=== PATIENT | female | born 1950 | race Caucasian/White ===

== ENCOUNTER 2016-08-18 14:40 | Inpatient (IN) ==
[2016-08-18] MEDS ORDERED: Ipratropium/Albuterol Neb 3 ML IH ONE ×2 (14:58→16:49)
[2016-08-18] MEDS ORDERED: methylPREDNISolone 125 MG/2 ML VIAL IVP ONE (14:59)
--- NOTE | 2016-08-18 15:06 | Emergency Department Note ---
Disposition Clinical Impression: COPD with exacerbation, Bed bug bite, Anemia, Renal insufficiency Disposition: Admitted As Inpatient Condition: Good Referrals: NO,PCP [Primary Care Provider] - Forms: ED Satisfaction Letter SOB HPI - General Chief Complaint: ED Shortness of Breath/Dyspnea Stated Complaint: SOB Time Seen by Provider: 08/18/16 14:46 Source: patient Nursing Notes Reviewed: Yes Vital Signs Reviewed: Yes - History of Present Illness 65-year-old female presents emergency room for shortness of breath for the past few weeks. Patient has an underlying history of COPD. She is a current every day smoker. She does not work home oxygen. She was brought to the ER via ambulance. Patient smokes anywhere from half a pack cigarettes or more a day. She has a long history of smoking. She denies chest pain. She does admit to increasing cough but no significant sputum production. No lower leg pain or swelling. No other complaints at this time. She was found to have bedbugs upon arrival to the ER. She was put through the decontamination shower. Pt Subjective Complaint: shortness of breath Onset (ago): week(s) Context: smoke/fume exposure Severity: mild Consistency/Duration: constant Improves with: oxygen Worsens with: nothing Known history of: COPD Associated symptoms: Reports: cough, wheezing, sputum production. Denies: chest pain Treatment prior to arrival: oxygen Cough present: Yes Cough Description: Productive, Moist Cough Frequency: Intermittent Sputum production: Yes Sputum Amount: Small - Related Data Home Medications Medication Instructions Recorded Confirmed Lisinopril [Zestril] 40 mg PO DAILY 07/15/15 01/02/16 Alprazolam [Xanax 0.5 MG Tablet] 0.5 mg PO DAILY PRN 01/02/16 01/02/16 Amoxicillin [Amoxil] 500 mg PO TID 01/02/16 01/02/16 Carvedilol [Coreg] 25 mg PO BID 01/02/16 01/02/16 Pravastatin Sodium [Pravachol] 20 mg PO DAILY 01/02/16 01/02/16 Previous Rx's Medication Instructions Recorded Albuterol Sulfate [Proair Hfa] 1 puff IH Q4HR PRN #1 inh 07/24/15 Ipratropium/Albuterol Neb [Duoneb] 3 ml IH [id number] #120 inhsol 12/04/15 Nicotine Patch [Nicoderm] 21 mg TD DAILY #30 patch.td24 12/04/15 PredniSONE 40 mg PO DAILY #32 tablet 12/04/15 Albuterol Sulfate [Albuterol 0 puff IH Q4HR #1 hfa.aer.ad 03/08/16 Inhaler] GuaiFENesin/Pseudophedrine 1 each PO BID #10 tab.er.12h 03/08/16 [Mucinex D] Allergies Allergy/AdvReac Type Severity Reaction Status Date / Time No Known Allergies Allergy Verified 12/03/15 16:32 All systems ED: reviewed and negative except as stated. Cardiovascular: Reports: as per HPI Respiratory: Reports: cough, dyspnea, wheezes Gastrointestinal: Reports: as per HPI Musculoskeletal: Reports: as per HPI Integumentary: Reports: as per HPI Neurological: Reports: as per HPI Psychiatric: Reports: as per HPI Endocrine: Reports: as per HPI Hematological/Lymphatic: Reports: as per HPI Allergic/Immunologic: Reports: as per HPI Past Medical History - Past Medical History Medical history: Reports: cancer, COPD Surgical history: Reports: cancer surgery Psychiatric history: Reports: anxiety, depression, schizophrenia - Social History Smoking Status: Current every day smoker Smokeless Tobacco Status: No Alcohol use: Reports: none Drug use: Reports: none Physical Exam - General General appearance: alert, in no apparent distress - Head Head exam: atraumatic, normocephalic - Chest Chest inspection: Present: normal inspection, symmetric chest wall rise. Absent : tenderness, rash - Respiratory Respiratory exam: Present: wheezes (Bilateral wheezes heard throughout) - Cardiovascular Cardiovascular exam: Present: regular rate, normal rhythm - Abdominal Exam Abdominal exam: Present: soft, Non-Tender - Rectal Exam Leadership Program Intern present during exam: Yes (Tech ) Rectal exam: Present: normal inspection, normal rectal tone. Absent: black stool, bloody stool, hemorrhoids, mass, tenderness - Extremities Exam Extremities exam: Present: normal inspection, full ROM. Absent: tenderness, pedal edema, joint swelling - Back Exam Back exam: Present: normal inspection - Neurological Exam Neurological exam: Present: alert, oriented X3 - Psychiatric Psychiatric exam: Present: normal affect, normal mood - Skin Skin exam: Present: warm, dry, intact, rash (Diffuse bedbug bites over her torso excluding the back and also all over her lower extremities) Course Vital Signs Temperature 98.6 F 04/16/17 14:41 Pulse Rate 97 08/18/16 14:41 Respiratory Rate 20 08/18/16 14:41 Blood Pressure 162/95 08/18/16 14:41 O2 Sat by Pulse Oximetry 100 08/18/16 14:41 Temperature 98.6 F 08/18/16 14:41 Pulse Rate 97 08/18/16 14:41 Respiratory Rate 20 08/18/16 14:41 Blood Pressure 162/95 08/18/16 14:41 O2 Sat by Pulse Oximetry 100 08/18/16 16:04 Oxygen Delivery Oxygen Delivery Nasal Cannula Shortness of Breath/Dyspnea - MDM Narrative Medical decision making narrative: Patient doing better after breathing treatments. Chest x-ray is clear. She does have COPD findings. Lab works is otherwise unremarkable. We will admit the patient for observation - Differential Diagnosis Likely: acute exacerbation of chronic obstructive airways disease - Medical Records Medical records reviewed: Yes I reviewed the patient's medical records. - Lab Data Lab results reviewed: Yes I reviewed the patient's lab results. Result diagrams: 08/18/16 15:36 08/18/16 15:36 Lab Results 08/18/16 08/18/16 08/18/16 Range/Units 15:36 15:36 15:36 WBC 6.4 (4.3-11.1) K/mcL RBC 4.08 (3.82-4.97) M/mcL Hgb 6.8 L (11.5-15.4) g/dL Hct 24.6 L (35.3-44.9) % MCV 60.3 L (83.0-100.0) fL MCH 16.7 L (28.0-33.3) pg MCHC 27.6 L (31.6-35.5) g/dL RDW 19.4 H (11.5-14.5) % Plt Count 227 (140-400) K/mcL MPV 8.9 L (9.4-12.4) fL Immature Gran % 0.3 (0-4) % Seg Neutrophils % 70.8 % Lymphocytes % 17.2 % Monocytes % 7.1 % Eosinophils % 4.1 % Basophils % 0.5 % Neutrophils # 4.5 (1.6-8.9) K/mcL Lymphocytes # 1.1 (0.6-4.6) K/mcL Monocytes # 0.5 (0.0-1.3) K/mcL Eosinophils # 0.3 (0.0-0.6) K/mcL Basophils # 0.0 (0.0-0.2) K/mcL Sodium 142 (136-145) mEq/L Potassium 3.7 (3.5-4.5) mEq/L Chloride 106 (98-109) mEq/L Carbon Dioxide 29 (19-29) mEq/L BUN 8 (7-20) mg/dL Creatinine 0.56 L (0.57-1.11) mg/dL Est GFR ( Amer) > 60 (> 60) Est GFR (Non-Af Amer) > 60 (> 60) BUN/Creatinine Ratio 14 (6-26) Glucose 98 (70-99) mg/dL Calculated Osmolality 292 (280-300) Calcium 8.4 L (8.6-10.8) mg/dL Troponin I 0.00 (0-0.03) ng/mL Stool Occult Blood (Negative) 08/18/16 Range/Units 16:10 WBC (4.3-11.1) K/mcL RBC (3.82-4.97) M/mcL Hgb (11.5-15.4) g/dL Hct (35.3-44.9) % MCV (83.0-100.0) fL MCH (28.0-33.3) pg MCHC (31.6-35.5) g/dL RDW (11.5-14.5) % Plt Count (140-400) K/mcL MPV (9.4-12.4) fL Immature Gran % (0-4) % Seg Neutrophils % % Lymphocytes % % Monocytes % % Eosinophils % % Basophils % % Neutrophils # (1.6-8.9) K/mcL Lymphocytes # (0.6-4.6) K/mcL Monocytes # (0.0-1.3) K/mcL Eosinophils # (0.0-0.6) K/mcL Basophils # (0.0-0.2) K/mcL Sodium (136-145) mEq/L Potassium (3.5-4.5) mEq/L Chloride (98-109) mEq/L Carbon Dioxide (19-29) mEq/L BUN (7-20) mg/dL Creatinine (0.57-1.11) mg/dL Est GFR ( Amer) (> 60) Est GFR (Non-Af Amer) (> 60) BUN/Creatinine Ratio (6-26) Glucose (70-99) mg/dL Calculated Osmolality (280-300) Calcium (8.6-10.8) mg/dL Troponin I (0-0.03) ng/mL Stool Occult Blood Negative (Negative) - Radiology Data Radiology results reviewed: Yes I reviewed the patient's radiology results. - EKG Data EKG attestation: Yes I reviewed and interpreted this EKG. EKG results narrative: Rate of 93. Normal sinus rhythm. Normal axis. Intervals are normal. She does have some ST segment depression in the lateral leads. This appears to be more prominent on this EKG as compared to the EKG from February 2016.
[2016-08-18 15:51] LABS: Basophils % 0.5 %; Eosinophils # 0.3 K/mcL (0.0-0.6); Eosinophils % 4.1 %; Hematocrit 24.6 % (35.3-44.9); Hemoglobin 6.8 g/dL (11.5-15.4); Immature Granulocytes % 0.3 % (0-4); Lymphocytes # 1.1 K/mcL (0.6-4.6); Lymphocytes % 17.2 %; Mean Corpuscular HGB Conc 27.6 g/dL (31.6-35.5); Mean Corpuscular Hemoglobin 16.7 pg (28.0-33.3); Mean Corpuscular Volume 60.3 fL (83.0-100.0); Mean Platelet Volume 8.9 fL (9.4-12.4); Monocytes # 0.5 K/mcL (0.0-1.3); Monocytes % 7.1 %; Neutrophils # 4.5 K/mcL (1.6-8.9); Platelet Count 227 K/mcL (140-400); Red Blood Count 4.08 M/mcL (3.82-4.97); Red Cell Distribution Width 19.4 % (11.5-14.5); Segmented Neutrophils % 70.8 %
[2016-08-18 16:09] LABS: BUN/Creatinine Ratio 14 (6-26); Blood Urea Nitrogen 8 mg/dL (7-20); Calcium 8.4 mg/dL (8.6-10.8); Carbon Dioxide 29 mEq/L (19-29); Chloride 106 mEq/L (98-109); Glucose 98 mg/dL (70-99); Osmolality,Calculated 292 (280-300); Potassium 3.7 mEq/L (3.5-4.5); Sodium 142 mEq/L (136-145); eGFR For African Americans > 60 (> 60); eGFR For Non-African Americans > 60 (> 60)
[2016-08-18] MEDS ORDERED: Naloxone 0.4 MG/ML INJ IVP PRN (20:35)
[2016-08-18] MEDS ORDERED: Ondansetron 4 MG/2 ML VIAL IVP PRN (20:35)
[2016-08-18] MEDS ORDERED: *HR* Morphine 2 MG/ML SYRINGE IVP PRN (20:35)
--- NOTE | 2016-08-18 20:45 | Internal Med History&Physical ---
Date of Encounter: 08/18/16 Time of Encounter: 20:43 Assessment and Plan (1) Acute blood loss anemia Current visit: Yes Status: Acute Acute blood loss anemia secondary to GI bleed possibly upper Nothing by mouth after midnight, GI consult needs to be called Order 1 unit of red blood cells, transfuse as needed *Protonix IV Sequential compression devices for DVT prophylaxis the patient will be admitted as inpatient, expected to stay more than 2 midnights. Full code. Time spent his admission 40 minutes. High risk due to GI bleed (2) COPD with exacerbation Current visit: No Status: Acute Acute COPD exacerbation likely secondary to bronchitis bacterial versus viral Continue Solu-Medrol, DuoNeb's and Rocephin Oxygen therapy (3) Bronchitis Current visit: No Status: Acute (4) Tobacco abuse disorder Current visit: No Status: Chronic Smoking cessation counseling given for 5 minutes. Nicotine patch ordered (5) Schizophrenia Current visit: No Status: Chronic Qualifiers: Schizophrenia type: unspecified Qualified Code(s): F20.9 - Schizophrenia, unspecified (6) HTN (hypertension) Current visit: No Status: Chronic Accelerated hypertension Continue lisinopril, consider hydralazine IV if needed Patient was found to have bedbugs and will be in isolation Qualifiers: Hypertension type: essential hypertension Qualified Code(s): I10 - Essential (primary) hypertension Internal Medicine - H&P: HPI Chief complaint: shortness of breath Admitted From: Emergency Dept History of present illness: Ms. Lopez is a 65 year old female with a past medical history of COPD not oxygen dependent, tobacco abuse, anxiety, depression who came to the emergency room complaining of worsening difficulty breathing for the past month, has been having a dry cough that is being getting worse, bringing up some times clear to yellowish phlegm. His hemoglobin was found to be 6.8 and hematocrit 24.6, she says that she has been having dark stools for the past 2 weeks, denies taking any blood thinner. Blood pressure was 162/91, EKG is not in the chart at the moment but according to the ER notes it showed ST depressions in the lateral leads. She was given a dose of Solu-Medrol. Patient feels very weak, denies any sick contacts. Still smoking Past Med Surg Social Fam HX - Past Medical History Medical history: cancer (thoracic benign tumor), COPD (not oxygen dep), hyperlipidemia, hypertension Psychiatric history: anxiety, depression, schizophrenia - Past Surgical History Surgical History: cancer surgery (thoracic benign tumor removed) - Social History Smoking Status: Current every day smoker Packs per day: 1/2 PPD Smokeless Tobacco Status: No Alcohol use: none Drug use: none - Family History Mother Hx Family Cancer: Yes - Additional Family History Additional family history: mother with throat cancer Internal Medicine - H&P: Meds Lisinopril [Zestril] 40 mg PO DAILY 07/15/15 [History] Albuterol Sulfate [Proair Hfa] 1 puff IH Q4HR PRN #1 inh 07/24/15 [Rx] Ipratropium/Albuterol Neb [Duoneb] 3 ml IH [id number] #120 inhsol 12/04/15 [Rx] Nicotine Patch [Nicoderm] 21 mg TD DAILY #30 patch.td24 12/04/15 [Rx] PredniSONE 40 mg PO DAILY #32 tablet 12/04/15 [Rx] Alprazolam [Xanax 0.5 MG Tablet] 0.5 mg PO DAILY PRN 01/02/16 [History] Amoxicillin [Amoxil] 500 mg PO TID 01/02/16 [History] Carvedilol [Coreg] 25 mg PO BID 01/02/16 [History] Pravastatin Sodium [Pravachol] 20 mg PO DAILY 01/02/16 [History] Albuterol Sulfate [Albuterol Inhaler] 0 puff IH Q4HR #1 hfa.aer.ad 03/08/16 [Rx] GuaiFENesin/Pseudophedrine [Mucinex D] 1 each PO BID #10 tab.er.12h 03/08/16 [Rx ] Allergies No Known Allergies Allergy (Verified 12/03/15 16:32) All Systems PM: A 10-system review of systems was performed and is negative for pertinent findings except as documented above in the HPI. Review of systems: Denies chest pain, no abdominal pain, no dysuria. Very weak, other systems out of the 10 reviewed were negative - Constitutional Vitals: Temp Pulse Resp BP Pulse Ox 99.4 F 88 18 150/78 98 08/18/16 20:29 08/18/16 20:29 08/18/16 20:29 08/18/16 20:29 04/16/17 20:29 General appearance: Present: A&O X 3 - Head Head exam: Present: atraumatic, normocephalic - Eye Eye exam: Present: PERRL, conjuntiva pink, sclera anicteric Pupils: Present: PERRL - Neck Neck exam general surgery: Present: supple, trachea midline. Absent: lymphadenopathy - Respiratory Respiratory exam: Present: decreased breath sounds, CTAB, rales (diffuse crackles and wheezing), wheezes. Absent: accessory muscle use, rhonchi - Cardiovascular Cardiovascular exam: Present: RRR, +S1, +S2. Absent: diastolic murmur, gallop, rubs, systolic murmur - GI/Abdominal GI/Abdominal exam: Present: normal bowel sounds, soft, no peritoneal signs. Absent: distended, tenderness - Extremities Exam Extremities exam: Present: warm, radial pulses palpable and symetrical. Absent : calf tenderness, cyanotic, pedal edema - Neurological Exam Neurological exam: Present: CN II-XII intact, oriented X3, no focal deficits. Absent: pronater drift, facial droop, speech deficit - Skin Skin exam: Present: dry, intact Internal Med - H&P Results - Labs CBC & Chem 7: 08/18/16 15:36 08/18/16 15:36
[2016-08-18] MEDS: Ipratropium/Albuterol Neb 3 ML IH SCH (22:08)
[2016-08-18] MEDS: Ringers Solution, Lactated 1,000 ML IVC SCH (22:28)
[2016-08-18] MEDS: Pantoprazole 40 MG VIAL IVP SCH (22:30)
[2016-08-18] MEDS: Nicotine 21 MG PATCH.TD24 TD SCH (22:30)
[2016-08-18] MEDS: methylPREDNISolone 125 MG/2 ML VIAL IVP SCH (22:30)
[2016-08-19] MEDS ORDERED: 0.9 % Sodium Chloride 250 ML ONE (00:24)
[2016-08-19] MEDS: ALPRAZolam 0.5 MG TABLET PO PRN ×2 (02:57→11:25)
[2016-08-19] MEDS: Ipratropium/Albuterol Neb 3 ML IH SCH ×4 (04:37→23:10)
[2016-08-19] MEDS: Acetaminophen 325 MG TABLET PO PRN (05:10)
[2016-08-19 05:20] LABS: Hematocrit 24.9 % (35.3-44.9); Hemoglobin 7.3 g/dL (11.5-15.4); Mean Corpuscular HGB Conc 29.3 g/dL (31.6-35.5); Mean Corpuscular Hemoglobin 18.7 pg (28.0-33.3); Mean Corpuscular Volume 63.7 fL (83.0-100.0); Mean Platelet Volume 9.2 fL (9.4-12.4); Platelet Count 203 K/mcL (140-400); Red Blood Count 3.91 M/mcL (3.82-4.97)
[2016-08-19 05:37] LABS: BUN/Creatinine Ratio 28 (6-26); Blood Urea Nitrogen 17 mg/dL (7-20); Calcium 8.4 mg/dL (8.6-10.8); Carbon Dioxide 24 mEq/L (19-29); Chloride 106 mEq/L (98-109); Glucose 125 mg/dL (70-99); Osmolality,Calculated 289 (280-300); Potassium 4.1 mEq/L (3.5-4.5); Sodium 138 mEq/L (136-145); eGFR For African Americans > 60 (> 60); eGFR For Non-African Americans > 60 (> 60)
[2016-08-19 07:30] LABS: INR 1.2; Prothrombin Time 13.1 Seconds (9.4-12.1)
[2016-08-19] MEDS: Pantoprazole 40 MG VIAL IVP SCH ×2 (08:43→20:06)
[2016-08-19] MEDS: Nicotine 21 MG PATCH.TD24 TD SCH (08:44)
[2016-08-19] MEDS: methylPREDNISolone 125 MG/2 ML VIAL IVP SCH (08:44)
[2016-08-19] MEDS: Lisinopril 20 MG TABLET PO SCH (08:45)
--- NOTE | 2016-08-19 11:40 | Internal Med Progress Note ---
Date of Encounter: 08/19/16 Time of Encounter: 09:00 - Assessment and plan (1) Anemia Current Visit: Yes Status: Acute Assessment and plan: Etiology is undetermined. Review patient's old chart, she has a low hemoglobin in June 2016. MCV at 60s. Stool guaiac test negative in ER. - GI consult to rule out GI blood loss. - Anemia workup. - Had a 1 unit PRBC transfused. H&H improved, follow-up H&H change to rule out active bleeding. Qualifiers: Anemia type: unspecified type Qualified Code(s): D64.9 - Anemia, unspecified (2) COPD with exacerbation Current Visit: No Status: Acute Assessment and plan: Patient has shortness of breath in ER. History of COPD with home oxygen. Consider COPD exacerbation. - Improved after treatment. - Continue antibiotic, steroid, and bronchodilator. - Continue closely monitor patient. (3) Bronchitis Current Visit: No Status: Acute Assessment and plan: Continue symptomatic treatment. (4) Tobacco abuse disorder Current Visit: No Status: Chronic Assessment and plan: On nicotine patch (5) DVT prophylaxis Current Visit: No Status: Acute Assessment and plan: EPCD, no anticoagulation because of low hemoglobin (6) Schizophrenia Current Visit: No Status: Chronic Assessment and plan: Continue home medications Qualifiers: Schizophrenia type: unspecified Qualified Code(s): F20.9 - Schizophrenia, unspecified - Subjective Interval history: Patient is a 65-year-old female admitted for shortness of breath and a low hemoglobin. Her past medical history is significant for COPD, hypertension, hyperlipidemia, and schizophrenia. Patient was seen and examined. She is awake alert oriented 3. In no acute respiratory distress. Vital signs stable. Had a unit of blood transfusion, hemoglobin elevated from 6.8 to 7.3. Guaiac test negative. GI consult called. Will continue antibiotic and steroid and bronchodilator for COPD exacerbation. Anemia workup for anemia. Continue closely monitoring. - Constitutional Vitals: Temp Pulse Resp BP Pulse Ox 97.9 F 79 16 126/73 91 08/19/16 10:36 08/19/16 10:36 08/19/16 10:36 08/19/16 10:36 08/19/16 10:36 General appearance: Present: A&O X 3 - Head Head exam: Present: atraumatic, normocephalic - Eye Eye exam: Present: PERRL, conjuntiva pink, sclera anicteric Pupils: Present: PERRL - Neck Neck exam general surgery: Present: supple, trachea midline. Absent: lymphadenopathy - Respiratory Respiratory exam: Present: CTAB. Absent: accessory muscle use, rales, rhonchi, wheezes - Cardiovascular Cardiovascular exam: Present: RRR, +S1, +S2. Absent: diastolic murmur, gallop, rubs, systolic murmur - GI/Abdominal GI/Abdominal exam: Present: normal bowel sounds, soft, no peritoneal signs. Absent: distended, tenderness - Extremities Exam Extremities exam: Present: warm, radial pulses palpable and symetrical. Absent : calf tenderness, cyanotic, pedal edema - Neurological Exam Neurological exam: Present: CN II-XII intact, oriented X3, no focal deficits. Absent: pronater drift, facial droop, speech deficit - Skin Skin exam: Present: dry, intact Internal Medicine: Result - Labs CBC & Chem 7: 08/19/16 05:06 08/19/16 05:06 Labs: Short CBC 08/19/16 Range/Units 05:06 WBC 7.5 (4.3-11.1) K/mcL Hgb 7.3 L (11.5-15.4) g/dL Hct 24.9 L (35.3-44.9) % Plt Count 203 (140-400) K/mcL [facility] 08/19/16 05:06 Sodium 138 Potassium 4.1 Chloride 106 Carbon Dioxide 24 BUN 17 Creatinine 0.60 Glucose 125 H Calcium 8.4 L - ABG Interpretation ABG results: PT/INR, D-dimer PT 13.1 Seconds (9.4-12.1) H 08/19/16 07:18 - VTE Documentation of Mechanical Device: Intermittent pneumatic compression device Consult Discharge Plan - Plan Referrals: NO,PCP [Primary Care Provider] -
--- NOTE | 2016-08-19 12:32 | Gastroenterology Consult Note ---
<CardenasRaad gan Tito - Last Filed: 08/19/16 12:30> Date of Encounter: 08/19/16 Time of Encounter: 10:40 - Assessment and plan (1) Microcytic anemia Current Visit: Yes Status: Acute Assessment and plan: Hgb 6.8 on admission and Hgb 7.3 with MCV 63.7 today after receiving 1 unit PRBC. Hgb 01/01/2013 was 13.1. Plan for EGD tomorrow. Keep NPO at midnight. Check iron and ferritin from ED sample. (2) Melena Current Visit: Yes Status: Acute Assessment and plan: Pt reported dark tarry stools. Plan for EGD tomorrow. (3) COPD with exacerbation Current Visit: No Status: Acute - Time Spent With Patient Total time spent is greater than 50% in coordination of care (as documented) at patient's floor/unit and/or counseling patient: GI History of Present Illness - Data of Consult Patient: new to practice Consult date: 08/19/16 Requesting Physician: Bao Cook MD - Consult Narrative Reason for consult: GI Bleed History of present illness: Ms. Lopez is a 65 year old female vwith PMHx of COPD, HLD, HTN who presented to the ED with difficulty breathing for the past month. On admission, Hgb 6.8 and this AM Hgb 7.3. She has received 1 unit PRBC and was started on IV Protonix. She admits She denies chest pain, abdominal pain, nausea, vomiting, or hematochezia. She does admit to dark, tarry stools recently. Procedures: None NSAIDs: None Anticoagulation: None Past Med Surg Social Fam HX - Past Medical History Medical history: cancer, COPD, hyperlipidemia, hypertension Psychiatric history: anxiety, depression, schizophrenia - Past Surgical History Surgical History: cancer surgery - Social History Smoking Status: Current every day smoker Packs per day: 1/2 PPD Smokeless Tobacco Status: No Alcohol use: none Drug use: none - Family History Mother Adopted: [place]: [place] Family Member Ethnicity: Non- Living Status: Age at : 70 Cause of : THROAT CANCER Hx Family Cardiac Disorders: No Hx Family Respiratory Disorders: No Hx Family Cancer: Yes Hx Family GI Disorders: No Hx Family Genitourinary Disorders: No Hx Family Endocrine Disorder: Yes (KIDNEY DIS) Hx Family Musculoskeletal Disorders: No Hx Family Neuromuscular Disorders: No Hx Family Neurologic Disorders: No Hx Family HEENT Disorders: No Hx Family Autoimmune Disorders: No Hx Family Reproductive Disorders: No Hx Family Psychosocial Disorders: No Hx Family Medical Disorders: No - Gastrointestinal Gastrointestinal: Present: as per HPI - EENT Eyes: as per HPI Ears: Present: as per HPI Nose, mouth and throat: Present: as per HPI - Cardiovascular Cardiovascular ROS: Present: as per HPI - Respiratory Respiratory IM: Present: as per HPI - Genitourinary Genitourinary: Absent: change in color, Urinary frequency - Neurological ROS Neurological GI: Present: as per HPI - Hematologic/Lymphatic Hematologic/Lymphatic pediatric: Present: as per HPI - Musculoskeletal Musculoskeletal ROS GI: Present: as per HPI - Integumentary Integumentary GI: Present: as per HPI - Psychiatric ROS Psychiatric GI: Present: as per HPI - Endocrine Endocrine IM: Present: as per HPI - Constitutional Vitals: Temp Pulse Resp BP Pulse Ox 97.9 F 79 16 126/73 91 08/19/16 10:36 08/19/16 10:36 08/19/16 10:36 08/19/16 10:36 08/19/16 10:36 General appearance: Present: cooperative, A&O X 3, no acute distress, answers questions appropriately - Head Head exam: Present: atraumatic, normocephalic - Eye Eye exam: Present: normal appearance, sclera anicteric - ENT ENT exam: Present: mucous membranes dry - Neck Neck exam general surgery: Present: normal inspection, trachea midline - Respiratory Respiratory exam: Present: decreased breath sounds, CTAB. Absent: rales, rhonchi - Cardiovascular Cardiovascular exam: Present: RRR, +S1, +S2 - GI/Abdominal GI/Abdominal exam: Present: soft, no peritoneal signs. Absent: distended, firm , guarding, tenderness - Rectal Rectal exam: Present: deferred - Extremities Exam Extremities exam: Present: warm - Neurological Exam Neurological exam: Present: no focal deficits - Psychiatric Psychiatric exam: Present: normal affect, normal mood - Skin Skin exam: Present: dry, intact, normal color, warm Results - Labs CBC & Chem 7: 08/19/16 05:06 08/19/16 05:06 Labs: Last Result Calcium 8.4 mg/dL (8.6-10.8) L 08/19/16 05:06 Troponin I 0.00 ng/mL (0-0.03) 08/18/16 15:36 Stool Occult Blood Negative (Negative) 08/18/16 16:10 Entire Visit Hgb 7.3 g/dL (11.5-15.4) L 08/19/16 05:06 Hct 24.9 % (35.3-44.9) L 08/19/16 05:06 PT 13.1 Seconds (9.4-12.1) H 08/19/16 07:18 - ABG ABG results: PT/INR, D-dimer PT 13.1 Seconds (9.4-12.1) H 08/19/16 07:18 Consult Discharge Plan - Plan Referrals: NO,PCP [Primary Care Provider] - <Karon Soto - Last Filed: 08/19/16 14:03> Date of Encounter: 08/19/16 Time of Encounter: 14:00 - Time Spent With Patient Total time spent is greater than 50% in coordination of care (as documented) at patient's floor/unit and/or counseling patient: GI History of Present Illness - Data of Consult Requesting Physician: Bao Cook MD - Consult Narrative History of present illness: Ms. Lopez is a 65 year old female - Constitutional Vitals: Temp Pulse Resp BP Pulse Ox 97.9 F 79 16 126/73 91 08/19/16 10:36 08/19/16 10:36 08/19/16 10:36 08/19/16 10:36 08/19/16 10:36 Results - Labs CBC & Chem 7: 08/19/16 05:06 08/19/16 05:06 Labs: Last Result Calcium 8.4 mg/dL (8.6-10.8) L 08/19/16 05:06 Troponin I 0.00 ng/mL (0-0.03) 08/18/16 15:36 Stool Occult Blood Negative (Negative) 08/18/16 16:10 Entire Visit Hgb 7.3 g/dL (11.5-15.4) L 08/19/16 05:06 Hct 24.9 % (35.3-44.9) L 08/19/16 05:06 PT 13.1 Seconds (9.4-12.1) H 08/19/16 07:18 - ABG ABG results: PT/INR, D-dimer PT 13.1 Seconds (9.4-12.1) H 08/19/16 07:18 - Attending Attestation I examined this patient and my medical decision-making was reviewed with the FLOOD CONTROL ENGINEER/PA/Advanced Practice Nurse/Resident Physician. I agree with the documented findings, disposition and treatment plan as described except to the extent set forth below. Patient with microcytic anemia. We will do both an EGD and colonoscopy
[2016-08-19] MEDS: OLANZapine 10 MG TAB.RAPDIS PO SCH (12:58)
[2016-08-19] MEDS ORDERED: Polyethylene Glycol 3350 255 GM POWDER PO ONE (14:03)
[2016-08-19] MEDS: MethylPREDNISolone 40 MG/ML VIAL IVP SCH (20:06)
[2016-08-19] MEDS: Ringers Solution, Lactated 1,000 ML IVC SCH (21:00)
[2016-08-20] MEDS: Ipratropium/Albuterol Neb 3 ML IH SCH (05:07)
[2016-08-20 05:24] LABS: Basophils % 0.1 %; Hemoglobin 7.5 g/dL (11.5-15.4)
[2016-08-20 05:26] LABS: Hematocrit 25.5 % (35.3-44.9); Immature Granulocytes % 0.6 % (0-4); Lymphocytes # 1.1 K/mcL (0.6-4.6); Lymphocytes % 9.1 %; Mean Corpuscular HGB Conc 29.4 g/dL (31.6-35.5); Mean Corpuscular Hemoglobin 18.8 pg (28.0-33.3); Mean Corpuscular Volume 63.9 fL (83.0-100.0); Mean Platelet Volume 10.4 fL (9.4-12.4); Monocytes # 0.2 K/mcL (0.0-1.3); Monocytes % 1.6 %; Platelet Count 231 K/mcL (140-400); Red Blood Count 3.99 M/mcL (3.82-4.97); Red Cell Distribution Width 23.9 % (11.5-14.5); Segmented Neutrophils % 88.6 %
[2016-08-20 05:34] LABS: BUN/Creatinine Ratio 19 (6-26); Blood Urea Nitrogen 12 mg/dL (7-20); Calcium 8.5 mg/dL (8.6-10.8); Carbon Dioxide 27 mEq/L (19-29); Chloride 107 mEq/L (98-109); Glucose 143 mg/dL (70-99); Osmolality,Calculated 292 (280-300); Potassium 4.2 mEq/L (3.5-4.5); Sodium 140 mEq/L (136-145); eGFR For African Americans > 60 (> 60); eGFR For Non-African Americans > 60 (> 60)
[2016-08-20 05:52] LABS: Anisocytosis 1+ (Not Present); Hypochromasia Present (Not Present); Microcytosis Present (Not Present); Poikilocytosis 1+ (Not Present)
[2016-08-20 05:53] LABS: Ovalocytes 1+ (Not Present); Platelet Estimate Normal (Normal)
[2016-08-20 06:03] LABS: Folate 7.2 ng/mL (7.0-31.4)
--- NOTE | 2016-08-20 06:20 | Electrocardiograph Report ---
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
[2016-08-20 06:49] LABS: % Iron Saturation 2 % (15-50); Iron 10 mcg/dL (50-170); Transferrin 349 mg/dL (180-382)
[2016-08-20 07:09] LABS: Ferritin 7 ng/ml (5-204)
[2016-08-20] MEDS: OLANZapine 10 MG TAB.RAPDIS PO SCH (07:28)
[2016-08-20] MEDS: ALPRAZolam 0.5 MG TABLET PO PRN (07:28)
[2016-08-20] MEDS: Nicotine 21 MG PATCH.TD24 TD SCH (07:28)
[2016-08-20] MEDS: Lisinopril 20 MG TABLET PO SCH (07:28)
[2016-08-20] MEDS: Pantoprazole 40 MG VIAL IVP SCH ×2 (07:28→22:11)
[2016-08-20] MEDS: MethylPREDNISolone 40 MG/ML VIAL IVP SCH ×2 (07:28→22:11)
[2016-08-20] MEDS ORDERED: *HR* Midazolam HCl 5 MG/5 ML VIAL IVP ONE (07:46)
[2016-08-20] MEDS ORDERED: *HR* FentaNYL (PF) 100 MCG/2 ML VIAL ONE (07:46)
[2016-08-20] MEDS: *HR* Midazolam HCl 5 MG/5 ML VIAL IVP PRN ×3 (08:08→08:24)
[2016-08-20] MEDS: *HR* FentaNYL (PF) 100 MCG/2 ML VIAL IVP PRN ×3 (08:08→08:24)
[2016-08-20] MEDS ORDERED: Simethicone 40 MG/0.6 ML MLS IR ONE (08:10)
[2016-08-20] MEDS ORDERED: Tetracaine/Benzocaine/Butamben 200MG/SPRAY (100SPY/BOT) MM ONE (08:10)
--- NOTE | 2016-08-20 08:11 | Pre-Sedation Evaluation ---
Pre-sedation evaluation - Pre-sedation checklist Date of procedure: 08/20/16 Procedure: EGD/COLON Recent Vitals: Last Vital Signs Temp 98.8 F 08/20/16 07:59 Pulse 75 08/20/16 08:08 Resp 18 08/20/16 08:08 BP 159/79 08/20/16 08:08 Pulse Ox 100 08/20/16 08:08 H&P (including ROS) documented in medical record: Yes Previous reaction to sedatives/anesthetics: Unknown Dietary Status: NPO after Midnight Dentition: dentures removed ASA Classification *see protocol: CLASS III-Severe systemic disease Plan of Care: Pt appropriate candidate for procedure/moderate/conscious sedation , Risks/benefits of procedure/sedation discussed w/ patient/family
[2016-08-20] MEDS ORDERED: Ipratropium/Albuterol Neb 3 ML IH PRN (08:14)
[2016-08-20] MEDS ORDERED: 0.9 % Sodium Chloride 500 ML IVC SCH (08:15)
[2016-08-20] MEDS: Ringers Solution, Lactated 1,000 ML IVC SCH (14:25)
[2016-08-20] MEDS: Acetaminophen 325 MG TABLET PO PRN (14:47)
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
[2016-08-20] MEDS ORDERED: ALPRAZolam 0.5 MG TABLET PO PRN (18:48)
[2016-08-21 06:35] LABS: Basophils % 0.1 %; Hematocrit 25.6 % (35.3-44.9); Hemoglobin 7.6 g/dL (11.5-15.4); Immature Granulocytes % 0.6 % (0-4); Lymphocytes # 1.1 K/mcL (0.6-4.6); Lymphocytes % 9.9 %; Mean Corpuscular HGB Conc 29.7 g/dL (31.6-35.5); Mean Corpuscular Hemoglobin 18.9 pg (28.0-33.3); Mean Corpuscular Volume 63.5 fL (83.0-100.0); Mean Platelet Volume 10.5 fL (9.4-12.4); Monocytes # 0.3 K/mcL (0.0-1.3); Monocytes % 2.9 %; Nucleated Red Blood Cells 0.2 /100 WBC (0); Platelet Count 241 K/mcL (140-400); Red Blood Count 4.03 M/mcL (3.82-4.97); Red Cell Distribution Width 24.1 % (11.5-14.5); Segmented Neutrophils % 86.5 %
[2016-08-21 07:17] LABS: Neutrophils # 9.3 K/mcL (1.6-8.9)
[2016-08-21 07:18] LABS: Hypochromasia Present (Not Present); Microcytosis Present (Not Present); Platelet Estimate Normal (Normal)
[2016-08-21 07:19] LABS: Anisocytosis 2+ (Not Present); Target Cells 1+ (Not Present)
[2016-08-21 07:35] VITALS: BP 158/86
[2016-08-21] MEDS: Lisinopril 20 MG TABLET PO SCH (09:13)
[2016-08-21] MEDS: Pantoprazole 40 MG VIAL IVP SCH (09:13)
[2016-08-21] MEDS: MethylPREDNISolone 40 MG/ML VIAL IVP SCH (09:13)
[2016-08-21] MEDS: OLANZapine 10 MG TAB.RAPDIS PO SCH (09:13)
[2016-08-21] MEDS: Nicotine 21 MG PATCH.TD24 TD SCH (09:21)
--- NOTE | 2016-08-21 10:44 | Discharge Summary ---
Date of Encounter: 08/21/16 Time of Encounter: 09:00 - Discharge Diagnosis (1) Generalized weakness Priority: Primary Status: Acute Comments: She was seen and evaluated by OT and PT on day of discharge and they both surmised she had no needs (2) Infestation by bed bug Priority: Primary Status: Acute (3) Benzodiazepine abuse Priority: Secondary Status: Chronic (4) COPD (chronic obstructive pulmonary disease) Priority: Secondary Status: Chronic Comments: Mild exacerbation that resolved. On room air on day of discharge. She denied shortness of breath above her normal day of discharge. Qualifiers: COPD type: COPD with acute exacerbation Qualified Code(s): J44.1 - Chronic obstructive pulmonary disease with (acute) exacerbation (5) Anxiety about health Priority: Secondary Status: Chronic (6) Pulmonary cachexia due to chronic obstructive pulmonary disease Priority: Secondary Status: Chronic Comments: Started on Ensure (7) Tobacco abuse disorder Priority: Secondary Status: Chronic Comments: Continues to smoke half pack per day, declines counseling (8) Acute respiratory failure with hypoxia Priority: Primary Status: Resolved (9) DVT prophylaxis Priority: Primary Status: Acute Comments: EPCD, no anticoagulation secondary to anemia (10) Schizophrenia Priority: Secondary Status: Chronic Comments: mood and affect stable during this admission. Qualifiers: Schizophrenia type: unspecified Qualified Code(s): F20.9 - Schizophrenia, unspecified (11) HTN (hypertension) Priority: Secondary Status: Chronic Comments: Borderline hypertensive at times, normotensive on day of discharge. At home, she is on lisinopril 40 mg daily, carvedilol 25 mg twice a day and these have both been continued. Recommend daily blood pressure checks at home Qualifiers: Hypertension type: essential hypertension Qualified Code(s): I10 - Essential (primary) hypertension (12) Anemia Priority: Primary Status: Acute Comments: in review of her chart, her anemia is new and worsened since march 2016. guaiac negative. GI was brought on board. EGD revealed mild gastritis. Colonoscopy unremarkable. She received 1 unit of packed red blood cells while admitted and remained hemodynamically stable for 3 days after her transfusion, though she still remained anemic with hemoglobin of 7.6 on day of discharge. No indication for further transfusions. Iron stores low, will supplement. B12 and folate normal. Qualifiers: Anemia type: unspecified type Qualified Code(s): D64.9 - Anemia, unspecified (13) Microcytic anemia Priority: Primary Status: Acute (14) Melena Priority: Primary Status: Resolved - Discharge Medications Prescriptions: Ferrous Sulfate 325 mg PO DAILY #30 tablet Hydrocortisone 1% CREAM [Cortaid] 1 appl TP BID PRN #1 bottle PRN Reason: Itching Lactose-Reduced Food [Ensure Plus] 1 bottle PO TID #90 can Omeprazole [PriLOSEC] 20 mg PO DAILY #30 cap PredniSONE 40 mg PO DAILY #8 tablet Home Medications: Lisinopril [Zestril] 40 mg PO DAILY 07/15/15 [History] Albuterol Sulfate [Proair Hfa] 1 puff IH Q4HR PRN #1 inh 07/24/15 [Rx] Ipratropium/Albuterol Neb [Duoneb] 3 ml IH [id number] #120 inhsol 12/04/15 [Rx] Nicotine Patch [Nicoderm] 21 mg TD DAILY #30 patch.td24 12/04/15 [Rx] Alprazolam [Xanax 0.5 MG Tablet] 0.5 mg PO DAILY PRN 01/02/16 [History] Carvedilol [Coreg] 25 mg PO BID 01/02/16 [History] Pravastatin Sodium [Pravachol] 20 mg PO DAILY 01/02/16 [History] Docusate Sodium [Move It Along] 100 mg PO BID 08/19/16 [History] Haloperidol Decanoate [Haldol Decanoate 100] 100 mg IM QMONTH 08/19/16 [History] Hydroxyzine HCl 25 mg PO BID 08/19/16 [History] OLANZapine [Zyprexa] 10 mg PO DAILY 08/19/16 [History] Trihexyphenidyl [Artane] 2 mg PO BID 08/19/16 [History] Ferrous Sulfate 325 mg PO DAILY #30 tablet 08/21/16 [Rx] Hydrocortisone 1% CREAM [Cortaid] 1 appl TP BID PRN #1 bottle 08/21/16 [Rx] Lactose-Reduced Food [Ensure Plus] 1 bottle PO TID #90 can 08/21/16 [Rx] Omeprazole [PriLOSEC] 20 mg PO DAILY #30 cap 08/21/16 [Rx] PredniSONE 40 mg PO DAILY #8 tablet 08/21/16 [Rx] Allergies/Adverse Reactions: Allergies No Known Allergies Allergy (Verified 07/31/16 16:32) Date of admission: 08/18/16 21:05 Primary care physician: PCP NO Consults: 08/20/16 18:47 Consult to Occupational Therapy [CONS] Routine Comment: Evaluate, develop and implement POC Consult to Physical Therapy [CONS] Routine Comment: Evaluate, develop and implement POC Consult to Cloth Designer [CONS] Routine Reason for SW Consult: will likely need HH svcs if available. states she'll refuse ecf. Discharging clinician: Jenn Robles Anticipated date of discharge: 08/21/16 (no needs per OT/PT) - Patient Status Disposition: Home Health Service Condition: Fair Functional capacity at discharge: independent ambulation Overall status at discharge: patient is back to baseline - Discharge Instructions Instructions: Iron Supplements (By mouth), Prednisone (By mouth), Omeprazole ( By mouth), Hydrocortisone (On the skin), Chronic Obstructive Pulmonary Disease ( DC), Anemia (GEN), Bed Bugs (GEN) Additional Instructions: Follow-up with primary care provider within one to 2 weeks - Diet and Activity Activity: increase activity as tolerated Diet: regular diet (with ensure tidwm) Hospital course: Ms. Lopez is a 65 year old female with past medical history of COPD, continued Tobacco abuse, anxiety and depression, hyperlipidemia, hypertension, schizophrenia. Patient presented to the emergency department chief complaint worsening shortness of breath 1 month associated with a dry cough that at times was productive of yellowish phlegm. Workup in the emergency department revealed anemia with initial hemoglobin of 6.8. Patient also endorsed dark stools 2 weeks. Chest x-ray negative. Patient was admitted to the hospitalist service for further evaluation and management. She was admitted and observed over the course of 4 days. She received 1 unit of packed red blood cells and then observed for 3 additional days. She remained hemodynamically stable. Her melena had resolved and her guaiac stool was negative. She was started on iron supplementation. B12 and folate were normal. GI was brought on board and performed an EGD that revealed mild gastritis. GI also performed a colonoscopy that was unremarkable. She was also noted to have a mild acute exacerbation of her COPD and initially required supplemental oxygen. She was weaned to room air prior to discharge and denies shortness of breath above her normal day of discharge. Also of note, patient was covered with bedbugs upon presentation. She was cleaned and bathed several times. Due to her generalized weakness, OT and PT consultations were obtained and both services surmised that the patient had no needs. She was given a prescription for Ensure. vocational services specialist was on board during this admission. She was discharged home in stable condition with close outpatient follow-up recommended. She was sent home with home health services. ITS Impressions Chest X-Ray 08/18/16 14:58 IMPRESSION: No evidence of acute disease. D/ / Siddharth Mckenzie MD / Siddharth Mckenzie MD Interpreting Provider: Siddharth Mckenzie MD - Time Spent with Patient Total time spent providing and/or coordinating discharge services: - Constitutional Vitals: Temp Pulse Resp BP Pulse Ox 98.2 F 67 15 158/86 94 08/21/16 07:34 08/21/16 07:34 08/21/16 07:34 08/21/16 07:34 08/21/16 07:34 General appearance: Present: A&O X 3, pleasant, no acute distress, answers questions appropriately - Head Head exam: Present: atraumatic, normocephalic - Eye Eye exam: Present: PERRL, conjuntiva pink, sclera anicteric Pupils: Present: PERRL - Neck Neck exam general surgery: Present: supple, trachea midline. Absent: lymphadenopathy - Respiratory Respiratory exam: Present: decreased breath sounds. Absent: accessory muscle use, rales, respiratory distress, rhonchi, wheezes - Cardiovascular Cardiovascular exam: Present: RRR, +S1, +S2. Absent: diastolic murmur, gallop, rubs, systolic murmur - GI/Abdominal GI/Abdominal exam: Present: normal bowel sounds, soft, no peritoneal signs. Absent: distended, tenderness - Extremities Exam Extremities exam: Present: warm, radial pulses palpable and symetrical. Absent : calf tenderness, cyanotic, pedal edema - Neurological Exam Neurological exam: Present: alert, CN II-XII intact, oriented X3, no focal deficits, strengths equal and symetr throughout, speech deficit (2/2 loose top dentures and no teeth on bottom; Ox3). Absent: pronater drift, facial droop - Skin Skin exam: Present: dry, intact, pallor, warm - VTE Documentation of Mechanical Device: Intermittent pneumatic compression device
--- NOTE | 2016-08-21 14:35 | Physician Discharge Referral ---
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 For more information, call the [place] Tobacco Quit Line at 0-914-QZHZ-NOW. - Diet/Nutrition Diet/Nutrition Orders: Regular (with ensure tidwm) - Activity Activity Orders: Up ad jayson, Ambulate (per PT) - Services Needed Following services are medically necessary services: Nursing, Home Health Aide, Physical Therapy, Occupational Therapy - Transfer Medications Prescriptions: Ferrous Sulfate 325 mg PO DAILY #30 tablet Hydrocortisone 1% CREAM [Cortaid] 1 appl TP BID PRN #1 bottle PRN Reason: Itching Lactose-Reduced Food [Ensure Plus] 1 bottle PO TID #90 can Omeprazole [PriLOSEC] 20 mg PO DAILY #30 cap PredniSONE 40 mg PO DAILY #8 tablet Home Medications: Lisinopril [Zestril] 40 mg PO DAILY 07/15/15 [History] Albuterol Sulfate [Proair Hfa] 1 puff IH Q4HR PRN #1 inh 07/24/15 [Rx] Ipratropium/Albuterol Neb [Duoneb] 3 ml IH [id number] #120 inhsol 12/04/15 [Rx] Nicotine Patch [Nicoderm] 21 mg TD DAILY #30 patch.td24 12/04/15 [Rx] Alprazolam [Xanax 0.5 MG Tablet] 0.5 mg PO DAILY PRN 01/02/16 [History] Carvedilol [Coreg] 25 mg PO BID 01/02/16 [History] Pravastatin Sodium [Pravachol] 20 mg PO DAILY 01/02/16 [History] Docusate Sodium [Move It Along] 100 mg PO BID 08/19/16 [History] Haloperidol Decanoate [Haldol Decanoate 100] 100 mg IM QMONTH 08/19/16 [History] Hydroxyzine HCl 25 mg PO BID 08/19/16 [History] OLANZapine [Zyprexa] 10 mg PO DAILY 08/19/16 [History] Trihexyphenidyl [Artane] 2 mg PO BID 08/19/16 [History] Ferrous Sulfate 325 mg PO DAILY #30 tablet 08/21/16 [Rx] Hydrocortisone 1% CREAM [Cortaid] 1 appl TP BID PRN #1 bottle 08/21/16 [Rx] Lactose-Reduced Food [Ensure Plus] 1 bottle PO TID #90 can 08/21/16 [Rx] Omeprazole [PriLOSEC] 20 mg PO DAILY #30 cap 08/21/16 [Rx] PredniSONE 40 mg PO DAILY #8 tablet 08/21/16 [Rx] Allergies/Adverse Reactions: Allergies No Known Allergies Allergy (Verified 12/03/15 16:32) Certification: Further, I certify that my clinical findings support that this patient is homebound (i.e. absences from home require considerable and taxing effort and are for medical reasons or hindu services or infrequently or short duration when for other reasons) because: Homebound Reason: Leaving home requires considerable and taxing effort due to condition, Severity of cardiac or pulmonary status limits activity tolerance Attestation: My signature below is to certify that this patient is under my care and that I, or nurse practitioner, or a physician's tutoring assistant working with me, has a face-to -face encounter with this patient.
== END 2016-08-21 14:08 | disposition home health service (06) | DRG 254 ==
LOC: 3BNU 14:40 → EMEROO 14:40 → 3BNU 17:50 → SUATTDRO 21:05
PROVIDERS: ADMIT Internal Medicine Endocrinology, Diabetes & Metabolism; ATTEND Nurse Practitioner Family
PROC: ENDOEBX (2016-08-20 08:15)

== ENCOUNTER 2016-11-05 18:22 | Observation (INO) ==
[2016-11-05] MEDS ORDERED: methylPREDNISolone 125 MG/2 ML VIAL IVP ONE (18:24)
[2016-11-05] MEDS ORDERED: Ipratropium/Albuterol Neb 3 ML IH ONE (18:24)
--- NOTE | 2016-11-05 18:28 | Emergency Department Note ---
Disposition Clinical Impression: COPD (chronic obstructive pulmonary disease) Qualifiers: COPD type: unspecified COPD Qualified Code(s): J44.9 - Chronic obstructive pulmonary disease, unspecified Disposition: Admitted As Inpatient Condition: Fair Referrals: NO,PCP [Primary Care Provider] - Forms: ED Satisfaction Letter Time of Disposition: 20:51 SOB HPI - General Chief Complaint: ED Shortness of Breath/Dyspnea Stated Complaint: "sob, can't walk, couldn't get up" Time Seen by Provider: 11/05/16 18:28 Source: patient Mode of arrival: ambulatory Limitations: no limitations Nursing Notes Reviewed: Yes Vital Signs Reviewed: Yes - History of Present Illness In with increasing shortness of breath over the last 3-4 days with a history of COPD. Was found to have a low pulse ox on arrival squad transported here. Patient was noted to have a significant number of bedbugs was decontaminated prior to entering the ER. I will patient still complains of shortness of breath although squad reports patient has improved. Pt Subjective Complaint: shortness of breath, cough Onset (ago): day(s) Context: recent illness Severity: moderate Consistency/Duration: constant Improves with: oxygen, bronchodilators Worsens with: exertion, coughing Known history of: COPD Associated symptoms: Reports: cough, wheezing Treatment prior to arrival: oxygen, bronchodilator Cough present: Yes Cough Description: Involuntary Cough Frequency: Intermittent Sputum Amount: None - Related Data Home Medications Medication Instructions Recorded Confirmed Lisinopril [Zestril] 40 mg PO DAILY 07/15/15 08/19/16 ALPRAZolam [Xanax 0.5 MG Tablet] 0.5 mg PO DAILY PRN 01/02/16 08/19/16 Carvedilol [Coreg] 25 mg PO BID 01/02/16 08/19/16 Pravastatin Sodium [Pravachol] 20 mg PO DAILY 01/02/16 08/19/16 Docusate Sodium [Move It Along] 100 mg PO BID 08/19/16 08/19/16 Haloperidol Decanoate [Haldol 100 mg IM QMONTH 08/19/16 08/19/16 Decanoate 100] OLANZapine [Zyprexa] 10 mg PO DAILY 08/19/16 08/19/16 Trihexyphenidyl [Artane] 2 mg PO BID 08/19/16 08/19/16 hydrOXYzine HCl [Hydroxyzine HCl] 25 mg PO BID 08/19/16 08/19/16 Previous Rx's Medication Instructions Recorded Albuterol Sulfate [Proair Hfa] 1 puff IH Q4HR PRN #1 inh 07/24/15 Ipratropium/Albuterol Neb [Duoneb] 3 ml IH [id number] #120 inhsol 12/04/15 Nicotine Patch [Nicoderm] 21 mg TD DAILY #30 patch.td24 12/04/15 Ferrous Sulfate 325 mg PO DAILY #30 tablet 08/21/16 Hydrocortisone 1% CREAM [Cortaid] 1 appl TP BID PRN #1 bottle 08/21/16 Lactose-Reduced Food [Ensure Plus] 1 bottle PO TID #90 can 08/21/16 Omeprazole [PriLOSEC] 20 mg PO DAILY #30 cap 08/21/16 predniSONE [PredniSONE] 40 mg PO DAILY #8 tablet 08/21/16 Azithromycin [Azithromycin 6-Tab 250 mg PO PER PKG DI #6 tab 10/17/16 Pack] PredniSONE [Deltasone] 40 mg PO DAILY #10 tablet 10/17/16 Allergies Allergy/AdvReac Type Severity Reaction Status Date / Time No Known Allergies Allergy Verified 12/03/15 16:32 All systems ED: reviewed and negative except as stated. Constitutional: Denies: fever, chills, weakness, weight change Eyes: Denies: eye pain, eye discharge, vision change ENT ED: Denies: ear pain, throat pain, dental pain, hearing loss, epistaxis, congestion, dysphagia Cardiovascular: Denies: chest pain, palpitations, dyspnea on exertion, edema, syncope Respiratory: Reports: cough, dyspnea, wheezes. Denies: hemoptysis, stridor Gastrointestinal: Denies: abdominal pain, nausea, vomiting, diarrhea, constipation, hematemesis, melena, hematochezia Genitourinary: Denies: dysuria, frequency, hematuria, discharge Musculoskeletal: Denies: back pain, neck pain, arthralgia, myalgia Integumentary: Denies: rash, abrasion, lesions Neurological: Denies: headache, weakness, numbness, paresthesias, confusion, abnormal gait, vertigo Psychiatric: Denies: anxiety, depression, suicidal thoughts, homicidal thoughts , auditory hallucinations, visual hallucinations Endocrine: Denies: fatigue Hematological/Lymphatic: Denies: easy bleeding, easy bruising Allergic/Immunologic: Denies: facial swelling, urticaria Past Medical History - Past Medical History Medical history: Reports: cancer, COPD, hyperlipidemia, hypertension Surgical history: Reports: cancer surgery Psychiatric history: Reports: anxiety, depression, schizophrenia - Social History Smoking Status: Current every day smoker Smokeless Tobacco Status: No Alcohol use: Reports: none Drug use: Reports: none Physical Exam - General Limitations: no limitations General appearance: alert, in no apparent distress - Head Head exam: atraumatic, normocephalic, normal inspection - Eye Eye exam: Present: normal appearance, PERRL, EOMI - ENT ENT exam: normal exam, normal oropharynx, mucous membranes moist - Neck Neck exam: Present: normal inspection, full ROM, trachea midline - Chest Chest inspection: Present: normal inspection, symmetric chest wall rise - Respiratory Respiratory exam: Present: respiratory distress, wheezes - Cardiovascular Cardiovascular exam: Present: regular rate, normal rhythm, normal heart sounds - Abdominal Exam Abdominal exam: Present: soft, Non-Tender. Absent: tenderness, distention, guarding, rebound, rigidity - Extremities Exam Extremities exam: Present: normal inspection, full ROM. Absent: tenderness, pedal edema - Expanded Lower Extremity Exam Neurovascular/Tendon exam: Absent: motor deficit, sensory deficit, tendon deficit Gait: observed and normal - Back Exam Back exam: Present: normal inspection, full ROM. Absent: tenderness - Neurological Exam Neurological exam: Present: alert, oriented X3 - Psychiatric Psychiatric exam: Present: normal affect, normal mood - Skin Skin exam: Present: warm, dry, intact, normal color Course - Reevaluation(s) Reevaluation #1: 65-year-old history COPD comes in with increasing shortness of breath. Patient had a low pulse ox at home per squad. Patient was treated here with breathing treatments with some improvement. Chest x-ray shows no evidence of pneumonia. Patient also noted to have a hemoglobin of 7.4. Patient had a colonoscopy that didn't really show anything here in the last couple months. A endoscopy did show gastritis. Time: 20:49 - Consultations Consultation #1: Discussed with Dr. Harp, admit. Time: 20:50 Vital Signs Pulse Rate 88 11/05/16 18:24 Respiratory Rate 16 11/05/16 18:24 Blood Pressure 143/73 11/05/16 18:24 O2 Sat by Pulse Oximetry 93 11/05/16 18:24 Temperature 98.6 F 11/05/16 18:26 Pulse Rate 99 11/05/16 19:24 Respiratory Rate 16 11/05/16 19:24 Blood Pressure 101/77 11/05/16 19:24 O2 Sat by Pulse Oximetry 92 11/05/16 19:24 Oxygen Delivery Oxygen Delivery Nasal Cannula Shortness of Breath/Dyspnea - Lab Data Lab results reviewed: Yes I reviewed the patient's lab results. Result diagrams: 11/05/16 19:39 11/05/16 19:39 Lab Results 11/05/16 11/05/16 11/05/16 Range/Units 19:39 19:39 19:39 WBC 6.6 (4.3-11.1) K/mcL RBC 3.63 L (3.82-4.97) M/mcL Hgb 7.4 L (11.5-15.4) g/dL Hct 25.2 L (35.3-44.9) % MCV 69.4 L (83.0-100.0) fL MCH 20.4 L (28.0-33.3) pg MCHC 29.4 L (31.6-35.5) g/dL RDW 23.9 H (11.5-14.5) % Plt Count 265 (140-400) K/mcL MPV 8.8 L (9.4-12.4) fL Immature Gran % 0.3 (0-4) % Seg Neutrophils % 73.3 % Lymphocytes % 15.4 % Monocytes % 7.5 % Eosinophils % 3.0 % Basophils % 0.5 % Neutrophils # 4.8 (1.6-8.9) K/mcL Lymphocytes # 1.0 (0.6-4.6) K/mcL Monocytes # 0.5 (0.0-1.3) K/mcL Eosinophils # 0.2 (0.0-0.6) K/mcL Basophils # 0.0 (0.0-0.2) K/mcL Platelet Estimate Normal (Normal) Hypochromasia Present A (Not Present) Anisocytosis 2+ A (Not Present) Microcytosis Present A (Not Present) Sodium 139 (136-145) mEq/L Potassium 4.0 (3.5-4.5) mEq/L Chloride 103 (98-109) mEq/L Carbon Dioxide 29 (19-29) mEq/L BUN 10 (7-20) mg/dL Creatinine 0.62 (0.57-1.11) mg/dL Est GFR ( Amer) > 60 (> 60) Est GFR (Non-Af Amer) > 60 (> 60) BUN/Creatinine Ratio 16 (6-26) Glucose 96 (70-99) mg/dL Calculated Osmolality 287 (280-300) Lactic Acid 1.0 (0.5-2.2) mmol/L Calcium 8.7 (8.6-10.8) mg/dL Troponin I (0-0.03) ng/mL B-Natriuretic Peptide (0-100) pg/mL 11/05/16 11/05/16 Range/Units 19:39 19:39 WBC (4.3-11.1) K/mcL RBC (3.82-4.97) M/mcL Hgb (11.5-15.4) g/dL Hct (35.3-44.9) % MCV (83.0-100.0) fL MCH (28.0-33.3) pg MCHC (31.6-35.5) g/dL RDW (11.5-14.5) % Plt Count (140-400) K/mcL MPV (9.4-12.4) fL Immature Gran % (0-4) % Seg Neutrophils % % Lymphocytes % % Monocytes % % Eosinophils % % Basophils % % Neutrophils # (1.6-8.9) K/mcL Lymphocytes # (0.6-4.6) K/mcL Monocytes # (0.0-1.3) K/mcL Eosinophils # (0.0-0.6) K/mcL Basophils # (0.0-0.2) K/mcL Platelet Estimate (Normal) Hypochromasia (Not Present) Anisocytosis (Not Present) Microcytosis (Not Present) Sodium (136-145) mEq/L Potassium (3.5-4.5) mEq/L Chloride (98-109) mEq/L Carbon Dioxide (19-29) mEq/L BUN (7-20) mg/dL Creatinine (0.57-1.11) mg/dL Est GFR ( Amer) (> 60) Est GFR (Non-Af Amer) (> 60) BUN/Creatinine Ratio (6-26) Glucose (70-99) mg/dL Calculated Osmolality (280-300) Lactic Acid (0.5-2.2) mmol/L Calcium (8.6-10.8) mg/dL Troponin I 0.01 (0-0.03) ng/mL B-Natriuretic Peptide 173 H (0-100) pg/mL - Radiology Data Radiology results reviewed: Yes I reviewed the patient's radiology results. Chest X-Ray 11/05/16 18:24 IMPRESSION: No acute process. D/ / Mason Griggs MD / Mason Griggs MD Interpreting Provider: Mason Griggs MD - EKG Data EKG attestation: Yes I reviewed and interpreted this EKG. EKG shows normal: Reports: sinus rhythm Rate: Reports: normal Rhythm: Reports: NSR Interpretation: Reports: no acute changes
[2016-11-05 19:55] LABS: Basophils % 0.5 %; Eosinophils # 0.2 K/mcL (0.0-0.6); Hematocrit 25.2 % (35.3-44.9); Immature Granulocytes % 0.3 % (0-4); Lymphocytes % 15.4 %; Mean Corpuscular HGB Conc 29.4 g/dL (31.6-35.5); Mean Corpuscular Hemoglobin 20.4 pg (28.0-33.3); Mean Corpuscular Volume 69.4 fL (83.0-100.0); Mean Platelet Volume 8.8 fL (9.4-12.4); Monocytes # 0.5 K/mcL (0.0-1.3); Monocytes % 7.5 %; Neutrophils # 4.8 K/mcL (1.6-8.9); Platelet Count 265 K/mcL (140-400); Red Blood Count 3.63 M/mcL (3.82-4.97); Red Cell Distribution Width 23.9 % (11.5-14.5); Segmented Neutrophils % 73.3 %
[2016-11-05 20:04] LABS: BUN/Creatinine Ratio 16 (6-26); Blood Urea Nitrogen 10 mg/dL (7-20); Calcium 8.7 mg/dL (8.6-10.8); Carbon Dioxide 29 mEq/L (19-29); Chloride 103 mEq/L (98-109); Glucose 96 mg/dL (70-99); Osmolality,Calculated 287 (280-300); Sodium 139 mEq/L (136-145); eGFR For African Americans > 60 (> 60); eGFR For Non-African Americans > 60 (> 60)
[2016-11-05 20:06] LABS: Hemoglobin 7.4 g/dL (11.5-15.4)
[2016-11-05 20:10] LABS: Anisocytosis 2+ (Not Present); Hypochromasia Present (Not Present); Microcytosis Present (Not Present); Platelet Estimate Normal (Normal)
[2016-11-05] MEDS ORDERED: Naloxone 0.4 MG/ML INJ IVP PRN (22:12)
[2016-11-05] MEDS ORDERED: Albuterol 2.5 MG/3 ML NEBULIZER IH PRN (22:18)
[2016-11-05 22:21] LABS: % Iron Saturation 2 % (15-50); Iron 12 mcg/dL (50-170); Transferrin 343 mg/dL (180-382)
[2016-11-05 22:41] LABS: Ferritin 7 ng/ml (5-204)
--- NOTE | 2016-11-05 23:05 | Internal Med History&Physical ---
<Jonathan Wing - Last Filed: 11/05/16 22:58> Date of Encounter: 11/05/16 Time of Encounter: 21:40 Assessment and Plan (1) COPD with exacerbation Current visit: No Status: Acute Patient minute with hypoxia, oxygen saturations in the 70s requiring immediate breathing treatments and placed on nasal cannula oxygen. - Chest x-ray demonstrates enlarged lung volume, no signs of infiltration opacities or consolidation. - Breathing status improved after DuoNeb's albuterol. - Currently oxygen saturation is and history status stable at 2 L nasal cane oxygen with O2 sats at 97% - Shortness of breath may also be due to anemia Plan: -Continue nasal cannula oxygen and wean as tolerated - Duonebs and albuterol nebulizer scheduled - Doxycycline 100 mg twice a day - Symbicort inhaler twice a day - IV Solu-Medrol 60 every 8 hours plan to switch to by mouth prednisone for a total of 5 days of steroids. - Patient will require O2 qualification prior to discharge (2) Microcytic anemia Current visit: No Status: Acute Patient admitted with a hemoglobin of 7.4 and an MCV of 69, recent admission patient was transfused unit of PRBCs and seen by gastroenterology. Endoscopy and colonoscopy demonstrated gastritis. Gastroenterology recommended next colonoscopy in 3 years. Hemoglobin dropped from 8.4-7.4 since her last admission. - Microcytic anemia may be secondary to gastritis with leakage or also may be due to severe bedbug infestation as the patient is covered in that both bites and was admitted with bedbugs. Plan: - Transfuse 1 unit PRBCs - Iron profile - Cardiac monitoring - Protonix IV - volunteer services manager consult (3) Tobacco abuse disorder Current visit: No Status: Chronic Patient is a everyday tobacco abuser, recurrent COPD exacerbations. - Smoking cessation discussed with the patient. (4) HTN (hypertension) Current visit: No Status: Chronic Blood pressures stable. Continue 40 mg lisinopril, will hold Coreg at this time given patient's anemia and medications not currently reconciled. Qualifiers: Hypertension type: essential hypertension Qualified Code(s): I10 - Essential (primary) hypertension (5) Infestation by bed bug Current visit: No Status: Acute Patient has infestation of bedbugs with severe gross bedbug bites. Her bedbugs may be contributed to her microcytic anemia given the severity of the situation. The patient states that she is unable to change her current living situation. This may be contributing to her medical condition and thus social media campaign manager has been consulted. - Isolation per protocol (6) Schizophrenia Current visit: Yes Status: Acute Patient has a history of schizophrenia, continue current antipsychotic medication olanzapine 10 mg by mouth at bedtime. - Patient currently in stable mental status. Qualifiers: Qualified Code(s): F20.9 - Schizophrenia, unspecified (7) DVT prophylaxis Current visit: No Status: Acute Subcutaneous heparin held due to anemia. SCDs Internal Medicine - H&P: HPI Chief complaint: shortness of breath Admitted From: Emergency Dept Plans for Post Hospital Care: [facility] History of present illness: Ms. Lopez is a 65 year old female past medical history of COPD with frequent exacerbations, hypertension, schizophrenia, tobacco abuse, gastritis, recent admission for COPD exacerbation and anemia. Mrs. Lopez presents to emergency department by EMS after she was having shortness of breath to the point she was unable to walk around her house. She states that his frequent COPD exacerbations, and this is very similar to her other episodes. Her shortness of breath has been continuous and progressive over the last few days. She says that she was supposed to have home oxygen after last time she was discharged from the hospital but was unable to get this set up. She is a daily smoker and continues to smoke, says she uses inhalers at home for her COPD. She said that her breathing is improved since arriving at the emergency department and receiving breathing treatments. She denies any lightheadedness, dizziness, blurry vision but says she has had dark stools and they have had some blood in them but is unsure. She has any blood in her urine or coughing up any blood. She struggles with bedbugs at home and lice. She lives by herself in her own home and says that she has been unable to get anybody and to do any extermination. She denies any other concerns at this time. Past Med Surg Social Fam HX - Past Medical History Medical history: cancer, COPD, hyperlipidemia, hypertension Psychiatric history: anxiety, depression, schizophrenia - Past Surgical History Surgical History: cancer surgery - Social History Smoking Status: Current every day smoker Smokeless Tobacco Status: No Alcohol use: none Drug use: none - Family History Mother Adopted: No Family Member Ethnicity: Non- Living Status: Hx Family Cardiac Disorders: No Hx Family Respiratory Disorders: No Hx Family Cancer: Yes Hx Family GI Disorders: No Hx Family Endocrine Disorder: Yes (KIDNEY DIS) Hx Family Neuromuscular Disorders: No Hx Family Neurologic Disorders: No Hx Family HEENT Disorders: No Hx Family Autoimmune Disorders: No Internal Medicine - H&P: Meds Lisinopril [Zestril] 40 mg PO DAILY 07/15/15 [History] Albuterol Sulfate [Proair Hfa] 1 puff IH Q4HR PRN #1 inh 07/24/15 [Rx] Ipratropium/Albuterol Neb [Duoneb] 3 ml IH [id number] #120 inhsol 12/04/15 [Rx] Nicotine Patch [Nicoderm] 21 mg TD DAILY #30 patch.td24 12/04/15 [Rx] ALPRAZolam [Xanax 0.5 MG Tablet] 0.5 mg PO DAILY PRN 01/02/16 [History] Carvedilol [Coreg] 25 mg PO BID 01/02/16 [History] Pravastatin Sodium [Pravachol] 20 mg PO DAILY 01/02/16 [History] Docusate Sodium [Move It Along] 100 mg PO BID 08/19/16 [History] Haloperidol Decanoate [Haldol Decanoate 100] 100 mg IM QMONTH 08/19/16 [History] OLANZapine [Zyprexa] 10 mg PO DAILY 08/19/16 [History] Trihexyphenidyl [Artane] 2 mg PO BID 08/19/16 [History] hydrOXYzine HCl [Hydroxyzine HCl] 25 mg PO BID 08/19/16 [History] Ferrous Sulfate 325 mg PO DAILY #30 tablet 08/21/16 [Rx] Hydrocortisone 1% CREAM [Cortaid] 1 appl TP BID PRN #1 bottle 08/21/16 [Rx] Lactose-Reduced Food [Ensure Plus] 1 bottle PO TID #90 can 08/21/16 [Rx] Omeprazole [PriLOSEC] 20 mg PO DAILY #30 cap 08/21/16 [Rx] predniSONE [PredniSONE] 40 mg PO DAILY #8 tablet 08/21/16 [Rx] Azithromycin [Azithromycin 6-Tab Pack] 250 mg PO PER PKG DI #6 tab 10/17/16 [Rx] PredniSONE [Deltasone] 40 mg PO DAILY #10 tablet 10/17/16 [Rx] Allergies No Known Allergies Allergy (Verified 12/03/15 16:32) All Systems PM: A 10-system review of systems was performed and is negative for pertinent findings except as documented above in the HPI. - Constitutional Constitutional: fatigue, malaise, weakness, no chills, no excessive sweating, no fever(s), no night sweats - EENT Eyes: no blurry vision, no change in vision, no loss of peripheral vision, no loss of vision Ears: no ear discharge, no ear pain, no tinnitus Nose, mouth and throat: no dysphagia, no nasal discharge, no neck pain, no sore throat - Cardiovascular Cardiovascular ROS IM: no chest pain, no diaphoresis, no dyspnea, no lightheadedness, no palpitations, no syncope - Respiratory Respiratory: cough, dyspnea, wheezing, no excessive phlegm production - Gastrointestinal Gastrointestinal: no abdominal pain, no diarrhea, no hematemesis, no hematochezia, no melena, no nausea, no vomiting - Genitourinary Genitourinary: no change in urinary stream, no dysuria, no flank pain, no hematuria - Musculoskeletal Musculoskeletal ROS IM: no numbness, no tingling - Integumentary Integumentary IM: no rash, no unusual bruising - Neurological Neurological ROS: no confusion, no convulsions, no focal weakness, no numbness, no tingling, no tremor(s) - Psychiatric Psychiatric: no anxiety, no confusion, no depression - Hematologic/Lymphatic Hematologic/Lymphatic: no easy bruising - Constitutional Vitals: Temp Pulse Resp BP Pulse Ox 97.7 F 89 16 135/76 97 11/05/16 22:19 11/05/16 22:19 11/05/16 22:19 11/05/16 22:19 11/05/16 22:19 General appearance: Present: cachectic, cooperative, A&O X 3, no acute distress - Head Head exam: Present: atraumatic, normocephalic - Eye Eye exam: Present: PERRL, conjuntiva pink, sclera anicteric Pupils: Present: PERRL - ENT ENT exam: Present: mucous membranes moist - Neck Neck exam general surgery: Present: supple, trachea midline. Absent: lymphadenopathy - Respiratory Respiratory exam: Present: rhonchi (Diffuse), wheezes (Diffuse) Additional comments: Barrel chest - Cardiovascular Cardiovascular exam: Present: RRR, +S1, +S2. Absent: diastolic murmur, gallop, rubs, systolic murmur - GI/Abdominal GI/Abdominal exam: Present: normal bowel sounds, soft, no peritoneal signs. Absent: distended, tenderness - Extremities Exam Extremities exam: Present: warm, radial pulses palpable and symetrical. Absent : calf tenderness, cyanotic, pedal edema - Skin Additional comments: Diffuse bedbug bites Internal Med - H&P Results - Labs CBC & Chem 7: 11/05/16 19:39 11/05/16 19:39 <Cassius Harp - Last Filed: 11/06/16 02:38> Date of Encounter: 11/05/16 Internal Medicine - H&P: HPI History of present illness: Ms. Lopze is a 65 year old female All Systems PM: A 10-system review of systems was performed and is negative for pertinent findings except as documented above in the HPI. - Constitutional Vitals: Temp Pulse Resp BP Pulse Ox 98.2 F 72 16 136/75 94 11/06/16 01:46 11/06/16 01:46 11/06/16 01:46 11/06/16 01:46 11/06/16 01:46 Internal Med - H&P Results - Labs CBC & Chem 7: 11/05/16 19:39 11/05/16 19:39 - EKG Data -: EKG Interpreted by Myself EKG shows normal: sinus rhythm - Diagnostic Studies Chest x-ray Status: image reviewed by me - Attending Attestation Correction: problems 1 through 6 were present on arrival and current on this admission I examined this patient and my medical decision-making was reviewed with the CARPET LAYER HELPER/PA/Advanced Practice Nurse/Resident Physician. I agree with the documented findings, disposition and treatment plan as described. We will consider oral protonix instead of IV since there is no evidence of an active GI bleed and she is able to take oral medications. Cassius Harp MD, MPH Hospitalist
[2016-11-06] MEDS ORDERED: methylPREDNISolone 125 MG/2 ML VIAL IVP SCH
[2016-11-06] MEDS: ALPRAZolam 0.5 MG TABLET PO PRN (02:18)
[2016-11-06] MEDS ORDERED: 0.9 % Sodium Chloride 250 ML ONE (02:55)
[2016-11-06] MEDS: Ipratropium/Albuterol Neb 3 ML IH SCH ×4 (04:33→22:59)
[2016-11-06] MEDS: methylPREDNISolone 125 MG/2 ML VIAL IVP SCH ×3 (05:56→22:12)
[2016-11-06] MEDS ORDERED: *HR* Heparin 5,000 UNIT/ML VIAL SQ SCH (06:00)
[2016-11-06] MEDS ORDERED: Pantoprazole 40 MG VIAL IVP SCH (06:30)
[2016-11-06] MEDS: Lisinopril 20 MG TABLET PO SCH (08:03)
[2016-11-06 08:04] LABS: Basophils % 0.2 %; Hemoglobin 8.3 g/dL (11.5-15.4); Immature Granulocytes % 0.5 % (0-4); Lymphocytes # 0.6 K/mcL (0.6-4.6); Lymphocytes % 13.3 %; Mean Corpuscular HGB Conc 30.7 g/dL (31.6-35.5); Mean Corpuscular Hemoglobin 22.1 pg (28.0-33.3); Mean Corpuscular Volume 71.8 fL (83.0-100.0); Mean Platelet Volume 9.4 fL (9.4-12.4); Monocytes # 0.1 K/mcL (0.0-1.3); Monocytes % 1.9 %; Neutrophils # 3.5 K/mcL (1.6-8.9); Nucleated Red Blood Cells 0.5 /100 WBC (0); Platelet Count 261 K/mcL (140-400); Red Blood Count 3.76 M/mcL (3.82-4.97); Red Cell Distribution Width 24.7 % (11.5-14.5); Segmented Neutrophils % 84.1 %
[2016-11-06 08:16] LABS: Alanine Aminotransferase 22 Units/L (0-55); Albumin 2.8 g/dL (3.5-5.0); Albumin/Globulin Ratio 0.8 (1.1-2.2); Alkaline Phosphatase 65 Units/L (38-126); Aspartate Amino Transferase 24 Units/L (5-34); BUN/Creatinine Ratio 26 (6-26); Bilirubin,Total 0.7 mg/dL (0.2-1.2); Blood Urea Nitrogen 19 mg/dL (7-20); Calcium 8.3 mg/dL (8.6-10.8); Carbon Dioxide 27 mEq/L (19-29); Chloride 103 mEq/L (98-109); Globulin 3.3 g/dL (2.4-3.5); Glucose 195 mg/dL (70-99); Osmolality,Calculated 290 (280-300); Potassium 3.9 mEq/L (3.5-4.5); Sodium 136 mEq/L (136-145); Total Protein 6.1 g/dL (6.0-8.3); eGFR For African Americans > 60 (> 60); eGFR For Non-African Americans > 60 (> 60)
[2016-11-06 08:32] LABS: Anisocytosis 1+ (Not Present); Polychromasia 1+ (Not Present)
[2016-11-06] MEDS ORDERED: Doxycycline 100 MG CAPSULE PO SCH (09:00)
--- NOTE | 2016-11-06 09:05 | Internal Med Progress Note ---
<Raad Kim - Last Filed: 11/06/16 17:29> Date of Encounter: 11/06/16 Time of Encounter: 10:00 - Assessment and plan (1) COPD with exacerbation Current Visit: Yes Status: Acute Assessment and plan: Patient says that she is breathing much better than she was previously. Her oxygen saturations 93 on 2 L of oxygen at this time. We will continue to give the patient IV steroids at this time however we will discontinue antibiotics. Patient will receive inhaler and breathing treatments as necessary. (2) Microcytic anemia Current Visit: Yes Status: Acute Assessment and plan: Patient received 1 unit of blood yesterday. In a recent admission she also received 1 unit of packed red blood cells and was cemented gastroenterology. At that time gastroenterology found no acute bleeding. Iron studies confirm that microcytic anemia and is the result of severe iron deficiency. Patient's ferritin was 7 and running concentration was 2%. We will start IV iron supplementation at this time and monitor CBC (3) HTN (hypertension) Current Visit: No Status: Chronic Assessment and plan: Patient hypertension well controlled at this time. We will continue her medications at this time without changes. Qualifiers: Hypertension type: essential hypertension Qualified Code(s): I10 - Essential (primary) hypertension (4) Generalized weakness Current Visit: No Status: Acute Assessment and plan: Patient's of generalized weakness have improved since admission. We will continue to monitor, and patient will be seen by PT/OT. (5) DVT prophylaxis Current Visit: No Status: Acute Assessment and plan: d/t anemia heparin was held. SCDs at this time - Time Spent With Patient less than 15 minutes - Subjective Interval history: Patient resting comfortably in bed at time of examination. Appears to be in no acute distress. She says that her shortness of breath has largely resolved and she no longer short of breath. She does say that she is tired although she says does not want above baseline. On questioning patient does say that she has had dark stools in the past few days. - Constitutional Vitals: Temp Pulse Resp BP Pulse Ox 97.4 F L 96 18 130/68 92 11/06/16 08:05 11/06/16 08:05 11/06/16 08:05 11/06/16 08:05 11/06/16 08:05 General appearance: Present: cachectic, cooperative, A&O X 3, no acute distress Exam: Gen.: Vitals noted. No acute distress. AAOx3 HEENT: PERRL/EOMI, oropharynx clear, Normocephalic, atraumatic Neck: Supple. No adenopathy. Cardiac: RRR, no murmur, +S1/S2 Pulmonary: mild wheezing noted b/l, no rales or rhonchi, equal chest expansion Abdomen: soft, nontender, BS noted, no guarding Back: Nontender throughout. MSK: ROM intact, no joint swelling noted Extremities: no BLE edema, nontender calf, no cyanosis or clubbing Neuro: A&Ox3, moves all extremities, no focal deficits Psych: Appropriate mood and behavior - Skin Additional comments: Small erythematous pinpoint lesions noted across skin diffusely. No excoriations noted. There is no purulent material and/or leakage. Patient does not complain of purulent rhinitis or tenderness to palpation of upon examination. Internal Medicine: Result - Labs CBC & Chem 7: 11/06/16 07:31 11/06/16 07:31 Labs: Short CBC 11/06/16 Range/Units 07:31 WBC 4.2 L (4.3-11.1) K/mcL Hgb 8.3 L (11.5-15.4) g/dL Hct 27.0 L (35.3-44.9) % Plt Count 261 (140-400) K/mcL Neutrophils # 3.5 (1.6-8.9) K/mcL BMP 11/06/16 07:31 Sodium 136 Potassium 3.9 Chloride 103 Carbon Dioxide 27 BUN 19 Creatinine 0.74 Glucose 195 H Calcium 8.3 L Liver Function 11/06/16 Range/Units 07:31 Total Bilirubin 0.7 (0.2-1.2) mg/dL AST 24 (5-34) Units/L ALT 22 (0-55) Units/L Alkaline Phosphatase 65 (38-126) Units/L Albumin 2.8 L (3.5-5.0) g/dL Consult Discharge Plan - Plan Referrals: NO,PCP [Primary Care Provider] - (possible ECF) <Logan Fisher - Last Filed: 11/06/16 17:53> Date of Encounter: 11/06/16 - Constitutional Vitals: Temp Pulse Resp BP Pulse Ox 97.8 F 95 22 114/61 96 11/06/16 11:40 11/06/16 11:40 11/06/16 11:40 11/06/16 11:40 11/06/16 11:40 Internal Medicine: Result - Labs CBC & Chem 7: 11/06/16 07:31 11/06/16 07:31 Labs: Short CBC 11/06/16 Range/Units 07:31 WBC 4.2 L (4.3-11.1) K/mcL Hgb 8.3 L (11.5-15.4) g/dL Hct 27.0 L (35.3-44.9) % Plt Count 261 (140-400) K/mcL Neutrophils # 3.5 (1.6-8.9) K/mcL BMP 11/06/16 07:31 Sodium 136 Potassium 3.9 Chloride 103 Carbon Dioxide 27 BUN 19 Creatinine 0.74 Glucose 195 H Calcium 8.3 L Liver Function 11/06/16 Range/Units 07:31 Total Bilirubin 0.7 (0.2-1.2) mg/dL AST 24 (5-34) Units/L ALT 22 (0-55) Units/L Alkaline Phosphatase 65 (38-126) Units/L Albumin 2.8 L (3.5-5.0) g/dL - Attending Attestation I examined this patient and my medical decision-making was reviewed with the Resident Physician, Dr Kim. I agree with the documented findings, disposition and treatment plan as described except to the extent set forth below. Patient was admitted with severe shortness of breath and respiratory distress. She was profoundly hypoxic. She reports nonproductive cough. On exam lungs sound clear without audible wheezes or crackles. We will treat her with inhaled albuterol and ipratropium. Check home oxygen qualification. PT OT and social service consult.
[2016-11-06] MEDS: Budesonide/Formoterol 160/4.5 MDI IH SCH ×2 (10:22→22:59)
[2016-11-06] MEDS ORDERED: Ferumoxytol 510 MG in 0.9 % Sodium Chloride 100 ML IVPB ONE (11:12)
[2016-11-06] MEDS ORDERED: Permethrin Cream Rinse 60 ML LIQUID TP ONE (12:58)
--- NOTE | 2016-11-06 14:31 | Electrocardiograph Report ---
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
[2016-11-06] MEDS ORDERED: Ondansetron ODT 4 MG TAB.RAPDIS SL PRN (18:21)
[2016-11-06] MEDS: OLANZapine 10 MG TAB.RAPDIS PO SCH (22:12)
[2016-11-07] MEDS: methylPREDNISolone 125 MG/2 ML VIAL IVP SCH ×2 (01:44→06:40)
[2016-11-07] MEDS: ALPRAZolam 0.5 MG TABLET PO PRN ×2 (03:35→18:25)
[2016-11-07] MEDS: Ipratropium/Albuterol Neb 3 ML IH SCH ×4 (03:47→22:43)
[2016-11-07 06:55] LABS: Basophils % 0.2 %; Eosinophils # 0.1 K/mcL (0.0-0.6); Eosinophils % 0.7 %; Hematocrit 25.2 % (35.3-44.9); Hemoglobin 7.8 g/dL (11.5-15.4); Immature Granulocytes % 0.4 % (0-4); Immature Reticulocyte % 14.7 % (11.0-38.0); Lymphocytes # 2.3 K/mcL (0.6-4.6); Mean Corpuscular Hemoglobin 22.3 pg (28.0-33.3); Mean Corpuscular Volume 72.2 fL (83.0-100.0); Mean Platelet Volume 9.9 fL (9.4-12.4); Monocytes # 0.9 K/mcL (0.0-1.3); Monocytes % 6.9 %; Neutrophils # 10.2 K/mcL (1.6-8.9); Platelet Count 257 K/mcL (140-400); Red Blood Count 3.49 M/mcL (3.82-4.97); Red Cell Distribution Width 24.5 % (11.5-14.5); Retculocyte # 0.03 M/mcL (0.05-0.10); Reticulocyte % 0.9 % (1.6-2.8); Segmented Neutrophils % 74.8 %
[2016-11-07 07:08] LABS: BUN/Creatinine Ratio 23 (6-26); Blood Urea Nitrogen 16 mg/dL (7-20); Calcium 8.3 mg/dL (8.6-10.8); Carbon Dioxide 28 mEq/L (19-29); Chloride 108 mEq/L (98-109); Glucose 105 mg/dL (70-99); Lactate Dehydrogenase 168 Units/L (159-327); Osmolality,Calculated 294 (280-300); Potassium 3.8 mEq/L (3.5-4.5); Sodium 141 mEq/L (136-145); eGFR For African Americans > 60 (> 60); eGFR For Non-African Americans > 60 (> 60)
[2016-11-07 08:09] LABS: Anisocytosis 2+ (Not Present); Hypochromasia Present (Not Present); Microcytosis Present (Not Present)
[2016-11-07 08:10] LABS: Platelet Estimate Normal (Normal)
[2016-11-07] MEDS: predniSONE 20 MG TABLET PO SCH (08:56)
[2016-11-07] MEDS: Lisinopril 20 MG TABLET PO SCH (08:56)
[2016-11-07] MEDS: Budesonide/Formoterol 160/4.5 MDI IH SCH ×2 (10:49→22:42)
[2016-11-07 10:53] LABS: Bilirubin,Urine Negative (Negative); Blood,Urine Negative (Negative); Clarity,Urine Clear (Clear); Color,Urine Yellow (Yellow); Glucose,Urine (UA) 100 mg/dL (Normal); Ketones,Urine Negative (Negative); Leukocyte Esterase,Urine Small (Negative); Nitrite,Urine Negative (Negative); PH,Urine 6.5 pH Units (5.0-8.0); Protein,Urine Negative (Neg-Trace); Specific Gravity,Urine 1.012 (1.010-1.025); Urobilinogen,Urine Normal (Normal)
[2016-11-07 10:56] LABS: Bacteria,Urine None Seen per hpf (None-Few); Hyaline Casts,Urine None Seen per lpf (None-Few); RBC,Urine 0-3 per hpf (0-3); Squamous Epithelial Cell,Urine Moderate per lpf (None-Few)
--- NOTE | 2016-11-07 11:34 | Internal Med Progress Note ---
<Raad Kim - Last Filed: 11/07/16 16:59> Date of Encounter: 11/07/16 Time of Encounter: 08:00 - Assessment and plan (1) COPD with exacerbation Current Visit: Yes Status: Acute Assessment and plan: 11/07 Patient transitioned to PO steroids, but otherwise stable. She states that her SOB has resolved for the most part, and that she feels back to baseline. Mild wheezes were apparent b/l on physical exam. CXR revealed no acute process. We will continue to monitor. 11/06 Patient says that she is breathing much better than she was previously. Her oxygen saturations 93 on 2 L of oxygen at this time. We will continue to give the patient IV steroids at this time however we will discontinue antibiotics. Patient will receive inhaler and breathing treatments as necessary. (2) Microcytic anemia Current Visit: Yes Status: Acute Assessment and plan: 11/07 The patient has experienced another drop in Hgb to 7.8. Reticulocyte count is 0.03, and showed no strong response to Iron supplementation. Stool sample was negative for occult bleed, and no other source of bleeding has been identified. Patient recieved IV Feraheme yesterday, and second dose is recommended 3-8 days following. Started PO Ferrous Sulfate for maintenance. Hematology was consulted for evaluation of refractory anemia. 11/06 Patient received 1 unit of blood yesterday. In a recent admission she also received 1 unit of packed red blood cells and was cemented gastroenterology. At that time gastroenterology found no acute bleeding. Iron studies confirm that microcytic anemia and is the result of severe iron deficiency. Patient's ferritin was 7 and running concentration was 2%. We will start IV iron supplementation at this time and monitor CBC (3) Atrial fib/flutter, transient Current Visit: Yes Status: Acute Assessment and plan: 11/07 Patient experienced several short runs of irregular tachycardic rhythms and on monitoring analyst. To our knowledge and the knowledge of the patient, she has never experienced atrial fibrillation or flutter previously. Patient denied chest pain, sob, palpatations associated with the events. 12-lead EKG was ordered and the patient had spontaneously converted to normal sinus rhythm. Cxr showed no acute cardiac process. A stat echocardiogram was ordered and will be assessed. She is appropriately rate controlled at this time. Anti-coagulation is contraindicated at this time due to suspicion of bleeding, but we will continue to evaluate. (4) HTN (hypertension) Current Visit: No Status: Chronic Assessment and plan: Patient hypertension well controlled at this time. We will continue her medications at this time without changes. Qualifiers: Hypertension type: essential hypertension Qualified Code(s): I10 - Essential (primary) hypertension (5) Generalized weakness Current Visit: Yes Status: Acute Assessment and plan: Patient's generalized weakness has improved since admission. We will continue to monitor. PT/OT Saw and evaluated the patient, and determined she has no need. (6) DVT prophylaxis Current Visit: No Status: Acute Assessment and plan: d/t anemia heparin was held. SCDs at this time - Subjective Interval history: 11/07 The patient says that she is ready to go home. She is resting comfortably in bed on examination, and is in no acute distress. 11/06 Patient resting comfortably in bed at time of examination. Appears to be in no acute distress. She says that her shortness of breath has largely resolved and she no longer short of breath. She does say that she is tired although she says does not want above baseline. On questioning patient does say that she has had dark stools in the past few days. - Constitutional Vitals: Temp Pulse Resp BP Pulse Ox 98.1 F 77 16 128/78 98 11/07/16 06:50 11/07/16 06:50 11/07/16 10:52 11/07/16 06:50 11/07/16 10:52 General appearance: Present: cachectic, cooperative, A&O X 3, no acute distress Internal Medicine: Result - Labs CBC & Chem 7: 11/07/16 05:17 11/07/16 05:17 Labs: Short CBC 11/07/16 Range/Units 05:17 WBC 13.6 H D (4.3-11.1) K/mcL Hgb 7.8 L (11.5-15.4) g/dL Hct 25.2 L (35.3-44.9) % Plt Count 257 (140-400) K/mcL Neutrophils # 10.2 H (1.6-8.9) K/mcL BMP 11/07/16 05:17 Sodium 141 Potassium 3.8 Chloride 108 Carbon Dioxide 28 BUN 16 Creatinine 0.71 Glucose 105 H Calcium 8.3 L Urine 07/06/17 Range/Units 10:20 Urine Color Yellow (Yellow) Urine Clarity Clear (Clear) Urine pH 6.5 (5.0-8.0) pH Units Ur Specific [place] 1.012 (1.010-1.025) Urine Protein Negative (Neg-Trace) mg/dL Urine Glucose (UA) 100 H (Normal) mg/dL Consult Discharge Plan - Plan Referrals: NO,PCP [Primary Care Provider] - (possible ECF) <Logan Fisher - Last Filed: 11/07/16 20:16> Date of Encounter: 11/07/16 - Constitutional Vitals: Temp Pulse Resp BP Pulse Ox 97.6 F 87 20 150/79 93 11/07/16 16:48 11/07/16 16:48 11/07/16 16:48 11/07/16 16:48 11/07/16 16:48 Internal Medicine: Result - Labs CBC & Chem 7: 11/07/16 05:17 11/07/16 05:17 Labs: Short CBC 11/07/16 Range/Units 05:17 WBC 13.6 H D (4.3-11.1) K/mcL Hgb 7.8 L (11.5-15.4) g/dL Hct 25.2 L (35.3-44.9) % Plt Count 257 (140-400) K/mcL Neutrophils # 10.2 H (1.6-8.9) K/mcL BMP 11/07/16 05:17 Sodium 141 Potassium 3.8 Chloride 108 Carbon Dioxide 28 BUN 16 Creatinine 0.71 Glucose 105 H Calcium 8.3 L Urine 11/07/16 Range/Units 10:20 Urine Color Yellow (Yellow) Urine Clarity Clear (Clear) Urine pH 6.5 (5.0-8.0) pH Units Ur Specific [place] 1.012 (1.010-1.025) Urine Protein Negative (Neg-Trace) mg/dL Urine Glucose (UA) 100 H (Normal) mg/dL - Impressions Impressions Chest X-Ray 11/07/16 11:32 IMPRESSION: No acute abnormality. D/ / Ozzy Calle MD / Ozzy Calle MD Interpreting Provider: Ozzy Calle MD - Attending Attestation I examined this patient and my medical decision-making was reviewed with the Resident Physician, Dr Kim. I agree with the documented findings, disposition and treatment plan as described except to the extent set forth below. Patient admitted with COPD exacerbation. Acute on chronic anemia. I will obtain Hemoccult. Monitor hemoglobin and hematocrit. She will require inpatient workup for anemia.
[2016-11-07] MEDS: Sennosides/Docusate Sodium TABLET PO PRN (11:41)
[2016-11-07] MEDS ORDERED: Bisacodyl 10 MG RECTAL SUPPOSITORY RC ONE (14:04)
[2016-11-07] MEDS: Nicotine 14 MG PATCH.TD24 TD SCH (17:21)
--- NOTE | 2016-11-07 20:00 | Oncology Inp Consult Note ---
Date of Encounter: 11/07/16 Time of Encounter: 19:58 - Data of Consult Patient: new to practice Consult date: 11/07/16 Requesting Physician: Logan Fisher MD Primary Care Provider: PCP NO - Consult Narrative Reason for consult: Acute anemia History of present illness: Ms. Lopez is a 65 year old Woman seen in consultation regarding unexplained, iron deficiency anemia. She is permanently resident at a alf facility and was admitted with severe symptomatic anemia with a hemoglobin of 7.4 and MCV of 69. Anemia workup on admission confirmed iron deficiency with a ferritin of 7. Previous hematinic panel from August 2016 showed normal folate and normal B12 level. She does not have history of thyroid dysfunction. For her iron deficiency anemia, she was transfused 1 unit packed red cells on and has also received a unit of Feraheme infusion. She is on ongoing oral iron supplement. Iron deficiency is attributed to possible GI blood loss versus occult blood loss from chronic insect bites as there is some concern about bedbug infestation. There is concern that she has not had an inappropriate bone marrow response to recent iron infusion and hematology is consulted for further evaluation of her iron deficiency anemia. Attempt being made to check stool for occult blood and consult GI if positive. Patient seen and examined at bedside. Chart reviewed for details of ongoing care by hospital team which is much appreciated. Patient is markedly lethargic at time of evaluation possibly due to antipsychotic medication that she is taking for underlying diagnosis of schizophrenia. She is somewhat of a poor historian. Nevertheless, she reports prior diagnosis of anemia several years ago. She is unable to give specific details of etiology on workup performed at that time. She is evidently had a microcytic anemia dating back to June 2016 with MCV is low as 60. Hemoglobin has been as low as 6.8. On reviewing her chart, she was admitted with symptomatic anemia last August and had extensive evaluation including EGD and colonoscopy by Dr. Soto showing: No esophagitis. 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 Unremarkable otherwise. Three-year follow-up colonoscopy was recommended. She does not recall any prior diagnosis of primary hematologic disorder including malignancy. On reviewing her medication list, she is not on any notoriously myelosuppressive medication to explain her anemia. She has had some intermittent leukocytosis dating back to July 2015 and has a mild leukocytosis on her most recent CBC. Platelet count has been essentially normal. Rest of past medical, surgical, family, social history detailed below and verified with patient today. Review of systems: 12 point review of systems performed with patient and positive findings noted in history of present illness. All other systems are negative: Physical exam: Vital Signs Temp 97.6 F 11/07/16 16:48 Pulse 87 11/07/16 16:48 Resp 20 11/07/16 16:48 BP 150/79 11/07/16 16:48 Pulse Ox 93 11/07/16 16:48 GENERAL: Alert and oriented, cachectic and chronically ill-appearing. Mental Status: Depressed affect. HEENT: Sclerae anicteric. No mucositis or thrush. No other oral or pharyngeal lesions or erythema. Skin: No rashes or petechiae. No evidence of skin malignancy Lymph nodes: No cervical, supraclavicular, axillary, or inguinal adenopathy. Lungs: Clear to auscultation bilaterally. Clear to percussion bilaterally. Cardiovascular: Regular rate and rhythm. No gallops, murmurs, or rubs. Abdomen: Soft, nontender; No organomegaly or masses palpable. Extremities: No edema. No calf swelling or tenderness. No joint deformity. Neurologic: Markedly lethargic. Rousable to voice and but unable to maintain conversation. normal gait; no focal weakness or sensory abnormalities. Results: Laboratory Last Values WBC 13.6 K/mcL (4.3-11.1) H D 11/07/16 05:17 RBC 3.49 M/mcL (3.82-4.97) L 11/07/16 05:17 Hgb 7.8 g/dL (11.5-15.4) L 11/07/16 05:17 Hct 25.2 % (35.3-44.9) L 11/07/16 05:17 MCV 72.2 fL (83.0-100.0) L 11/07/16 05:17 MCH 22.3 pg (28.0-33.3) L 11/07/16 05:17 MCHC 31.0 g/dL (31.6-35.5) L 11/07/16 05:17 RDW 24.5 % (11.5-14.5) H 11/07/16 05:17 Plt Count 257 K/mcL (140-400) 11/07/16 05:17 MPV 9.9 fL (9.4-12.4) 11/07/16 05:17 Reticulocyte # 0.03 M/mcL (0.05-0.10) L 11/07/16 05:17 Immature Gran % 0.4 % (0-4) 11/07/16 05:17 Seg Neutrophils % 74.8 % 11/07/16 05:17 Lymphocytes % 17.0 % 11/07/16 05:17 Monocytes % 6.9 % 11/07/16 05:17 Eosinophils % 0.7 % 11/07/16 05:17 Basophils % 0.2 % 11/07/16 05:17 Neutrophils # 10.2 K/mcL (1.6-8.9) H 11/07/16 05:17 Lymphocytes # 2.3 K/mcL (0.6-4.6) 11/07/16 05:17 Monocytes # 0.9 K/mcL (0.0-1.3) 11/07/16 05:17 Eosinophils # 0.1 K/mcL (0.0-0.6) 11/07/16 05:17 Basophils # 0.0 K/mcL (0.0-0.2) 11/07/16 05:17 Nucleated RBCs/100 WBC 0.5 /100 WBC (0) H 11/06/16 07:31 Platelet Estimate Normal (Normal) 11/07/16 05:17 Polychromasia 1+ (Not Present) A 11/06/16 07:31 Hypochromasia Present (Not Present) A 11/07/16 05:17 Anisocytosis 2+ (Not Present) A 11/07/16 05:17 Microcytosis Present (Not Present) A 11/07/16 05:17 Smear Path Review See Below 11/07/16 06:48 Percent Retic 0.9 % (1.6-2.8) L 11/07/16 05:17 Immature Retic Fraction 14.7 % (11.0-38.0) 11/07/16 05:17 Retic Hgb Equivalent 18.1 pg (28.61-36.33) L 11/07/16 05:17 Sodium 141 mEq/L (136-145) 11/07/16 05:17 Potassium 3.8 mEq/L (3.5-4.5) 11/07/16 05:17 Chloride 108 mEq/L (98-109) 11/07/16 05:17 Carbon Dioxide 28 mEq/L (19-29) 11/07/16 05:17 BUN 16 mg/dL (7-20) 11/07/16 05:17 Creatinine 0.71 mg/dL (0.57-1.11) 11/07/16 05:17 Est GFR ( Amer) > 60 (> 60) 11/07/16 05:17 Est GFR (Non-Af Amer) > 60 (> 60) 11/07/16 05:17 BUN/Creatinine Ratio 23 (6-26) 11/07/16 05:17 Glucose 105 mg/dL (70-99) H 11/07/16 05:17 Calculated Osmolality 294 (280-300) 11/07/16 05:17 Lactic Acid 1.0 mmol/L (0.5-2.2) 11/05/16 19:39 Calcium 8.3 mg/dL (8.6-10.8) L 11/07/16 05:17 Iron 12 mcg/dL (50-170) L 11/05/16 19:39 % Saturation 2 % (15-50) L 11/05/16 19:39 Transferrin 343 mg/dL (180-382) 11/05/16 19:39 Ferritin 7 ng/ml (5-204) 11/05/16 19:39 Total Bilirubin 0.7 mg/dL (0.2-1.2) 11/06/16 07:31 AST 24 Units/L (5-34) 11/06/16 07:31 ALT 22 Units/L (0-55) 11/06/16 07:31 Alkaline Phosphatase 65 Units/L (38-126) 11/06/16 07:31 Lactate Dehydrogenase 168 Units/L (159-327) 11/07/16 05:17 Troponin I 0.01 ng/mL (0-0.03) 11/05/16 19:39 B-Natriuretic Peptide 173 pg/mL (0-100) H 11/05/16 19:39 Serum Total Protein 6.1 g/dL (6.0-8.3) 11/06/16 07:31 Albumin 2.8 g/dL (3.5-5.0) L 11/06/16 07:31 Globulin 3.3 g/dL (2.4-3.5) 11/06/16 07:31 Albumin/Globulin Ratio 0.8 (1.1-2.2) L 11/06/16 07:31 Urine Color Yellow (Yellow) 11/07/16 10:20 Urine Clarity Clear (Clear) 11/07/16 10:20 Urine pH 6.5 pH Units (5.0-8.0) 11/07/16 10:20 Ur Specific [place] 1.012 (1.010-1.025) 11/07/16 10:20 Urine Protein Negative mg/dL (Neg-Trace) 11/07/16 10:20 Urine Glucose (UA) 100 mg/dL (Normal) H 11/07/16 10:20 Urine Ketones Negative mg/dL (Negative) 11/07/16 10:20 Urine Blood Negative (Negative) 11/07/16 10:20 Urine Nitrite Negative (Negative) 11/07/16 10:20 Urine Bilirubin Negative (Negative) 11/07/16 10:20 Urine Urobilinogen Normal mg/dL (Normal) 11/07/16 10:20 Ur Leukocyte Esterase Small (Negative) H 11/07/16 10:20 Urine Microscopic RBC 0-3 per hpf (0-3) 11/07/16 10:20 Urine Microscopic WBC 5-15 per hpf (0-3) H 11/07/16 10:20 Ur Squamous Epith Cells Moderate per lpf (None-Few) H 11/07/16 10:20 Urine Bacteria None Seen per hpf (None-Few) 11/07/16 10:20 Hyaline Casts None Seen per lpf (None-Few) 11/07/16 10:20 Ur Culture Indicated? YES (NO) A 11/07/16 10:20 Stool Occult Blood Negative (Negative) 11/07/16 09:23 Blood Type A POSITIVE 11/05/16 22:35 Antibody Screen NEGATIVE 11/05/16 22:35 Crossmatch See Detail 11/05/16 22:35 Radiographic studies: I personally reviewed and interpreted patient's most recent imaging studies dated 11/07/16. I discussed the findings with the patient today. Chest X-Ray 11/07/16 11:32 IMPRESSION: No acute abnormality. D/ / Ozzy Calle MD / Ozzy Calle MD Interpreting Provider: Ozzy Calle MD Impression/recommendations: Unexplained, iron deficiency anemia. Recent upper and lower endoscopy unremarkable. There is concern about less than optimal response to iron infusion which she received yesterday. I reviewed diagnostic considerations for microcytic anemia with the patient today. It may take up to 5-7 days to notice a significant response to an iron infusion. Also consideration for iron deficiency is celiac disease. Please send celiac disease panel. Since she has remained anemic for the last several month, she may have developed additional hematinic deficiencies which can occur as a result of high bone marrow turnover state. Please check B12, folate, MMA to exclude additional hematinic deficiencies. We will also check TSH and T4 to evaluate thyroid dysfunction is continued intractable to cachexia Given her underlying diagnosis of schizophrenia and mental status issues, this may also be nutrition related. Consider a nutrition consult for recommendations regarding optimal nutrition for iron deficiency If iron deficiency anemia remains problematic despite above, she may need repeat endoscopy including capsule endoscopy to evaluate possible midgut bleeding. If anemia not extending by all of above, she may need further evaluation including bone marrow biopsy etc. to look for primary hematologic or autoimmune disorder. Meantime, continue PO iron as you are doing. We'll follow the patient peripherally with you. Plse. call with interval questions. Thank you for your excellent ongoing care for allowing us to see her while in- house. This report was created using voice recognition software and may contain errors. It was signed but not edited to expedite communication. Corrections will be made in a separate addendum as needed. Past Med Surg Social Fam HX - Past Medical History Medical history: cancer, COPD, hyperlipidemia, hypertension Psychiatric history: anxiety, depression, schizophrenia - Past Surgical History Surgical History: cancer surgery - Social History Smoking Status: Current every day smoker Smokeless Tobacco Status: No Alcohol use: none Drug use: none - Family History Mother Adopted: No Family Member Ethnicity: Non- Living Status: Hx Family Cardiac Disorders: No Hx Family Respiratory Disorders: No Hx Family Cancer: Yes Hx Family GI Disorders: No Hx Family Endocrine Disorder: Yes (KIDNEY DIS) Hx Family Neuromuscular Disorders: No Hx Family Neurologic Disorders: No Hx Family HEENT Disorders: No Hx Family Autoimmune Disorders: No Medications and Allergies Lisinopril [Zestril] 40 mg PO DAILY 07/15/15 [History] Albuterol Sulfate [Proair Hfa] 1 puff IH Q4HR PRN #1 inh 07/24/15 [Rx] Ipratropium/Albuterol Neb [Duoneb] 3 ml IH [id number] #120 inhsol 12/04/15 [Rx] ALPRAZolam [Xanax 0.5 MG Tablet] 0.5 mg PO DAILY PRN 01/02/16 [History] Pravastatin Sodium [Pravachol] 20 mg PO DAILY 01/02/16 [History] Docusate Sodium [Move It Along] 100 mg PO BID 08/19/16 [History] Haloperidol Decanoate [Haldol Decanoate 100] 100 mg IM QMONTH 08/19/16 [History] OLANZapine [Zyprexa] 10 mg PO DAILY 08/19/16 [History] Trihexyphenidyl [Artane] 2 mg PO BID 08/19/16 [History] hydrOXYzine HCl [Hydroxyzine HCl] 25 mg PO BID 08/19/16 [History] Ferrous Sulfate 325 mg PO DAILY #30 tablet 08/21/16 [Rx] Hydrocortisone 1% CREAM [Cortaid] 1 appl TP BID PRN #1 bottle 08/21/16 [Rx] Omeprazole [PriLOSEC] 20 mg PO DAILY #30 cap 08/21/16 [Rx] Furosemide [Lasix] 20 mg PO DAILY 11/06/16 [History] Potassium 99 mg PO DAILY 11/06/16 [History] Allergies No Known Allergies Allergy (Verified 12/03/15 16:32) Oncology - Exam - Constitutional Vitals: Temp Pulse Resp BP Pulse Ox 97.6 F 87 20 150/79 93 11/07/16 16:48 11/07/16 16:48 11/07/16 16:48 11/07/16 16:48 11/07/16 16:48 Oncology - Results - Labs Labs: Short CBC 11/07/16 Range/Units 05:17 WBC 13.6 H D (4.3-11.1) K/mcL Hgb 7.8 L (11.5-15.4) g/dL Hct 25.2 L (35.3-44.9) % Plt Count 257 (140-400) K/mcL Neutrophils # 10.2 H (1.6-8.9) K/mcL BMP 11/07/16 05:17 Sodium 141 Potassium 3.8 Chloride 108 Carbon Dioxide 28 BUN 16 Creatinine 0.71 Glucose 105 H Calcium 8.3 L Urine 11/07/16 Range/Units 10:20 Urine Color Yellow (Yellow) Urine Clarity Clear (Clear) Urine pH 6.5 (5.0-8.0) pH Units Ur Specific [place] 1.012 (1.010-1.025) Urine Protein Negative (Neg-Trace) mg/dL Urine Glucose (UA) 100 H (Normal) mg/dL Consult Discharge Plan - Plan Referrals: NO,PCP [Primary Care Provider] - (possible ECF)
[2016-11-07] MEDS: OLANZapine 10 MG TAB.RAPDIS PO SCH (21:44)
[2016-11-08] MEDS: Ipratropium/Albuterol Neb 3 ML IH SCH ×4 (05:02→22:16)
[2016-11-08 05:13] LABS: Basophils % 0.2 %; Eosinophils % 0.1 %; Hematocrit 27.3 % (35.3-44.9); Hemoglobin 8.1 g/dL (11.5-15.4); Immature Granulocytes % 0.9 % (0-4); Lymphocytes # 2.3 K/mcL (0.6-4.6); Lymphocytes % 16.3 %; Mean Corpuscular HGB Conc 29.7 g/dL (31.6-35.5); Mean Corpuscular Hemoglobin 21.7 pg (28.0-33.3); Mean Platelet Volume 9.4 fL (9.4-12.4); Monocytes # 1.2 K/mcL (0.0-1.3); Monocytes % 8.3 %; Neutrophils # 10.4 K/mcL (1.6-8.9); Nucleated Red Blood Cells 0.4 /100 WBC (0); Platelet Count 228 K/mcL (140-400); Red Blood Count 3.74 M/mcL (3.82-4.97); Red Cell Distribution Width 25.2 % (11.5-14.5); Segmented Neutrophils % 74.2 %
[2016-11-08 05:35] LABS: BUN/Creatinine Ratio 26 (6-26); Blood Urea Nitrogen 18 mg/dL (7-20); Calcium 9.1 mg/dL (8.6-10.8); Carbon Dioxide 27 mEq/L (19-29); Chloride 107 mEq/L (98-109); Glucose 78 mg/dL (70-99); Osmolality,Calculated 293 (280-300); Potassium 3.6 mEq/L (3.5-4.5); Sodium 141 mEq/L (136-145); eGFR For African Americans > 60 (> 60); eGFR For Non-African Americans > 60 (> 60)
[2016-11-08 05:45] LABS: Anisocytosis 3+ (Not Present); Microcytosis Present (Not Present); Platelet Estimate Normal (Normal)
[2016-11-08 07:59] LABS: Thyroid Stimulating Hormone 1.728 mcIU/mL (0.350-4.840)
[2016-11-08] MEDS: predniSONE 20 MG TABLET PO SCH (08:33)
[2016-11-08] MEDS: Lisinopril 20 MG TABLET PO SCH (08:37)
[2016-11-08] MEDS: ALPRAZolam 0.5 MG TABLET PO PRN ×2 (08:40→19:32)
[2016-11-08] MEDS: Budesonide/Formoterol 160/4.5 MDI IH SCH ×2 (09:51→22:16)
[2016-11-08 11:45] LABS: Folate 4.6 ng/mL (7.0-31.4)
[2016-11-08] MEDS: Sennosides/Docusate Sodium TABLET PO PRN (16:08)
--- NOTE | 2016-11-08 17:17 | Electrocardiograph Report ---
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
[2016-11-08] MEDS: Nicotine 14 MG PATCH.TD24 TD SCH (17:28)
--- NOTE | 2016-11-08 17:44 | Internal Med Progress Note ---
<Raad Kim - Last Filed: 11/08/16 17:41> Date of Encounter: 11/08/16 Time of Encounter: 09:00 - Assessment and plan (1) COPD with exacerbation Current Visit: Yes Status: Acute Assessment and plan: 11/08 No significant change from prior days. Patient has been experiencing runs of SVT , Afib/flutter. We will discontinue scheduled albuterol in order to decrease the likelihood of arrhythmia, and start Xopenex PRN instead. 11/07 Patient transitioned to PO steroids, but otherwise stable. She states that her SOB has resolved for the most part, and that she feels back to baseline. Mild wheezes were apparent b/l on physical exam. CXR revealed no acute process. We will continue to monitor. 11/06 Patient says that she is breathing much better than she was previously. Her oxygen saturations 93 on 2 L of oxygen at this time. We will continue to give the patient IV steroids at this time however we will discontinue antibiotics. Patient will receive inhaler and breathing treatments as necessary. (2) Microcytic anemia Current Visit: Yes Status: Acute Assessment and plan: 11/08 The patient was seen by heme/onc who recommended continuing her on PO iron, as well as testing for celiac, b12, folate, MMa, tsh, t4, and to consider a pill endoscopy. She is demonstrating an improvement in MCV. We will give one unit of blood in hopes of discharging tomorrow. 11/07 The patient has experienced another drop in Hgb to 7.8. Reticulocyte count is 0.03, and showed no strong response to Iron supplementation. Stool sample was negative for occult bleed, and no other source of bleeding has been identified. Patient recieved IV Feraheme yesterday, and second dose is recommended 3-8 days following. Started PO Ferrous Sulfate for maintenance. Hematology was consulted for evaluation of refractory anemia. 11/06 Patient received 1 unit of blood yesterday. In a recent admission she also received 1 unit of packed red blood cells and was cemented gastroenterology. At that time gastroenterology found no acute bleeding. Iron studies confirm that microcytic anemia and is the result of severe iron deficiency. Patient's ferritin was 7 and running concentration was 2%. We will start IV iron supplementation at this time and monitor CBC (3) Atrial fib/flutter, transient Current Visit: Yes Status: Acute Assessment and plan: 11/08 Patient experienced another run of SVT which was corrected by carotid massage. We will increase the dose of metoprolol, and will also d/c scheduled albuterol. Patient is a poor candidate for anti-coagulation due to severe iron deficiency anemia with suspicion of bleed. Echocardiogram demonstrated an LVEF of 70% with no wall motion abnormalities. We will continue to monitor her at this time. 11/07 Patient experienced several short runs of irregular tachycardic rhythms and on playground monitor. To our knowledge and the knowledge of the patient, she has never experienced atrial fibrillation or flutter previously. Patient denied chest pain, sob, palpatations associated with the events. 12-lead EKG was ordered and the patient had spontaneously converted to normal sinus rhythm. Cxr showed no acute cardiac process. A stat echocardiogram was ordered and will be assessed. She is appropriately rate controlled at this time. Anti-coagulation is contraindicated at this time due to suspicion of bleeding, but we will continue to evaluate. (4) HTN (hypertension) Current Visit: No Status: Chronic Assessment and plan: Patient hypertension well controlled at this time. We will continue her medications at this time without changes. Qualifiers: Hypertension type: essential hypertension Qualified Code(s): I10 - Essential (primary) hypertension (5) Generalized weakness Current Visit: Yes Status: Acute Assessment and plan: Patient's generalized weakness has improved since admission. We will continue to monitor. PT/OT Saw and evaluated the patient, and determined she has no need. (6) DVT prophylaxis Current Visit: No Status: Acute Assessment and plan: d/t anemia heparin was held. SCDs at this time - Subjective Interval history: 11/08 Patient continues to rest comfortably in bed in no acute distress. She reports no events overnight. 11/07 The patient says that she is ready to go home. She is resting comfortably in bed on examination, and is in no acute distress. 11/06 Patient resting comfortably in bed at time of examination. Appears to be in no acute distress. She says that her shortness of breath has largely resolved and she no longer short of breath. She does say that she is tired although she says does not want above baseline. On questioning patient does say that she has had dark stools in the past few days. - Constitutional Vitals: Temp Pulse Resp BP Pulse Ox 97.7 F 111 18 122/81 96 11/08/16 15:25 11/08/16 17:23 11/08/16 17:23 11/08/16 17:23 11/08/16 17:23 General appearance: Present: cachectic, cooperative, A&O X 3, no acute distress - Head Head exam: Present: atraumatic, normocephalic - Eye Eye exam: Present: PERRL, conjuntiva pink, sclera anicteric Pupils: Present: PERRL - Neck Neck exam general surgery: Present: supple, trachea midline. Absent: lymphadenopathy - Respiratory Respiratory exam: Present: CTAB. Absent: accessory muscle use, rales, rhonchi, wheezes - Cardiovascular Cardiovascular exam: Present: RRR, +S1, +S2. Absent: diastolic murmur, gallop, rubs, systolic murmur - GI/Abdominal GI/Abdominal exam: Present: normal bowel sounds, soft, no peritoneal signs. Absent: distended, tenderness - Extremities Exam Extremities exam: Present: warm, radial pulses palpable and symetrical. Absent : calf tenderness, cyanotic, pedal edema - Neurological Exam Neurological exam: Present: CN II-XII intact, oriented X3, no focal deficits. Absent: pronater drift, facial droop, speech deficit - Skin Skin exam: Present: dry, intact Internal Medicine: Result - Labs CBC & Chem 7: 11/08/16 04:20 11/08/16 04:20 Labs: Short CBC 11/08/16 Range/Units 04:20 WBC 14.0 H (4.3-11.1) K/mcL Hgb 8.1 L (11.5-15.4) g/dL Hct 27.3 L (35.3-44.9) % Plt Count 228 (140-400) K/mcL Neutrophils # 10.4 H (1.6-8.9) K/mcL BMP 11/08/16 04:20 Sodium 141 Potassium 3.6 Chloride 107 Carbon Dioxide 27 BUN 18 Creatinine 0.69 Glucose 78 Calcium 9.1 Consult Discharge Plan - Plan Referrals: NO,PCP [Primary Care Provider] - (possible ECF) <Logan Fisher - Last Filed: 11/08/16 20:23> Date of Encounter: 11/08/16 - Constitutional Vitals: Temp Pulse Resp BP Pulse Ox 98.0 F 136 24 137/80 96 11/08/16 19:47 11/08/16 19:47 11/08/16 19:47 11/08/16 19:47 11/08/16 19:47 Internal Medicine: Result - Labs CBC & Chem 7: 11/08/16 04:20 11/08/16 04:20 Labs: Short CBC 11/08/16 Range/Units 04:20 WBC 14.0 H (4.3-11.1) K/mcL Hgb 8.1 L (11.5-15.4) g/dL Hct 27.3 L (35.3-44.9) % Plt Count 228 (140-400) K/mcL Neutrophils # 10.4 H (1.6-8.9) K/mcL BMP 11/08/16 04:20 Sodium 141 Potassium 3.6 Chloride 107 Carbon Dioxide 27 BUN 18 Creatinine 0.69 Glucose 78 Calcium 9.1 - Attending Attestation I examined this patient and my medical decision-making was reviewed with the Resident Physician, Dr Kim. I agree with the documented findings, disposition and treatment plan as described except to the extent set forth below. Patient developed several episodes of paroxysmal atrial fibrillation and o SVT which corrected with carotid massage. her physical exam reveals expiratory Wheezes. heart is currently regular S1-S2. We will increase metoprolol, monitor On telemetry. Continue with prednisone.
[2016-11-08] MEDS ORDERED: Levalbuterol Neb 0.63 MG/3 ML IH PRN (17:50)
[2016-11-08] MEDS ORDERED: 0.9 % Sodium Chloride 250 ML ONE (18:26)
[2016-11-08] MEDS: OLANZapine 10 MG TAB.RAPDIS PO SCH (19:32)
[2016-11-09 04:15] VITALS: BP 144/79
[2016-11-09] MEDS: Ipratropium/Albuterol Neb 3 ML IH SCH ×2 (04:21→09:03)
[2016-11-09] MEDS: ALPRAZolam 0.5 MG TABLET PO PRN (05:46)
[2016-11-09 06:20] LABS: BUN/Creatinine Ratio 28 (6-26); Basophils % 0.2 %; Blood Urea Nitrogen 18 mg/dL (7-20); Calcium 8.6 mg/dL (8.6-10.8); Carbon Dioxide 27 mEq/L (19-29); Chloride 106 mEq/L (98-109); Eosinophils # 0.1 K/mcL (0.0-0.6); Eosinophils % 0.7 %; Glucose 90 mg/dL (70-99); Hematocrit 31.4 % (35.3-44.9); Hemoglobin 9.6 g/dL (11.5-15.4); Immature Granulocytes % 1.4 % (0-4); Immature Platelets 2.6 % (1.1-6.1); Lymphocytes # 2.3 K/mcL (0.6-4.6); Lymphocytes % 17.4 %; Mean Corpuscular HGB Conc 30.6 g/dL (31.6-35.5); Mean Corpuscular Hemoglobin 22.8 pg (28.0-33.3); Mean Corpuscular Volume 74.6 fL (83.0-100.0); Mean Platelet Volume 9.1 fL (9.4-12.4); Monocytes % 7.8 %; Neutrophils # 9.6 K/mcL (1.6-8.9); Nucleated Red Blood Cells 1.5 /100 WBC (0); Osmolality,Calculated 289 (280-300); Platelet Count 218 K/mcL (140-400); Red Blood Count 4.21 M/mcL (3.82-4.97); Red Cell Distribution Width 25.5 % (11.5-14.5); Segmented Neutrophils % 72.5 %; Sodium 139 mEq/L (136-145); eGFR For African Americans > 60 (> 60); eGFR For Non-African Americans > 60 (> 60)
[2016-11-09 06:41] LABS: Anisocytosis 3+ (Not Present); Platelet Estimate Normal (Normal)
[2016-11-09 06:42] LABS: Microcytosis Present (Not Present); Polychromasia 1+ (Not Present); Schistocytes 1+ (Not Present)
[2016-11-09] MEDS: Lisinopril 20 MG TABLET PO SCH (08:01)
[2016-11-09] MEDS: predniSONE 20 MG TABLET PO SCH (08:01)
--- NOTE | 2016-11-09 08:05 | Discharge Summary ---
<Ben Fulton - Last Filed: 11/09/16 07:58> Date of Encounter: 11/09/16 Time of Encounter: 07:59 - Discharge Diagnosis (1) COPD with exacerbation Priority: Primary Status: Acute (2) Iron deficiency anemia Status: Acute (3) Schizophrenia Priority: Secondary Status: Acute (4) Hypoxia Priority: Primary Status: Acute (5) Bed bug bite Status: Acute - Discharge Medications Prescriptions: Ferrous Sulfate 325 mg PO BID #60 tablet Folic Acid 1 mg PO DAILY 30 Days Metoprolol [Lopressor] 12.5 mg PO BID 30 Days Nicotine Patch [Nicoderm] 14 mg TD Q24H 30 Days PredniSONE [Deltasone] 20 mg PO BID #10 tablet Home Medications: Lisinopril [Zestril] 40 mg PO DAILY 07/15/15 [History] Albuterol Sulfate [Proair Hfa] 1 puff IH Q4HR PRN #1 inh 07/24/15 [Rx] Ipratropium/Albuterol Neb [Duoneb] 3 ml IH [id number] #120 inhsol 12/04/15 [Rx] ALPRAZolam [Xanax 0.5 MG Tablet] 0.5 mg PO DAILY PRN 01/02/16 [History] Pravastatin Sodium [Pravachol] 20 mg PO DAILY 01/02/16 [History] Docusate Sodium [Move It Along] 100 mg PO BID 08/19/16 [History] Haloperidol Decanoate [Haldol Decanoate 100] 100 mg IM QMONTH 08/19/16 [History] OLANZapine [Zyprexa] 10 mg PO DAILY 08/19/16 [History] Trihexyphenidyl [Artane] 2 mg PO BID 08/19/16 [History] hydrOXYzine HCl [Hydroxyzine HCl] 25 mg PO BID 08/19/16 [History] Hydrocortisone 1% CREAM [Cortaid] 1 appl TP BID PRN #1 bottle 08/21/16 [Rx] Omeprazole [PriLOSEC] 20 mg PO DAILY #30 cap 08/21/16 [Rx] Ferrous Sulfate 325 mg PO BID #60 tablet 11/09/16 [Rx] Folic Acid 1 mg PO DAILY 30 Days 11/09/16 [Rx] Metoprolol [Lopressor] 12.5 mg PO BID 30 Days 11/09/16 [Rx] Nicotine Patch [Nicoderm] 14 mg TD Q24H 30 Days 11/09/16 [Rx] PredniSONE [Deltasone] 20 mg PO BID #10 tablet 11/09/16 [Rx] Allergies/Adverse Reactions: Allergies No Known Allergies Allergy (Verified 12/03/15 16:32) Procedures/tests Complete & Pending: Procedures Performed prior 72 hours Category Date Time Status ECG 12 lead ECG [ECG] Routine Y 11/07/16 13:51 Completed EV echocardiogram Routine Y 11/07/16 13:49 Completed Date of admission: 11/05/16 21:25 Primary care physician: PCP NO Consults: 11/05/16 21:30 Consult to It Architecture Consultant [CONS] Routine Reason for SW Consult: pls assist with social needs, thanks 11/06/16 11:14 Consult to Occupational Therapy [CONS] Routine Comment: Evaluate, develop and implement POC Reason for Consult: generalized weakness Consult to Physical Therapy [CONS] Routine Comment: Evaluate, develop and implement POC Reason for Consult: generalized weakness 11/07/16 14:35 Consult to Oncology Hematology [CONS] Routine Consulting Provider: Zaheer Macario Reason for Consult: Acute Anemia Time Notified: 14:37 Call Completed: Yes Discharging clinician: Ben Fulton Anticipated date of discharge: 11/09/16 - Patient Status Disposition: Home, Self-Care Condition: Fair Functional capacity at discharge: independent ambulation Overall status at discharge: patient is progressing back to baseline - Discharge Instructions Instructions: Chronic Obstructive Pulmonary Disease (DC), Anemia (GEN) Follow Up With: NO,PCP [Primary Care Provider] - (possible ECF) - Diet and Activity Activity: increase activity as tolerated Diet: advance to your usual diet Hospital course: Ms. Lopez is a 65 year old female with a past medical history of schizophrenia , COPD, with ongoing tobacco abuse. Patient was admitted with COPD exacerbation and hypoxemia. It was also noted on exam that she did have severe anemia with an initial hemoglobin of 8.4. She did receive 2 units of packed red blood cells. Patient did refuse rectal exam is on multiple occasions. We were unable to obtain a stool sample. However hemoglobin has been stable we did find that she had a profound iron deficiency anemia as well as a folic acid deficiency. She was given IV iron and started on oral supplementation as well as folic acid. We will stabilized and has been trending up. Additionally her MCV is trending up as well. She had a marked improvement of her's COPD. She is currently on room air and has clear lungs on exam. There is also multiple bedbug bites that the patient had upon admission. Concern for her safety was raised and adult protective services was contacted. However outpatient has been seen multiple times and has declined their aid. Reportedly she has family members that have these infestations that will stay with her and reinfect her household. Did have an episode of SVT during her hospitalization this resolved with a carotid massage. She was placed on a low dose of a beta claire which resolved. Most likely this is secondary to her anemia. However would recommend close follow with her PCP and possible further workup. However patient declines further workup at this time. Additionally with her microcytic anemia with profound iron deficiency would strongly recommend that this patient be evaluated with EGD and colonoscopy. However at this time patient's hemoglobin is stable and gastroenterology services are not available at this time. We will have her follow-up with her PCP and would recommend close follow- up with possible testing if patient is agreeable at that time. This morning she has no complaints. No major lab abnormalities. Vital signs are within normal limits. We will discharge the patient home. She voiced back understanding and agreement to the above plan. - Time Spent with Patient Total time spent providing and/or coordinating discharge services: Greater than 30 minutes - Constitutional Vitals: Temp Pulse Resp BP Pulse Ox 97.5 F L 80 17 144/79 92 11/09/16 04:13 11/09/16 04:13 11/09/16 04:22 11/09/16 04:13 11/09/16 04:22 General appearance: Present: cachectic, cooperative, A&O X 3, no acute distress - Head Head exam: Present: atraumatic, normocephalic - Eye Eye exam: Present: PERRL, conjuntiva pink, sclera anicteric Pupils: Present: PERRL - Neck Neck exam general surgery: Present: supple, trachea midline. Absent: lymphadenopathy - Respiratory Respiratory exam: Present: CTAB. Absent: accessory muscle use, rales, rhonchi, wheezes - Cardiovascular Cardiovascular exam: Present: RRR, +S1, +S2. Absent: diastolic murmur, gallop, rubs, systolic murmur - GI/Abdominal GI/Abdominal exam: Present: normal bowel sounds, soft, no peritoneal signs. Absent: distended, tenderness - Extremities Exam Extremities exam: Present: warm, radial pulses palpable and symetrical. Absent : calf tenderness, cyanotic, pedal edema - Skin Skin exam: Present: dry, intact <NataliaLogan - Last Filed: 11/09/16 18:19> Date of Encounter: 11/09/16 Procedures/tests Complete & Pending: Procedures Performed prior 72 hours Category Date Time Status ECG 12 lead ECG [ECG] Routine Y 11/07/16 13:51 Completed EV echocardiogram Routine Y 11/07/16 13:49 Completed Date of admission: 11/05/16 21:25 Primary care physician: PCP NO Consults: 11/05/16 21:30 Consult to It Architecture Consultant [CONS] Routine Reason for SW Consult: pls assist with social needs, thanks 11/06/16 11:14 Consult to Occupational Therapy [CONS] Routine Comment: Evaluate, develop and implement POC Reason for Consult: generalized weakness Consult to Physical Therapy [CONS] Routine Comment: Evaluate, develop and implement POC Reason for Consult: generalized weakness 11/07/16 14:35 Consult to Oncology Hematology [CONS] Routine Consulting Provider: Zaheer Macario Reason for Consult: Acute Anemia Time Notified: 14:37 Call Completed: Yes - Patient Status Functional capacity at discharge: independent ambulation Overall status at discharge: patient is progressing back to baseline Hospital course: Ms. Lopez is a 65 year old female - Time Spent with Patient Total time spent providing and/or coordinating discharge services: - Constitutional Vitals: Temp Pulse Resp BP Pulse Ox 97.5 F L 80 16 144/79 98 11/09/16 04:13 11/09/16 04:13 11/09/16 09:03 11/09/16 04:13 11/09/16 09:03 - Attending Attestation I examined this patient and my medical decision-making was reviewed with the Resident Physician, Dr. Fulton. I agree with the documented findings, disposition and treatment plan as described except to the extent set forth below. Lung exam reveals expiratory wheezes. She is back to baseline. Her hemoglobin has been stable.. She will be discharged home. her chronic anemia should be evaluated outpatient with EGD and olonoscopy.
[2016-11-09] MEDS: Budesonide/Formoterol 160/4.5 MDI IH SCH (09:02)
[2016-11-09] MEDS ORDERED: Folic Acid 1 MG TABLET PO SCH (17:40)
[2016-11-10 09:49] LABS: Tissue Transglutaminase IgA 8 U/mL (0-3)
[2016-11-10 10:08] LABS: Immunoglobulin A (CELIAC) 289 mg/dL (68-408)
[2016-11-11 07:42] LABS: Deamidated Gliadin Peptide IgA 99 Units (0-19)
--- NOTE | 2016-11-11 15:56 | Electrocardiograph Report ---
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
== END 2016-11-09 11:15 | disposition home or self-care (01) ==
LOC: EMEROO 18:22 → 2ANU 18:22 → SUATTDRO 21:25 → 2ANU 21:55
PROVIDERS: ADMIT Internal Medicine; ATTEND Internal Medicine

== ENCOUNTER 2016-12-10 22:21 | Inpatient (IN) ==
--- NOTE | 2016-12-10 23:44 | Emergency Department Note ---
Disposition Clinical Impression: Hypoxia, COPD with exacerbation Disposition: Admitted As Inpatient Condition: Fair Referrals: NONE,PCP [Primary Care Provider] - Forms: ED Satisfaction Letter Time of Disposition: 03:14 SOB HPI - General Chief Complaint: ED Shortness of Breath/Dyspnea Stated Complaint: LENORE Time Seen by Provider: 12/10/16 22:22 Source: patient, EMS Mode of arrival: EMS Limitations: no limitations Nursing Notes Reviewed: Yes Vital Signs Reviewed: Yes - History of Present Illness Patient presents to the ED with the chief complaint of chest pain and shortness of breath. Patient presents with a 3 day history of increasing shortness of breath and pleuritic poorly localized chest discomfort. States that she has a history of swelling in her legs previously and is on Lasix. She states that she thinks she has a history of blood clots in her lungs but is not on anticoagulation due to her knowledge. She states that she feels scared and is not sure if her anxiety is making things worse. States her chest feels tight intermittently, but does have some sharp pleuritic type pain throughout. States her shortness of breath got worse today so she came in for evaluation. Denies fever or chills , vomiting or abdominal pain. No changes and swelling in her legs from baseline. Patient is a poor historian, so history is limited , but she does seem to answer questions appropriately and appears oriented - Related Data Home Medications Medication Instructions Recorded Confirmed Lisinopril [Zestril] 40 mg PO DAILY 07/15/15 11/06/16 ALPRAZolam [Xanax 0.5 MG Tablet] 0.5 mg PO DAILY PRN 01/02/16 11/06/16 Pravastatin Sodium [Pravachol] 20 mg PO DAILY 01/02/16 11/06/16 Docusate Sodium [Move It Along] 100 mg PO BID 08/19/16 11/06/16 Haloperidol Decanoate [Haldol 100 mg IM QMONTH 08/19/16 11/06/16 Decanoate 100] OLANZapine [Zyprexa] 10 mg PO DAILY 08/19/16 11/06/16 Trihexyphenidyl [Artane] 2 mg PO BID 08/19/16 11/06/16 hydrOXYzine HCl [Hydroxyzine HCl] 25 mg PO BID 08/19/16 11/06/16 Previous Rx's Medication Instructions Recorded Albuterol Sulfate [Proair Hfa] 1 puff IH Q4HR PRN #1 inh 07/24/15 Ipratropium/Albuterol Neb [Duoneb] 3 ml IH [id number] #120 inhsol 12/04/15 Hydrocortisone 1% CREAM [Cortaid] 1 appl TP BID PRN #1 bottle 08/21/16 Omeprazole [PriLOSEC] 20 mg PO DAILY #30 cap 08/21/16 Ferrous Sulfate 325 mg PO BID #60 tablet 11/09/16 Folic Acid 1 mg PO DAILY 30 Days 11/09/16 Metoprolol [Lopressor] 12.5 mg PO BID 30 Days 11/09/16 Nicotine Patch [Nicoderm] 14 mg TD Q24H 30 Days 11/09/16 PredniSONE [Deltasone] 20 mg PO BID #10 tablet 11/09/16 Allergies Allergy/AdvReac Type Severity Reaction Status Date / Time No Known Allergies Allergy Verified 12/03/15 16:32 All systems ED: reviewed and negative except as stated. Constitutional: Denies: fever Respiratory: Reports: dyspnea Past Medical History - Past Medical History Attestation: Yes The following information was validated with the patient. Source: old records reviewed Medical history: Reports: cancer, COPD, hyperlipidemia, hypertension Surgical history: Reports: cancer surgery Psychiatric history: Reports: anxiety, depression, schizophrenia - Social History Smoking Status: Current every day smoker Smokeless Tobacco Status: No Alcohol use: Reports: none Drug use: Reports: none Physical Exam - General Limitations: no limitations General appearance: alert, in no apparent distress, anxious - Head Head exam: atraumatic, normocephalic, normal inspection - ENT ENT exam: mucous membranes dry - Chest Chest inspection: Present: normal inspection, symmetric chest wall rise - Respiratory Respiratory exam: Present: normal lung sounds bilaterally - Cardiovascular Cardiovascular exam: Present: regular rate, normal rhythm, normal heart sounds - Abdominal Exam Abdominal exam: Present: soft, Non-Tender. Absent: tenderness, distention, guarding, rebound, rigidity - Extremities Exam Extremities exam: Present: normal inspection, full ROM, pedal edema (Equal bilaterally, chronic-appearing abrasions.). Absent: tenderness - Neurological Exam Neurological exam: Present: alert, oriented X3, CN II-XII intact - Psychiatric Psychiatric exam: Present: anxious - Skin Skin exam: Present: warm, dry, intact, normal color, other (Patient is somewhat disheveled and covered in bedbugs.) Course Course Narrative: 65-year-old female that is a poor historian presenting with pleuritic chest pain and shortness of breath. States that she has a history of pulmonary embolism previously and is not on anticoagulation. Saturation is normal. She is not hypotensive and not tachycardic. However, she has moderate risk on well' s criteria, so we will proceed with workup including CT and get a chest to rule out PE. Likely related to a COPD exacerbation versus anxiety, although her lungs are clear at this time. She also has a bedbug infestation, so will need to be decontaminated. - Reevaluation(s) Reevaluation #1: Discharge, nurse notified us that there was laboratory error. The patient's blood was drawn but was mislabeled. This has led to a delay in care. She will have labs drawn at this time. Patient reevaluated and is slightly wheezing now. Will give steroids and DuoNeb treatments. Likely related to COPD exacerbation. However, we will also CTA chest if available to rule out PE. Time: 00:50 Reevaluation #2: CTA was negative for PE. COPD exacerbation. Was hypoxic at 89%, so we will admit. Vital Signs Temperature 98.3 F 12/10/16 22:55 Pulse Rate 76 12/10/16 22:55 Respiratory Rate 20 12/10/16 22:55 Blood Pressure 152/79 12/10/16 22:55 O2 Sat by Pulse Oximetry 96 12/10/16 22:55 Temperature 98.3 F 12/10/16 22:55 Pulse Rate 82 12/11/16 02:12 Respiratory Rate 18 12/11/16 02:12 Blood Pressure 128/70 12/11/16 02:12 O2 Sat by Pulse Oximetry 98 12/11/16 02:12 Oxygen Delivery Oxygen Delivery Nasal Cannula Shortness of Breath/Dyspnea - Medical Records Medical records reviewed: Yes I reviewed the patient's medical records. - Lab Data Lab results reviewed: Yes I reviewed the patient's lab results. Result diagrams: 12/11/16 00:42 12/11/16 00:42 Lab Results 12/11/16 12/11/16 12/11/16 Range/Units 00:42 00:42 00:42 WBC 5.1 (4.3-11.1) K/mcL RBC 4.17 (3.82-4.97) M/mcL Hgb 10.7 L (11.5-15.4) g/dL Hct 34.1 L (35.3-44.9) % MCV 81.8 L D (83.0-100.0) fL MCH 25.7 L (28.0-33.3) pg MCHC 31.4 L (31.6-35.5) g/dL RDW 24.0 H (11.5-14.5) % Plt Count 170 (140-400) K/mcL MPV 9.1 L (9.4-12.4) fL Immature Gran % 0.0 (0-4) % Seg Neutrophils % 47.5 % Lymphocytes % 33.4 % Monocytes % 10.6 % Eosinophils % 7.7 % Basophils % 0.8 % Neutrophils # 2.4 (1.6-8.9) K/mcL Lymphocytes # 1.7 (0.6-4.6) K/mcL Monocytes # 0.5 (0.0-1.3) K/mcL Eosinophils # 0.4 (0.0-0.6) K/mcL Basophils # 0.0 (0.0-0.2) K/mcL PT (9.4-12.1) Seconds INR APTT (26.0-36.0) Seconds Sodium 140 (136-145) mEq/L Potassium 4.0 (3.5-4.5) mEq/L Chloride 104 (98-109) mEq/L Carbon Dioxide 31 H (19-29) mEq/L BUN 9 (7-20) mg/dL Creatinine 0.63 (0.57-1.11) mg/dL Est GFR ( Amer) > 60 (> 60) Est GFR (Non-Af Amer) > 60 (> 60) BUN/Creatinine Ratio 14 (6-26) Glucose 96 (70-99) mg/dL Calculated Osmolality 289 (280-300) Calcium 8.6 (8.6-10.8) mg/dL Troponin I 0.00 (0-0.03) ng/mL B-Natriuretic Peptide (0-100) pg/mL 12/11/16 12/11/16 Range/Units 00:42 00:42 WBC (4.3-11.1) K/mcL RBC (3.82-4.97) M/mcL Hgb (11.5-15.4) g/dL Hct (35.3-44.9) % MCV (83.0-100.0) fL MCH (28.0-33.3) pg MCHC (31.6-35.5) g/dL RDW (11.5-14.5) % Plt Count (140-400) K/mcL MPV (9.4-12.4) fL Immature Gran % (0-4) % Seg Neutrophils % % Lymphocytes % % Monocytes % % Eosinophils % % Basophils % % Neutrophils # (1.6-8.9) K/mcL Lymphocytes # (0.6-4.6) K/mcL Monocytes # (0.0-1.3) K/mcL Eosinophils # (0.0-0.6) K/mcL Basophils # (0.0-0.2) K/mcL PT 11.6 (9.4-12.1) Seconds INR 1.1 APTT 31.5 (26.0-36.0) Seconds Sodium (136-145) mEq/L Potassium (3.5-4.5) mEq/L Chloride (98-109) mEq/L Carbon Dioxide (19-29) mEq/L BUN (7-20) mg/dL Creatinine (0.57-1.11) mg/dL Est GFR ( Amer) (> 60) Est GFR (Non-Af Amer) (> 60) BUN/Creatinine Ratio (6-26) Glucose (70-99) mg/dL Calculated Osmolality (280-300) Calcium (8.6-10.8) mg/dL Troponin I (0-0.03) ng/mL B-Natriuretic Peptide 134 H (0-100) pg/mL - Radiology Data Radiology results reviewed: Yes I reviewed the patient's radiology results. - EKG Data EKG attestation: Yes I reviewed and interpreted this EKG. EKG results narrative: Sinus bradycardia with short HI interval, rate 59, HI interval 117, QRS 96, QTC 423, normal axis, no acute ischemic changes, although the QRS morphology is different in V3 as compared to previous and November of this year [facility] Situation: Demographics, MOA Background: Presenting Complaint, Relevant PMH, Meds, & Allergies Assessment: Vital Signs, Course and respsone to treatment, Exam Concerns, Patient/Family Expectation, Pertinant Lab Results, Outstanding Labs Recommendation: Barrier(s) to disposition, Recommendation based on pending studies, treatments, or consults Desiree Report Given to: Dr. Natalia Ramírez Repor Time: 03:14 Attestation Statement - Attestation Attestation: I personally interviewed and examined this patient and my medical decision- making was reviewed with the Resident Physician, Dr. Graves. I agree with the documented findings, disposition and treatment plan as described except to the extent set forth below. Patient is 65-year-old white female with a history of COPD who presents to the emergency department today with gradually worsening shortness of breath and chest tightness. Patient states symptoms have been developing over the last 3- 4 days with productive cough and occasional but denies any fevers or chills. Patient states she is not on home O2 and also has a history of remote DVT no longer on anticoagulation. Patient complains of "just not feeling well" with generalized myalgias. Patient was hypoxic on arrival with some faint wheezing in the bases bilaterally. Patient placed on supplemental oxygen and cardiac/vascular sonographer. I agree with patient's physical exam findings as documented. Patient's EKG showed no acute ischemic changes. Patient was given breathing treatments on arrival, IV steroids, aspirin and labs were drawn and sent. Chest x-ray was obtained which is within normal limits. Due to patient's prior DVT we did go ahead with CTA to rule out PE. This was negative for PE and pneumonia. Labs were unremarkable including a negative troponin. Patient will be admitted for further evaluation of acute exacerbation of COPD with hypoxia, while his chest pain. Patient has remained hemodynamically stable throughout her ED course. Case was discussed with the hospitalist who accepted patient for admission.
[2016-12-11] MEDS ORDERED: Ipratropium/Albuterol Neb 3 ML IH ONE (00:47)
[2016-12-11] MEDS ORDERED: predniSONE 20 MG TABLET PO ONE (00:47)
[2016-12-11 00:56] LABS: Basophils % 0.8 %; Eosinophils # 0.4 K/mcL (0.0-0.6); Eosinophils % 7.7 %; Hematocrit 34.1 % (35.3-44.9); Hemoglobin 10.7 g/dL (11.5-15.4); Lymphocytes # 1.7 K/mcL (0.6-4.6); Lymphocytes % 33.4 %; Mean Corpuscular HGB Conc 31.4 g/dL (31.6-35.5); Mean Corpuscular Hemoglobin 25.7 pg (28.0-33.3); Mean Platelet Volume 9.1 fL (9.4-12.4); Monocytes # 0.5 K/mcL (0.0-1.3); Monocytes % 10.6 %; Neutrophils # 2.4 K/mcL (1.6-8.9); Platelet Count 170 K/mcL (140-400); Red Blood Count 4.17 M/mcL (3.82-4.97); Segmented Neutrophils % 47.5 %
[2016-12-11 00:58] LABS: INR 1.1; Prothrombin Time 11.6 Seconds (9.4-12.1)
[2016-12-11 01:01] LABS: Activated Partial Thrombo Time 31.5 Seconds (26.0-36.0)
[2016-12-11 01:04] LABS: BUN/Creatinine Ratio 14 (6-26); Blood Urea Nitrogen 9 mg/dL (7-20); Calcium 8.6 mg/dL (8.6-10.8); Carbon Dioxide 31 mEq/L (19-29); Chloride 104 mEq/L (98-109); Glucose 96 mg/dL (70-99); Osmolality,Calculated 289 (280-300); Sodium 140 mEq/L (136-145); eGFR For African Americans > 60 (> 60); eGFR For Non-African Americans > 60 (> 60)
[2016-12-11 01:14] LABS: Mean Corpuscular Volume 81.8 fL (83.0-100.0)
--- NOTE | 2016-12-11 03:41 | Internal Med History&Physical ---
Date of Encounter: 12/11/16 Time of Encounter: 03:38 Assessment and Plan (1) Acute respiratory failure with hypoxia Current visit: Yes Status: Acute Likely secondary to COPD exacerbation. We will treat this with supplemental oxygen by nasal cannula. We will check home oxygen qualification prior to discharge. (2) COPD with exacerbation Current visit: No Status: Acute Patient is short of breath, wheezing and hypoxic consistent with COPD exacerbation. Plan: I emphasized with the patient the benefits of smoking cessation. We will admit her to the hospital. We will treat her with IV Solu-Medrol, inhaled albuterol and Atrovent and supplemental oxygen. We will start Levaquin for suspected bacterial bronchitis as a possible triggering event. (3) Tobacco abuse disorder Current visit: No Status: Chronic Smoking cessation counseling provided. (4) DVT prophylaxis Current visit: No Status: Acute Subcutaneous Lovenox (5) HTN (hypertension) Current visit: No Status: Chronic Continue antihypertensive home medication regimen. Qualifiers: Hypertension type: essential hypertension Qualified Code(s): I10 - Essential (primary) hypertension (6) Schizophrenia Current visit: No Status: Acute Continue outpatient regimen with monthly injectable haloperidol. Qualifiers: Schizophrenia type: unspecified Qualified Code(s): F20.9 - Schizophrenia, unspecified Internal Medicine - H&P: HPI Chief complaint: Shortness of breath Admitted From: Emergency Dept Plans for Post Hospital Care: Home History of present illness: Ms. Lopez is a 65 year old female who reports 2 day history of worsening moderate to severe shortness of breath associated with white-yellow sputum and not improved with use of albuterol inhaled. She does not have home oxygen. In the emergency department she was saturating 89% on room air. Her breathing has improved with administration of nebulized albuterol and oxygen by nasal cannula. Currently saturation is 98% with 2 L supplemental oxygen. A temporary review of systems was positive as above, additionally positive for chronic back pain and lower extremity swelling otherwise negative. Past medical history: COPD Past Med Surg Social Fam HX - Past Medical History Medical history: cancer, COPD, hyperlipidemia, hypertension Psychiatric history: anxiety, depression, schizophrenia - Past Surgical History Surgical History: cancer surgery - Social History Smoking Status: Current every day smoker Smokeless Tobacco Status: No Alcohol use: none Drug use: none - Family History Mother Adopted: No Family Member Ethnicity: Non- Living Status: Hx Family Cardiac Disorders: No Hx Family Respiratory Disorders: No Hx Family Cancer: Yes Hx Family GI Disorders: No Hx Family Endocrine Disorder: Yes (KIDNEY DIS) Hx Family Neuromuscular Disorders: No Hx Family Neurologic Disorders: No Hx Family HEENT Disorders: No Hx Family Autoimmune Disorders: No Internal Medicine - H&P: Meds Lisinopril [Zestril] 40 mg PO DAILY 07/15/15 [History] Albuterol Sulfate [Proair Hfa] 1 puff IH Q4HR PRN #1 inh 07/24/15 [Rx] Ipratropium/Albuterol Neb [Duoneb] 3 ml IH [id number] #120 inhsol 12/04/15 [Rx] ALPRAZolam [Xanax 0.5 MG Tablet] 0.5 mg PO DAILY PRN 01/02/16 [History] Pravastatin Sodium [Pravachol] 20 mg PO DAILY 01/02/16 [History] Docusate Sodium [Move It Along] 100 mg PO BID 08/19/16 [History] Haloperidol Decanoate [Haldol Decanoate 100] 100 mg IM QMONTH 08/19/16 [History] OLANZapine [Zyprexa] 10 mg PO DAILY 08/19/16 [History] Trihexyphenidyl [Artane] 2 mg PO BID 08/19/16 [History] hydrOXYzine HCl [Hydroxyzine HCl] 25 mg PO BID 08/19/16 [History] Hydrocortisone 1% CREAM [Cortaid] 1 appl TP BID PRN #1 bottle 08/21/16 [Rx] Omeprazole [PriLOSEC] 20 mg PO DAILY #30 cap 08/21/16 [Rx] Ferrous Sulfate 325 mg PO BID #60 tablet 11/09/16 [Rx] Folic Acid 1 mg PO DAILY 30 Days 11/09/16 [Rx] Metoprolol [Lopressor] 12.5 mg PO BID 30 Days 11/09/16 [Rx] Nicotine Patch [Nicoderm] 14 mg TD Q24H 30 Days 11/09/16 [Rx] PredniSONE [Deltasone] 20 mg PO BID #10 tablet 11/09/16 [Rx] Allergies No Known Allergies Allergy (Verified 12/03/15 16:32) All Systems PM: A 10-system review of systems was performed and is negative for pertinent findings except as documented above in the HPI. - Constitutional Vitals: Temp Pulse Resp BP Pulse Ox 98.3 F 82 18 128/70 98 12/10/16 22:55 12/11/16 02:12 12/11/16 02:12 12/11/16 02:12 12/11/16 02:12 General appearance: Present: A&O X 3 - Eye Eye exam: Present: PERRL, conjuntiva pink, sclera anicteric Pupils: Present: PERRL - Neck Neck exam general surgery: Present: supple, trachea midline. Absent: lymphadenopathy - Respiratory Respiratory exam: Present: wheezes. Absent: accessory muscle use, rales, rhonchi - Cardiovascular Cardiovascular exam: Present: RRR, +S1, +S2. Absent: diastolic murmur, gallop, rubs, systolic murmur - GI/Abdominal GI/Abdominal exam: Present: normal bowel sounds, soft, no peritoneal signs. Absent: distended, tenderness - Extremities Exam Extremities exam: Present: pedal edema, warm, radial pulses palpable and symmetrical. Absent: calf tenderness, cyanotic - Neurological Exam Neurological exam: Present: CN II-XII intact, oriented X3, no focal deficits. Absent: pronater drift, facial droop, speech deficit - Skin Skin exam: Present: dry, intact Internal Med - H&P Results - Labs CBC & Chem 7: 12/11/16 00:42 12/11/16 00:42 - EKG Data -: EKG Interpreted by Myself EKG shows normal: sinus rhythm, intervals, QRS complexes, ST-T waves Rate: bradycardia (59 bpm) - Impressions ITS Impressions Chest CTA 12/11/16 22:48 IMPRESSION: 1. No definite scan evidence for pulmonary embolus. 2. Emphysema. 3. Coronary artery disease. D/ / Duy Menard MD / Duy Menard MD Interpreting Provider: Duy Menard MD
[2016-12-11] MEDS ORDERED: Ondansetron 4 MG/2 ML VIAL IVP PRN (03:50)
[2016-12-11] MEDS ORDERED: Albuterol 2.5 MG/3 ML NEBULIZER IH PRN (03:50)
[2016-12-11] MEDS ORDERED: Naloxone 0.4 MG/ML INJ IVP PRN (03:50)
[2016-12-11] MEDS ORDERED: *HR* HYDROcodone/Acet 5/325 mg TABLET PO PRN (03:50)
[2016-12-11] MEDS ORDERED: Acetaminophen 325 MG TABLET PO PRN (03:50)
[2016-12-11] MEDS: *HR* Enoxaparin 40 MG/0.4 ML SYRINGE SQ SCH (05:19)
[2016-12-11] MEDS: Ipratropium/Albuterol Neb 3 ML IH SCH ×6 (05:53→23:59)
[2016-12-11] MEDS ORDERED: methylPREDNISolone 125 MG/2 ML VIAL IVP SCH (06:00)
[2016-12-11 06:53] LABS: Basophils % 0.7 %; Eosinophils # 0.3 K/mcL (0.0-0.6); Hematocrit 32.2 % (35.3-44.9); Hemoglobin 10.3 g/dL (11.5-15.4); Immature Granulocytes % 0.2 % (0-4); Lymphocytes # 1.4 K/mcL (0.6-4.6); Lymphocytes % 31.2 %; Mean Corpuscular Hemoglobin 25.7 pg (28.0-33.3); Mean Corpuscular Volume 80.3 fL (83.0-100.0); Mean Platelet Volume 9.5 fL (9.4-12.4); Monocytes # 0.4 K/mcL (0.0-1.3); Monocytes % 8.5 %; Neutrophils # 2.4 K/mcL (1.6-8.9); Platelet Count 164 K/mcL (140-400); Red Blood Count 4.01 M/mcL (3.82-4.97); Red Cell Distribution Width 23.9 % (11.5-14.5); Segmented Neutrophils % 53.4 %
[2016-12-11 06:57] LABS: BUN/Creatinine Ratio 12 (6-26); Blood Urea Nitrogen 7 mg/dL (7-20); Calcium 8.5 mg/dL (8.6-10.8); Carbon Dioxide 31 mEq/L (19-29); Chloride 103 mEq/L (98-109); Glucose 100 mg/dL (70-99); Osmolality,Calculated 286 (280-300); Potassium 3.5 mEq/L (3.5-4.5); Sodium 139 mEq/L (136-145); eGFR For African Americans > 60 (> 60); eGFR For Non-African Americans > 60 (> 60)
[2016-12-11 07:52] LABS: Anisocytosis 2+ (Not Present)
[2016-12-11 07:53] LABS: Platelet Estimate Normal (Normal)
--- NOTE | 2016-12-11 09:51 | Event Note ---
<Anurag Zamarripa - Last Filed: 12/11/16 13:26> Date of Encounter: 12/11/16 Time of Encounter: 09:20 Patient seen and examined by me. Patient reports her breathing is improving on current treatment. Patient has diffuse wheezing on physical exam, but otherwise normal exam. We will switch patient from IV to oral steroids. We will start patient on Azithromycin IV 500 today. Patient not currently on Oxygen at home. Ordered 6 minute walk test for Oxygen qualification. <Jef Evans - Last Filed: 12/11/16 16:17> Date of Encounter: 12/11/16 Pt admitted earlier this morning for acute exac COPD. She continues to wheeze. Azithromycin added. PO steroids. Qualify for oxygen. Continue orders as written. Possible d/c tomorrow.
[2016-12-11] MEDS ORDERED: Azithromycin 500 MG in D5% in Water 250 ML IVPB ONE (11:39)
[2016-12-11] MEDS: ALPRAZolam 0.5 MG TABLET PO PRN (15:52)
[2016-12-11] MEDS: Nicotine 14 MG PATCH.TD24 TD SCH (15:52)
[2016-12-11] MEDS: predniSONE 20 MG TABLET PO SCH (17:05)
--- NOTE | 2016-12-11 20:28 | Electrocardiograph Report ---
[place] [id number] Test Date: 2016-12-10 Pat Name: Edel Lopez Department: 102 Room: 2A48 Gender: F Home Supervisor: Pepe : 1950 Requested By: Wallace Graves Order Number: [id number] Reading MD: Troy Donohue MD Measurements Intervals [place] Rate: 59 P: 84 ME: 117 QRS: 82 QRSD: 96 T: 68 QT: 423 QTc: 423 Interpretive Statements SINUS BRADYCARDIA WITH SHORT ME INTERVAL Electronically Signed On 12-11-2016 20:26:12 EDT by Troy Donohue MD
[2016-12-12 04:39] LABS: Hematocrit 36.7 % (35.3-44.9); Hemoglobin 11.7 g/dL (11.5-15.4); Mean Corpuscular HGB Conc 31.9 g/dL (31.6-35.5); Mean Corpuscular Hemoglobin 25.7 pg (28.0-33.3); Mean Corpuscular Volume 80.7 fL (83.0-100.0); Platelet Count 198 K/mcL (140-400); Red Blood Count 4.55 M/mcL (3.82-4.97); Red Cell Distribution Width 23.9 % (11.5-14.5)
[2016-12-12 05:07] LABS: BUN/Creatinine Ratio 19 (6-26); Blood Urea Nitrogen 13 mg/dL (7-20); Carbon Dioxide 28 mEq/L (19-29); Chloride 102 mEq/L (98-109); Glucose 141 mg/dL (70-99); Osmolality,Calculated 290 (280-300); Potassium 4.1 mEq/L (3.5-4.5); Sodium 139 mEq/L (136-145); eGFR For African Americans > 60 (> 60); eGFR For Non-African Americans > 60 (> 60)
[2016-12-12] MEDS: Ipratropium/Albuterol Neb 3 ML IH SCH ×4 (05:16→16:03)
[2016-12-12] MEDS: *HR* Enoxaparin 40 MG/0.4 ML SYRINGE SQ SCH (06:16)
[2016-12-12] MEDS: predniSONE 20 MG TABLET PO SCH (08:45)
--- NOTE | 2016-12-12 08:54 | Discharge Summary ---
<Anurag Zamarripa - Last Filed: 12/12/16 11:48> Date of Encounter: 12/12/16 Time of Encounter: 08:05 - Discharge Medications Prescriptions: Azithromycin [Zithromax] 250 mg PO DAILY #3 tab predniSONE [PredniSONE] 40 mg PO BIDWM #12 tab Home Medications: Lisinopril [Zestril] 40 mg PO DAILY 07/15/15 [History] Albuterol Sulfate [Proair Hfa] 1 puff IH Q4HR PRN #1 inh 07/24/15 [Rx] Ipratropium/Albuterol Neb [Duoneb] 3 ml IH [id number] #120 inhsol 12/04/15 [Rx] ALPRAZolam [Xanax 0.5 MG Tablet] 0.5 mg PO DAILY PRN 01/02/16 [History] Pravastatin Sodium [Pravachol] 20 mg PO DAILY 01/02/16 [History] Docusate Sodium [Move It Along] 100 mg PO BID 08/19/16 [History] Haloperidol Decanoate [Haldol Decanoate 100] 100 mg IM QMONTH 08/19/16 [History] OLANZapine [Zyprexa] 10 mg PO DAILY 08/19/16 [History] Trihexyphenidyl [Artane] 2 mg PO BID 08/19/16 [History] hydrOXYzine HCl [Hydroxyzine HCl] 25 mg PO BID 08/19/16 [History] Hydrocortisone 1% CREAM [Cortaid] 1 appl TP BID PRN #1 bottle 08/21/16 [Rx] Omeprazole [PriLOSEC] 20 mg PO DAILY #30 cap 08/21/16 [Rx] Ferrous Sulfate 325 mg PO BID #60 tablet 11/09/16 [Rx] Folic Acid 1 mg PO DAILY 30 Days 11/09/16 [Rx] Metoprolol [Lopressor] 12.5 mg PO BID 30 Days 11/09/16 [Rx] Nicotine Patch [Nicoderm] 14 mg TD Q24H 30 Days 11/09/16 [Rx] PredniSONE [Deltasone] 20 mg PO BID #10 tablet 11/09/16 [Rx] Furosemide [Lasix] 20 mg PO DAILY 12/11/16 [History] Azithromycin [Zithromax] 250 mg PO DAILY #3 tab 12/12/16 [Rx] predniSONE [PredniSONE] 40 mg PO BIDWM #12 tab 12/12/16 [Rx] Allergies/Adverse Reactions: Allergies No Known Allergies Allergy (Verified 12/03/15 16:32) Procedures/tests Complete & Pending: CXR: "FINDINGS: 2 images submitted for review. The lungs are hyperlucent and hyperinflated without focal opacity. No pneumothorax or pleural effusion is seen. Cardiac and mediastinal contours are normal. No acute osseous abnormality is identified. The patient is status post prior ORIF of a healed right humeral diaphyseal fracture with partially imaged hardware. IMPRESSION: 1. No acute cardiopulmonary abnormality. 2. Skull findings of emphysema and chronic obstructive physiology." CTA Chest: "FINDINGS: Pulmonary Arteries: Pulmonary arteries are adequately opacified for evaluation. No evidence of intraluminal filling defect to suggest pulmonary embolism. Main pulmonary artery is normal in caliber. Mediastinum: No evidence of mediastinal lymphadenopathy. The heart and pericardium demonstrate no acute abnormality. Coronary artery calcifications are again seen. There is no acute abnormality of the thoracic aorta. Tracheal secretions are identified. Lungs/pleura: Secretions are identified in the mainstem bronchi and both lower lobe airways. Emphysema is again noted with minor left lower lobe atelectasis. There is no evidence for pneumonia. There is no pneumothorax or pleural effusion. Upper Abdomen: Limited images of the upper abdomen are unremarkable. Soft Tissues/Bones: No acute bone or soft tissue abnormality. CT/CT angio chest IMPRESSION: 1. No definite scan evidence for pulmonary embolus. 2. Emphysema. 3. Coronary artery disease." Date of admission: 12/11/16 03:50 Primary care physician: PCP NONE - Patient Status Disposition: Home, Self-Care Condition: Fair Functional capacity at discharge: independent ambulation Overall status at discharge: patient is progressing back to baseline - Discharge Instructions Instructions: Acute Respiratory Distress Syndrome (DC), Chronic Obstructive Pulmonary Disease (DC) Follow Up With: NONE,PCP [Primary Care Provider] - (See notes) Additional Instructions: Please Follow Up with your Primary Care Provider within one week of discharge. Please Take you medication as prescribed. Please restart your home medications except for your home dose of prednisone. First complete your 3 day course of higher dose steroids before returning to your regular home dose of prednisone. Tomorrow, Friday and Friday take 40mg (2 tabs) of Prednisone twice a day. On Friday you can return to your normal home dose of Prednisone 20mg (1 tab) twice a day. Also please take the three day course of Azithromycin we have prescribed for you. Please return to the hospital if you experience new or worsening symptoms. - Diet and Activity Activity: resume usual activities as tolerated, wear oxygen at all times Diet: advance to your usual diet Interval History: Patient reports feeling better today. She reports her breathing is better. Patient appropriate for discharge pending O2 qualification 6 minute walk test. Nursing aware. Hospital course: Ms. Lopez is a 66 year old female c PMHx of COPD, HLD, HTN, and schizophrenia who presented to the hospital for worsening SOB x 2 days. Patient was worked up for a COPD exacerbation and started on Solumedrol, IV azithromycin and duoneb treatments. Patient's symptoms improved with treatment and she was transitioned first to oral steroids and then to oral antibiotics. Patient had an O2 qualification 6 minute walk test to evaluate her for home oxygen needs. She was discharged home on Oral abx, oral steroids, and home oxygen. - Time Spent with Patient Total time spent providing and/or coordinating discharge services: - Constitutional Vitals: Temp Pulse Resp BP Pulse Ox 97.7 F 79 16 120/68 91 12/12/16 07:12 12/12/16 07:12 12/12/16 07:12 12/12/16 07:12 12/12/16 07:12 General appearance: Present: A&O X 3, no acute distress - Eye Eye exam: Present: sclera anicteric - ENT ENT exam: Present: mucous membranes moist - Respiratory Respiratory exam: Present: wheezes (improved from yesterday.) - Cardiovascular Cardiovascular exam: Present: RRR, +S1, +S2. Absent: gallop, rubs, systolic murmur - GI/Abdominal GI/Abdominal exam: Present: normal bowel sounds, soft. Absent: tenderness - Extremities Exam Extremities exam: Present: warm. Absent: pedal edema - Neurological Exam Neurological exam: Present: alert, oriented X3. Absent: speech deficit - Psychiatric Psychiatric exam: Present: normal affect, normal mood - Skin Skin exam: Present: dry, warm <Jef Evans - Last Filed: 12/12/16 18:44> Date of Encounter: 12/12/16 - Discharge Diagnosis (1) Acute respiratory failure with hypoxia Priority: Primary Status: Resolved (2) Chronic respiratory failure with hypoxia Priority: Secondary Status: Chronic (3) COPD (chronic obstructive pulmonary disease) Priority: Primary Status: Acute Qualifiers: COPD type: COPD with acute exacerbation Qualified Code(s): J44.1 - Chronic obstructive pulmonary disease with (acute) exacerbation (4) HTN (hypertension) Priority: Secondary Status: Chronic Qualifiers: Hypertension type: essential hypertension Qualified Code(s): I10 - Essential (primary) hypertension (5) Tobacco abuse disorder Priority: Secondary Status: Chronic (6) Depression with anxiety Priority: Secondary Status: Chronic (7) Schizophrenia Priority: Secondary Status: Chronic Qualifiers: Schizophrenia type: undifferentiated schizophrenia Qualified Code(s): F20.3 - Undifferentiated schizophrenia (8) Severe protein-calorie malnutrition Priority: Secondary Status: Chronic Date of admission: 12/11/16 03:50 Primary care physician: PCP NONE Hospital course: Ms. Lopez is a 66 year old female - Time Spent with Patient Total time spent providing and/or coordinating discharge services: 37min - Constitutional Vitals: Temp Pulse Resp BP Pulse Ox 98.4 F 81 18 137/82 93 12/12/16 11:05 12/12/16 11:05 12/12/16 11:05 12/12/16 11:05 12/12/16 11:05 - Attending Attestation I examined this patient and my medical decision-making was reviewed with the Resident Physician on 12/12/16. I agree with the documented findings, disposition and treatment plan as described except to the extent set forth below. Ms. Lopez was admitted for acute hypoxia and exac COPD. She is afebrile with stable vitals. Breathing has improved. She is ready for discharge home. Exam alert. Comfortable Mucus membranes dry Heart reg Scant wheeze No edema Plan D/ C home today Follow up with PCP.
[2016-12-12] MEDS ORDERED: Folic Acid 1 MG TABLET PO SCH (09:00)
[2016-12-12] MEDS ORDERED: Lisinopril 20 MG TABLET PO SCH (09:00)
[2016-12-12] MEDS ORDERED: Azithromycin 250 MG TABLET PO SCH (09:00)
[2016-12-12] MEDS ORDERED: predniSONE 20 MG TABLET PO SCH (09:00)
[2016-12-12] MEDS ORDERED: Furosemide 20 MG TABLET PO SCH (09:00)
[2016-12-12] MEDS ORDERED: OLANZapine 10 MG TAB.RAPDIS PO SCH (09:00)
[2016-12-12] MEDS: ALPRAZolam 0.5 MG TABLET PO PRN (09:04)
[2016-12-12 11:18] VITALS: BP 137/82
[2016-12-12] MEDS: Nicotine 14 MG PATCH.TD24 TD SCH (14:31)
== END 2016-12-12 16:20 | disposition home or self-care (01) | DRG 140 ==
LOC: 2ANU 22:21 → EMEROO 22:21 → SUATTDRO 12-11 03:50 → 2ANU 12-11 04:06
PROVIDERS: ADMIT Internal Medicine; ATTEND Internal Medicine

== ENCOUNTER 2017-01-09 04:50 | Observation (INO) ==
[2017-01-09] MEDS ORDERED: predniSONE 20 MG TABLET PO ONE (04:59)
[2017-01-09] MEDS ORDERED: Ipratropium/Albuterol Neb 3 ML IH ONE (04:59)
--- NOTE | 2017-01-09 05:05 | Emergency Department Note ---
Disposition Clinical Impression: COPD (chronic obstructive pulmonary disease) Qualifiers: COPD type: unspecified COPD Qualified Code(s): J44.9 - Chronic obstructive pulmonary disease, unspecified Disposition: Admitted As Inpatient Condition: Good Time of Disposition: 06:12 SOB HPI - General Chief Complaint: ED Shortness of Breath/Dyspnea Stated Complaint: difficulty in breathing Time Seen by Provider: 01/09/17 04:52 Source: patient Mode of arrival: wheelchair Limitations: no limitations Nursing Notes Reviewed: Yes Vital Signs Reviewed: Yes - History of Present Illness 66 year old female history of hypertension, COPD presents for evaluation of dyspnea. Symptom onset was 2 days ago. Notes a productive cough during this timeframe. Denies any fevers. Denies any chest pain. States that she has been having difficulty performing activities of daily living related to her dyspnea. States that she has difficult time ambulating the restroom with her dyspnea. Denies any chest pain. Denies any nausea vomiting or abdominal pain. States she has been using her albuterol nebulizer at home without significant benefit. Reports that she does have oxygen at home but states that it is not working. - Related Data Home Medications Medication Instructions Recorded Confirmed Docusate Sodium [Move It Along] 100 mg PO BID 08/19/16 01/09/17 Haloperidol Decanoate [Haldol 100 mg IM QMONTH 08/19/16 01/09/17 Decanoate 100] OLANZapine [Zyprexa] 10 mg PO DAILY 08/19/16 01/09/17 Trihexyphenidyl [Artane] 2 mg PO BID 08/19/16 01/09/17 Furosemide [Lasix] 20 mg PO DAILY 12/11/16 01/09/17 hydrOXYzine pamoate [HydrOXYzine 25 mg PO BID 01/09/17 01/09/17 Pamoate] Previous Rx's Medication Instructions Recorded Hydrocortisone 1% CREAM [Cortaid] 1 appl TP BID PRN #1 bottle 08/21/16 Folic Acid 1 mg PO DAILY 30 Days 11/09/16 ALPRAZolam [Xanax 0.5 MG Tablet] 0.5 mg PO DAILY PRN #10 01/10/17 Albuterol Sulfate [Proair Hfa] 1 puff IH Q4HR PRN #1 inh 01/10/17 Budesonide [Pulmicort Flexhaler 2 puff IH BID #1 aer.pow.[email or web address] 01/10/17 90mcg] Ferrous Sulfate 325 mg PO BID #60 tablet 01/10/17 Ipratropium/Albuterol Neb [Duoneb] 3 ml IH Q6H PRN #100 inhsol 01/10/17 Lisinopril [Zestril] 20 mg PO DAILY #30 tab 01/10/17 Metoprolol [Lopressor] 25 mg PO BID #60 tablet 01/10/17 Nicotine Patch [Nicoderm] 21 mg TD DAILY #30 01/10/17 Omeprazole [PriLOSEC] 20 mg PO DAILY #30 cap 01/10/17 Pravastatin Sodium [Pravachol] 20 mg PO DAILY #30 01/10/17 predniSONE [PredniSONE] 40 mg PO DAILY #10 tab 01/10/17 Allergies Allergy/AdvReac Type Severity Reaction Status Date / Time No Known Allergies Allergy Verified 12/03/15 16:32 All systems ED: reviewed and negative except as stated. Constitutional: Reports: as per HPI. Denies: fever Eyes: Reports: as per HPI ENT ED: Reports: as per HPI Cardiovascular: Reports: as per HPI. Denies: chest pain Respiratory: Reports: as per HPI, cough, dyspnea, sputum production Gastrointestinal: Reports: as per HPI Genitourinary: Reports: as per HPI Musculoskeletal: Reports: as per HPI Integumentary: Reports: as per HPI Neurological: Reports: as per HPI Psychiatric: Reports: as per HPI Endocrine: Reports: as per HPI Hematological/Lymphatic: Reports: as per HPI Allergic/Immunologic: Reports: as per HPI Past Medical History - Past Medical History Medical history: Reports: cancer, COPD, hyperlipidemia, hypertension Surgical history: Reports: cancer surgery Psychiatric history: Reports: anxiety, depression, schizophrenia - Social History Smoking Status: Current every day smoker Smokeless Tobacco Status: No Alcohol use: Reports: none Drug use: Reports: none Physical Exam - General Limitations: no limitations General appearance: alert, in no apparent distress, other (Appears chronically ill.) - Head Head exam: atraumatic, normocephalic, normal inspection - Eye Eye exam: Present: normal appearance, EOMI. Absent: scleral icterus - ENT ENT exam: normal exam, mucous membranes moist - Neck Neck exam: Present: normal inspection - Chest Chest inspection: Present: normal inspection, symmetric chest wall rise - Respiratory Respiratory exam: Present: accessory muscle use, prolonged expiratory phase, other (Diffusely decreased breath sounds). Absent: respiratory distress - Cardiovascular Cardiovascular exam: Present: regular rate, normal rhythm. Absent: systolic murmur - Abdominal Exam Abdominal exam: Present: soft, Non-Tender - Extremities Exam Extremities exam: Present: normal inspection. Absent: pedal edema - Back Exam Back exam: Present: normal inspection - Neurological Exam Neurological exam: Present: alert, oriented X3 - Skin Skin exam: Present: warm, dry, intact, normal color Course Course Narrative: Patient seen and examined upon ED arrival. Patient does have a history of bedbugs and was decontaminated prior to entry into the emergency department. Patient has history of COPD. Note symptom onset couple days ago. Patient's not in any acute distress upon presentation but does have diffusely decreased breath sounds throughout. Patient's on some home oxygen 2-3 L. Denies chest pain. Patient will receive a cardiopulmonary evaluation including labs, EKG, chest x-ray. Nebs and steroids ordered. Patient had a recent CTA performed within the past month which showed no definite pulmonary moles. Did show stigmata of COPD. - Reevaluation(s) Reevaluation #1: Patient seen and examined. Patient's tolerating oral intake in the emergency department. Appears to be resting comfortably. Patient states that she is breathing better after the interventions provided. Time: 05:43 Reevaluation #2: Patient is satting 91% while lying on the stretcher. Time: 06:05 Vital Signs Temperature 97.8 F 01/09/17 04:52 Pulse Rate 99 01/09/17 04:52 Respiratory Rate 20 01/09/17 04:52 Blood Pressure 163/93 01/09/17 04:52 O2 Sat by Pulse Oximetry 93 01/09/17 04:52 Temperature 98.3 F 01/10/17 06:57 Pulse Rate 97 01/10/17 06:57 Respiratory Rate 16 01/10/17 11:17 Blood Pressure 100/57 01/10/17 06:57 O2 Sat by Pulse Oximetry 98 01/10/17 11:17 Oxygen Delivery Oxygen Delivery Nasal Cannula Shortness of Breath/Dyspnea - MDM Narrative Medical decision making narrative: 66-year-old female presents for evaluation of shortness of breath and cough. Patient does have a history of smoking and COPD. Patient has a recent hospitalization for COPD exacerbation last month. Patient had a CT of her chest obtained that time as well. Patient's shortness of breath is better for the past 2 days. Productive cough. Denies any fevers. Patient states that she is not feeling her oxygen is working at home. Concerns that the patient does not have the resources available at home to manage her COPD exacerbation as an outpatient. Patient is a poor historian. Patient records reviewed. She has had multiple admissions in the previous months for similar presentations. Patient's labs showed no significant abnormalities. Troponins negative. Patient will be admitted to the hospital service for further evaluation. Patient was started on Levaquin in the emergency department she has had increased dyspnea as well as sputum production related to her dyspnea. Patient would likely benefit from discharge planning to ensure that she has appropriate resources at home. - Lab Data Lab results reviewed: Yes I reviewed the patient's lab results. Result diagrams: 01/10/17 04:55 01/10/17 04:55 Lab Results 01/09/17 01/09/17 01/09/17 Range/Units 05:38 05:38 05:38 WBC 4.5 (4.3-11.1) K/mcL RBC 4.23 (3.82-4.97) M/mcL Hgb 10.9 L (11.5-15.4) g/dL Hct 35.6 (35.3-44.9) % MCV 84.2 (83.0-100.0) fL MCH 25.8 L (28.0-33.3) pg MCHC 30.6 L (31.6-35.5) g/dL RDW 21.3 H (11.5-14.5) % Plt Count 198 (140-400) K/mcL MPV 8.6 L (9.4-12.4) fL Immature Gran % 0.4 (0-4) % Seg Neutrophils % 55.9 % Lymphocytes % 25.8 % Monocytes % 9.6 % Eosinophils % 7.6 % Basophils % 0.7 % Neutrophils # 2.5 (1.6-8.9) K/mcL Lymphocytes # 1.2 (0.6-4.6) K/mcL Monocytes # 0.4 (0.0-1.3) K/mcL Eosinophils # 0.3 (0.0-0.6) K/mcL Basophils # 0.0 (0.0-0.2) K/mcL Sodium 142 (136-145) mEq/L Potassium 3.5 (3.5-4.5) mEq/L Chloride 101 (98-109) mEq/L Carbon Dioxide 32 H (19-29) mEq/L BUN 10 (7-20) mg/dL Creatinine 0.67 (0.57-1.11) mg/dL Est GFR ( Amer) > 60 (> 60) Est GFR (Non-Af Amer) > 60 (> 60) BUN/Creatinine Ratio 15 (6-26) Glucose 111 H (70-99) mg/dL Calculated Osmolality 294 (280-300) Calcium 8.8 (8.6-10.8) mg/dL Troponin I 0.00 (0-0.03) ng/mL B-Natriuretic Peptide (0-100) pg/mL 01/09/17 Range/Units 05:38 WBC (4.3-11.1) K/mcL RBC (3.82-4.97) M/mcL Hgb (11.5-15.4) g/dL Hct (35.3-44.9) % MCV (83.0-100.0) fL MCH (28.0-33.3) pg MCHC (31.6-35.5) g/dL RDW (11.5-14.5) % Plt Count (140-400) K/mcL MPV (9.4-12.4) fL Immature Gran % (0-4) % Seg Neutrophils % % Lymphocytes % % Monocytes % % Eosinophils % % Basophils % % Neutrophils # (1.6-8.9) K/mcL Lymphocytes # (0.6-4.6) K/mcL Monocytes # (0.0-1.3) K/mcL Eosinophils # (0.0-0.6) K/mcL Basophils # (0.0-0.2) K/mcL Sodium (136-145) mEq/L Potassium (3.5-4.5) mEq/L Chloride (98-109) mEq/L Carbon Dioxide (19-29) mEq/L BUN (7-20) mg/dL Creatinine (0.57-1.11) mg/dL Est GFR ( Amer) (> 60) Est GFR (Non-Af Amer) (> 60) BUN/Creatinine Ratio (6-26) Glucose (70-99) mg/dL Calculated Osmolality (280-300) Calcium (8.6-10.8) mg/dL Troponin I (0-0.03) ng/mL B-Natriuretic Peptide 33 (0-100) pg/mL - Radiology Data Radiology results reviewed: Yes I reviewed the patient's radiology results. - EKG Data EKG attestation: Yes I reviewed and interpreted this EKG. EKG shows normal: Reports: sinus rhythm Rate: Reports: normal Rhythm: Reports: NSR [place]/QRS: Reports: normal P waves: Reports: DEON Q waves: Reports: v1 T wave inversions noted in: Reports: aVR, v3 (Biphasic) When compared to previous EKG there are: no significant changes (12/10/2016) Interpretation: Reports: no acute changes S.B.A.R. - S.B.A.Sean Situation: Demographics Background: Presenting Complaint Assessment: Vital Signs Recommendation: Barrier(s) to disposition, Recommendation based on pending studies, treatments, or consults S.B.A.RAbel Report Given to: Dr. Mann SAbelB.AKeke Repor Time: 06:12 Attestation Statement - Attestation Attestation: I, Isai French, examined this patient and my medical decision-making was reviewed with the CNS/PA/Advanced Practice Nurse/Resident Physician. I agree with the documented findings, disposition and treatment plan as described except to the extent set forth below. 66-year-old female presents emergency Department with increasing shortness of breath. Patient states symptoms started within the past 2 days. Patient has history of COPD. She also states that she has had increasing weakness with exertion. Initial troponin negative. Patient satting 91% while lying on stretcher in the emergency department. Patient breathing improved mildly after administration of albuterol nebulizer in the emergency department. Patient feels comfortable to be admitted to the hospital for further Evaluation of her COPD.
[2017-01-09 05:45] LABS: Basophils % 0.7 %; Eosinophils # 0.3 K/mcL (0.0-0.6); Eosinophils % 7.6 %; Hematocrit 35.6 % (35.3-44.9); Hemoglobin 10.9 g/dL (11.5-15.4); Immature Granulocytes % 0.4 % (0-4); Lymphocytes # 1.2 K/mcL (0.6-4.6); Lymphocytes % 25.8 %; Mean Corpuscular HGB Conc 30.6 g/dL (31.6-35.5); Mean Corpuscular Hemoglobin 25.8 pg (28.0-33.3); Mean Corpuscular Volume 84.2 fL (83.0-100.0); Mean Platelet Volume 8.6 fL (9.4-12.4); Monocytes # 0.4 K/mcL (0.0-1.3); Monocytes % 9.6 %; Neutrophils # 2.5 K/mcL (1.6-8.9); Platelet Count 198 K/mcL (140-400); Red Blood Count 4.23 M/mcL (3.82-4.97); Red Cell Distribution Width 21.3 % (11.5-14.5); Segmented Neutrophils % 55.9 %
[2017-01-09] MEDS ORDERED: Levofloxacin 750 MG/150 ML 750 MG/150 ML BAG IVPB ONE (05:54)
[2017-01-09 06:11] LABS: BUN/Creatinine Ratio 15 (6-26); Blood Urea Nitrogen 10 mg/dL (7-20); Calcium 8.8 mg/dL (8.6-10.8); Carbon Dioxide 32 mEq/L (19-29); Chloride 101 mEq/L (98-109); Glucose 111 mg/dL (70-99); Osmolality,Calculated 294 (280-300); Potassium 3.5 mEq/L (3.5-4.5); Sodium 142 mEq/L (136-145); eGFR For African Americans > 60 (> 60); eGFR For Non-African Americans > 60 (> 60)
[2017-01-09] MEDS ORDERED: Acetaminophen 325 MG TABLET PO PRN (08:55)
[2017-01-09] MEDS ORDERED: Naloxone 0.4 MG/ML INJ IVP PRN (08:55)
[2017-01-09] MEDS ORDERED: ALPRAZolam 0.5 MG TABLET PO PRN (08:58)
--- NOTE | 2017-01-09 09:05 | Internal Med History&Physical ---
Date of Encounter: 01/09/17 Time of Encounter: 08:30 Assessment and Plan (1) COPD with exacerbation Current visit: Yes Status: Acute mild exacerbation; start scheduled bronchodilators along with oral steroids and supplemental O2; will hold off on antibiotics as she was recently treated with steroids and antibiotics; supportive care; social media developer consulted for home O2 check as she claims her O2 is not working well at home; she also may be a candidate for [facility] as she seems to be unable to care for herself alone at home. (2) Tobacco abuse disorder Current visit: Yes Status: Chronic Patient claims she has been trying to quit smoking but does not seem very motivated to quit. Nicotine transdermal patch. (3) Depression with anxiety Current visit: Yes Status: Chronic continue PRN benzodiazepines; (4) HTN (hypertension) Current visit: Yes Status: Chronic BP noted to be well-controlled; continue beta claire and ACEI; Qualifiers: Hypertension type: essential hypertension Qualified Code(s): I10 - Essential (primary) hypertension (5) Microcytic anemia Current visit: Yes Status: Chronic continue ferrous sulfate supplementation; improving; (6) Schizophrenia Current visit: Yes Status: Chronic Qualifiers: Schizophrenia type: unspecified Qualified Code(s): F20.9 - Schizophrenia, unspecified (7) Severe protein-calorie malnutrition Current visit: Yes Status: Chronic due to underlying COPD and schizophrenia and poor nutrition; nutrition consult; Internal Medicine - H&P: HPI Chief complaint: Shortness of breath Admitted From: Emergency Dept Plans for Post Hospital Care: Home History of present illness: Ms. Lopez is a 66 year old female with h/o COPD presents with c/o- shortness of breath. Patient is not a good historian and is unable to provide specific details of her presenting illness. She reports she has been having dyspnea for several weeks to months now, which got worse yesterday and she could not breathe prompting her ER visit. She was hospitalized and discharged last month with similar complaints, and home O2 was arranged per discharge notes. However patient claims her O2 has not been working well? She reports some cough, no chest pain, palpitations, dizziness or syncope. She also reports subjective chills and fever. She lives alone and seems to have bedbug issues and requests home health aides as she feels she is unable to take care of herself. Past Med Surg Social Fam HX - Past Medical History Medical history: COPD, hyperlipidemia, hypertension Psychiatric history: anxiety, depression, schizophrenia - Past Surgical History Surgical History: orthopedic, other (right prosthetic arm?) - Social History Smoking Status: Current every day smoker Smokeless Tobacco Status: No Alcohol use: none Drug use: none Occupational status: disabled Current living situation: Home - Independent Activity Level: Independent ambulation Recent Out of Country Travel Within the Last 8 Weeks: No Exposure or Possible Exposure to Illness During Travel: No - Family History Mother Adopted: No Family Member Ethnicity: Non- Living Status: Hx Family Cardiac Disorders: No Hx Family Respiratory Disorders: No Hx Family Cancer: Yes (throat cancer) Hx Family GI Disorders: No Hx Family Endocrine Disorder: Yes (KIDNEY DIS) Hx Family Neuromuscular Disorders: No Hx Family Neurologic Disorders: No Hx Family HEENT Disorders: No Hx Family Autoimmune Disorders: No Maternal Grandmother Hx Family Cardiac Disorders: Yes (CAD) Internal Medicine - H&P: Meds Lisinopril [Zestril] 40 mg PO DAILY 07/15/15 [History] Albuterol Sulfate [Proair Hfa] 1 puff IH Q4HR PRN #1 inh 07/24/15 [Rx] Ipratropium/Albuterol Neb [Duoneb] 3 ml IH [id number] #120 inhsol 12/04/15 [Rx] ALPRAZolam [Xanax 0.5 MG Tablet] 0.5 mg PO DAILY PRN 01/02/16 [History] Pravastatin Sodium [Pravachol] 20 mg PO DAILY 01/02/16 [History] Docusate Sodium [Move It Along] 100 mg PO BID 08/19/16 [History] Haloperidol Decanoate [Haldol Decanoate 100] 100 mg IM QMONTH 08/19/16 [History] OLANZapine [Zyprexa] 10 mg PO DAILY 08/19/16 [History] Trihexyphenidyl [Artane] 2 mg PO BID 08/19/16 [History] Hydrocortisone 1% CREAM [Cortaid] 1 appl TP BID PRN #1 bottle 08/21/16 [Rx] Omeprazole [PriLOSEC] 20 mg PO DAILY #30 cap 08/21/16 [Rx] Ferrous Sulfate 325 mg PO BID #60 tablet 11/09/16 [Rx] Folic Acid 1 mg PO DAILY 30 Days 11/09/16 [Rx] Metoprolol [Lopressor] 12.5 mg PO BID 30 Days 11/09/16 [Rx] Furosemide [Lasix] 20 mg PO DAILY 12/11/16 [History] hydrOXYzine pamoate [HydrOXYzine Pamoate] 25 mg PO BID 01/09/17 [History] 3 Allergy/AdvReac Type Severity Reaction Status Date / Time No Known Allergies Allergy Verified 12/03/15 16:32 All Systems PM: A 10-system review of systems was performed and is negative for pertinent findings except as documented above in the HPI. - Constitutional Constitutional: chills - EENT Eyes: no change in vision, no discharge, no pain, no photophobia Ears: no ear discharge, no ear pain, no tinnitus Nose, mouth and throat: no dysphagia, no nasal discharge, no neck pain, no sore throat - Cardiovascular Cardiovascular ROS IM: no chest pain, no diaphoresis, no dyspnea, no lightheadedness, no palpitations, no syncope - Respiratory Respiratory: cough, dyspnea - Gastrointestinal Gastrointestinal: abdominal pain, no diarrhea, no hematemesis, no hematochezia, no melena, no nausea, no vomiting - Genitourinary Genitourinary: no change in urinary stream, no dysuria, no flank pain, no hematuria - Musculoskeletal Musculoskeletal ROS IM: no numbness, no tingling - Integumentary Integumentary IM: no rash, no unusual bruising - Neurological Neurological ROS: no confusion, no convulsions, no focal weakness, no numbness, no tingling, no tremor(s) - Hematologic/Lymphatic Hematologic/Lymphatic: no easy bruising - Constitutional Vitals: Temp Pulse Resp BP Pulse Ox 97.9 F 104 16 146/89 95 01/09/17 07:41 01/09/17 07:41 01/09/17 07:41 01/09/17 07:41 01/09/17 07:41 General appearance: Present: cachectic, A&O X 3, answers questions appropriately (noted to be intermittently excited and cheerful) - Respiratory Respiratory exam: Present: CTAB (coarse breath sounds B/L, no active wheezing). Absent: accessory muscle use, rales, rhonchi, wheezes - Cardiovascular Cardiovascular exam: Present: RRR, +S1, +S2. Absent: diastolic murmur, gallop, rubs, systolic murmur - GI/Abdominal GI/Abdominal exam: Present: normal bowel sounds, soft, no peritoneal signs. Absent: distended, tenderness - Extremities Exam Extremities exam: Present: full ROM, pedal edema (trace dependent pedal edema B/ L), warm, radial pulses palpable and symmetrical. Absent: calf tenderness, cyanotic - Neurological Exam Neurological exam: Present: CN II-XII intact, oriented X3, no focal deficits. Absent: pronater drift, facial droop, speech deficit - Skin Skin exam: Present: dry, intact Internal Med - H&P Results - Labs CBC & Chem 7: 01/09/17 05:38 01/09/17 05:38 - Diagnostic Studies Chest x-ray Status: image reviewed by me Additional comments: clear lung ambrocio, hyperexpanded consistent with COPD
[2017-01-09] MEDS: Folic Acid 1 MG TABLET PO SCH (11:00)
[2017-01-09] MEDS: predniSONE 20 MG TABLET PO SCH (11:00)
[2017-01-09] MEDS: hydrOXYzine pamoate 25 MG CAPSULE PO SCH ×2 (11:00→22:21)
[2017-01-09] MEDS: OLANZapine 10 MG TAB.RAPDIS PO SCH (11:01)
[2017-01-09] MEDS: Lisinopril 20 MG TABLET PO SCH (11:01)
[2017-01-09] MEDS: Furosemide 20 MG TABLET PO SCH (11:01)
[2017-01-09] MEDS: Ipratropium/Albuterol Neb 3 ML IH SCH ×4 (11:19→23:35)
[2017-01-09] MEDS: Nicotine 21 MG PATCH.TD24 TD SCH (11:25)
--- NOTE | 2017-01-09 17:10 | Electrocardiograph Report ---
[place] [id number] Test Date: 2017-01-09 Pat Name: Edel Lopez Department: 102 Room: 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
[2017-01-10] MEDS: Ipratropium/Albuterol Neb 3 ML IH SCH ×3 (03:38→11:17)
[2017-01-10 05:08] LABS: Basophils % 0.2 %; Eosinophils % 0.2 %; Hematocrit 29.8 % (35.3-44.9); Hemoglobin 9.6 g/dL (11.5-15.4); Immature Granulocytes % 0.2 % (0-4); Lymphocytes # 1.7 K/mcL (0.6-4.6); Lymphocytes % 13.1 %; Mean Corpuscular HGB Conc 32.2 g/dL (31.6-35.5); Mean Corpuscular Hemoglobin 26.6 pg (28.0-33.3); Mean Corpuscular Volume 82.5 fL (83.0-100.0); Mean Platelet Volume 9.1 fL (9.4-12.4); Monocytes # 1.1 K/mcL (0.0-1.3); Monocytes % 8.7 %; Neutrophils # 9.8 K/mcL (1.6-8.9); Platelet Count 204 K/mcL (140-400); Red Blood Count 3.61 M/mcL (3.82-4.97); Segmented Neutrophils % 77.6 %
[2017-01-10 05:18] LABS: BUN/Creatinine Ratio 23 (6-26); Blood Urea Nitrogen 16 mg/dL (7-20); Calcium 8.9 mg/dL (8.6-10.8); Carbon Dioxide 27 mEq/L (19-29); Chloride 103 mEq/L (98-109); Glucose 102 mg/dL (70-99); Magnesium 1.8 mg/dL (1.6-2.6); Osmolality,Calculated 291 (280-300); Potassium 3.6 mEq/L (3.5-4.5); Sodium 140 mEq/L (136-145); eGFR For African Americans > 60 (> 60); eGFR For Non-African Americans > 60 (> 60)
[2017-01-10 07:06] VITALS: BP 100/57
--- NOTE | 2017-01-10 08:03 | Discharge Summary ---
Date of Encounter: 01/10/17 Time of Encounter: 07:58 - Discharge Diagnosis (1) COPD with exacerbation Priority: Primary Status: Acute (2) Tobacco abuse disorder Priority: Secondary Status: Chronic (3) HTN (hypertension) Priority: Secondary Status: Chronic Qualifiers: Hypertension type: essential hypertension Qualified Code(s): I10 - Essential (primary) hypertension (4) Schizophrenia Priority: Secondary Status: Chronic Qualifiers: Schizophrenia type: unspecified Qualified Code(s): F20.9 - Schizophrenia, unspecified (5) Iron deficiency anemia Priority: Secondary Status: Acute Qualifiers: Qualified Code(s): D50.8 - Other iron deficiency anemias (6) Chronic respiratory failure with hypoxia Priority: Secondary Status: Chronic - Discharge Medications Prescriptions: Albuterol Sulfate [Proair Hfa] 1 puff IH Q4HR PRN #1 inh PRN Reason: wheezing, shortness of breath ALPRAZolam [Xanax 0.5 MG Tablet] 0.5 mg PO DAILY PRN #10 PRN Reason: Anxiety Budesonide [Pulmicort Flexhaler 90mcg] 2 puff IH BID #1 aer.pow.ba Ferrous Sulfate 325 mg PO BID #60 tablet Ipratropium/Albuterol Neb [Duoneb] 3 ml IH Q6H PRN #100 inhsol PRN Reason: Shortness Of Breath Lisinopril [Zestril] 20 mg PO DAILY #30 tab Metoprolol [Lopressor] 25 mg PO BID #60 tablet Nicotine Patch [Nicoderm] 21 mg TD DAILY #30 Omeprazole [PriLOSEC] 20 mg PO DAILY #30 cap Pravastatin Sodium [Pravachol] 20 mg PO DAILY #30 predniSONE [PredniSONE] 40 mg PO DAILY #10 tab Home Medications: Docusate Sodium [Move It Along] 100 mg PO BID 08/19/16 [History] Haloperidol Decanoate [Haldol Decanoate 100] 100 mg IM QMONTH 08/19/16 [History] OLANZapine [Zyprexa] 10 mg PO DAILY 08/19/16 [History] Trihexyphenidyl [Artane] 2 mg PO BID 08/19/16 [History] Hydrocortisone 1% CREAM [Cortaid] 1 appl TP BID PRN #1 bottle 08/21/16 [Rx] Folic Acid 1 mg PO DAILY 30 Days 11/09/16 [Rx] Furosemide [Lasix] 20 mg PO DAILY 12/11/16 [History] hydrOXYzine pamoate [HydrOXYzine Pamoate] 25 mg PO BID 01/09/17 [History] ALPRAZolam [Xanax 0.5 MG Tablet] 0.5 mg PO DAILY PRN #10 01/10/17 [Rx] Albuterol Sulfate [Proair Hfa] 1 puff IH Q4HR PRN #1 inh 01/10/17 [Rx] Budesonide [Pulmicort Flexhaler 90mcg] 2 puff IH BID #1 aer.pow.ba 01/10/17 [Rx] Ferrous Sulfate 325 mg PO BID #60 tablet 01/10/17 [Rx] Ipratropium/Albuterol Neb [Duoneb] 3 ml IH Q6H PRN #100 inhsol 01/10/17 [Rx] Lisinopril [Zestril] 20 mg PO DAILY #30 tab 01/10/17 [Rx] Metoprolol [Lopressor] 25 mg PO BID #60 tablet 01/10/17 [Rx] Nicotine Patch [Nicoderm] 21 mg TD DAILY #30 01/10/17 [Rx] Omeprazole [PriLOSEC] 20 mg PO DAILY #30 cap 01/10/17 [Rx] Pravastatin Sodium [Pravachol] 20 mg PO DAILY #30 01/10/17 [Rx] predniSONE [PredniSONE] 40 mg PO DAILY #10 tab 01/10/17 [Rx] Allergies/Adverse Reactions: 3 Allergy/AdvReac Type Severity Reaction Status Date / Time No Known Allergies Allergy Verified 12/03/15 16:32 Date of admission: 01/09/17 06:31 Primary care physician: PCP NONE Consults: 01/09/17 08:57 Consult to Wood Furniture Assembler [CONS] Routine Reason for SW Consult: Lives alone, unreliable historian, home O2 not working , has bedbugs, needs HHS 01/09/17 09:14 Consult to Nutrition [CONS] Routine Comment: Consulting Provider: NUTRITION Reason for Dietary Consult: Diet Education 01/09/17 16:07 Consult to Occupational Therapy [CONS] Routine Comment: Evaluate, develop and implement POC Reason for Consult: eval and treat Consult to Physical Therapy [CONS] Routine Comment: Evaluate, develop and implement POC Reason for Consult: eval and treat - Patient Status Disposition: Home, Self-Care Condition: Good Overall status at discharge: patient is back to baseline - Discharge Instructions Follow Up With: NONE,PCP [Primary Care Provider] - Additional Instructions: Need to f[facility] Please quit smoking - Diet and Activity Activity: increase activity as tolerated Diet: low salt diet Hospital course: Ms. Lopez is a 66 year old female with h/o COPD presents with c/o- shortness of breath. Patient is not a good historian and is unable to provide specific details of her presenting illness. She reports she has been having dyspnea for several weeks to months now, which got worse yesterday and she could not breathe prompting her ER visit. She was hospitalized and discharged last month with similar complaints, and home O2 was arranged per discharge notes. However patient claims her O2 has not been working well? She reports some cough, no chest pain. Pt was admitted here for mild COPD exacerbation. She was started on oral steroids and frequent Duonebs. Today she is feeling lot better, denied any CP / SOB. Currently on O2 at 2 lit through [place] and her Spo2 98%.. Pt did mention she had O2 at home. I am not sure she know how to use it and how check O2 status at home. Will ask SW / CM to help out the pt regarding this. Since pt seems to be back to baseline, will send her home today. Also I started her on maintenance steroid INH. Pt does requested Rx for all her medications since she does not have PCP. So provided rx for all her regular medications except psychiatry. Also arranged a out pt f/u appt with PCP. - Time Spent with Patient Total time spent providing and/or coordinating discharge services: - Constitutional Vitals: Temp Pulse Resp BP Pulse Ox 98.3 F 97 18 100/57 98 01/10/17 06:57 01/10/17 06:57 01/10/17 06:57 01/10/17 06:57 01/10/17 06:57 General appearance: Present: A&O X 3, answers questions appropriately (noted to be intermittently excited and cheerful) - Head Head exam: Present: atraumatic, normal inspection - Respiratory Respiratory exam: Present: decreased breath sounds, wheezes (mild). Absent: rales, respiratory distress, rhonchi - Cardiovascular Cardiovascular exam: Present: RRR, +S1, +S2. Absent: diastolic murmur, gallop, rubs, systolic murmur - GI/Abdominal GI/Abdominal exam: Present: normal bowel sounds, soft, no peritoneal signs. Absent: distended, tenderness - Extremities Exam Extremities exam: Absent: calf tenderness, pedal edema, tenderness - Neurological Exam Neurological exam: Present: alert, oriented X3 - Psychiatric Psychiatric exam: Present: normal affect, normal mood
[2017-01-10] MEDS: Lisinopril 20 MG TABLET PO SCH (10:06)
[2017-01-10] MEDS: OLANZapine 10 MG TAB.RAPDIS PO SCH (10:57)
[2017-01-10] MEDS: Folic Acid 1 MG TABLET PO SCH (10:57)
[2017-01-10] MEDS: hydrOXYzine pamoate 25 MG CAPSULE PO SCH (10:58)
[2017-01-10] MEDS: Furosemide 20 MG TABLET PO SCH (10:58)
[2017-01-10] MEDS: Nicotine 21 MG PATCH.TD24 TD SCH (10:59)
[2017-01-10] MEDS: predniSONE 20 MG TABLET PO SCH (10:59)
== END 2017-01-10 13:55 | disposition home or self-care (01) ==
LOC: EMEROO 04:50 → 3NENU 04:50
PROVIDERS: ADMIT Internal Medicine Hematology & Oncology; ATTEND Family Medicine

== ENCOUNTER 2017-01-21 09:04 | Observation (INO) ==
[2017-01-21] MEDS ORDERED: methylPREDNISolone 125 MG/2 ML VIAL IVP ONE (09:07)
[2017-01-21] MEDS ORDERED: Ipratropium/Albuterol Neb 3 ML IH ONE (09:07)
--- NOTE | 2017-01-21 09:11 | Emergency Department Note ---
Disposition Clinical Impression: COPD with exacerbation Disposition: Admitted As Inpatient Condition: Fair Referrals: NONE,PCP [Primary Care Provider] - Forms: ED Satisfaction Letter Time of Disposition: 11:37 SOB HPI - General Chief Complaint: ED Shortness of Breath/Dyspnea Stated Complaint: LENORE Time Seen by Provider: 01/21/17 09:07 Source: patient Mode of arrival: ambulatory Limitations: no limitations Nursing Notes Reviewed: Yes Vital Signs Reviewed: Yes - History of Present Illness 66-year-old with history COPD comes in with a several day history of increasing shortness of breath. Squad notes that her pulse ox is in the low 70s on their arrival she does have oxygen at home. Patient was given breathing treatment prior to arrival placed on oxygen and on arrival her pulse ox is in the normal range. She states she's had a cough denies fever. Patient is noted to be infested with bed bugs per squad. Pt Subjective Complaint: shortness of breath Onset (ago): day(s) Context: recent illness Severity: moderate Consistency/Duration: constant Improves with: nothing Worsens with: exertion Known history of: COPD Associated symptoms: Reports: cough, wheezing. Denies: fever Treatment prior to arrival: oxygen, bronchodilator Cough present: Yes Cough Description: Involuntary Cough Frequency: Intermittent - Related Data Home Medications Medication Instructions Recorded Confirmed Docusate Sodium [Move It Along] 100 mg PO BID 08/19/16 01/21/17 Haloperidol Decanoate [Haldol 100 mg IM QMONTH 08/19/16 01/21/17 Decanoate 100] OLANZapine [Zyprexa] 10 mg PO DAILY 08/19/16 01/21/17 Trihexyphenidyl [Artane] 2 mg PO BID 08/19/16 01/21/17 Furosemide [Lasix] 20 mg PO DAILY 12/11/16 01/21/17 hydrOXYzine pamoate [HydrOXYzine 25 mg PO BID 01/09/17 01/21/17 Pamoate] Previous Rx's Medication Instructions Recorded Hydrocortisone 1% CREAM [Cortaid] 1 appl TP BID PRN #1 bottle 08/21/16 Folic Acid 1 mg PO DAILY 30 Days 11/09/16 ALPRAZolam [Xanax 0.5 MG Tablet] 0.5 mg PO DAILY PRN #10 01/10/17 Albuterol Sulfate [Proair Hfa] 1 puff IH Q4HR PRN #1 inh 01/10/17 Budesonide [Pulmicort Flexhaler 2 puff IH BID #1 aer.pow.ba 01/10/17 [place] [place] Ferrous Sulfate 325 mg PO BID #60 tablet 01/10/17 Ipratropium/Albuterol Neb [Duoneb] 3 ml IH Q6H PRN #100 inhsol 01/10/17 Lisinopril [Zestril] 20 mg PO DAILY #30 tab 01/10/17 Metoprolol [Lopressor] 25 mg PO BID #60 tablet 01/10/17 Nicotine Patch [Nicoderm] 21 mg TD DAILY #30 01/10/17 Omeprazole [PriLOSEC] 20 mg PO DAILY #30 cap 01/10/17 Pravastatin Sodium [Pravachol] 20 mg PO DAILY #30 01/10/17 predniSONE [PredniSONE] 40 mg PO DAILY #10 tab 01/10/17 Allergies Allergy/AdvReac Type Severity Reaction Status Date / Time No Known Allergies Allergy Verified 12/03/15 16:32 All systems ED: reviewed and negative except as stated. Constitutional: Denies: fever, chills, weakness, weight change Eyes: Denies: eye pain, eye discharge, vision change ENT ED: Denies: ear pain, throat pain, dental pain, hearing loss, epistaxis, congestion, dysphagia Cardiovascular: Denies: chest pain, palpitations, dyspnea on exertion, edema, syncope Respiratory: Reports: cough, dyspnea, wheezes. Denies: hemoptysis, stridor Gastrointestinal: Denies: abdominal pain, nausea, vomiting, diarrhea, constipation, hematemesis, melena, hematochezia Genitourinary: Denies: dysuria, frequency, hematuria, discharge Musculoskeletal: Denies: back pain, neck pain, arthralgia, myalgia Integumentary: Denies: rash, abrasion, lesions Neurological: Denies: headache, weakness, numbness, paresthesias, confusion, abnormal gait, vertigo Psychiatric: Denies: anxiety, depression, suicidal thoughts, homicidal thoughts , auditory hallucinations, visual hallucinations Endocrine: Denies: fatigue Hematological/Lymphatic: Denies: easy bleeding, easy bruising Allergic/Immunologic: Denies: facial swelling, urticaria Past Medical History - Past Medical History Medical history: Reports: cancer, COPD, hyperlipidemia, hypertension Surgical history: Reports: cancer surgery Psychiatric history: Reports: anxiety, depression, schizophrenia - Social History Smoking Status: Current every day smoker Smokeless Tobacco Status: No Alcohol use: Reports: none Drug use: Reports: none Physical Exam - General Limitations: no limitations General appearance: alert, in no apparent distress - Head Head exam: atraumatic, normocephalic, normal inspection - Eye Eye exam: Present: normal appearance, PERRL, EOMI - ENT ENT exam: normal exam, normal oropharynx, mucous membranes moist - Neck Neck exam: Present: normal inspection, full ROM, trachea midline - Chest Chest inspection: Present: normal inspection, symmetric chest wall rise - Respiratory Respiratory exam: Present: wheezes, accessory muscle use, prolonged expiratory phase - Cardiovascular Cardiovascular exam: Present: regular rate, normal rhythm, normal heart sounds - Abdominal Exam Abdominal exam: Present: soft, Non-Tender. Absent: tenderness, distention, guarding, rebound, rigidity - Extremities Exam Extremities exam: Present: normal inspection, full ROM. Absent: tenderness, pedal edema - Expanded Lower Extremity Exam Neurovascular/Tendon exam: Absent: motor deficit, sensory deficit, tendon deficit Gait: not tested/not observed - Back Exam Back exam: Present: normal inspection, full ROM. Absent: tenderness - Neurological Exam Neurological exam: Present: alert, oriented X3 - Psychiatric Psychiatric exam: Present: normal affect, normal mood - Skin Skin exam: Present: warm, dry, intact, normal color Course - Reevaluation(s) Reevaluation #1: 66-year-old COPD comes in with an exacerbation over the last several days. Patient's pulse ox on squad arrival with the 70s. States her symptoms of gotten progressively worse over the last week. Chest x-ray shows no acute change. Patient was given breathing treatments steroids with some improvement. Patient will be admitted for further evaluation. Time: 11:36 - Consultations Consultation #1: Discussed with Dr. Mckee Time: 11:36 Vital Signs Temperature 98.9 F 01/21/17 09:08 Pulse Rate 90 01/21/17 09:08 Respiratory Rate 22 01/21/17 09:08 Blood Pressure 138/74 01/21/17 09:08 O2 Sat by Pulse Oximetry 97 01/21/17 09:08 Temperature 98.9 F 01/21/17 09:08 Pulse Rate 86 01/21/17 10:54 Respiratory Rate 16 01/21/17 10:54 Blood Pressure 117/61 01/21/17 10:54 O2 Sat by Pulse Oximetry 96 01/21/17 10:54 Oxygen Delivery Oxygen Delivery Nasal Cannula Shortness of Breath/Dyspnea - Lab Data Result diagrams: 01/21/17 10:01 01/21/17 10:01 Lab Results 01/21/17 01/21/17 01/21/17 Range/Units 10:01 10:01 10:01 WBC 11.8 H (4.3-11.1) K/mcL RBC 3.89 (3.82-4.97) M/mcL Hgb 10.2 L (11.5-15.4) g/dL Hct 32.3 L (35.3-44.9) % MCV 83.0 (83.0-100.0) fL MCH 26.2 L (28.0-33.3) pg MCHC 31.6 (31.6-35.5) g/dL RDW 21.1 H (11.5-14.5) % Plt Count 232 (140-400) K/mcL MPV 9.0 L (9.4-12.4) fL Immature Gran % 0.6 (0-4) % Seg Neutrophils % 83.3 % Lymphocytes % 9.6 % Monocytes % 5.3 % Eosinophils % 1.0 % Basophils % 0.2 % Neutrophils # 9.8 H (1.6-8.9) K/mcL Lymphocytes # 1.1 (0.6-4.6) K/mcL Monocytes # 0.6 (0.0-1.3) K/mcL Eosinophils # 0.1 (0.0-0.6) K/mcL Basophils # 0.0 (0.0-0.2) K/mcL Sodium 139 (136-145) mEq/L Potassium 3.8 (3.5-4.5) mEq/L Chloride 99 (98-109) mEq/L Carbon Dioxide 29 (19-29) mEq/L BUN 22 H (7-20) mg/dL Creatinine 0.75 (0.57-1.11) mg/dL Est GFR ( Amer) > 60 (> 60) Est GFR (Non-Af Amer) > 60 (> 60) BUN/Creatinine Ratio 29 H (6-26) Glucose 138 H (70-99) mg/dL Calculated Osmolality 294 (280-300) Lactic Acid 1.7 (0.5-2.2) mmol/L Calcium 8.5 L (8.6-10.8) mg/dL Troponin I (0-0.03) ng/mL B-Natriuretic Peptide (0-100) pg/mL 01/21/17 01/21/17 Range/Units 10:01 10:01 WBC (4.3-11.1) K/mcL RBC (3.82-4.97) M/mcL Hgb (11.5-15.4) g/dL Hct (35.3-44.9) % MCV (83.0-100.0) fL MCH (28.0-33.3) pg MCHC (31.6-35.5) g/dL RDW (11.5-14.5) % Plt Count (140-400) K/mcL MPV (9.4-12.4) fL Immature Gran % (0-4) % Seg Neutrophils % % Lymphocytes % % Monocytes % % Eosinophils % % Basophils % % Neutrophils # (1.6-8.9) K/mcL Lymphocytes # (0.6-4.6) K/mcL Monocytes # (0.0-1.3) K/mcL Eosinophils # (0.0-0.6) K/mcL Basophils # (0.0-0.2) K/mcL Sodium (136-145) mEq/L Potassium (3.5-4.5) mEq/L Chloride (98-109) mEq/L Carbon Dioxide (19-29) mEq/L BUN (7-20) mg/dL Creatinine (0.57-1.11) mg/dL Est GFR ( Amer) (> 60) Est GFR (Non-Af Amer) (> 60) BUN/Creatinine Ratio (6-26) Glucose (70-99) mg/dL Calculated Osmolality (280-300) Lactic Acid (0.5-2.2) mmol/L Calcium (8.6-10.8) mg/dL Troponin I 0.01 (0-0.03) ng/mL B-Natriuretic Peptide 77 (0-100) pg/mL - EKG Data EKG attestation: Yes I reviewed and interpreted this EKG. EKG shows normal: Reports: sinus rhythm Rate: Reports: normal Rhythm: Reports: NSR [place]/QRS: Reports: normal Interpretation: Reports: no acute changes
[2017-01-21 10:21] LABS: Basophils % 0.2 %; Eosinophils # 0.1 K/mcL (0.0-0.6); Hematocrit 32.3 % (35.3-44.9); Hemoglobin 10.2 g/dL (11.5-15.4); Immature Granulocytes % 0.6 % (0-4); Lymphocytes # 1.1 K/mcL (0.6-4.6); Lymphocytes % 9.6 %; Mean Corpuscular HGB Conc 31.6 g/dL (31.6-35.5); Mean Corpuscular Hemoglobin 26.2 pg (28.0-33.3); Monocytes # 0.6 K/mcL (0.0-1.3); Monocytes % 5.3 %; Neutrophils # 9.8 K/mcL (1.6-8.9); Platelet Count 232 K/mcL (140-400); Red Blood Count 3.89 M/mcL (3.82-4.97); Red Cell Distribution Width 21.1 % (11.5-14.5); Segmented Neutrophils % 83.3 %
[2017-01-21 10:34] LABS: BUN/Creatinine Ratio 29 (6-26); Blood Urea Nitrogen 22 mg/dL (7-20); Calcium 8.5 mg/dL (8.6-10.8); Carbon Dioxide 29 mEq/L (19-29); Chloride 99 mEq/L (98-109); Glucose 138 mg/dL (70-99); Osmolality,Calculated 294 (280-300); Potassium 3.8 mEq/L (3.5-4.5); Sodium 139 mEq/L (136-145); eGFR For African Americans > 60 (> 60); eGFR For Non-African Americans > 60 (> 60)
[2017-01-21] MEDS ORDERED: Albuterol 2.5 MG/3 ML NEBULIZER IH PRN (12:07)
[2017-01-21] MEDS ORDERED: Naloxone 0.4 MG/ML INJ IVP PRN (12:14)
--- NOTE | 2017-01-21 13:21 | Internal Med History&Physical ---
<Raj Dang J - Last Filed: 01/21/17 13:14> Date of Encounter: 01/21/17 Time of Encounter: 13:14 Assessment and Plan (1) COPD with exacerbation Current visit: Yes Status: Acute Acute on chronic COPD exacerbation. Hypoxic upon arrival and continues to be hypoxic without O2 to which she frequently removes. Continuous tele and SPO2 monitoring Oxygen per patients home dose Duonebs q4hrs scheduled Albuterol INH neb Q2hr PRN wheezing Solumedrol 60mg IVP Q8hrs Start levoquin 750mg IV daily (2) Anxiety Current visit: Yes Status: Acute Appears very anxious upon assessment. Has a h/o anxiety and depression. Takes Xanax at home for anxiety. Continue xanax at home dose. (3) Tobacco abuse disorder Current visit: Yes Status: Chronic Chronic tobacco abuse, does not want to quit. Start nicotine patch. (4) DVT prophylaxis Current visit: Yes Status: Acute risk for dvt d/t decrease in mobility secondary to COPD exacerbation, and hospital stay. Start lovenox 40mg SC daily. Internal Medicine - H&P: HPI Chief complaint: DYSPNEA Admitted From: Home Plans for Post Hospital Care: Home History of present illness: Ms. Lopez is a 66 year old female with a past medical history of cancer, COPD , HLD, HTN, anxiety/depression, schizophrenia. Presents to the [facility] with a MULTI -day history of increasing shortness of breath. Patient reports that throughout the last 6-7 days has been more dyspneic than normal, admits that dyspnea is interfering with ADLs. Denies any CP/DISCOMFORT, edema, fevers, or chills. Admits to new cough that is minimally productive of thick sputum. Reports that she called EMS because she was becoming anxious as she was unable to breath. Upon arrival EMS noted hypoxia SPO2 in the low 70s she was transported to [facility]. Since receiving duoneb and IV steroids in ED she notes some improve and decrease in anxiety. Metabolic panel unremarkable. CBC revealing a mild anemia which appears chronic and non-contributory. Trop negative. CXR- negative for acute pulmonary process. She is being admitted for a for further monitoring for a COPD exacerbation. Past Med Surg Social Fam HX - Past Medical History Medical history: cancer, COPD, hyperlipidemia, hypertension Psychiatric history: anxiety, depression, schizophrenia - Past Surgical History Surgical History: cancer surgery - Social History Smoking Status: Current every day smoker Smokeless Tobacco Status: No Alcohol use: none Drug use: none - Family History Maternal Grandmother Hx Family Cardiac Disorders: Yes (CAD) Mother Adopted: No Family Member Ethnicity: Non- Living Status: Hx Family Cardiac Disorders: No Hx Family Respiratory Disorders: No Hx Family Cancer: Yes (throat cancer) Hx Family GI Disorders: No Hx Family Endocrine Disorder: Yes (KIDNEY DIS) Hx Family Neuromuscular Disorders: No Hx Family Neurologic Disorders: No Hx Family HEENT Disorders: No Hx Family Autoimmune Disorders: No Internal Medicine - H&P: Meds Docusate Sodium [Move It Along] 100 mg PO BID 08/19/16 [History] Haloperidol Decanoate [Haldol Decanoate 100] 100 mg IM QMONTH 08/19/16 [History] OLANZapine [Zyprexa] 10 mg PO DAILY 08/19/16 [History] Trihexyphenidyl [Artane] 2 mg PO BID 08/19/16 [History] Hydrocortisone 1% CREAM [Cortaid] 1 appl TP BID PRN #1 bottle 08/21/16 [Rx] Folic Acid 1 mg PO DAILY 30 Days 11/09/16 [Rx] Furosemide [Lasix] 20 mg PO DAILY 12/11/16 [History] hydrOXYzine pamoate [HydrOXYzine Pamoate] 25 mg PO BID 01/09/17 [History] ALPRAZolam [Xanax 0.5 MG Tablet] 0.5 mg PO DAILY PRN #10 01/10/17 [Rx] Albuterol Sulfate [Proair Hfa] 1 puff IH Q4HR PRN #1 inh 01/10/17 [Rx] Budesonide [Pulmicort Flexhaler 90mcg] 2 puff IH BID #1 aer.pow.ba 01/10/17 [Rx] Ferrous Sulfate 325 mg PO BID #60 tablet 01/10/17 [Rx] Ipratropium/Albuterol Neb [Duoneb] 3 ml IH Q6H PRN #100 inhsol 01/10/17 [Rx] Lisinopril [Zestril] 20 mg PO DAILY #30 tab 01/10/17 [Rx] Metoprolol [Lopressor] 25 mg PO BID #60 tablet 01/10/17 [Rx] Nicotine Patch [Nicoderm] 21 mg TD DAILY #30 01/10/17 [Rx] Omeprazole [PriLOSEC] 20 mg PO DAILY #30 cap 01/10/17 [Rx] Pravastatin Sodium [Pravachol] 20 mg PO DAILY #30 01/10/17 [Rx] predniSONE [PredniSONE] 40 mg PO DAILY #10 tab 01/10/17 [Rx] 3 Allergy/AdvReac Type Severity Reaction Status Date / Time No Known Allergies Allergy Verified 12/03/15 16:32 All Systems PM: A 10-system review of systems was performed and is negative for pertinent findings except as documented above in the HPI. - Constitutional Constitutional: fatigue, no chills, no fever(s), no night sweats - EENT Eyes: no change in vision, no discharge, no pain, no photophobia Ears: no ear discharge, no ear pain, no tinnitus Nose, mouth and throat: no dysphagia, no nasal discharge, no neck pain, no post- nasal drip, no sore throat - Cardiovascular Cardiovascular ROS IM: no chest pain, no diaphoresis, no dyspnea, no lightheadedness, no palpitations, no syncope - Respiratory Respiratory: dyspnea (at rest and exertion; only noting minimal improvement with rest), wheezing, chest congestion, no cough, no hemoptysis, no excessive phlegm production, no pain with cough - Gastrointestinal Gastrointestinal: no abdominal pain, no diarrhea, no hematemesis, no hematochezia, no melena, no nausea, no vomiting - Genitourinary Genitourinary: no change in urinary stream, no dysuria, no flank pain, no hematuria - Musculoskeletal Musculoskeletal ROS IM: no numbness, no tingling - Integumentary Integumentary IM: no rash, no unusual bruising - Neurological Neurological ROS: no confusion, no convulsions, no focal weakness, no numbness, no tingling, no tremor(s) - Hematologic/Lymphatic Hematologic/Lymphatic: no easy bruising - Constitutional Vitals: Temp Pulse Resp BP Pulse Ox 98.9 F 83 20 137/72 93 01/21/17 09:08 01/21/17 11:58 01/21/17 11:58 01/21/17 11:58 01/21/17 11:58 General appearance: Present: cooperative, mild distress, A&O X 3, underweight, answers questions appropriately - Head Head exam: Present: atraumatic, normocephalic - Eye Eye exam: Present: PERRL, conjuntiva pink, sclera anicteric Pupils: Present: PERRL - Neck Neck exam general surgery: Present: supple, trachea midline. Absent: lymphadenopathy - Respiratory Respiratory exam: Present: decreased breath sounds, rhonchi, wheezes, tachypnea. Absent: accessory muscle use, rales - Cardiovascular Cardiovascular exam: Present: RRR, +S1, +S2. Absent: diastolic murmur, gallop, rubs, systolic murmur - GI/Abdominal GI/Abdominal exam: Present: normal bowel sounds, soft, no peritoneal signs. Absent: distended, tenderness - Extremities Exam Extremities exam: Present: warm, radial pulses palpable and symmetrical. Absent : calf tenderness, cyanotic, pedal edema - Neurological Exam Neurological exam: Present: CN II-XII intact, oriented X3, no focal deficits. Absent: pronater drift, facial droop, speech deficit - Psychiatric Psychiatric exam: Present: anxious - Skin Skin exam: Present: dry, intact Internal Med - H&P Results - Labs CBC & Chem 7: 01/21/17 10:01 01/21/17 10:01 - Diagnostic Studies Chest x-ray Status: image reviewed by me Additional comments: No acute pulmonary process <Yuri Sanchez - Last Filed: 01/21/17 17:45> Date of Encounter: 01/21/17 Internal Medicine - H&P: HPI History of present illness: Ms. Lopez is a 66 year old female All Systems PM: A 10-system review of systems was performed and is negative for pertinent findings except as documented above in the HPI. - Constitutional Vitals: Temp Pulse Resp BP Pulse Ox 98.3 F 82 15 111/65 100 01/21/17 14:21 01/21/17 14:21 01/21/17 14:21 01/21/17 14:21 01/21/17 14:21 Internal Med - H&P Results - Labs CBC & Chem 7: 01/21/17 10:01 01/21/17 10:01 - Attending Attestation I have personally performed a face to face evaluation on this patient and I discussed the assessment and plan with the nurse practitioner. I have reviewed and agree with the documented care plan. History and Exam by me shows: Ms. Lopez is a 66 year old female with a past medical history of cancer, COPD , HLD, HTN, anxiety/depression, schizophrenia. Presents to the [facility] with a MULTI -day history of increasing shortness of breath. Patient reports that throughout the last 6-7 days has been more dyspneic than normal, admits that dyspnea is interfering with ADLs. Denies any CP/DISCOMFORT, edema, fevers, or chills. Admits to new cough that is minimally productive of thick sputum. Reports that she called EMS because she was becoming anxious as she was unable to breath. Upon arrival EMS noted hypoxia SPO2 in the low 70s she was transported to [facility]. Since receiving duoneb and IV steroids in ED she notes some improve and decrease in anxiety. Gen: A, A, O x 3 Psych: Anxious Chest: Wheezing + no crackles a/p 1. Acute COPD exacerbation 2. Acute bronchitis Steroids + Bronchodilators + O2 + ABx
[2017-01-21] MEDS: Levofloxacin 750 MG/150 ML 750 MG/150 ML BAG IVPB SCH (14:57)
[2017-01-21] MEDS: MethylPREDNISolone 40 MG/ML VIAL IVP SCH (14:58)
[2017-01-21] MEDS: ALPRAZolam 0.5 MG TABLET PO PRN (15:01)
[2017-01-21] MEDS: Nicotine 21 MG PATCH.TD24 TD SCH (15:51)
[2017-01-21] MEDS: Ipratropium/Albuterol Neb 3 ML IH SCH ×3 (16:10→23:40)
--- NOTE | 2017-01-21 18:17 | Electrocardiograph Report ---
[place] [id number] Test Date: 2017-01-21 Pat Name: Edel Lopez Department: 103 Room: 3B Gender: F Utility Bill Complaints Investigator: : 1950 Requested By: Ponce Vo Order Number: [id number] Reading MD: Catie Martínez Measurements Intervals [place] Rate: 83 P: 82 MA: 128 QRS: 70 QRSD: 83 T: 65 QT: 374 QTc: 413 Interpretive Statements SINUS RHYTHM Electronically Signed On 01-21-2017 18:15:53 EDT by Catie Martínez
[2017-01-21] MEDS: Beclomethasone 80mcg MDI IH SCH (20:19)
[2017-01-21] MEDS: hydrOXYzine pamoate 25 MG CAPSULE PO SCH (21:29)
[2017-01-22] MEDS: MethylPREDNISolone 40 MG/ML VIAL IVP SCH ×4 (01:06→23:33)
[2017-01-22] MEDS: Ipratropium/Albuterol Neb 3 ML IH SCH ×6 (04:00→23:12)
[2017-01-22] MEDS: *HR* Enoxaparin 40 MG/0.4 ML SYRINGE SQ SCH (06:16)
[2017-01-22] MEDS: Beclomethasone 80mcg MDI IH SCH ×2 (07:39→20:01)
[2017-01-22 08:35] LABS: BUN/Creatinine Ratio 25 (6-26); Blood Urea Nitrogen 18 mg/dL (7-20); Calcium 8.9 mg/dL (8.6-10.8); Carbon Dioxide 29 mEq/L (19-29); Chloride 101 mEq/L (98-109); Glucose 159 mg/dL (70-99); Osmolality,Calculated 295 (280-300); Potassium 4.3 mEq/L (3.5-4.5); Sodium 140 mEq/L (136-145); eGFR For African Americans > 60 (> 60); eGFR For Non-African Americans > 60 (> 60)
[2017-01-22] MEDS: hydrOXYzine pamoate 25 MG CAPSULE PO SCH ×2 (08:35→20:08)
[2017-01-22] MEDS: OLANZapine 10 MG TAB.RAPDIS PO SCH (08:35)
[2017-01-22] MEDS: Folic Acid 1 MG TABLET PO SCH (08:35)
[2017-01-22] MEDS: Lisinopril 20 MG TABLET PO SCH (08:36)
[2017-01-22] MEDS: Levofloxacin 750 MG/150 ML 750 MG/150 ML BAG IVPB SCH (08:36)
[2017-01-22] MEDS: Furosemide 20 MG TABLET PO SCH (08:36)
[2017-01-22] MEDS: Nicotine 21 MG PATCH.TD24 TD SCH (08:36)
[2017-01-22] MEDS ORDERED: Nicotine 21 MG PATCH.TD24 TD SCH (09:00)
[2017-01-22 09:19] LABS: Basophils % 0.1 %; Hematocrit 34.1 % (35.3-44.9); Hemoglobin 10.6 g/dL (11.5-15.4); Immature Granulocytes % 0.4 % (0-4); Lymphocytes # 0.7 K/mcL (0.6-4.6); Lymphocytes % 4.1 %; Mean Corpuscular HGB Conc 31.1 g/dL (31.6-35.5); Mean Platelet Volume 9.9 fL (9.4-12.4); Monocytes # 0.3 K/mcL (0.0-1.3); Monocytes % 1.5 %; Neutrophils # 16.4 K/mcL (1.6-8.9); Platelet Count 249 K/mcL (140-400); Red Blood Count 3.92 M/mcL (3.82-4.97); Red Cell Distribution Width 20.7 % (11.5-14.5); Segmented Neutrophils % 93.9 %
[2017-01-22] MEDS: ALPRAZolam 0.5 MG TABLET PO PRN ×2 (12:06→20:08)
--- NOTE | 2017-01-22 19:19 | Internal Med Progress Note ---
Date of Encounter: 01/22/17 Time of Encounter: 19:17 - Assessment and plan (1) COPD with exacerbation Current Visit: Yes Status: Acute Assessment and plan: Hypoxic upon arrival and continues to be hypoxic without O2 to which she frequently removes. Cont IV steroids, Levaquin. PRN nebs. Monitor with tele and cont pulse ox (2) Infestation by bed bug Current Visit: No Status: Acute Assessment and plan: bed bugs found on arrival. Treatment per [facility] protocol (3) Leukocytosis Current Visit: Yes Status: Acute Assessment and plan: WBC 17K; in the setting steroid use and COPD exacerbation. Afebrile, normal lactic acid. Cont IV levaquin Qualifiers: Leukocytosis type: unspecified Qualified Code(s): D72.829 - Elevated white blood cell count, unspecified (4) Anxiety Current Visit: Yes Status: Acute Assessment and plan: anxious upon assessment. Has a h/o anxiety and depression. Takes Xanax at home for anxiety. Continue xanax at home dose. (5) DVT prophylaxis Current Visit: Yes Status: Acute Assessment and plan: risk for dvt d/t decrease in mobility secondary to COPD exacerbation, and hospital stay. Cont lovenox 40mg SC daily. - Time Spent With Patient 25 - 35 minutes - Subjective Interval history: Seen and examined at bedside. Says she feels much better today. She is requesting anxiety medication. Says SOB is better, no CP - Constitutional Vitals: Temp Pulse Resp BP Pulse Ox 98.6 F 91 14 137/65 95 01/22/17 18:44 01/22/17 18:44 01/22/17 18:44 01/22/17 18:44 01/22/17 18:44 General appearance: Present: cooperative, mild distress, A&O X 3, underweight, answers questions appropriately - Head Head exam: Present: atraumatic, normocephalic - Eye Eye exam: Present: PERRL, conjuntiva pink, sclera anicteric Pupils: Present: PERRL - Neck Neck exam general surgery: Present: supple, trachea midline. Absent: lymphadenopathy - Respiratory Respiratory exam: Present: wheezes. Absent: accessory muscle use, rales, rhonchi - Cardiovascular Cardiovascular exam: Present: RRR, +S1, +S2. Absent: diastolic murmur, gallop, rubs, systolic murmur - GI/Abdominal GI/Abdominal exam: Present: normal bowel sounds, soft, no peritoneal signs. Absent: distended, tenderness - Extremities Exam Extremities exam: Present: warm, radial pulses palpable and symmetrical. Absent : calf tenderness, cyanotic, pedal edema - Neurological Exam Neurological exam: Present: CN II-XII intact, oriented X3, no focal deficits. Absent: pronater drift, facial droop, speech deficit - Psychiatric Psychiatric exam: Present: anxious - Skin Skin exam: Present: dry, intact Internal Medicine: Result - Labs CBC & Chem 7: 01/22/17 06:38 01/22/17 06:38 Labs: Short CBC 01/22/17 Range/Units 06:38 WBC 17.5 H (4.3-11.1) K/mcL Hgb 10.6 L (11.5-15.4) g/dL Hct 34.1 L (35.3-44.9) % Plt Count 249 (140-400) K/mcL Neutrophils # 16.4 H (1.6-8.9) K/mcL BMP 01/22/17 06:38 Sodium 140 Potassium 4.3 Chloride 101 Carbon Dioxide 29 BUN 18 Creatinine 0.71 Glucose 159 H Calcium 8.9 Consult Discharge Plan - Plan Referrals: NONE,PCP [Primary Care Provider] -
[2017-01-23] MEDS: Ipratropium/Albuterol Neb 3 ML IH SCH ×6 (04:08→23:30)
[2017-01-23] MEDS: *HR* Enoxaparin 40 MG/0.4 ML SYRINGE SQ SCH (05:49)
[2017-01-23] MEDS: Furosemide 20 MG TABLET PO SCH (08:15)
[2017-01-23] MEDS: hydrOXYzine pamoate 25 MG CAPSULE PO SCH ×2 (08:15→20:54)
[2017-01-23] MEDS: OLANZapine 10 MG TAB.RAPDIS PO SCH (08:15)
[2017-01-23] MEDS: MethylPREDNISolone 40 MG/ML VIAL IVP SCH (08:15)
[2017-01-23] MEDS: Lisinopril 20 MG TABLET PO SCH (08:15)
[2017-01-23] MEDS: Folic Acid 1 MG TABLET PO SCH (08:15)
[2017-01-23] MEDS: Nicotine 21 MG PATCH.TD24 TD SCH (08:15)
[2017-01-23] MEDS: Levofloxacin 750 MG/150 ML 750 MG/150 ML BAG IVPB SCH (08:16)
[2017-01-23 10:42] LABS: Hematocrit 33.6 % (35.3-44.9); Hemoglobin 10.4 g/dL (11.5-15.4); Mean Corpuscular Volume 87.3 fL (83.0-100.0); Platelet Count 229 K/mcL (140-400); Red Blood Count 3.85 M/mcL (3.82-4.97)
[2017-01-23 10:57] LABS: Alanine Aminotransferase 27 Units/L (0-55); Albumin/Globulin Ratio 0.9 (1.1-2.2); Alkaline Phosphatase 55 Units/L (38-126); Aspartate Amino Transferase 14 Units/L (5-34); BUN/Creatinine Ratio 37 (6-26); Bilirubin,Total 0.2 mg/dL (0.2-1.2); Blood Urea Nitrogen 25 mg/dL (7-20); Calcium 8.9 mg/dL (8.6-10.8); Carbon Dioxide 29 mEq/L (19-29); Chloride 102 mEq/L (98-109); Globulin 3.3 g/dL (2.4-3.5); Glucose 130 mg/dL (70-99); Osmolality,Calculated 296 (280-300); Potassium 3.9 mEq/L (3.5-4.5); Sodium 140 mEq/L (136-145); Total Protein 6.3 g/dL (6.0-8.3); eGFR For African Americans > 60 (> 60); eGFR For Non-African Americans > 60 (> 60)
[2017-01-23] MEDS: Beclomethasone 80mcg MDI IH SCH ×2 (11:10→20:14)
[2017-01-23] MEDS: ALPRAZolam 0.5 MG TABLET PO PRN ×2 (15:08→20:48)
--- NOTE | 2017-01-23 16:03 | Internal Med Progress Note ---
Date of Encounter: 01/23/17 Time of Encounter: 16:01 - Assessment and plan (1) Acute and chronic respiratory failure with hypoxia Current Visit: Yes Status: Acute Assessment and plan: Wears O2 at 2 L at home. Hypoxic on arrival and initially requiring O2 at 4 L via nasal cannula. Secondary to acute COPD exacerbation. Wean IV steroids. Clinically improving on 01/23 exam. Wean O2 to home dose as able. (2) COPD with exacerbation Current Visit: Yes Status: Acute Assessment and plan: Hypoxic upon arrival and continues to be hypoxic without O2 to which she frequently removes. Taper IV steroids. Cont IV Levaquin. PRN nebs. Monitor with tele and cont pulse ox (3) Infestation by bed bug Current Visit: No Status: Acute Assessment and plan: bed bugs found on arrival. Treatment per [facility] protocol (4) Leukocytosis Current Visit: Yes Status: Acute Assessment and plan: WBC 17K; in the setting steroid use and COPD exacerbation. Afebrile, normal lactic acid. Cont IV levaquin Qualifiers: Leukocytosis type: unspecified Qualified Code(s): D72.829 - Elevated white blood cell count, unspecified (5) Anxiety Current Visit: Yes Status: Acute Assessment and plan: anxious upon assessment. Has a h/o anxiety and depression. Takes Xanax at home for anxiety. Continue xanax at home dose. (6) DVT prophylaxis Current Visit: Yes Status: Acute Assessment and plan: risk for dvt d/t decrease in mobility secondary to COPD exacerbation, and hospital stay. Cont lovenox 40mg SC daily. - Time Spent With Patient less than 15 minutes - Subjective Interval history: Seen and examined at bedside. Says she feels much better today. She is requesting water therapy and wants to go home. I am concerned with frequent readmissions the patient may need more assistance at home. We will ask PT/OT/ SS to evaluate for resources possible SNF/acute inpatient rehabilitation placement. Patient is agreeable to therapy evaluation. Says SOB is better, no CP - Constitutional Vitals: Temp Pulse Resp BP Pulse Ox 98.0 F 68 16 131/67 96 01/23/17 15:18 01/23/17 15:18 01/23/17 15:18 01/23/17 15:18 01/23/17 15:18 General appearance: Present: cooperative, mild distress, A&O X 3, underweight, answers questions appropriately - Head Head exam: Present: atraumatic, normocephalic - Eye Eye exam: Present: PERRL, conjuntiva pink, sclera anicteric Pupils: Present: PERRL - Neck Neck exam general surgery: Present: supple, trachea midline. Absent: lymphadenopathy - Respiratory Respiratory exam: Present: CTAB. Absent: accessory muscle use, rales, rhonchi, wheezes - Cardiovascular Cardiovascular exam: Present: RRR, +S1, +S2. Absent: diastolic murmur, gallop, rubs, systolic murmur - GI/Abdominal GI/Abdominal exam: Present: normal bowel sounds, soft, no peritoneal signs. Absent: distended, tenderness - Extremities Exam Extremities exam: Present: warm, radial pulses palpable and symmetrical. Absent : calf tenderness, cyanotic, pedal edema - Neurological Exam Neurological exam: Present: CN II-XII intact, oriented X3, no focal deficits. Absent: pronater drift, facial droop, speech deficit - Skin Skin exam: Present: dry, intact Internal Medicine: Result - Labs CBC & Chem 7: 01/23/17 10:16 01/23/17 10:16 Labs: Short CBC 01/23/17 Range/Units 10:16 WBC 17.3 H (4.3-11.1) K/mcL Hgb 10.4 L (11.5-15.4) g/dL Hct 33.6 L (35.3-44.9) % Plt Count 229 (140-400) K/mcL BMP 01/23/17 10:16 Sodium 140 Potassium 3.9 Chloride 102 Carbon Dioxide 29 BUN 25 H Creatinine 0.67 Glucose 130 H Calcium 8.9 Liver Function 01/23/17 Range/Units 10:16 Total Bilirubin 0.2 (0.2-1.2) mg/dL AST 14 (5-34) Units/L ALT 27 (0-55) Units/L Alkaline Phosphatase 55 (38-126) Units/L Albumin 3.0 L (3.5-5.0) g/dL Consult Discharge Plan - Plan Referrals: NONE,PCP [Primary Care Provider] -
[2017-01-23] MEDS: methylPREDNISolone 125 MG/2 ML VIAL IVP SCH (17:47)
[2017-01-24] MEDS: Ipratropium/Albuterol Neb 3 ML IH SCH ×4 (03:38→15:54)
[2017-01-24 03:48] LABS: Hematocrit 30.3 % (35.3-44.9); Hemoglobin 9.3 g/dL (11.5-15.4); Mean Corpuscular HGB Conc 30.7 g/dL (31.6-35.5); Mean Corpuscular Hemoglobin 26.7 pg (28.0-33.3); Mean Corpuscular Volume 87.1 fL (83.0-100.0); Mean Platelet Volume 9.6 fL (9.4-12.4); Platelet Count 214 K/mcL (140-400); Red Blood Count 3.48 M/mcL (3.82-4.97); Red Cell Distribution Width 21.1 % (11.5-14.5)
[2017-01-24 04:05] LABS: Alanine Aminotransferase 23 Units/L (0-55); Albumin 2.6 g/dL (3.5-5.0); Albumin/Globulin Ratio 0.9 (1.1-2.2); Alkaline Phosphatase 50 Units/L (38-126); Aspartate Amino Transferase 13 Units/L (5-34); BUN/Creatinine Ratio 31 (6-26); Bilirubin,Total < 0.2 mg/dL (0.2-1.2); Blood Urea Nitrogen 26 mg/dL (7-20); Calcium 8.8 mg/dL (8.6-10.8); Carbon Dioxide 28 mEq/L (19-29); Chloride 104 mEq/L (98-109); Globulin 2.9 g/dL (2.4-3.5); Glucose 129 mg/dL (70-99); Osmolality,Calculated 298 (280-300); Potassium 4.2 mEq/L (3.5-4.5); Sodium 141 mEq/L (136-145); Total Protein 5.5 g/dL (6.0-8.3); eGFR For African Americans > 60 (> 60); eGFR For Non-African Americans > 60 (> 60)
[2017-01-24] MEDS: *HR* Enoxaparin 40 MG/0.4 ML SYRINGE SQ SCH (05:24)
[2017-01-24] MEDS: methylPREDNISolone 125 MG/2 ML VIAL IVP SCH (05:24)
[2017-01-24] MEDS: Beclomethasone 80mcg MDI IH SCH (08:11)
[2017-01-24] MEDS: Nicotine 21 MG PATCH.TD24 TD SCH (09:00)
[2017-01-24] MEDS: Levofloxacin 750 MG/150 ML 750 MG/150 ML BAG IVPB SCH (09:00)
[2017-01-24] MEDS: OLANZapine 10 MG TAB.RAPDIS PO SCH (09:01)
[2017-01-24] MEDS: Folic Acid 1 MG TABLET PO SCH (09:01)
[2017-01-24] MEDS: Lisinopril 20 MG TABLET PO SCH (09:01)
[2017-01-24] MEDS: Furosemide 20 MG TABLET PO SCH (09:01)
[2017-01-24] MEDS: hydrOXYzine pamoate 25 MG CAPSULE PO SCH (09:01)
[2017-01-24] MEDS: ALPRAZolam 0.5 MG TABLET PO PRN (09:15)
[2017-01-24 11:51] VITALS: BP 112/64
--- NOTE | 2017-01-24 13:36 | Discharge Summary ---
Date of Encounter: 01/24/17 Time of Encounter: 13:47 - Discharge Diagnosis (1) Acute and chronic respiratory failure with hypoxia Priority: Primary Status: Acute Comments: Wears O2 at 2 L at home. Hypoxic on arrival and initially requiring O2 at 4 L via nasal cannula. Secondary to acute COPD exacerbation. Clinically improved at discharge. Weaned back to home dose O2 of 2 liters (2) COPD with exacerbation Priority: Primary Status: Acute Comments: with diffuse wheezing and hypoxia upon arrival. Treated with IV steroids, IV Levaquin. Discharge home on steroid burst. Afebrile, no increase in cough or sputum production. No indication for ATB at time of discharge. Smoking cessation advised and encouraged compliance with wearing O2. Will need to follow -up with PCP (3) Infestation by bed bug Priority: Primary Status: Acute Comments: Treated per protocol (4) Leukocytosis Priority: Primary Status: Acute Comments: Secondary to steroid use. WBC trended down at time of discharge. Recommend repeat CBC with PCP in 3-5 days. Qualifiers: Leukocytosis type: unspecified Qualified Code(s): D72.829 - Elevated white blood cell count, unspecified (5) Anxiety Priority: Secondary Status: Acute Comments: Per history. Requesting Rx for Xanax at time of discharge. OA RRS reviewed on 01/24/2017 and patient received Rx for Xanax 0.5 mg daily on 01/03/17. Patient initially denied eating Rx filled, then reported someone stole prescription. She is requesting prescription for 1 mg twice a day Xanax. Advised patient she will receive Rx for current prescription. Also advised patient that ED is not to be used for routine Rx refills and she will need to follow-up with PCP. (6) DVT prophylaxis Priority: Secondary Status: Acute Comments: Heparin - Discharge Medications Prescriptions: ALPRAZolam [Xanax 0.5 MG Tablet] 0.5 mg PO DAILY PRN #7 tablet PRN Reason: Anxiety PredniSONE [Deltasone] 40 mg PO DAILY #10 tablet Home Medications: Docusate Sodium [Move It Along] 100 mg PO BID 08/19/16 [History] Haloperidol Decanoate [Haldol Decanoate 100] 100 mg IM QMONTH 08/19/16 [History] OLANZapine [Zyprexa] 10 mg PO DAILY 08/19/16 [History] Trihexyphenidyl [Artane] 2 mg PO BID 08/19/16 [History] Hydrocortisone 1% CREAM [Cortaid] 1 appl TP BID PRN #1 bottle 08/21/16 [Rx] Folic Acid 1 mg PO DAILY 30 Days tablet 11/09/16 [Rx] Furosemide [Lasix] 20 mg PO DAILY 12/11/16 [History] hydrOXYzine pamoate [HydrOXYzine Pamoate] 25 mg PO BID 01/09/17 [History] Albuterol Sulfate [Proair Hfa] 1 puff IH Q4HR PRN #1 inh 01/10/17 [Rx] Budesonide [Pulmicort Flexhaler 90mcg] 2 puff IH BID #1 [email or web address] 01/10/17 [Rx] Ferrous Sulfate 325 mg PO BID #60 tablet 01/10/17 [Rx] Ipratropium/Albuterol Neb [Duoneb] 3 ml IH Q6H PRN #100 inhsol 01/10/17 [Rx] Lisinopril [Zestril] 20 mg PO DAILY #30 tab 01/10/17 [Rx] Metoprolol [Lopressor] 25 mg PO BID #60 tablet 01/10/17 [Rx] Nicotine Patch [Nicoderm] 21 mg TD DAILY #30 01/10/17 [Rx] Omeprazole [PriLOSEC] 20 mg PO DAILY #30 cap 01/10/17 [Rx] Pravastatin Sodium [Pravachol] 20 mg PO DAILY #30 01/10/17 [Rx] predniSONE [PredniSONE] 40 mg PO DAILY #10 tab 01/10/17 [Rx] ALPRAZolam [Xanax 0.5 MG Tablet] 0.5 mg PO DAILY PRN #7 tablet 01/24/17 [Rx] PredniSONE [Deltasone] 40 mg PO DAILY #10 tablet 01/24/17 [Rx] Allergies/Adverse Reactions: 3 Allergy/AdvReac Type Severity Reaction Status Date / Time No Known Allergies Allergy Verified 12/03/15 16:32 Date of admission: 01/21/17 12:06 Primary care physician: PCP NONE Consults: 01/22/17 11:41 Consult to A[employer]P Mechanic [CONS] Routine Reason for SW Consult: d/c planning 01/23/17 09:54 Consult to Physical Therapy [CONS] Routine Comment: Evaluate, develop and implement POC Reason for Consult: lives at home alone; home safe eval OT [Consult to Occupational Therapy] [CONS] Routine Comment: Evaluate, develop and implement POC Reason for Consult: lives at home alone; home safe eval - Patient Status Disposition: Home Health Service Functional capacity at discharge: uses cane/walker - Discharge Instructions Follow Up With: NONE,PCP [Primary Care Provider] - Wendy Pineda DO [Resident] - 01/31/17 10:20 am - Diet and Activity Activity: increase activity as tolerated Diet: advance to your usual diet Interval History: Seen and examined at bedside. Patient is clinically and subjectively improved. She is back on the home dose O2 at 2 L. She is requesting Rx for Xanax. Patiently initially refused to be discharged if she did not get Rx for1 month of Xanax. Stated she would turn around and come right back to the emergency room. Advised patient I will provide one week's worth of Xanax at 0.5 mg as per OARRS review. She denies CP, no SOB, no ABD pain. Hospital course: Please see assessment and plan for hospital course - Time Spent with Patient Total time spent providing and/or coordinating discharge services: Greater than 30 minutes (55 minutes spent on discharge) - Constitutional Vitals: Temp Pulse Resp BP Pulse Ox 98.4 F 77 15 112/64 96 01/24/17 11:50 01/24/17 11:50 01/24/17 11:50 01/24/17 11:50 01/24/17 11:50 General appearance: Present: cooperative, mild distress, A&O X 3, underweight, answers questions appropriately - Head Head exam: Present: atraumatic, normocephalic - Eye Eye exam: Present: PERRL, conjuntiva pink, sclera anicteric Pupils: Present: PERRL - Neck Neck exam general surgery: Present: supple, trachea midline. Absent: lymphadenopathy - Respiratory Respiratory exam: Present: CTAB. Absent: accessory muscle use, rales, rhonchi, wheezes - Cardiovascular Cardiovascular exam: Present: RRR, +S1, +S2. Absent: diastolic murmur, gallop, rubs, systolic murmur - GI/Abdominal GI/Abdominal exam: Present: normal bowel sounds, soft, no peritoneal signs. Absent: distended, tenderness - Extremities Exam Extremities exam: Present: warm, radial pulses palpable and symmetrical. Absent : calf tenderness, cyanotic, pedal edema - Neurological Exam Neurological exam: Present: CN II-XII intact, oriented X3, no focal deficits. Absent: pronater drift, facial droop, speech deficit - Skin Skin exam: Present: dry, intact
== END 2017-01-24 17:45 | disposition home health service (06) ==
LOC: EMEROO 09:04 → 3BNU 09:04
PROVIDERS: ADMIT Nurse Practitioner; ATTEND Registered Nurse

== ENCOUNTER 2017-02-23 06:12 | Observation (INO) ==
[2017-02-23] MEDS ORDERED: Ipratropium/Albuterol Neb 3 ML IH ONE ×2 (06:24→06:41)
--- NOTE | 2017-02-23 06:32 | Emergency Department Note ---
Disposition Clinical Impression: COPD exacerbation, Bronchitis Disposition: Admitted As Inpatient Condition: Good Referrals: Wendy Pineda DO [Primary Care Provider] - Forms: ED Satisfaction Letter Time of Disposition: 07:54 SOB HPI - General Chief Complaint: ED Shortness of Breath/Dyspnea Stated Complaint: short of breath Time Seen by Provider: 02/23/17 06:21 Source: patient Mode of arrival: ambulatory Limitations: no limitations Nursing Notes Reviewed: Yes Vital Signs Reviewed: Yes - History of Present Illness Pt is a 66 year old female with a past medical history of hypertension, hyperlipidemia and COPD that presents to the ED via EMS for evaluation of dyspnea. Symptom onset was 2 days ago. States she has also had a productive cough and intermittent subjective fever during this timeframe. Denies any chest pain, abd pain, vomiting, diarrhea, diaphoresis, back pain, neck pain/ stiffness or urinary symptoms. States she has been using her albuterol nebulizer at home without any improvement. Pt also reports that she is on home 02 (2 L NC) which she has also needed to bump up to 3-4 L over the past 2 days. Pt Subjective Complaint: shortness of breath, cough Onset (ago): day(s) (2) Severity: moderate Consistency/Duration: constant, gradually worsening Improves with: nothing Known history of: COPD, other (HTN) Associated symptoms: Reports: denies other symptoms, fever, cough, wheezing, sputum production. Denies: chest pain, pain with inspiration, orthopnea, lower extremity pain, polyuria, polydipsia, parasthesias, palpitations, hemoptysis, diaphoresis, nausea/vomiting, syncope, abdominal pain, rash, sense of impending doom Treatment prior to arrival: oxygen, bronchodilator Cough present: Yes Cough Description: Involuntary, Productive, Wheezy Cough Frequency: Intermittent Sputum production: Yes Sputum Amount: Small Sputum Color: Clear, White, Yellow - Related Data Home oxygen amount: 3 liters Home Medications Medication Instructions Recorded Confirmed Docusate Sodium [Move It Along] 100 mg PO BID 08/19/16 01/21/17 Haloperidol Decanoate [Haldol 100 mg IM QMONTH 08/19/16 01/21/17 Decanoate 100] OLANZapine [Zyprexa] 10 mg PO DAILY 08/19/16 01/21/17 Trihexyphenidyl [Artane] 2 mg PO BID 08/19/16 01/21/17 Furosemide [Lasix] 20 mg PO DAILY 12/11/16 01/21/17 hydrOXYzine pamoate [HydrOXYzine 25 mg PO BID 01/09/17 01/21/17 Pamoate] Previous Rx's Medication Instructions Recorded Hydrocortisone 1% CREAM [Cortaid] 1 appl TP BID PRN #1 bottle 08/21/16 Folic Acid 1 mg PO DAILY 30 Days tablet 11/09/16 Albuterol Sulfate [Proair Hfa] 1 puff IH Q4HR PRN #1 inh 01/10/17 Budesonide [Pulmicort Flexhaler 2 puff IH BID #1 aer.pow.ba 01/10/17 90mcg] Ferrous Sulfate 325 mg PO BID #60 tablet 01/10/17 Ipratropium/Albuterol Neb [Duoneb] 3 ml IH Q6H PRN #100 inhsol 01/10/17 Lisinopril [Zestril] 20 mg PO DAILY #30 tab 01/10/17 Metoprolol [Lopressor] 25 mg PO BID #60 tablet 01/10/17 Nicotine Patch [Nicoderm] 21 mg TD DAILY #30 01/10/17 Omeprazole [PriLOSEC] 20 mg PO DAILY #30 cap 01/10/17 Pravastatin Sodium [Pravachol] 20 mg PO DAILY #30 01/10/17 predniSONE [PredniSONE] 40 mg PO DAILY #10 tab 01/10/17 ALPRAZolam [Xanax 0.5 MG Tablet] 0.5 mg PO DAILY PRN #7 tablet 01/24/17 PredniSONE [Deltasone] 40 mg PO DAILY #10 tablet 01/24/17 Allergies Allergy/AdvReac Type Severity Reaction Status Date / Time No Known Allergies Allergy Verified 12/03/15 16:32 All systems ED: reviewed and negative except as stated. Review of Systems: As Per HPI Constitutional: Reports: fever, chills. Denies: weakness, weight change Eyes: Denies: eye discharge ENT ED: Denies: ear pain, throat pain, dental pain, congestion, dysphagia Cardiovascular: Denies: chest pain, palpitations, dyspnea on exertion, orthopnea , edema Respiratory: Reports: cough, dyspnea, wheezes, sputum production. Denies: hemoptysis, stridor Gastrointestinal: Denies: abdominal pain, nausea, vomiting, diarrhea, constipation Genitourinary: Denies: urgency, dysuria, frequency Musculoskeletal: Denies: back pain, neck pain Integumentary: Denies: rash Neurological: Denies: headache, weakness Endocrine: Denies: fatigue Past Medical History - Past Medical History Source: patient Medical history: Reports: cancer, COPD, hyperlipidemia, hypertension Surgical history: Reports: cancer surgery Psychiatric history: Reports: anxiety, depression, schizophrenia - Social History Smoking Status: Current every day smoker Smokeless Tobacco Status: No Alcohol use: Reports: none Drug use: Reports: none Physical Exam - General Limitations: no limitations General appearance: alert, in no apparent distress - Head Head exam: atraumatic, normocephalic, normal inspection - Eye Eye exam: Present: normal appearance, PERRL, EOMI - ENT ENT exam: normal exam, normal oropharynx, mucous membranes moist - Neck Neck exam: Present: normal inspection, full ROM, trachea midline. Absent: tenderness - Chest Chest inspection: Present: normal inspection, symmetric chest wall rise - Respiratory Respiratory exam: Present: wheezes. Absent: respiratory distress, stridor, accessory muscle use, prolonged expiratory phase - Cardiovascular Cardiovascular exam: Present: regular rate, normal rhythm - Abdominal Exam Abdominal exam: Present: soft, Non-Tender. Absent: tenderness, distention, guarding, rebound, rigidity - Extremities Exam Extremities exam: Present: normal inspection, full ROM. Absent: pedal edema - Expanded Lower Extremity Exam Gait: observed and normal - Back Exam Back exam: Present: normal inspection - Neurological Exam Neurological exam: Present: alert, oriented X3, CN II-XII intact - Psychiatric Psychiatric exam: Present: normal affect, normal mood - Skin Skin exam: Present: warm, dry, intact, normal color. Absent: rash, cyanosis, diaphoresis Course Course Narrative: Pt is a 66 year old female with a past medical history of hypertension, hyperlipidemia and COPD that presents to the ED via EMS for evaluation of dyspnea. Symptom onset was 2 days ago. States she has also had a productive cough and intermittent subjective fever during this timeframe. Denies any chest pain, abd pain, vomiting, diarrhea, diaphoresis, back pain, neck pain/ stiffness or urinary symptoms. States she has been using her albuterol nebulizer at home without any improvement. Pt also reports that she is on home 02 (2 L NC) which she has also needed to bump up to 3-4 L over the past 2 days. Covered in bedbugs upon arrival Patient is a frail-appearing 66 showed female. 87% on room air. Heart RRR. Lungs: Diffuse expiratory wheezing throughout bilateral lung few. Normocephalic. No signs of external trauma. Eyes normal inspection. ENT within normal limits. Airway patent. Neck supple, full range of motion, nontender. No signs of meningeal irritation. Abdomen soft, nontender. Back normal inspection, nontender. Extremities within normal limits. No pedal edema. Plan to obtain labs, chest x-ray and EKG. Breathing treatment and steroids given. Will reevaluate CXR x-ray shows no acute cardiopulmonary abnormalities. EKG sinus rhythm. Reviewed by Dr. Zoila Woodruff. Patient reports only mild improvement with breathing treatment and Solu-Medrol. She is currently on 3 L of oxygen. Plan to admit for COPD exacerbation and bronchitis. Cultures ordered. Will start Levaquin based on patient's history of fever, chills and productive cough. Discussed case with Dr. Urrutia. He had [id number] time with patient and agrees with my assessment and plan. Patient agrees with treatment plan. Discussed case with Dr. Garcia. He accepted patient. Requesting we obtained a rapid influenza. Patient stable to be transferred to the floor. Vital Signs Temperature 98.2 F 02/23/17 06:31 Pulse Rate 99 02/23/17 06:31 Respiratory Rate 18 02/23/17 06:31 Blood Pressure 141/82 02/23/17 06:31 O2 Sat by Pulse Oximetry 94 02/23/17 06:31 Temperature 98.2 F 02/23/17 06:31 Pulse Rate 102 02/23/17 07:18 Respiratory Rate 20 02/23/17 07:18 Blood Pressure 106/79 02/23/17 07:18 O2 Sat by Pulse Oximetry 100 02/23/17 07:18 Oxygen Delivery Oxygen Delivery Nasal Cannula Shortness of Breath/Dyspnea - Medical Records Medical records reviewed: Yes I reviewed the patient's medical records. - Lab Data Lab results reviewed: Yes I reviewed the patient's lab results. Result diagrams: 02/23/17 06:44 02/23/17 06:44 Lab Results 02/23/17 02/23/17 02/23/17 Range/Units 06:44 06:44 06:44 WBC 4.3 (4.3-11.1) K/mcL RBC 3.72 L (3.82-4.97) M/mcL Hgb 10.3 L (11.5-15.4) g/dL Hct 33.5 L (35.3-44.9) % MCV 90.1 (83.0-100.0) fL MCH 27.7 L (28.0-33.3) pg MCHC 30.7 L (31.6-35.5) g/dL RDW 15.0 H (11.5-14.5) % Plt Count 224 (140-400) K/mcL MPV 8.5 L (9.4-12.4) fL Immature Gran % 0.2 (0-4) % Seg Neutrophils % 60.7 % Lymphocytes % 21.8 % Monocytes % 11.7 % Eosinophils % 4.7 % Basophils % 0.9 % Neutrophils # 2.6 (1.6-8.9) K/mcL Lymphocytes # 0.9 (0.6-4.6) K/mcL Monocytes # 0.5 (0.0-1.3) K/mcL Eosinophils # 0.2 (0.0-0.6) K/mcL Basophils # 0.0 (0.0-0.2) K/mcL PT (9.4-12.1) Seconds INR Sodium 139 (136-145) mEq/L Potassium 3.3 L (3.5-4.5) mEq/L Chloride 104 (98-109) mEq/L Carbon Dioxide 27 (19-29) mEq/L BUN 13 (7-20) mg/dL Creatinine 0.59 (0.57-1.11) mg/dL Est GFR ( Amer) > 60 (> 60) Est GFR (Non-Af Amer) > 60 (> 60) BUN/Creatinine Ratio 22 (6-26) Glucose 117 H (70-99) mg/dL Calculated Osmolality 289 (280-300) Calcium 8.8 (8.6-10.8) mg/dL Troponin I 0.01 (0-0.03) ng/mL B-Natriuretic Peptide (0-100) pg/mL 02/23/17 02/23/17 Range/Units 06:44 06:44 WBC (4.3-11.1) K/mcL RBC (3.82-4.97) M/mcL Hgb (11.5-15.4) g/dL Hct (35.3-44.9) % MCV (83.0-100.0) fL MCH (28.0-33.3) pg MCHC (31.6-35.5) g/dL RDW (11.5-14.5) % Plt Count (140-400) K/mcL MPV (9.4-12.4) fL Immature Gran % (0-4) % Seg Neutrophils % % Lymphocytes % % Monocytes % % Eosinophils % % Basophils % % Neutrophils # (1.6-8.9) K/mcL Lymphocytes # (0.6-4.6) K/mcL Monocytes # (0.0-1.3) K/mcL Eosinophils # (0.0-0.6) K/mcL Basophils # (0.0-0.2) K/mcL PT 10.9 (9.4-12.1) Seconds INR 1.0 Sodium (136-145) mEq/L Potassium (3.5-4.5) mEq/L Chloride (98-109) mEq/L Carbon Dioxide (19-29) mEq/L BUN (7-20) mg/dL Creatinine (0.57-1.11) mg/dL Est GFR ( Amer) (> 60) Est GFR (Non-Af Amer) (> 60) BUN/Creatinine Ratio (6-26) Glucose (70-99) mg/dL Calculated Osmolality (280-300) Calcium (8.6-10.8) mg/dL Troponin I (0-0.03) ng/mL B-Natriuretic Peptide 80 (0-100) pg/mL - Radiology Data Radiology results reviewed: Yes I reviewed the patient's radiology results. - EKG Data EKG attestation: Yes I reviewed and interpreted this EKG. EKG shows normal: Reports: sinus rhythm Rate: Reports: normal Rhythm: Reports: NSR When compared to previous EKG there are: no significant changes Interpretation: Reports: no acute changes, normal EKG Attestation Statement - Attestation Attestation: Patient was seen in cooperation with physician podiatric assistant. I reviewed the history physical assessment and plan and I agree with the findings. Also had personal [id number] time with and examine this patient. 66-year-old female presents to the emergency department infested with bed bugs. She also complains of shortness of breath. She required a shower to get off as many bedbugs as we possibly could prior to evaluation. Patient is on home O2 dependent individual who says that she gets bronchitis pneumonia with some frequency. She also has frequent COPD exacerbations. She says the last 3 days she been getting progressively worse with increased cough and change in her sputum production color. She is not sure she has had fevers or chills. No nausea vomiting. On examination vital signs are stable. ENT is unremarkable. Heart regular rhythm and rate. Lungs diffuse crackles throughout minimal wheezing. Abdomen soft and nontender. Extremity is unremarkable. Neurologically intact. ED course patient was examined after breathing treatments are to think helped. X-ray did not show any acute abnormality as per labs were largely unremarkable. Patient does have an increasing O2 requirement she has a history of frequent COPD issues bronchitis and pneumonia. Will start IV antibiotics for bronchitis and have her admitted to the hospitalist service for pulmonary care and further evaluation and treatment. Agreed the physician podiatric assistant assessment and plan.
[2017-02-23] MEDS ORDERED: methylPREDNISolone 125 MG/2 ML VIAL IVP ONE (06:41)
[2017-02-23 06:52] LABS: Basophils % 0.9 %; Eosinophils # 0.2 K/mcL (0.0-0.6); Eosinophils % 4.7 %; Hematocrit 33.5 % (35.3-44.9); Hemoglobin 10.3 g/dL (11.5-15.4); Immature Granulocytes % 0.2 % (0-4); Lymphocytes # 0.9 K/mcL (0.6-4.6); Lymphocytes % 21.8 %; Mean Corpuscular HGB Conc 30.7 g/dL (31.6-35.5); Mean Corpuscular Hemoglobin 27.7 pg (28.0-33.3); Mean Corpuscular Volume 90.1 fL (83.0-100.0); Mean Platelet Volume 8.5 fL (9.4-12.4); Monocytes # 0.5 K/mcL (0.0-1.3); Monocytes % 11.7 %; Neutrophils # 2.6 K/mcL (1.6-8.9); Platelet Count 224 K/mcL (140-400); Red Blood Count 3.72 M/mcL (3.82-4.97); Segmented Neutrophils % 60.7 %
[2017-02-23 07:03] LABS: Prothrombin Time 10.9 Seconds (9.4-12.1)
[2017-02-23 07:04] LABS: BUN/Creatinine Ratio 22 (6-26); Blood Urea Nitrogen 13 mg/dL (7-20); Calcium 8.8 mg/dL (8.6-10.8); Carbon Dioxide 27 mEq/L (19-29); Chloride 104 mEq/L (98-109); Glucose 117 mg/dL (70-99); Osmolality,Calculated 289 (280-300); Potassium 3.3 mEq/L (3.5-4.5); Sodium 139 mEq/L (136-145); eGFR For African Americans > 60 (> 60); eGFR For Non-African Americans > 60 (> 60)
[2017-02-23] MEDS ORDERED: Levofloxacin 750 MG/150 ML 750 MG/150 ML BAG IVPB ONE (07:48)
--- NOTE | 2017-02-23 08:29 | Internal Med History&Physical ---
Date of Encounter: 02/23/17 Time of Encounter: 08:26 Assessment and Plan (1) Pulmonary cachexia due to chronic obstructive pulmonary disease Current visit: No Status: Chronic Nutrition consult (2) Tobacco abuse disorder Current visit: No Status: Chronic I advised smoking cessation. We will provide nicotine replacement therapy. (3) DVT prophylaxis Current visit: No Status: Acute Encourage early ambulation. No pharmacological prophylaxis needed as the patient is fully ambulatory. (4) HTN (hypertension) Current visit: No Status: Chronic Continue metoprolol and lisinopril. Qualifiers: Hypertension type: essential hypertension Qualified Code(s): I10 - Essential (primary) hypertension (5) COPD with exacerbation Current visit: Yes Status: Acute We will treat her with IV Solu-Medrol, inhaled albuterol and ipratropium and Levaquin. She has increased sputum production and she is more hypoxic than usual. Flu swab was negative for influenza A and B. (6) Infestation by bed bug Current visit: No Status: Acute consulting services associate consult to assess discharge planning and home situation. (7) Schizophrenia Current visit: No Status: Chronic We will continue her chronic psych meds. Qualifiers: Schizophrenia type: catatonic schizophrenia Qualified Code(s): F20.2 - Catatonic schizophrenia (8) Iron deficiency anemia Current visit: No Status: Acute Continue oral ferrous sulfate. Qualifiers: Iron deficiency anemia type: other iron deficiency Qualified Code(s): D50.8 - Other iron deficiency anemias (9) Acute and chronic respiratory failure with hypoxia Current visit: No Status: Acute Likely exacerbated by COPD. We will provide oxygen by nasal cannula to maintain saturation above 92%. Internal Medicine - H&P: HPI Chief complaint: Shortness of breath Admitted From: Emergency Dept Plans for Post Hospital Care: Home History of present illness: Ms. Lopez is a 66 year old female with past medical history significant for COPD, chronic hypoxic respiratory failure on home oxygen, hypertension, hyperlipidemia and schizophrenia who presented to the hospital for evaluation of shortness of breath. She states that she got her flu shot 3 days ago and ever since she started feeling progressively more short of breath every day to the point where today her symptoms were severe and she called EMS. She was brought to the hospital and upon initial evaluation her oxygen saturation was 87 % on room air. She reports an associated cough productive of sputum and subjective fevers. She reports nausea, no vomiting or diarrhea. No abdominal pain. In the emergency department she was hypoxic, wheezing. She was treated with Solu-Medrol, Levaquin and bronchodilators and referred for admission. A 10 point review of systems was negative except as above. Past Med Surg Social Fam HX - Past Medical History Medical history: cancer, COPD, hyperlipidemia, hypertension Psychiatric history: anxiety, depression, schizophrenia - Past Surgical History Surgical History: cancer surgery - Social History Smoking Status: Current every day smoker Smokeless Tobacco Status: No Alcohol use: none Drug use: none - Family History Maternal Grandmother Hx Family Cardiac Disorders: Yes (CAD) Mother Adopted: No Family Member Ethnicity: Non- Living Status: Hx Family Cardiac Disorders: No Hx Family Respiratory Disorders: No Hx Family Cancer: Yes (throat cancer) Hx Family GI Disorders: No Hx Family Endocrine Disorder: Yes (KIDNEY DIS) Hx Family Neuromuscular Disorders: No Hx Family Neurologic Disorders: No Hx Family HEENT Disorders: No Hx Family Autoimmune Disorders: No Internal Medicine - H&P: Meds Docusate Sodium [Move It Along] 100 mg PO BID 08/19/16 [History] Haloperidol Decanoate [Haldol Decanoate 100] 100 mg IM QMONTH 08/19/16 [History] OLANZapine [Zyprexa] 10 mg PO DAILY 08/19/16 [History] Trihexyphenidyl [Artane] 2 mg PO BID 08/19/16 [History] Hydrocortisone 1% CREAM [Cortaid] 1 appl TP BID PRN #1 bottle 08/21/16 [Rx] Folic Acid 1 mg PO DAILY 30 Days tablet 11/09/16 [Rx] Furosemide [Lasix] 20 mg PO DAILY 12/11/16 [History] hydrOXYzine pamoate [HydrOXYzine Pamoate] 25 mg PO BID 01/09/17 [History] Albuterol Sulfate [Proair Hfa] 1 puff IH Q4HR PRN #1 inh 01/10/17 [Rx] Budesonide [Pulmicort Flexhaler 90mcg] 2 puff IH BID #1 aer.pow.ba 01/10/17 [Rx] Ferrous Sulfate 325 mg PO BID #60 tablet 01/10/17 [Rx] Ipratropium/Albuterol Neb [Duoneb] 3 ml IH Q6H PRN #100 inhsol 01/10/17 [Rx] Lisinopril [Zestril] 20 mg PO DAILY #30 tab 01/10/17 [Rx] Metoprolol [Lopressor] 25 mg PO BID #60 tablet 01/10/17 [Rx] Nicotine Patch [Nicoderm] 21 mg TD DAILY #30 01/10/17 [Rx] Omeprazole [PriLOSEC] 20 mg PO DAILY #30 cap 01/10/17 [Rx] Pravastatin Sodium [Pravachol] 20 mg PO DAILY #30 01/10/17 [Rx] predniSONE [PredniSONE] 40 mg PO DAILY #10 tab 01/10/17 [Rx] ALPRAZolam [Xanax 0.5 MG Tablet] 0.5 mg PO DAILY PRN #7 tablet 01/24/17 [Rx] PredniSONE [Deltasone] 40 mg PO DAILY #10 tablet 01/24/17 [Rx] 3 Allergy/AdvReac Type Severity Reaction Status Date / Time No Known Allergies Allergy Verified 12/03/15 16:32 All Systems PM: A 10-system review of systems was performed and is negative for pertinent findings except as documented above in the HPI. - Constitutional Vitals: Temp Pulse Resp BP Pulse Ox 98.2 F 102 20 110/62 100 02/23/17 06:31 02/23/17 07:18 02/23/17 08:13 02/23/17 08:13 02/23/17 07:18 General appearance: Present: disheveled, A&O X 3 - Eye Eye exam: Present: PERRL, conjuntiva pink, sclera anicteric Pupils: Present: PERRL - Respiratory Respiratory exam: Present: prolonged expiratory phase, wheezes. Absent: accessory muscle use, rales, rhonchi - Cardiovascular Cardiovascular exam: Present: RRR, +S1, +S2. Absent: diastolic murmur, gallop, rubs, systolic murmur - GI/Abdominal GI/Abdominal exam: Present: normal bowel sounds, soft, no peritoneal signs. Absent: distended, tenderness - Extremities Exam Extremities exam: Present: pedal edema, warm, radial pulses palpable and symmetrical. Absent: calf tenderness, cyanotic - Neurological Exam Neurological exam: Present: CN II-XII intact, oriented X3, no focal deficits. Absent: facial droop, speech deficit - Skin Skin exam: Present: dry, intact Internal Med - H&P Results - Labs CBC & Chem 7: 02/23/17 06:44 02/23/17 06:44 - EKG Data -: EKG Interpreted by Myself EKG shows normal: sinus rhythm (93 bpm), axis, intervals, QRS complexes, ST-T waves - Impressions Chest x-ray reviewed by myself shows no infiltrate effusion or vascular congestion. No acute abnormalities. No change compared to the x-ray performed on 01/21/2017.
[2017-02-23] MEDS ORDERED: Acetaminophen 325 MG TABLET PO PRN (08:44)
[2017-02-23] MEDS ORDERED: *HR* HYDROcodone/Acet 5/325 mg TABLET PO PRN (08:44)
[2017-02-23] MEDS ORDERED: Ondansetron 4 MG/2 ML VIAL IVP PRN (08:44)
[2017-02-23] MEDS ORDERED: Naloxone 0.4 MG/ML INJ IVP PRN (08:44)
[2017-02-23] MEDS ORDERED: Albuterol 2.5 MG/3 ML NEBULIZER IH PRN (08:54)
[2017-02-23] MEDS ORDERED: Potassium Chloride Elixir 20 MEQ/15 ML UDC PO ONE (08:56)
[2017-02-23] MEDS: OLANZapine 10 MG TAB.RAPDIS PO SCH (10:09)
[2017-02-23] MEDS: Ipratropium/Albuterol Neb 3 ML IH SCH ×5 (11:06→23:10)
[2017-02-23] MEDS: Nicotine 21 MG PATCH.TD24 TD SCH (13:05)
[2017-02-23] MEDS ORDERED: 0.9 % Sodium Chloride 500 ML IVC ONE (15:20)
[2017-02-23] MEDS: ALPRAZolam 0.5 MG TABLET PO PRN (15:55)
[2017-02-23] MEDS: methylPREDNISolone 125 MG/2 ML VIAL IVP SCH ×2 (15:55→23:55)
[2017-02-23] MEDS: Beclomethasone 80mcg MDI IH SCH (20:28)
[2017-02-23] MEDS: hydrOXYzine pamoate 25 MG CAPSULE PO SCH (21:46)
[2017-02-24] MEDS: Ipratropium/Albuterol Neb 3 ML IH SCH ×5 (04:05→15:57)
[2017-02-24 04:12] LABS: Basophils % 0.1 %; Hematocrit 28.9 % (35.3-44.9); Immature Granulocytes % 0.4 % (0-4); Lymphocytes # 0.6 K/mcL (0.6-4.6); Lymphocytes % 6.3 %; Mean Corpuscular HGB Conc 31.1 g/dL (31.6-35.5); Mean Corpuscular Hemoglobin 27.1 pg (28.0-33.3); Mean Platelet Volume 9.3 fL (9.4-12.4); Monocytes # 0.2 K/mcL (0.0-1.3); Monocytes % 1.8 %; Neutrophils # 8.7 K/mcL (1.6-8.9); Platelet Count 199 K/mcL (140-400); Red Blood Count 3.32 M/mcL (3.82-4.97); Red Cell Distribution Width 15.2 % (11.5-14.5); Segmented Neutrophils % 91.4 %
[2017-02-24 04:42] LABS: Alanine Aminotransferase 22 Units/L (0-55); Albumin 3.1 g/dL (3.5-5.0); Albumin/Globulin Ratio 0.9 (1.1-2.2); Alkaline Phosphatase 50 Units/L (38-126); Aspartate Amino Transferase 20 Units/L (5-34); BUN/Creatinine Ratio 21 (6-26); Bilirubin,Total 0.2 mg/dL (0.2-1.2); Blood Urea Nitrogen 16 mg/dL (7-20); Calcium 9.1 mg/dL (8.6-10.8); Carbon Dioxide 26 mEq/L (19-29); Chloride 106 mEq/L (98-109); Globulin 3.3 g/dL (2.4-3.5); Glucose 163 mg/dL (70-99); Osmolality,Calculated 295 (280-300); Potassium 4.1 mEq/L (3.5-4.5); Sodium 140 mEq/L (136-145); Total Protein 6.4 g/dL (6.0-8.3); eGFR For African Americans > 60 (> 60); eGFR For Non-African Americans > 60 (> 60)
[2017-02-24] MEDS ORDERED: 0.9 % Sodium Chloride 500 ML IVC SCH (04:45)
[2017-02-24] MEDS: Beclomethasone 80mcg MDI IH SCH (08:08)
[2017-02-24] MEDS: ALPRAZolam 0.5 MG TABLET PO PRN (08:18)
[2017-02-24] MEDS: hydrOXYzine pamoate 25 MG CAPSULE PO SCH (08:18)
[2017-02-24] MEDS: methylPREDNISolone 125 MG/2 ML VIAL IVP SCH (08:18)
[2017-02-24] MEDS: OLANZapine 10 MG TAB.RAPDIS PO SCH (08:19)
[2017-02-24] MEDS: Nicotine 21 MG PATCH.TD24 TD SCH (08:19)
[2017-02-24] MEDS ORDERED: Folic Acid 1 MG TABLET PO SCH (09:00)
[2017-02-24] MEDS ORDERED: (Fluticasone/Vilanterol [Breo Ellipta 100-25 Mcg Inh] IH SCH (09:00)
[2017-02-24] MEDS ORDERED: levoFLOXacin 750 MG TABLET PO SCH (09:00)
[2017-02-24 11:26] VITALS: BP 132/77
--- NOTE | 2017-02-24 14:53 | Discharge Summary ---
Date of Encounter: 02/24/17 Time of Encounter: 14:42 - Discharge Diagnosis (1) Acute and chronic respiratory failure with hypoxia Priority: Primary Status: Acute Comments: Josselyn Lopez is a 66-year-old female with past medical history COPD, recurrent prefatory failure and anxiety who presented to [facility] on 02/23/2017 with complaints of shortness of breath. She was placed in observation status for treatment of COPD exacerbation. Her symptoms improved and she was discharged home on 02/24/2017 with outpatient follow-up. 1. Acute COPD exacerbation: per hx. With wheezing and increased sputum production on arrival. Treated with IV Levaquin and steroids. Symptoms significantly improved on day of discharge. Strongly encouraged smoking cessation. Discharged home on Levaquin (to complete total 7 day course) and steroid burst. Continue home inhalers. Recommend follow-up with PCP in 1-2 weeks. 2. Acute on chronic respiratory failure with hypoxia: With underlying COPD. Wears O2 at home PRN. Respiratory status improved to baseline on day of discharge. Plan as noted above. 3. Anxiety: per hx. of a RRS reviewed on 02/24/2017 and patient does have active Rx for Xanax. Last filled on 02/12/2017. Patient should have over 2 weeks' worth of Xanax at home. Continue home regimen 4. Infestation by bedbugs: patient has known bed bugs at home. This has been a long standing problem. Patient says she is "addressing the issue". Patient would likely benefit from SNF placement however she is refusing. Treated per [place] Protocol (2) Acute exacerbation of chronic obstructive airways disease Priority: Primary Status: Acute (3) Anxiety Priority: Primary Status: Acute (4) Infestation by bed bug Priority: Primary Status: Acute - Discharge Medications Prescriptions: levoFLOXacin [Levaquin] 750 mg PO DAILY #5 tablet predniSONE [PredniSONE] 40 mg PO DAILY #5 tablet Home Medications: Docusate Sodium [Move It Along] 100 mg PO BID 08/19/16 [History] Haloperidol Decanoate [Haldol Decanoate 100] 100 mg IM QMONTH 08/19/16 [History] OLANZapine [Zyprexa] 10 mg PO DAILY 08/19/16 [History] Hydrocortisone 1% CREAM [Cortaid] 1 appl TP BID PRN #1 bottle 08/21/16 [Rx] Folic Acid 1 mg PO DAILY 30 Days tablet 11/09/16 [Rx] hydrOXYzine pamoate [HydrOXYzine Pamoate] 25 mg PO BID 01/09/17 [History] Albuterol Sulfate [Proair Hfa] 1 puff IH Q4HR PRN #1 inh 01/10/17 [Rx] Budesonide [Pulmicort Flexhaler 90mcg] 2 puff IH BID #1 aer.[email or web address] 01/10/17 [Rx] Ferrous Sulfate 325 mg PO BID #60 tablet 01/10/17 [Rx] Ipratropium/Albuterol Neb [Duoneb] 3 ml IH Q6H PRN #100 inhsol 01/10/17 [Rx] Lisinopril [Zestril] 20 mg PO DAILY #30 tab 01/10/17 [Rx] Metoprolol [Lopressor] 25 mg PO BID #60 tablet 01/10/17 [Rx] Nicotine Patch [Nicoderm] 21 mg TD DAILY #30 01/10/17 [Rx] Pravastatin Sodium [Pravachol] 20 mg PO DAILY #30 01/10/17 [Rx] ALPRAZolam [Xanax 0.5 MG Tablet] 0.5 mg PO DAILY PRN #7 tablet 01/24/17 [Rx] Fluticasone/Vilanterol [Breo Ellipta 100-25 Mcg INH] 1 puff IH DAILY 02/23/17 [ History] Ipratropium [ATROVENT Inhaler] 2 puff IH QID 02/23/17 [History] Pantoprazole Sodium [Protonix] 20 mg PO DAILY 02/23/17 [History] Sertraline [Zoloft] 25 mg PO DAILY 02/23/17 [History] levoFLOXacin [Levaquin] 750 mg PO DAILY #5 tablet 02/24/17 [Rx] predniSONE [PredniSONE] 40 mg PO DAILY #5 tablet 02/24/17 [Rx] Allergies/Adverse Reactions: 3 Allergy/AdvReac Type Severity Reaction Status Date / Time No Known Allergies Allergy Verified 12/03/15 16:32 Date of admission: 02/23/17 08:01 Primary care physician: Wendy Pineda DO Consults: 02/23/17 08:52 Consult to Hand Cementer [CONS] Routine Reason for SW Consult: Discharge planning. Unsanitary living conditions. 10/22/17 08:55 Consult to Nutrition [CONS] Routine Comment: Consulting Provider: NUTRITION Reason for Dietary Consult: Other Other:: Cachectic Discharging clinician: Kym Dubon Anticipated date of discharge: 02/24/17 - Patient Status Disposition: Home, Self-Care Condition: Fair Functional capacity at discharge: independent ambulation Overall status at discharge: patient is back to baseline - Discharge Instructions Instructions: Chronic Obstructive Pulmonary Disease (DC), How to Stop Smoking ( DC), Anxiety (DC) Follow Up With: Wendy Pineda DO [Primary Care Provider] - Additional Instructions: 1. Please call your Family doctor's office within 24 hours or next business day to schedule a follow up appointment. 2. Smoking cessation has been advised. For more information, call the [employer] Tobacco Quit Line at 4-405-BHBW-NOW. Follow Up Appointment - Diet and Activity Activity: increase activity as tolerated, wear oxygen at all times Diet: advance to your usual diet Interval History: patient seen and examined at bedside. Says she feels better wants to go home. Still has some shortness of breath but overall improved and patient feels she is back to her baseline. She is requesting more Xanax. Was report reviewed and patient just had an prescription for Xanax filled on 02/12/2017. Advised patient to need to follow-up with her PCP. Hospital course: See assessment and plan for hospital course - Time Spent with Patient Total time spent providing and/or coordinating discharge services: Less than 30 minutes - Constitutional Vitals: Temp Pulse Resp BP Pulse Ox 97.9 F 97 16 132/77 100 02/24/17 11:25 02/24/17 11:25 02/24/17 11:25 02/24/17 11:25 02/24/17 11:25 General appearance: Present: disheveled, A&O X 3 - Head Head exam: Present: atraumatic, normocephalic - Eye Eye exam: Present: PERRL, conjuntiva pink, sclera anicteric Pupils: Present: PERRL - Neck Neck exam general surgery: Present: supple, trachea midline. Absent: lymphadenopathy - Respiratory Respiratory exam: Present: CTAB. Absent: accessory muscle use, rales, rhonchi, wheezes - Cardiovascular Cardiovascular exam: Present: RRR, +S1, +S2, tachycardia. Absent: diastolic murmur, gallop, rubs, systolic murmur - GI/Abdominal GI/Abdominal exam: Present: normal bowel sounds, soft, no peritoneal signs. Absent: distended, tenderness - Extremities Exam Extremities exam: Present: warm, radial pulses palpable and symmetrical. Absent : calf tenderness, cyanotic, pedal edema - Neurological Exam Neurological exam: Present: CN II-XII intact, oriented X3, no focal deficits. Absent: pronater drift, facial droop, speech deficit - Skin Skin exam: Present: dry, intact
--- NOTE | 2017-02-24 14:54 | Electrocardiograph Report ---
[place] [id number] Test Date: 2017-02-23 Pat Name: Edel Lopez Department: 103 Room: 3B23 Gender: F Composition Floor Layer: : 1950 Requested By: Palmira Ramon Order Number: [id number] Reading MD: Brittney Hale Measurements Intervals [place] Rate: 93 P: 91 MT: 130 QRS: 74 QRSD: 89 T: 65 QT: 377 QTc: 427 Interpretive Statements SINUS RHYTHM WITH SINUS ARRHYTHMIA Electronically Signed On 02-24-2017 14:53:02 EDT by Brittney Hale
== END 2017-02-24 15:58 | disposition home or self-care (01) ==
LOC: EMEROO 06:12 → 3BNU 06:12
PROVIDERS: ADMIT Registered Nurse; ATTEND Registered Nurse

== ENCOUNTER 2017-12-10 09:09 | Observation (INO) ==
[2017-12-10] MEDS ORDERED: methylPREDNISolone 125 MG/2 ML VIAL IVP ONE (09:20)
[2017-12-10] MEDS ORDERED: Ipratropium/Albuterol Neb 3 ML IH ONE (09:20)
--- NOTE | 2017-12-10 09:25 | Emergency Department Note ---
Disposition Clinical Impression: COPD with exacerbation Disposition: Admitted As Inpatient Condition: Fair Referrals: NONE,PCP [Primary Care Provider] - Forms: ED Satisfaction Letter Time of Disposition: 11:16 SOB HPI - General Chief Complaint: ED Shortness of Breath/Dyspnea Stated Complaint: LENORE Time Seen by Provider: 12/10/17 09:11 Source: patient, EMS Limitations: no limitations Nursing Notes Reviewed: Yes Vital Signs Reviewed: Yes - History of Present Illness Nontoxic-appearing 66-year-old female presents for evaluation of shortness of breath, and a cough that is productive of a clear colored sputum. Symptoms began this morning upon her awakening. She is on home oxygen at 2 L by nasal cannula as needed. She states that she applied her oxygen upon symptom onset however felt no relief. She also describes some intermittent episodes of left- sided chest pressure however none today and none currently upon her presentation here today. She states that this productive cough is new for her. She denies any baseline cough or sputum production with her COPD. She denies any hemoptysis. She denies any nausea or vomiting. She does complain of subjective fevers and chills for the past 2 days. Pt Subjective Complaint: shortness of breath, cough Onset (ago): hour(s) Consistency/Duration: constant Improves with: nothing Worsens with: lying flat Known history of: COPD Associated symptoms: Reports: chest pain (Intermittent, none currently), fever ( Subjective), cough, sputum production, orthopnea. Denies: pain with inspiration , wheezing, lower extremity pain, palpitations, hemoptysis, diaphoresis, nausea/ vomiting Treatment prior to arrival: oxygen Cough present: Yes Sputum Amount: Small Sputum Color: Clear - Related Data Home oxygen amount: 2 liters (As needed) Home Medications Medication Instructions Recorded Confirmed Docusate Sodium [Move It Along] 100 mg PO BID 08/19/16 02/23/17 Haloperidol Decanoate [Haldol 100 mg IM QMONTH 08/19/16 02/23/17 Decanoate 100] OLANZapine [Zyprexa] 10 mg PO DAILY 08/19/16 02/23/17 hydrOXYzine pamoate [HydrOXYzine 25 mg PO BID 01/09/17 02/23/17 Pamoate] Fluticasone/Vilanterol [Breo 1 puff IH DAILY 02/23/17 02/23/17 Ellipta 100-25 Mcg INH] Ipratropium [ATROVENT Inhaler] 2 puff IH QID 02/23/17 02/23/17 Pantoprazole Sodium [Protonix] 20 mg PO DAILY 02/23/17 02/23/17 Sertraline [Zoloft] 25 mg PO DAILY 02/23/17 02/23/17 Previous Rx's Medication Instructions Recorded Hydrocortisone 1% CREAM [Cortaid] 1 appl TP BID PRN #1 bottle 08/21/16 Folic Acid 1 mg PO DAILY 30 Days tablet 11/09/16 Albuterol Sulfate [Proair Hfa] 1 puff IH Q4HR PRN #1 inh 01/10/17 Budesonide [Pulmicort Flexhaler 2 puff IH BID #1 aer.pow.ba 01/10/17 90mcg] Ferrous Sulfate 325 mg PO BID #60 tablet 01/10/17 Ipratropium/Albuterol Neb [Duoneb] 3 ml IH Q6H PRN #100 inhsol 01/10/17 Lisinopril [Zestril] 20 mg PO DAILY #30 tab 01/10/17 Metoprolol [Lopressor] 25 mg PO BID #60 tablet 01/10/17 Nicotine Patch [Nicoderm] 21 mg TD DAILY #30 01/10/17 Pravastatin Sodium [Pravachol] 20 mg PO DAILY #30 01/10/17 ALPRAZolam [Xanax 0.5 MG Tablet] 0.5 mg PO DAILY PRN #7 tablet 01/24/17 levoFLOXacin [Levaquin] 750 mg PO DAILY #5 tablet 02/24/17 predniSONE [PredniSONE] 40 mg PO DAILY #5 tablet 02/24/17 Lidocaine Patch [Lidoderm 5% patch] 1 each TP DAILY #5 adh..patch 09/29/17 predniSONE [Prednisone] 50 mg PO DAILY #5 tablet 09/29/17 Allergies Allergy/AdvReac Type Severity Reaction Status Date / Time No Known Allergies Allergy Verified 12/03/15 16:32 All systems ED: reviewed and negative except as stated. Constitutional: Reports: as per HPI, fever, chills. Denies: weakness, weight change Eyes: Denies: eye pain, eye discharge, vision change ENT ED: Denies: ear pain, throat pain, dental pain, hearing loss, epistaxis, congestion, dysphagia Cardiovascular: Reports: as per HPI, chest pain. Denies: palpitations, dyspnea on exertion, edema, syncope Respiratory: Reports: as per HPI, cough, dyspnea, sputum production. Denies: wheezes, hemoptysis, stridor Gastrointestinal: Denies: abdominal pain, nausea, vomiting, diarrhea, constipation, hematemesis, melena, hematochezia Genitourinary: Denies: dysuria, frequency, hematuria, discharge Musculoskeletal: Denies: back pain, neck pain, arthralgia, myalgia Integumentary: Denies: rash, abrasion, lesions Neurological: Denies: headache, weakness, numbness, paresthesias, confusion, abnormal gait, vertigo Psychiatric: Denies: anxiety, depression, suicidal thoughts, homicidal thoughts , auditory hallucinations, visual hallucinations Endocrine: Denies: fatigue Hematological/Lymphatic: Denies: easy bleeding, easy bruising Allergic/Immunologic: Denies: facial swelling, urticaria Past Medical History - Past Medical History Attestation: Yes The following information was validated with the patient. Source: patient, nursing notes reviewed Medical history: Reports: cancer, COPD, hyperlipidemia, hypertension Surgical history: Reports: cancer surgery Psychiatric history: Reports: anxiety, depression, schizophrenia - Social History Smoking Status: Current every day smoker Smokeless Tobacco Status: No Alcohol use: Reports: none Drug use: Reports: none Physical Exam - General Limitations: no limitations General appearance: alert, in no apparent distress - Head Head exam: atraumatic, normocephalic, normal inspection - Eye Eye exam: Present: normal appearance, PERRL, EOMI. Absent: nystagmus - ENT ENT exam: mucous membranes moist - Neck Neck exam: Present: normal inspection, full ROM, trachea midline - Chest Chest inspection: Present: normal inspection, symmetric chest wall rise - Respiratory Respiratory exam: Present: wheezes (Family inspiratory wheezes noted bilaterally throughout the periphery), other (Right lower lung ambrocio course auscultation). Absent: respiratory distress, stridor, accessory muscle use, prolonged expiratory phase - Cardiovascular Cardiovascular exam: Present: regular rate, normal rhythm, normal heart sounds - Abdominal Exam Abdominal exam: Present: soft, Non-Tender, normal bowel sounds - Extremities Exam Extremities exam: Present: normal inspection, full ROM. Absent: tenderness, pedal edema - Neurological Exam Neurological exam: Present: alert, oriented X3 - Psychiatric Psychiatric exam: Present: normal affect, normal mood - Skin Skin exam: Present: warm, dry, intact, normal color. Absent: rash Course Course Narrative: I have discussed this patient's case with Dr. Interiano, ED attending. Dr. Interiano has had a [id number] evaluation with patient, reviewed her laboratory and radiology workup. CT does show a nasal bone fracture, imaging was ordered because the patient disclosed to the ED machines technician that she had suffered a mechanical fall yesterday and struck her face on the floor. There was some mild ecchymosis noted to the left lateral chest. The patient is agreeable to admission to the hospital service for further care and management 1125: I spoke with Dr. Wolf of the hospitalist service who has accepted the patient for admission for further care and management. Vital Signs Temperature 97.5 F L 12/10/17 09:10 Pulse Rate 78 12/10/17 09:10 Respiratory Rate 21 12/10/17 09:10 Blood Pressure 162/99 12/10/17 09:10 O2 Sat by Pulse Oximetry 94 12/10/17 09:10 Temperature 97.5 F L 12/10/17 09:10 Pulse Rate 71 12/10/17 10:58 Respiratory Rate 15 12/10/17 10:58 Blood Pressure 143/83 12/10/17 10:58 O2 Sat by Pulse Oximetry 95 12/10/17 10:58 Oxygen Delivery Oxygen Delivery Room Air Shortness of Breath/Dyspnea - Medical Records Medical records reviewed: Yes I reviewed the patient's medical records. - Lab Data Lab results reviewed: Yes I reviewed the patient's lab results. Lab results narrative: Lab Results 12/10/17 12/10/17 12/10/17 Range/Units 09:24 09:35 09:35 WBC 5.4 (4.3-11.1) K/mcL RBC 4.95 (3.82-4.97) M/mcL Hgb 14.3 (11.5-15.4) g/dL Hct 42.0 (35.3-44.9) % MCV 84.8 (83.0-100.0) fL MCH 28.9 (28.0-33.3) pg MCHC 34.0 (31.6-35.5) g/dL RDW 12.8 (11.5-14.5) % Plt Count 179 (140-400) K/mcL MPV 9.4 (9.4-12.4) fL Immature Gran % 0.2 (0-4) % Seg Neutrophils % 67.6 % Lymphocytes % 19.6 % Monocytes % 6.5 % Eosinophils % 5.0 % Basophils % 1.1 % Neutrophils # 3.7 (1.6-8.9) K/mcL Lymphocytes # 1.1 (0.6-4.6) K/mcL Monocytes # 0.4 (0.0-1.3) K/mcL Eosinophils # 0.3 (0.0-0.6) K/mcL Basophils # 0.1 (0.0-0.2) K/mcL PT (9.4-12.1) Seconds INR APTT (26.0-36.0) Seconds Sodium 133 L (136-145) mEq/L Potassium 3.9 (3.5-5.1) mEq/L Chloride 98 (98-107) mEq/L Carbon Dioxide 28 (23-29) mEq/L BUN 9 (8-23) mg/dL Creatinine 0.56 L (0.60-1.20) mg/dL Est GFR ( Amer) > 60 (> 60) Est GFR (Non-Af Amer) > 60 (> 60) BUN/Creatinine Ratio 16 (6-26) Glucose 85 (70-105) mg/dL Calculated Osmolality 274 L (280-300) Lactic Acid (0.5-2.2) mmol/L Calcium 9.2 (8.6-10.3) mg/dL Troponin I < 0.03 (< 0.04) ng/mL B-Natriuretic Peptide (Less than 100) pg/mL Urine Color Yellow (Yellow) Urine Clarity Clear (Clear) Urine pH 6.0 (5.0-8.0) pH Units Ur Specific [place] 1.008 L (1.010-1.025) Urine Protein Negative (Neg-Trace) mg/dL Urine Glucose (UA) Normal (Normal) mg/dL Urine Ketones Negative (Negative) mg/dL Urine Blood Negative (Negative) Urine Nitrite Negative (Negative) Urine Bilirubin Negative (Negative) Urine Urobilinogen Normal (Normal) mg/dL Ur Leukocyte Esterase Negative (Negative) Ur Culture Indicated? NO (NO) 12/10/17 12/10/1712/10/18 Range/Units 09:35 09:35 09:35 WBC (4.3-11.1) K/mcL RBC (3.82-4.97) M/mcL Hgb (11.5-15.4) g/dL Hct (35.3-44.9) % MCV (83.0-100.0) fL MCH (28.0-33.3) pg MCHC (31.6-35.5) g/dL RDW (11.5-14.5) % Plt Count (140-400) K/mcL MPV (9.4-12.4) fL Immature Gran % (0-4) % Seg Neutrophils % % Lymphocytes % % Monocytes % % Eosinophils % % Basophils % % Neutrophils # (1.6-8.9) K/mcL Lymphocytes # (0.6-4.6) K/mcL Monocytes # (0.0-1.3) K/mcL Eosinophils # (0.0-0.6) K/mcL Basophils # (0.0-0.2) K/mcL PT 11.8 (9.4-12.1) Seconds INR 1.0 APTT 35.4 (26.0-36.0) Seconds Sodium (136-145) mEq/L Potassium (3.5-5.1) mEq/L Chloride (98-107) mEq/L Carbon Dioxide (23-29) mEq/L BUN (8-23) mg/dL Creatinine (0.60-1.20) mg/dL Est GFR ( Amer) (> 60) Est GFR (Non-Af Amer) (> 60) BUN/Creatinine Ratio (6-26) Glucose (70-105) mg/dL Calculated Osmolality (280-300) Lactic Acid 0.8 (0.5-2.2) mmol/L Calcium (8.6-10.3) mg/dL Troponin I (< 0.04) ng/mL B-Natriuretic Peptide 163 H (Less than 100) pg/mL Urine Color (Yellow) Urine Clarity (Clear) Urine pH (5.0-8.0) pH Units Ur Specific [place] (1.010-1.025) Urine Protein (Neg-Trace) mg/dL Urine Glucose (UA) (Normal) mg/dL Urine Ketones (Negative) mg/dL Urine Blood (Negative) Urine Nitrite (Negative) Urine Bilirubin (Negative) Urine Urobilinogen (Normal) mg/dL Ur Leukocyte Esterase (Negative) Ur Culture Indicated? (NO) Result diagrams: 12/10/17 09:35 12/10/17 09:35 Lab Results 12/10/17 12/10/17 12/10/17 Range/Units 09:24 09:35 09:35 WBC 5.4 (4.3-11.1) K/mcL RBC 4.95 (3.82-4.97) M/mcL Hgb 14.3 (11.5-15.4) g/dL Hct 42.0 (35.3-44.9) % MCV 84.8 (83.0-100.0) fL MCH 28.9 (28.0-33.3) pg MCHC 34.0 (31.6-35.5) g/dL RDW 12.8 (11.5-14.5) % Plt Count 179 (140-400) K/mcL MPV 9.4 (9.4-12.4) fL Immature Gran % 0.2 (0-4) % Seg Neutrophils % 67.6 % Lymphocytes % 19.6 % Monocytes % 6.5 % Eosinophils % 5.0 % Basophils % 1.1 % Neutrophils # 3.7 (1.6-8.9) K/mcL Lymphocytes # 1.1 (0.6-4.6) K/mcL Monocytes # 0.4 (0.0-1.3) K/mcL Eosinophils # 0.3 (0.0-0.6) K/mcL Basophils # 0.1 (0.0-0.2) K/mcL PT (9.4-12.1) Seconds INR APTT (26.0-36.0) Seconds Sodium 133 L (136-145) mEq/L Potassium 3.9 (3.5-5.1) mEq/L Chloride 98 (98-107) mEq/L Carbon Dioxide 28 (23-29) mEq/L BUN 9 (8-23) mg/dL Creatinine 0.56 L (0.60-1.20) mg/dL Est GFR ( Amer) > 60 (> 60) Est GFR (Non-Af Amer) > 60 (> 60) BUN/Creatinine Ratio 16 (6-26) Glucose 85 (70-105) mg/dL Calculated Osmolality 274 L (280-300) Lactic Acid (0.5-2.2) mmol/L Calcium 9.2 (8.6-10.3) mg/dL Troponin I < 0.03 (< 0.04) ng/mL B-Natriuretic Peptide (Less than 100) pg/mL Urine Color Yellow (Yellow) Urine Clarity Clear (Clear) Urine pH 6.0 (5.0-8.0) pH Units Ur Specific [place] 1.008 L (1.010-1.025) Urine Protein Negative (Neg-Trace) mg/dL Urine Glucose (UA) Normal (Normal) mg/dL Urine Ketones Negative (Negative) mg/dL Urine Blood Negative (Negative) Urine Nitrite Negative (Negative) Urine Bilirubin Negative (Negative) Urine Urobilinogen Normal (Normal) mg/dL Ur Leukocyte Esterase Negative (Negative) Ur Culture Indicated? NO (NO) 12/10/17 12/10/17 12/10/17 Range/Units 09:35 09:35 09:35 WBC (4.3-11.1) K/mcL RBC (3.82-4.97) M/mcL Hgb (11.5-15.4) g/dL Hct (35.3-44.9) % MCV (83.0-100.0) fL MCH (28.0-33.3) pg MCHC (31.6-35.5) g/dL RDW (11.5-14.5) % Plt Count (140-400) K/mcL MPV (9.4-12.4) fL Immature Gran % (0-4) % Seg Neutrophils % % Lymphocytes % % Monocytes % % Eosinophils % % Basophils % % Neutrophils # (1.6-8.9) K/mcL Lymphocytes # (0.6-4.6) K/mcL Monocytes # (0.0-1.3) K/mcL Eosinophils # (0.0-0.6) K/mcL Basophils # (0.0-0.2) K/mcL PT 11.8 (9.4-12.1) Seconds INR 1.0 APTT 35.4 (26.0-36.0) Seconds Sodium (136-145) mEq/L Potassium (3.5-5.1) mEq/L Chloride (98-107) mEq/L Carbon Dioxide (23-29) mEq/L BUN (8-23) mg/dL Creatinine (0.60-1.20) mg/dL Est GFR ( Amer) (> 60) Est GFR (Non-Af Amer) (> 60) BUN/Creatinine Ratio (6-26) Glucose (70-105) mg/dL Calculated Osmolality (280-300) Lactic Acid 0.8 (0.5-2.2) mmol/L Calcium (8.6-10.3) mg/dL Troponin I (< 0.04) ng/mL B-Natriuretic Peptide 163 H (Less than 100) pg/mL Urine Color (Yellow) Urine Clarity (Clear) Urine pH (5.0-8.0) pH Units Ur Specific [place] (1.010-1.025) Urine Protein (Neg-Trace) mg/dL Urine Glucose (UA) (Normal) mg/dL Urine Ketones (Negative) mg/dL Urine Blood (Negative) Urine Nitrite (Negative) Urine Bilirubin (Negative) Urine Urobilinogen (Normal) mg/dL Ur Leukocyte Esterase (Negative) Ur Culture Indicated? (NO) - Radiology Data Radiology results reviewed: Yes I reviewed the patient's radiology results. 3D Reconstruction 12/10/17 00:00 IMPRESSION: Minimally displaced nasal bone fracture. D/ / Siddharth Scanlon / Siddharth Scanlon Interpreting Provider: Siddharth Scanlon Chest X-Ray 12/10/17 09:20 IMPRESSION: No acute cardiopulmonary process. Hyperaeration related to COPD. There appears to be a healing left posterolateral 9th rib fracture. D/ / Antoine Weinberg MD / Antoine Weinberg MD Interpreting Provider: Antoine Weinberg MD Cervical Spine CT 12/10/17 10:11 IMPRESSION: No acute abnormality of the cervical spine. D/ / Raad York MD / Raad York MD Interpreting Provider: Raad York MD Face CT 12/10/17 10:11 IMPRESSION: Minimally displaced nasal bone fracture. D/ / Siddharth Scanlon / Siddharth Scanlon Interpreting Provider: Siddharth Scanlon Head CT 12/10/17 10:11 IMPRESSION: No acute intracranial abnormality. D/ / Antoine Hammond MD / Antoine Hammond MD Interpreting Provider: Antoine Hammond MD - EKG Data EKG attestation: Yes I reviewed and interpreted this EKG. EKG results narrative: EKG reviewed by Dr. Diego French as well. EKG shows a normal sinus rhythm at a rate of 71 bpm. DE interval 136, QRS duration 83, QT/QTc interval 390/412. No ectopy noted. No ST elevation.
[2017-12-10 09:50] LABS: Basophils # 0.1 K/mcL (0.0-0.2); Basophils % 1.1 %; Eosinophils # 0.3 K/mcL (0.0-0.6); Hemoglobin 14.3 g/dL (11.5-15.4); Immature Granulocytes % 0.2 % (0-4); Lymphocytes # 1.1 K/mcL (0.6-4.6); Lymphocytes % 19.6 %; Mean Corpuscular Hemoglobin 28.9 pg (28.0-33.3); Mean Corpuscular Volume 84.8 fL (83.0-100.0); Mean Platelet Volume 9.4 fL (9.4-12.4); Monocytes # 0.4 K/mcL (0.0-1.3); Monocytes % 6.5 %; Neutrophils # 3.7 K/mcL (1.6-8.9); Platelet Count 179 K/mcL (140-400); Red Blood Count 4.95 M/mcL (3.82-4.97); Red Cell Distribution Width 12.8 % (11.5-14.5); Segmented Neutrophils % 67.6 %
[2017-12-10 09:57] LABS: Prothrombin Time 11.8 Seconds (9.4-12.1)
[2017-12-10 10:00] LABS: Activated Partial Thrombo Time 35.4 Seconds (26.0-36.0)
[2017-12-10 10:10] LABS: BUN/Creatinine Ratio 16 (6-26); Blood Urea Nitrogen 9 mg/dL (8-23); Calcium 9.2 mg/dL (8.6-10.3); Carbon Dioxide 28 mEq/L (23-29); Chloride 98 mEq/L (98-107); Glucose 85 mg/dL (70-105); Osmolality,Calculated 274 (280-300); Potassium 3.9 mEq/L (3.5-5.1); Sodium 133 mEq/L (136-145); eGFR For Non-African Americans > 60 (> 60)
[2017-12-10 10:18] LABS: Troponin I < 0.03 ng/mL (< 0.04)
[2017-12-10 10:23] LABS: Bilirubin,Urine Negative (Negative); Blood,Urine Negative (Negative); Clarity,Urine Clear (Clear); Color,Urine Yellow (Yellow); Glucose,Urine (UA) Normal (Normal); Ketones,Urine Negative (Negative); Leukocyte Esterase,Urine Negative (Negative); Nitrite,Urine Negative (Negative); Protein,Urine Negative (Neg-Trace); Specific Gravity,Urine 1.008 (1.010-1.025); Urobilinogen,Urine Normal (Normal)
[2017-12-10] MEDS ORDERED: Azithromycin 500 MG in D5% in Water 250 ML IVPB ONE (11:22)
[2017-12-10] MEDS ORDERED: cefTRIAXone 1,000 MG in 0.9 % Sodium Chloride Mini Bag 100 ML IVPB ONE (11:22)
--- NOTE | 2017-12-10 11:23 | Emergency Department Note ---
Disposition Clinical Impression: COPD with exacerbation Disposition: Home, Self-Care Condition: Good Instructions: Chronic Obstructive Pulmonary Disease (ED) Reasons to Return/Additional Instructions: Take your medications as prescribed. Maintain adequate hydration status. Increase clear fluid intake. Tylenol/ibuprofen [id number] and according to label instructions as needed for mild fevers. Return for any new or worsening signs or symptoms including but not limited to cough, shortness of breath, difficulty breathing, chest pain, pain with deep breathing, cough that is productive of a bloody sputum, persistent fever or chills, nausea, vomiting, diarrhea, abdominal pain, or any other concerns you may have about your own personal well-being. Referrals: NONE,PCP [Primary Care Provider] - Forms: ED Satisfaction Letter General Adult HPI - General Chief complaint: ED Shortness of Breath/Dyspnea Stated complaint: LENORE Time Seen by Provider: 12/10/17 09:11 Source: patient, EMS Limitations: no limitations - History of Present Illness Pain Scale: 0 - Related Data Home Medications Medication Instructions Recorded Confirmed Docusate Sodium [Move It Along] 100 mg PO BID 08/19/16 02/23/17 Haloperidol Decanoate [Haldol 100 mg IM QMONTH 08/19/16 02/23/17 Decanoate 100] OLANZapine [Zyprexa] 10 mg PO DAILY 08/19/16 02/23/17 hydrOXYzine pamoate [HydrOXYzine 25 mg PO BID 01/09/17 02/23/17 Pamoate] Fluticasone/Vilanterol [Breo 1 puff IH DAILY 02/23/17 02/23/17 Ellipta 100-25 Mcg INH] Ipratropium [ATROVENT Inhaler] 2 puff IH QID 02/23/17 02/23/17 Pantoprazole Sodium [Protonix] 20 mg PO DAILY 02/23/17 02/23/17 Sertraline [Zoloft] 25 mg PO DAILY 02/23/17 02/23/17 Previous Rx's Medication Instructions Recorded Hydrocortisone 1% CREAM [Cortaid] 1 appl TP BID PRN #1 bottle 08/21/16 Folic Acid 1 mg PO DAILY 30 Days tablet 11/09/16 Albuterol Sulfate [Proair Hfa] 1 puff IH Q4HR PRN #1 inh 01/10/17 Budesonide [Pulmicort Flexhaler 2 puff IH BID #1 aer.[email or web address] 01/10/17 90mcg] Ferrous Sulfate 325 mg PO BID #60 tablet 01/10/17 Ipratropium/Albuterol Neb [Duoneb] 3 ml IH Q6H PRN #100 inhsol 01/10/17 Lisinopril [Zestril] 20 mg PO DAILY #30 tab 01/10/17 Metoprolol [Lopressor] 25 mg PO BID #60 tablet 01/10/17 Nicotine Patch [Nicoderm] 21 mg TD DAILY #30 01/10/17 Pravastatin Sodium [Pravachol] 20 mg PO DAILY #30 01/10/17 ALPRAZolam [Xanax 0.5 MG Tablet] 0.5 mg PO DAILY PRN #7 tablet 01/24/17 levoFLOXacin [Levaquin] 750 mg PO DAILY #5 tablet 02/24/17 predniSONE [PredniSONE] 40 mg PO DAILY #5 tablet 02/24/17 Lidocaine Patch [Lidoderm 5% patch] 1 each TP DAILY #5 adh..patch 09/29/17 predniSONE [Prednisone] 50 mg PO DAILY #5 tablet 09/29/17 Allergies Allergy/AdvReac Type Severity Reaction Status Date / Time No Known Allergies Allergy Verified 12/03/15 16:32 Constitutional: Reports: as per HPI, fever, chills. Denies: weakness, weight change Eyes: Denies: eye pain, eye discharge, vision change ENT ED: Denies: ear pain, throat pain, dental pain, hearing loss, epistaxis, congestion, dysphagia Cardiovascular: Reports: as per HPI, chest pain. Denies: palpitations, dyspnea on exertion, edema, syncope Respiratory: Reports: as per HPI, cough, dyspnea, sputum production. Denies: wheezes, hemoptysis, stridor Gastrointestinal: Denies: abdominal pain, nausea, vomiting, diarrhea, constipation, hematemesis, melena, hematochezia Genitourinary: Denies: dysuria, frequency, hematuria, discharge Musculoskeletal: Denies: back pain, neck pain, arthralgia, myalgia Integumentary: Denies: rash, abrasion, lesions Neurological: Denies: headache, weakness, numbness, paresthesias, confusion, abnormal gait, vertigo Psychiatric: Denies: anxiety, depression, suicidal thoughts, homicidal thoughts , auditory hallucinations, visual hallucinations Endocrine: Denies: fatigue Hematological/Lymphatic: Denies: easy bleeding, easy bruising Allergic/Immunologic: Denies: facial swelling, urticaria Past Medical History - Past Medical History Medical history: Reports: cancer, COPD, hyperlipidemia, hypertension Surgical history: Reports: cancer surgery Psychiatric history: Reports: anxiety, depression, schizophrenia - Social History Smoking Status: Current every day smoker Smokeless Tobacco Status: No Alcohol use: Reports: none Drug use: Reports: none Physical Exam - General Limitations: no limitations General appearance: alert, in no apparent distress Course Vital Signs Temperature 97.5 F L 12/10/17 09:10 Pulse Rate 78 12/10/17 09:10 Respiratory Rate 21 12/10/17 09:10 Blood Pressure 162/99 12/10/17 09:10 O2 Sat by Pulse Oximetry 94 12/10/17 09:10 Temperature 97.5 F L 12/10/17 09:10 Pulse Rate 71 12/10/17 10:58 Respiratory Rate 15 12/10/17 10:58 Blood Pressure 143/83 12/10/17 10:58 O2 Sat by Pulse Oximetry 95 12/10/17 10:58 Oxygen Delivery Oxygen Delivery Room Air Medical Decision Making - Lab Data Result diagrams: 12/10/17 09:35 12/10/17 09:35 Lab Results 12/10/17 12/10/17 12/10/17 Range/Units 09:24 09:35 09:35 WBC 5.4 (4.3-11.1) K/mcL RBC 4.95 (3.82-4.97) M/mcL Hgb 14.3 (11.5-15.4) g/dL Hct 42.0 (35.3-44.9) % MCV 84.8 (83.0-100.0) fL MCH 28.9 (28.0-33.3) pg MCHC 34.0 (31.6-35.5) g/dL RDW 12.8 (11.5-14.5) % Plt Count 179 (140-400) K/mcL MPV 9.4 (9.4-12.4) fL Immature Gran % 0.2 (0-4) % Seg Neutrophils % 67.6 % Lymphocytes % 19.6 % Monocytes % 6.5 % Eosinophils % 5.0 % Basophils % 1.1 % Neutrophils # 3.7 (1.6-8.9) K/mcL Lymphocytes # 1.1 (0.6-4.6) K/mcL Monocytes # 0.4 (0.0-1.3) K/mcL Eosinophils # 0.3 (0.0-0.6) K/mcL Basophils # 0.1 (0.0-0.2) K/mcL PT (9.4-12.1) Seconds INR APTT (26.0-36.0) Seconds Sodium 133 L (136-145) mEq/L Potassium 3.9 (3.5-5.1) mEq/L Chloride 98 (98-107) mEq/L Carbon Dioxide 28 (23-29) mEq/L BUN 9 (8-23) mg/dL Creatinine 0.56 L (0.60-1.20) mg/dL Est GFR ( Amer) > 60 (> 60) Est GFR (Non-Af Amer) > 60 (> 60) BUN/Creatinine Ratio 16 (6-26) Glucose 85 (70-105) mg/dL Calculated Osmolality 274 L (280-300) Lactic Acid (0.5-2.2) mmol/L Calcium 9.2 (8.6-10.3) mg/dL Troponin I < 0.03 (< 0.04) ng/mL B-Natriuretic Peptide (Less than 100) pg/mL Urine Color Yellow (Yellow) Urine Clarity Clear (Clear) Urine pH 6.0 (5.0-8.0) pH Units Ur Specific [place] 1.008 L (1.010-1.025) Urine Protein Negative (Neg-Trace) mg/dL Urine Glucose (UA) Normal (Normal) mg/dL Urine Ketones Negative (Negative) mg/dL Urine Blood Negative (Negative) Urine Nitrite Negative (Negative) Urine Bilirubin Negative (Negative) Urine Urobilinogen Normal (Normal) mg/dL Ur Leukocyte Esterase Negative (Negative) Ur Culture Indicated? NO (NO) 12/10/17 12/10/17 12/10/17 Range/Units 09:35 09:35 09:35 WBC (4.3-11.1) K/mcL RBC (3.82-4.97) M/mcL Hgb (11.5-15.4) g/dL Hct (35.3-44.9) % MCV (83.0-100.0) fL MCH (28.0-33.3) pg MCHC (31.6-35.5) g/dL RDW (11.5-14.5) % Plt Count (140-400) K/mcL MPV (9.4-12.4) fL Immature Gran % (0-4) % Seg Neutrophils % % Lymphocytes % % Monocytes % % Eosinophils % % Basophils % % Neutrophils # (1.6-8.9) K/mcL Lymphocytes # (0.6-4.6) K/mcL Monocytes # (0.0-1.3) K/mcL Eosinophils # (0.0-0.6) K/mcL Basophils # (0.0-0.2) K/mcL PT 11.8 (9.4-12.1) Seconds INR 1.0 APTT 35.4 (26.0-36.0) Seconds Sodium (136-145) mEq/L Potassium (3.5-5.1) mEq/L Chloride (98-107) mEq/L Carbon Dioxide (23-29) mEq/L BUN (8-23) mg/dL Creatinine (0.60-1.20) mg/dL Est GFR ( Amer) (> 60) Est GFR (Non-Af Amer) (> 60) BUN/Creatinine Ratio (6-26) Glucose (70-105) mg/dL Calculated Osmolality (280-300) Lactic Acid 0.8 (0.5-2.2) mmol/L Calcium (8.6-10.3) mg/dL Troponin I (< 0.04) ng/mL B-Natriuretic Peptide 163 H (Less than 100) pg/mL Urine Color (Yellow) Urine Clarity (Clear) Urine pH (5.0-8.0) pH Units Ur Specific [place] (1.010-1.025) Urine Protein (Neg-Trace) mg/dL Urine Glucose (UA) (Normal) mg/dL Urine Ketones (Negative) mg/dL Urine Blood (Negative) Urine Nitrite (Negative) Urine Bilirubin (Negative) Urine Urobilinogen (Normal) mg/dL Ur Leukocyte Esterase (Negative) Ur Culture Indicated? (NO) Attestation Statement - Attestation Attestation: I examined this patient and my medical decision-making was reviewed with the Resident Physician. I agree with the documented findings, disposition and treatment plan as described except to the extent set forth below. Findings consistent with dyspnea. She does have terrible home conditions and home health will not serve here. She will need admission for long term placement with diagnosis of fall and dyspnea.
[2017-12-10] MEDS ORDERED: Naloxone 0.4 MG/ML INJ IVP PRN (14:07)
--- NOTE | 2017-12-10 14:17 | Internal Med History&Physical ---
Date of Encounter: 12/10/17 Time of Encounter: 14:12 Internal Medicine - H&P: HPI Chief complaint: Dyspnea, cough Admitted From: Home Plans for Post Hospital Care: Home History of present illness: Ms. Lopez is a 66 year old female with a PMH of cancer, COPD, HLD, and HTN. She presents for evaluation of dyspnea and cough productive of clear sputum which began last night. She reports that she was coughing so frequently that she was unable to sleep. While she does have a history of COPD she has not totally oxygen dependent and reports that she is only wearing 2 L as needed. She attempted this morning to wear 2 L nasal cannula for relief of dyspnea however, this was unsuccessful prompting her to seek care in the ED. She denies any, chills, chest pain, hemoptysis, nausea, vomiting, diarrhea, unilateral extremity swelling or pain. She admits to subjective fevers, cough, wheezing, weakness and fatigue. Additionally, the patient reports that last night she lost her balance while cleaning the house and fell and hit her head. She denies any loss of consciousness. CT of the head and face and cervical spine revealing minimally displaced nasal bone fracture, otherwise no acute abnormalities. Chest x-ray negative for acute cardiopulmonary process, hyperaeration secondary to COPD and healing left posterior lateral ninth rib fracture. While in the ED the patient received DuoNeb treatment and IV steroids and her respiratory status improved. She is being admitted for further monitoring and evaluation. Past Med Surg Social Fam HX - Past Medical History Medical history: cancer, COPD, hyperlipidemia, hypertension Additional medical history: bed bug infestation at home Psychiatric history: anxiety, depression, schizophrenia - Past Surgical History Surgical History: cancer surgery Additional surgical history: tumor removed from left ovary, tumor in chest, left ovary removed, right arm fracture repair - Social History Smoking Status: Current every day smoker Packs per day: 1 Smokeless Tobacco Status: No Alcohol use: none Drug use: none - Family History Maternal Grandmother Hx Family Cardiac Disorders: Yes (CAD) Mother Adopted: No Family Member Ethnicity: Non- Living Status: Hx Family Cardiac Disorders: No Hx Family Respiratory Disorders: No Hx Family Cancer: Yes (throat cancer) Hx Family GI Disorders: No Hx Family Endocrine Disorder: Yes (KIDNEY DIS) Hx Family Neuromuscular Disorders: No Hx Family Neurologic Disorders: No Hx Family HEENT Disorders: No Hx Family Autoimmune Disorders: No Internal Medicine - H&P: Meds Docusate Sodium [Move It Along] 100 mg PO BID 08/19/16 [History] Haloperidol Decanoate [Haldol Decanoate 100] 125 mg IM Q2W 08/19/16 [History] Folic Acid 1 mg PO DAILY 30 Days tablet 11/09/16 [Rx] hydrOXYzine pamoate [HydrOXYzine Pamoate] 25 mg PO BID 01/09/17 [History] Albuterol Sulfate [Proair Hfa] 1 puff IH Q4HR PRN #1 inh 01/10/17 [Rx] Ferrous Sulfate 325 mg PO BID #60 tablet 01/10/17 [Rx] Ipratropium/Albuterol Neb [Duoneb] 3 ml IH Q6H PRN #100 inhsol 01/10/17 [Rx] Lisinopril [Zestril] 20 mg PO DAILY #30 tab 01/10/17 [Rx] Pravastatin Sodium [Pravachol] 20 mg PO DAILY #30 01/10/17 [Rx] Fluticasone/Vilanterol [Breo Ellipta 100-25 Mcg INH] 1 puff IH DAILY 02/23/17 [ History] Pantoprazole Sodium [Protonix] 20 mg PO DAILY 02/23/17 [History] ALPRAZolam [Xanax 0.5 MG Tablet] 0.5 mg PO BID PRN 12/10/17 [History] Benztropine Mesylate 2 mg PO BID 12/10/17 [History] 3 Allergy/AdvReac Type Severity Reaction Status Date / Time No Known Allergies Allergy Verified 12/03/15 16:32 All Systems PM: A 10-system review of systems was performed and is negative for pertinent findings except as documented above in the HPI. - Constitutional Constitutional: as per HPI - EENT Nose, mouth and throat: facial pain, no dry mouth, no epistaxis, no nasal congestion, no nasal discharge, no nasal obstruction, no post-nasal drip, no sinus pressure, no sore throat - Cardiovascular Cardiovascular ROS IM: as per HPI - Respiratory Respiratory: as per HPI - Gastrointestinal Gastrointestinal: as per HPI - Genitourinary Genitourinary: as per HPI - Constitutional Vitals: Temp Pulse Resp BP Pulse Ox 97.5 F L 71 19 145/87 95 12/10/17 09:10 12/10/17 10:58 12/10/17 12:41 12/10/17 12:41 12/10/17 10:58 General appearance: Present: A&O X 3 Exam: Inappropriate at times - Head Additional comments: Ecchymosis noted to left chin - Eye Eye exam: Present: EOMI, PERRL, conjuntiva pink, sclera anicteric - Neck Neck exam general surgery: Present: supple, trachea midline. Absent: lymphadenopathy - Respiratory Respiratory exam: Present: decreased breath sounds, wheezes (Fine expiratory wheezes throughout) - Cardiovascular Cardiovascular exam: Present: RRR, +S1, +S2. Absent: diastolic murmur, gallop, rubs, systolic murmur - GI/Abdominal GI/Abdominal exam: Present: normal bowel sounds, soft, no peritoneal signs. Absent: distended, tenderness - Extremities Exam Extremities exam: Present: warm, radial pulses palpable and symmetrical. Absent : calf tenderness, cyanotic, pedal edema - Neurological Exam Neurological exam: Present: alert, oriented X3. Absent: facial droop, speech deficit - Psychiatric Psychiatric exam: Present: anxious, manic (Episodes of alexander). Absent: agitated , homicidal ideation, suicidal ideation Additional comments: Admits to visual hallucinations - Expanded Psychiatric Exam Focused psych exam: Present: restlessness Internal Med - H&P Results - Labs CBC & Chem 7: 12/10/17 09:35 12/10/17 09:35 - Impressions Impressions 3D Reconstruction 12/10/17 00:00 IMPRESSION: Minimally displaced nasal bone fracture. D/ / Siddharth Scanlon / Siddharth Scanlon Interpreting Provider: Siddharth Scanlon Chest X-Ray 12/10/17 09:20 IMPRESSION: No acute cardiopulmonary process. Hyperaeration related to COPD. There appears to be a healing left posterolateral 9th rib fracture. D/ / Antoine Weinberg MD / Antoine Weinberg MD Interpreting Provider: Antoine Weinberg MD Cervical Spine CT 12/10/17 10:11 IMPRESSION: No acute abnormality of the cervical spine. D/ / Raad York MD / Raad York MD Interpreting Provider: Raad York MD Face CT 12/10/17 10:11 IMPRESSION: Minimally displaced nasal bone fracture. D/ / Siddharth Scanlon / Siddharth Scanlon Interpreting Provider: Siddharth Scanlon Head CT 12/10/17 10:11 IMPRESSION: No acute intracranial abnormality. D/ / Antoine Hammond MD / Antoine Hammond MD Interpreting Provider: Antoine Hammond MD - Assessment and plan (1) COPD with exacerbation Current Visit: Yes Status: Acute Assessment and plan: Presents with dyspnea, cough productive of clear sputum 1 day History of COPD, chest x-ray negative for acute pulmonary process; hyperinflation secondary to COPD The patient is not hypoxic, afebrile, no leukocytosis Per auscultation patient has been expiratory wheezes throughout Currently resting comfortably without respiratory distress on room air Plan DuoNeb's, IV steroids and azithromycin SPO2 monitoring and oxygen supplementation as needed The patient's respiratory status remained stable overnight consider discharge in the morning, may benefit from azithromycin and oral steroid taper for 4 days at discharge (2) Acute and chronic respiratory failure Current Visit: Yes Status: Acute Assessment and plan: Acute and chronic respiratory failure; patient reports that she wears 2 L nasal cannula as needed at home. Has not been hypoxic throughout the stay and is currently on room air History of COPD, presents with acute exacerbation of COPD, etiology unclear; chest x-ray without acute pulmonary process, does not appear to have infectious process Continue treating with DuoNeb's, IV steroids and azithromycin SPO2 monitoring and oxygen supplementation as needed Qualifiers: Respiratory failure complication: unspecified whether with hypoxia or hypercapnia Qualified Code(s): J96.20 - Acute and chronic respiratory failure , unspecified whether with hypoxia or hypercapnia (3) Anxiety Current Visit: No Status: Acute Assessment and plan: Per history, resume anxiolytics (4) Schizophrenia Current Visit: No Status: Acute Assessment and plan: History of schizophrenia, continue antipsychotics Patient having active visual hallucinations Consult to psychiatry for further recommendations and evaluations--defer to psychiatry for medication dose adjustment Denies any suicidal/homicidal ideation Qualifiers: Schizophrenia type: unspecified Qualified Code(s): F20.9 - Schizophrenia, unspecified (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
[2017-12-10] MEDS: ALPRAZolam 0.5 MG TABLET PO PRN ×2 (15:08→20:20)
[2017-12-10] MEDS: Ipratropium/Albuterol Neb 3 ML IH SCH ×3 (16:22→23:34)
[2017-12-10] MEDS: MethylPREDNISolone 40 MG/ML VIAL IVP SCH (17:58)
[2017-12-10] MEDS: *HR* Heparin 5,000 UNIT/ML VIAL SQ SCH (17:58)
[2017-12-10] MEDS: hydrOXYzine pamoate 25 MG CAPSULE PO SCH (20:16)
[2017-12-11] MEDS: Ipratropium/Albuterol Neb 3 ML IH SCH ×6 (03:32→23:06)
[2017-12-11] MEDS: *HR* Heparin 5,000 UNIT/ML VIAL SQ SCH ×2 (05:04→17:16)
[2017-12-11] MEDS: MethylPREDNISolone 40 MG/ML VIAL IVP SCH ×2 (05:04→17:16)
[2017-12-11] MEDS: ALPRAZolam 0.5 MG TABLET PO PRN ×2 (05:12→17:16)
[2017-12-11 05:21] LABS: Hematocrit 35.2 % (35.3-44.9); Mean Corpuscular HGB Conc 34.9 g/dL (31.6-35.5); Mean Corpuscular Hemoglobin 29.3 pg (28.0-33.3); Mean Corpuscular Volume 83.8 fL (83.0-100.0); Mean Platelet Volume 9.8 fL (9.4-12.4); Platelet Count 179 K/mcL (140-400); Red Cell Distribution Width 12.9 % (11.5-14.5)
[2017-12-11 05:23] LABS: Hemoglobin 12.3 g/dL (11.5-15.4)
[2017-12-11 05:43] LABS: BUN/Creatinine Ratio 21 (6-26); Blood Urea Nitrogen 13 mg/dL (8-23); Calcium 8.8 mg/dL (8.6-10.3); Carbon Dioxide 26 mEq/L (23-29); Chloride 100 mEq/L (98-107); Glucose 213 mg/dL (70-105); Osmolality,Calculated 286 (280-300); Potassium 3.8 mEq/L (3.5-5.1); Sodium 135 mEq/L (136-145); eGFR For Non-African Americans > 60 (> 60)
--- NOTE | 2017-12-11 06:39 | Electrocardiograph Report ---
[facility] Test Date: 2017-12-10 Pat Name: Edel Lopez Department: [id number] Room: 2A71 Gender: F Quality Assurance Associate: : [id number] Requested By: Nehemias Montanez Order Number: [id number] Reading MD: Jonathan Rahman Measurements Intervals [place] Rate: 71 P: 92 [place]: 136 QRS: 74 QRSD: 83 T: 72 QT: 390 QTc: 412 Interpretive Statements SINUS RHYTHM Electronically Signed On 12-11-2017 6:37:28 EDT by Jonathan Rahman
[2017-12-11] MEDS: Azithromycin 250 MG TABLET PO SCH (07:57)
[2017-12-11] MEDS: Lisinopril 20 MG TABLET PO SCH (07:58)
[2017-12-11] MEDS: hydrOXYzine pamoate 25 MG CAPSULE PO SCH ×2 (07:58→21:46)
[2017-12-11] MEDS: Folic Acid 1 MG TABLET PO SCH (07:58)
--- NOTE | 2017-12-11 12:51 | Consult Note ---
Date of Encounter: 12/11/17 Time of Encounter: 11:38 Assessment & Recommendation (1) Schizophrenia Current visit: No Status: Chronic Assessment & Recommendation: stable on her medication Qualifiers: Schizophrenia type: undifferentiated schizophrenia Qualified Code(s): F20.3 - Undifferentiated schizophrenia (2) COPD (chronic obstructive pulmonary disease) Current visit: No Status: Acute Qualifiers: COPD type: COPD with acute exacerbation Qualified Code(s): J44.1 - Chronic obstructive pulmonary disease with (acute) exacerbation History of Present Illness Patient: new to practice Requesting Physician: Wolf Palacios Reason for consult: history of schizophrenia, experiencing visual hallucination. History of present illness: Ms. Lopez is a 66 year old female consulted today for h/o Schizophrenia and having visual hallucination. CC Rigo better,i came here as i can not breath. HPI: Patient is 66 yr old WF with h/o Schizophrenia and has been stable on her medications for her psychiatric condition. Patient was seen at her bedside and was verbal, cooperative and able to give history , she is difficult to understand probably secondary to he dentures and some oral movement can be movement secondary to her antipsychotic. she denies any aud/visual hallucinATION , no depression has some anxiety about not been able to drive and dependant on her son. she is not confused , alert and oriented, and able to give information and history. PAST PSYCH She has h/o Schizophrenia since 1980 and on medications since then , has no psych hospitalization in years and has been seeing [facility] here. Family h/o Both parents had mental illness, father was on prolixin as per her. Substance use None , smokes 1 ppd even with h/o COPD aware of the consequences but chooses to smoke , option of patch given to her. Social son lives with her , has 4 children and 3 grand children , on disability and takes care of her ADL. mEDICAL PER CHART. a/p H/O SCHIZOPHRENIA , STABLE ON HALDOL DECONATE AND APPARENTLY ADMITTED FOR MEDICAL REASON AND VISUAL HALLUCINATIONS ALSO MEDICAL ETIOLOGY , NO NEED FOR ANY PSYCH MEDICATION CHANGE OR ADDITION , WILL DEFER TO HER PSYCHIATRIST. Thank you for consult will sign off. CC: Wolf Palacios Past Med Surg Social Fam HX - Past Medical History Medical history: cancer, COPD, hyperlipidemia, hypertension - Past Psychiatric History Psychiatric history: Reports: schizophrenia, previous psychiatric hospitalization Family psychiatric history: Yes Family History of Suicide: None - Past Surgical History Surgical History: cancer surgery - Social History Smoking Status: Current every day smoker Smokeless Tobacco Status: No Alcohol use: none Drug use: none - Family History Maternal Grandmother Hx Family Cardiac Disorders: Yes (CAD) Mother Adopted: No Family Member Ethnicity: Non- Living Status: Hx Family Cardiac Disorders: No Hx Family Respiratory Disorders: No Hx Family Cancer: Yes (throat cancer) Hx Family GI Disorders: No Hx Family Endocrine Disorder: Yes (KIDNEY DIS) Hx Family Neuromuscular Disorders: No Hx Family Neurologic Disorders: No Hx Family HEENT Disorders: No Hx Family Autoimmune Disorders: No Medications & Allergies Docusate Sodium [Move It Along] 100 mg PO BID 08/19/16 [History] Haloperidol Decanoate [Haldol Decanoate 100] 125 mg IM Q2W 08/19/16 [History] Folic Acid 1 mg PO DAILY 30 Days tablet 11/09/16 [Rx] hydrOXYzine pamoate [HydrOXYzine Pamoate] 25 mg PO BID 01/09/17 [History] Albuterol Sulfate [Proair Hfa] 1 puff IH Q4HR PRN #1 inh 01/10/17 [Rx] Ferrous Sulfate 325 mg PO BID #60 tablet 01/10/17 [Rx] Ipratropium/Albuterol Neb [Duoneb] 3 ml IH Q6H PRN #100 inhsol 01/10/17 [Rx] Lisinopril [Zestril] 20 mg PO DAILY #30 tab 01/10/17 [Rx] Pravastatin Sodium [Pravachol] 20 mg PO DAILY #30 01/10/17 [Rx] Fluticasone/Vilanterol [Breo Ellipta 100-25 Mcg INH] 1 puff IH DAILY 02/23/17 [ History] Pantoprazole Sodium [Protonix] 20 mg PO DAILY 02/23/17 [History] ALPRAZolam [Xanax 0.5 MG Tablet] 0.5 mg PO BID PRN 12/10/17 [History] Benztropine Mesylate 2 mg PO BID 12/10/17 [History] 3 Allergy/AdvReac Type Severity Reaction Status Date / Time No Known Allergies Allergy Verified 12/03/15 16:32 Psychiatry Exam - Constitutional Vitals: Temp Pulse Resp BP Pulse Ox 98.0 F 86 20 121/74 96 12/11/17 11:57 12/11/17 11:57 12/11/17 11:57 12/11/17 11:57 12/11/17 11:57 General appearance: thin - Musculoskeletal Station: relaxed Strength & Tone: normal for patient - Psychiatric Patient Orientation: Yes Person, Yes Time, Yes Place Level of alertness: Alert Behavior: cooperative, talkative Psychomotor activity: Normal Eye Contact: Maintains Eye Contact Mood Description: Euthymic/stable Affect description: congruent with mood Speech Volume: Normal Speech pattern: other Language & Vocabulary: consistent with education Thought Process: Intact Thought Content: Yes Intact Attention Span Ability: Capable of Focused Attention Memory Description: Grossly Intact Patient Reliability: Reliable Historian Fund of knowledge: Yes average Intelligence Estimate: Average Judgment: Good Insight: Full Results - Labs Labs: Laboratory Last Values WBC 11.3 K/mcL (4.3-11.1) H D 12/11/17 04:44 RBC 4.20 M/mcL (3.82-4.97) 12/11/17 04:44 Hgb 12.3 g/dL (11.5-15.4) D 12/11/17 04:44 Hct 35.2 % (35.3-44.9) L 12/11/17 04:44 MCV 83.8 fL (83.0-100.0) 12/11/17 04:44 MCH 29.3 pg (28.0-33.3) 12/11/17 04:44 MCHC 34.9 g/dL (31.6-35.5) 12/11/17 04:44 RDW 12.9 % (11.5-14.5) 12/11/17 04:44 Plt Count 179 K/mcL (140-400) 12/11/17 04:44 MPV 9.8 fL (9.4-12.4) 12/11/17 04:44 Immature Gran % 0.2 % (0-4) 12/10/17 09:35 Seg Neutrophils % 67.6 % 12/10/17 09:35 Lymphocytes % 19.6 % 12/10/17 09:35 Monocytes % 6.5 % 12/10/17 09:35 Eosinophils % 5.0 % 12/10/17 09:35 Basophils % 1.1 % 12/10/17 09:35 Neutrophils # 3.7 K/mcL (1.6-8.9) 12/10/17 09:35 Lymphocytes # 1.1 K/mcL (0.6-4.6) 12/10/17 09:35 Monocytes # 0.4 K/mcL (0.0-1.3) 12/10/17 09:35 Eosinophils # 0.3 K/mcL (0.0-0.6) 12/10/17 09:35 Basophils # 0.1 K/mcL (0.0-0.2) 12/10/17 09:35 PT 11.8 Seconds (9.4-12.1) 12/10/17 09:35 INR 1.0 12/10/17 09:35 APTT 35.4 Seconds (26.0-36.0) 12/10/17 09:35 Sodium 135 mEq/L (136-145) L 12/11/17 04:44 Potassium 3.8 mEq/L (3.5-5.1) 12/11/17 04:44 Chloride 100 mEq/L (98-107) 12/11/17 04:44 Carbon Dioxide 26 mEq/L (23-29) 12/11/17 04:44 BUN 13 mg/dL (8-23) 12/11/17 04:44 Creatinine 0.62 mg/dL (0.60-1.20) 12/11/17 04:44 Est GFR ( Amer) > 60 (> 60) 12/11/17 04:44 Est GFR (Non-Af Amer) > 60 (> 60) 12/11/17 04:44 BUN/Creatinine Ratio 21 (6-26) 12/11/17 04:44 Glucose 213 mg/dL (70-105) H 12/11/17 04:44 Calculated Osmolality 286 (280-300) 12/11/17 04:44 Lactic Acid 0.8 mmol/L (0.5-2.2) 12/10/17 09:35 Calcium 8.8 mg/dL (8.6-10.3) 12/11/17 04:44 Troponin I < 0.03 ng/mL (< 0.04) 12/10/17 09:35 B-Natriuretic Peptide 163 pg/mL (Less than 100) H 12/10/17 09:35 Urine Color Yellow (Yellow) 12/10/17 09:24 Urine Clarity Clear (Clear) 12/10/17 09:24 Urine pH 6.0 pH Units (5.0-8.0) 12/10/17 09:24 Ur Specific [place] 1.008 (1.010-1.025) L 12/10/17 09:24 Urine Protein Negative mg/dL (Neg-Trace) 12/10/17 09:24 Urine Glucose (UA) Normal mg/dL (Normal) 12/10/17 09:24 Urine Ketones Negative mg/dL (Negative) 12/10/17 09:24 Urine Blood Negative (Negative) 12/10/17 09:24 Urine Nitrite Negative (Negative) 12/10/17 09:24 Urine Bilirubin Negative (Negative) 12/10/17 09:24 Urine Urobilinogen Normal mg/dL (Normal) 12/10/17 09:24 Ur Leukocyte Esterase Negative (Negative) 12/10/17 09:24 Ur Culture Indicated? NO (NO) 12/10/17 09:24 Consult Discharge Plan - Plan Referrals: NONE,PCP [Primary Care Provider] -
[2017-12-11] MEDS ORDERED: HALOPERIDOL DECANOATE IM SCH (15:30)
--- NOTE | 2017-12-11 16:16 | Discharge Summary ---
- NOTES TO OUTPATIENT PROVIDER Notes to Outpatient Provider: Follow up with PCP in 2-3 days after discharge. Recheck BMP and CBC at that time. Keep follow up with psychiatry as scheduled. Orders not resulted at time of discharge: Pending orders 12/12/17 04:00 Hgb A1C AM 0400 Date of Encounter: 12/11/17 Time of Encounter: 15:56 - Discharge Diagnosis (1) Acute and chronic respiratory failure Priority: Primary Status: Acute Qualifiers: Respiratory failure complication: unspecified whether with hypoxia or hypercapnia Qualified Code(s): J96.20 - Acute and chronic respiratory failure , unspecified whether with hypoxia or hypercapnia (2) COPD with exacerbation Priority: Secondary Status: Acute (3) Schizophrenia Priority: Secondary Status: Acute Qualifiers: Schizophrenia type: unspecified Qualified Code(s): F20.9 - Schizophrenia, unspecified (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 Lopez is a 66 year old female admitted for acute on chronic respiratory failure likely secondary to acute exacerbation of COPD. Patient was admitted for observation to general medical floor. She was started on supplemental oxygen, scheduled duonebs, solumedrol, and azithromycin. Respiratory status improved overnight and she was weaned to room air. Wheezing has resolved. Patient denies any dyspnea. Psychiatry was consulted for schizophrenia and anxiety. They determined that she is well-controlled on current haldol deconate. They recommend keeping close follow up with outpatient psychiatry. She will follow up with PCP in 2-3 days after discharge. BMP and CBC can be rechecked at that time. She will keep outpatient psychiatry appointment. Nursing staff unable to get hold of patient's son, who is her reservoir caretaker, so she may not end up leaving today despite being medically stable and discharge completed. Patient has met maximum benefit of this hospitalization and will be conditionally discharged home in stable condition pending clearance of social situation. Discharge discussed with: patient, nurse, other (Pharmacist) - Time Spent with Patient Total time spent providing and/or coordinating discharge services: Less than 30 minutes - Discharge Medications Prescriptions: Albuterol Sulfate [Proair Hfa] 1 puff IH Q4HR PRN #1 inh PRN Reason: wheezing, shortness of breath Azithromycin [Zithromax] 500 mg PO DAILY 5 Days #10 tablet Ipratropium/Albuterol Neb [Duoneb] 3 ml IH Q6H PRN #30 vial PRN Reason: Shortness Of Breath predniSONE [PredniSONE] See Taper PO DAILY 16 Days #40 tablet Home Medications: Docusate Sodium [Move It Along] 100 mg PO BID 08/19/16 [History] Haloperidol Decanoate [Haldol Decanoate 100] 125 mg IM Q2W 08/19/16 [History] Folic Acid 1 mg PO DAILY 30 Days tablet 11/09/16 [Rx] hydrOXYzine pamoate [HydrOXYzine Pamoate] 25 mg PO BID 01/09/17 [History] Ferrous Sulfate 325 mg PO BID #60 tablet 01/10/17 [Rx] Lisinopril [Zestril] 20 mg PO DAILY #30 tab 01/10/17 [Rx] Pravastatin Sodium [Pravachol] 20 mg PO DAILY #30 01/10/17 [Rx] Fluticasone/Vilanterol [Breo Ellipta 100-25 Mcg INH] 1 puff IH DAILY 02/23/17 [ History] Pantoprazole Sodium [Protonix] 20 mg PO DAILY 02/23/17 [History] ALPRAZolam [Xanax 0.5 MG Tablet] 0.5 mg PO BID PRN 12/10/17 [History] Benztropine Mesylate 2 mg PO BID 12/10/17 [History] Albuterol Sulfate [Proair Hfa] 1 puff IH Q4HR PRN #1 inh 12/11/17 [Rx] Azithromycin [Zithromax] 500 mg PO DAILY 5 Days #10 tablet 12/11/17 [Rx] Ipratropium/Albuterol Neb [Duoneb] 3 ml IH Q6H PRN #30 vial 12/11/17 [Rx] predniSONE [PredniSONE] See Taper PO DAILY 16 Days #40 tablet 12/11/17 [Rx] Allergies/Adverse Reactions: 3 Allergy/AdvReac Type Severity Reaction Status Date / Time No Known Allergies Allergy Verified 12/03/15 16:32 Date of admission: 12/10/17 11:58 Primary care physician: PCP NONE Consults: 12/10/17 14:11 Consult to Nutrition [CONS] Routine Comment: Consulting Provider: NUTRITION Reason for Dietary Consult: PO Supplementation 12/10/17 14:24 Consult to Psychiatry [CONS] Routine Consulting Provider: Psychiatry Tanya Reason consult: Other Psychosis Other reason and/or additional details: History of schizophrenia, currently experiencing visual hallucinations. Assist with adjusting medications Time Notified: 14:25 Call Completed: Yes Discharging clinician: Neto Steel Anticipated date of discharge: 12/11/17 - Constitutional Vitals: Temp Pulse Resp BP Pulse Ox 98.0 F 86 20 121/74 96 12/11/17 11:57 12/11/17 11:57 12/11/17 11:57 12/11/17 11:57 12/11/17 11:57 General appearance: Present: cooperative, A&O X 3, pleasant, no acute distress, underweight, answers questions appropriately - Respiratory Respiratory exam: Absent: accessory muscle use, rales, rhonchi, wheezes Additional comments: Normal WOB, coarse breath sounds bilaterally - Cardiovascular Cardiovascular exam: Present: RRR, +S1, +S2. Absent: diastolic murmur, gallop, rubs, systolic murmur Additional comments: No BLE edema - GI/Abdominal GI/Abdominal exam: Present: normal bowel sounds, soft. Absent: distended, hepatomegaly, mass, splenomegaly, tenderness - Psychiatric Psychiatric exam: Present: normal affect, normal mood. Absent: agitated, anxious, depressed - Skin Skin exam: Present: dry, intact, warm. Absent: cyanosis, erythema, rash - Patient Status Disposition: Home, Self-Care Condition: Good Overall status at discharge: patient is progressing back to baseline - Discharge Instructions Follow Up With: NONE,PCP [Primary Care Provider] - Additional Instructions: Follow up with PCP in 2-3 days after discharge. Recheck BMP and CBC at that time. Keep follow up with psychiatry as scheduled. - Diet and Activity Activity: resume usual activities as tolerated Diet: advance to your usual diet, other (Cardiac Diet, Chocolate Ensure Enlive BID)
[2017-12-11] MEDS: (Fluticasone/Vilanterol [Breo Ellipta 100-25 Mcg Inh] IH SCH (17:16)
[2017-12-12] MEDS: Ipratropium/Albuterol Neb 3 ML IH SCH ×5 (03:48→20:38)
[2017-12-12] MEDS: *HR* Heparin 5,000 UNIT/ML VIAL SQ SCH ×2 (05:35→16:22)
[2017-12-12] MEDS: MethylPREDNISolone 40 MG/ML VIAL IVP SCH (05:35)
[2017-12-12 06:21] LABS: Basophils % 0.2 %; Eosinophils % 0.2 %; Hematocrit 35.4 % (35.3-44.9); Hemoglobin 11.8 g/dL (11.5-15.4); Immature Granulocytes % 0.3 % (0-4); Lymphocytes # 1.5 K/mcL (0.6-4.6); Lymphocytes % 12.7 %; Mean Corpuscular HGB Conc 33.3 g/dL (31.6-35.5); Mean Corpuscular Hemoglobin 28.3 pg (28.0-33.3); Mean Corpuscular Volume 84.9 fL (83.0-100.0); Mean Platelet Volume 9.4 fL (9.4-12.4); Monocytes # 0.6 K/mcL (0.0-1.3); Monocytes % 5.1 %; Neutrophils # 9.9 K/mcL (1.6-8.9); Platelet Count 172 K/mcL (140-400); Red Blood Count 4.17 M/mcL (3.82-4.97); Red Cell Distribution Width 13.7 % (11.5-14.5); Segmented Neutrophils % 81.5 %
[2017-12-12 06:39] LABS: BUN/Creatinine Ratio 18 (6-26); Blood Urea Nitrogen 11 mg/dL (8-23); Calcium 9.1 mg/dL (8.6-10.3); Carbon Dioxide 26 mEq/L (23-29); Chloride 102 mEq/L (98-107); Glucose 116 mg/dL (70-105); Osmolality,Calculated 282 (280-300); Potassium 4.2 mEq/L (3.5-5.1); Sodium 136 mEq/L (136-145); eGFR For Non-African Americans > 60 (> 60)
[2017-12-12 08:01] LABS: Estimated Average Glucose 120 mg/dl; Hemoglobin A1C 5.8 %
[2017-12-12] MEDS: Azithromycin 250 MG TABLET PO SCH (08:37)
[2017-12-12] MEDS: hydrOXYzine pamoate 25 MG CAPSULE PO SCH ×2 (08:37→20:57)
[2017-12-12] MEDS: Lisinopril 20 MG TABLET PO SCH (08:37)
[2017-12-12] MEDS: ALPRAZolam 0.5 MG TABLET PO PRN ×2 (08:37→20:57)
[2017-12-12] MEDS: Folic Acid 1 MG TABLET PO SCH (08:37)
[2017-12-12] MEDS: (Fluticasone/Vilanterol [Breo Ellipta 100-25 Mcg Inh] IH SCH (08:38)
[2017-12-12] MEDS: Budesonide/Formoterol 160/4.5 1 PUFF INH IH SCH ×2 (11:07→20:38)
--- NOTE | 2017-12-12 12:32 | Internal Med Progress Note ---
Hospitalist Progress Note - Encounter Date of Encounter: 12/12/17 Time of Encounter: 11:37 - Subjective Interval History: Patient had no acute events overnight. She states that she is doing "great" and wants to go home for her birthday. She states that respiratory status is "good." She denies fever, chills, chest pain, SOB, nausea, vomiting, or abdominal pain. She has no complaints at this time. I spoke with social work administrator , who states that she may not be safe at home, and she is working on ECF placement. - Exam Vitals: Temp Pulse Resp BP Pulse Ox 97.8 F 88 18 115/70 94 12/12/17 12:12/12/17 12:12/12/17 12:12/12/17 12:12/12/17 12:01 Exam: Gen - Awake, alert, no acute distress HEENT - NCAT, PERRLA, EOMI, hearing grossly intact, oropharynx benign CV - RRR, normal S1 and S2, no M/R/G, no BLE edema Resp - Normal WOB, coarse breath sounds bilaterally, no W/R/R GI - Soft, NT/ND, no masses, normal bowel sounds, no HSP Skin - Warm, dry, no rashes/lesions/ulcers Psych - Normal mood and affect, no depression or anxiety - Assessment and Plan (1) Acute and chronic respiratory failure Current Visit: Yes Status: Acute Assessment and Plan: Acute and chronic respiratory failure; patient reports that she wears 2 L nasal cannula as needed at home. Has not been hypoxic throughout the stay and is currently on room air History of COPD, presents with acute exacerbation of COPD, etiology unclear; chest x-ray without acute pulmonary process, does not appear to have infectious process Continue treating with DuoNeb's, IV steroids and azithromycin SPO2 monitoring and oxygen supplementation as needed 12/12 - Acute respiratory failure resolved. Now on room air with no respiratory distress. Was likely secondary to COPD exacerbation. Continue supplemental O2 PRN. Taper steroids down to prednisone 40 mg PO BIDWM. Continue nebulizer treatments scheduled and PRN. Continue azithromycin. She has already been discharged, and remains stable today for discharge home pending clearance of social situation. She may not be safe at home and may require ECF placement is what I am told today. Will continue to check in with social work. (2) COPD with exacerbation Current Visit: Yes Status: Acute Assessment and Plan: Presents with dyspnea, cough productive of clear sputum 1 day History of COPD, chest x-ray negative for acute pulmonary process; hyperinflation secondary to COPD The patient is not hypoxic, afebrile, no leukocytosis Per auscultation patient has been expiratory wheezes throughout Currently resting comfortably without respiratory distress on room air Plan DuoNeb's, IV steroids and azithromycin SPO2 monitoring and oxygen supplementation as needed The patient's respiratory status remained stable overnight consider discharge in the morning, may benefit from azithromycin and oral steroid taper for 4 days at discharge 12/12 - Management as per above. (3) Schizophrenia Current Visit: Yes Status: Chronic Assessment and Plan: History of schizophrenia, continue antipsychotics Patient having active visual hallucinations Consult to psychiatry for further recommendations and evaluations--defer to psychiatry for medication dose adjustment Denies any suicidal/homicidal ideation 12/12 - Continue home medications. Psychiatry was consulted and agree with current home regimen. They have signed off. 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 (5) Tobacco abuse disorder Current Visit: Yes Status: Chronic Assessment and Plan: Tobacco abuse--reporting a daily pack per day smoker--does not wish to quit at this time, offered nicotine patch, patient declined 12/12 - Counselled again on smoking cessation. (6) Anxiety Current Visit: Yes Status: Chronic Assessment and Plan: Per history, resume anxiolytics 12/12 - Continue home medications. - Time Spent with Patient Total time spent is greater than 50% in coordination of care (as documented) at patient's floor/unit and/or counseling patient: less than 15 minutes Plan of Care Discussed with: patient (Nurse, Social Work, Pharmacist) Internal Medicine: Result - Labs CBC & Chem 7: 12/12/17 05:58 12/12/17 05:58 Labs: Short CBC 12/12/17 Range/Units 05:58 WBC 12.1 H (4.3-11.1) K/mcL Hgb 11.8 (11.5-15.4) g/dL Hct 35.4 (35.3-44.9) % Plt Count 172 (140-400) K/mcL Neutrophils # 9.9 H (1.6-8.9) K/mcL BMP 12/12/17 05:58 Sodium 136 Potassium 4.2 Chloride 102 Carbon Dioxide 26 BUN 11 Creatinine 0.60 Glucose 116 H Calcium 9.1 - ABG Interpretation ABG results: PT/INR, D-dimer PT 11.8 Seconds (9.4-12.1) 12/10/17 09:35 Consult Discharge Plan - Plan Additional Instructions: Follow up with PCP in 2-3 days after discharge. Recheck BMP and CBC at that time. Keep follow up with psychiatry as scheduled. Referrals: NONE,PCP [Primary Care Provider] - Prescriptions: Albuterol Sulfate [Proair Hfa] 1 puff IH Q4HR PRN #1 inh PRN Reason: wheezing, shortness of breath Azithromycin [Zithromax] 500 mg PO DAILY 5 Days #10 tablet Ipratropium/Albuterol Neb [Duoneb] 3 ml IH Q6H PRN #30 vial PRN Reason: Shortness Of Breath predniSONE [PredniSONE] See Taper PO DAILY 16 Days #40 tablet (1) Acute and chronic respiratory failure Qualifiers: Respiratory failure complication: unspecified whether with hypoxia or hypercapnia Qualified Code(s): J96.20 - Acute and chronic respiratory failure, unspecified whether with hypoxia or hypercapnia (3) Schizophrenia Qualifiers: Schizophrenia type: unspecified Qualified Code(s): F20.9 - Schizophrenia, unspecified
[2017-12-12] MEDS: predniSONE 20 MG TABLET PO SCH (16:21)
[2017-12-13] MEDS: *HR* Heparin 5,000 UNIT/ML VIAL SQ SCH ×2 (05:22→17:00)
[2017-12-13 05:43] LABS: Basophils % 0.1 %; Hematocrit 34.8 % (35.3-44.9); Hemoglobin 11.9 g/dL (11.5-15.4); Immature Granulocytes % 0.3 % (0-4); Lymphocytes # 0.8 K/mcL (0.6-4.6); Lymphocytes % 9.1 %; Mean Corpuscular HGB Conc 34.2 g/dL (31.6-35.5); Mean Corpuscular Hemoglobin 29.2 pg (28.0-33.3); Mean Corpuscular Volume 85.5 fL (83.0-100.0); Mean Platelet Volume 9.7 fL (9.4-12.4); Monocytes # 0.4 K/mcL (0.0-1.3); Monocytes % 4.3 %; Neutrophils # 7.6 K/mcL (1.6-8.9); Platelet Count 162 K/mcL (140-400); Red Blood Count 4.07 M/mcL (3.82-4.97); Red Cell Distribution Width 13.6 % (11.5-14.5); Segmented Neutrophils % 86.2 %
[2017-12-13 06:03] LABS: BUN/Creatinine Ratio 26 (6-26); Blood Urea Nitrogen 13 mg/dL (8-23); Calcium 9.1 mg/dL (8.6-10.3); Carbon Dioxide 27 mEq/L (23-29); Chloride 99 mEq/L (98-107); Glucose 138 mg/dL (70-105); Osmolality,Calculated 280 (280-300); Sodium 134 mEq/L (136-145); eGFR For Non-African Americans > 60 (> 60)
[2017-12-13] MEDS: Ipratropium/Albuterol Neb 3 ML IH SCH ×4 (07:45→19:50)
[2017-12-13] MEDS: Budesonide/Formoterol 160/4.5 1 PUFF INH IH SCH ×2 (07:45→19:50)
[2017-12-13] MEDS: predniSONE 20 MG TABLET PO SCH (09:08)
[2017-12-13] MEDS: ALPRAZolam 0.5 MG TABLET PO PRN ×2 (09:08→20:40)
[2017-12-13] MEDS: Azithromycin 250 MG TABLET PO SCH (09:08)
[2017-12-13] MEDS: Folic Acid 1 MG TABLET PO SCH (09:08)
[2017-12-13] MEDS: hydrOXYzine pamoate 25 MG CAPSULE PO SCH ×2 (09:08→20:40)
[2017-12-13] MEDS: Lisinopril 20 MG TABLET PO SCH (09:08)
--- NOTE | 2017-12-13 09:32 | Internal Med Progress Note ---
Hospitalist Progress Note - Encounter Date of Encounter: 12/13/17 Time of Encounter: 09:29 - Subjective Interval History: Patient had no acute events overnight. She states that she is doing "good." She states that her breathing is "good." She denies fever, chills, chest pain, SOB, nausea, vomiting, or abdominal pain. She has no complaints at this time. - Exam Vitals: Temp Pulse Resp BP Pulse Ox 97.9 F 87 17 104/62 95 12/13/17 07:23 12/13/17 07:23 12/13/17 07:47 12/13/17 07:23 12/13/17 07:47 Exam: Gen - Awake, alert, no acute distress HEENT - NCAT, PERRLA, EOMI, hearing grossly intact, oropharynx benign CV - RRR, normal S1 and S2, no M/R/G, no BLE edema Resp - Normal WOB, coarse breath sounds bilaterally, no W/R/R GI - Soft, NT/ND, no masses, normal bowel sounds, no HSP Skin - Warm, dry, no rashes/lesions/ulcers Psych - Normal mood and affect, no depression or anxiety - Assessment and Plan (1) Acute and chronic respiratory failure Current Visit: Yes Status: Acute Assessment and Plan: Acute and chronic respiratory failure; patient reports that she wears 2 L nasal cannula as needed at home. Has not been hypoxic throughout the stay and is currently on room air History of COPD, presents with acute exacerbation of COPD, etiology unclear; chest x-ray without acute pulmonary process, does not appear to have infectious process Continue treating with DuoNeb's, IV steroids and azithromycin SPO2 monitoring and oxygen supplementation as needed 12/12 - Acute respiratory failure resolved. Now on room air with no respiratory distress. Was likely secondary to COPD exacerbation. Continue supplemental O2 PRN. Taper steroids down to prednisone 40 mg PO BIDWM. Continue nebulizer treatments scheduled and PRN. Continue azithromycin. She has already been discharged, and remains stable today for discharge home pending clearance of social situation. She may not be safe at home and may require ECF placement is what I am told today. Will continue to check in with social work. 12/13 - Remains on room air with PRN 2L NC, which is her baseline. Continue supplemental O2 PRN. Taper steroids down to prednisone 40 mg PO QDWM. Continue nebulizer treatments scheduled and PRN. Continue azithromycin. She has already been discharged, and remains stable today for discharge. SW working on ECF placement. (2) COPD with exacerbation Current Visit: Yes Status: Acute Assessment and Plan: Presents with dyspnea, cough productive of clear sputum 1 day History of COPD, chest x-ray negative for acute pulmonary process; hyperinflation secondary to COPD The patient is not hypoxic, afebrile, no leukocytosis Per auscultation patient has been expiratory wheezes throughout Currently resting comfortably without respiratory distress on room air Plan DuoNeb's, IV steroids and azithromycin SPO2 monitoring and oxygen supplementation as needed The patient's respiratory status remained stable overnight consider discharge in the morning, may benefit from azithromycin and oral steroid taper for 4 days at discharge 12/12 - Management as per above. 12/13 - Management as per above. Tapering steroids. (3) Schizophrenia Current Visit: Yes Status: Chronic Assessment and Plan: History of schizophrenia, continue antipsychotics Patient having active visual hallucinations Consult to psychiatry for further recommendations and evaluations--defer to psychiatry for medication dose adjustment Denies any suicidal/homicidal ideation 12/12 - Continue home medications. Psychiatry was consulted and agree with current home regimen. They have signed off. 12/13 - Continue home medications. 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 12/13 - Continue nutritional supplementation with meals. (5) Tobacco abuse disorder Current Visit: Yes Status: Chronic Assessment and Plan: Tobacco abuse--reporting a daily pack per day smoker--does not wish to quit at this time, offered nicotine patch, patient declined 12/12 - Counselled again on smoking cessation. 12/13 - Counselled on smoking cessation. (6) Anxiety Current Visit: Yes Status: Chronic Assessment and Plan: Per history, resume anxiolytics 12/12 - Continue home medications. 12/13 - Continue home medications. - Time Spent with Patient Total time spent is greater than 50% in coordination of care (as documented) at patient's floor/unit and/or counseling patient: less than 15 minutes Plan of Care Discussed with: patient (Nurse) Internal Medicine: Result - Labs CBC & Chem 7: 12/13/17 05:00 12/13/17 05:00 Labs: Short CBC 12/13/17 Range/Units 05:00 WBC 8.9 (4.3-11.1) K/mcL Hgb 11.9 (11.5-15.4) g/dL Hct 34.8 L (35.3-44.9) % Plt Count 162 (140-400) K/mcL Neutrophils # 7.6 (1.6-8.9) K/mcL BMP 12/13/17 05:00 Sodium 134 L Potassium 4.0 Chloride 99 Carbon Dioxide 27 BUN 13 Creatinine 0.50 L Glucose 138 H Calcium 9.1 - ABG Interpretation ABG results: PT/INR, D-dimer PT 11.8 Seconds (9.4-12.1) 12/10/17 09:35 - VTE Documentation of Mechanical Device: Intermittent pneumatic compression device Consult Discharge Plan - Plan Additional Instructions: Follow up with PCP in 2-3 days after discharge. Recheck BMP and CBC at that time. Keep follow up with psychiatry as scheduled. Referrals: NONE,PCP [Primary Care Provider] - Prescriptions: Albuterol Sulfate [Proair Hfa] 1 puff IH Q4HR PRN #1 inh PRN Reason: wheezing, shortness of breath Azithromycin [Zithromax] 500 mg PO DAILY 5 Days #10 tablet Ipratropium/Albuterol Neb [Duoneb] 3 ml IH Q6H PRN #30 vial PRN Reason: Shortness Of Breath predniSONE [PredniSONE] See Taper PO DAILY 16 Days #40 tablet (1) Acute and chronic respiratory failure Qualifiers: Respiratory failure complication: unspecified whether with hypoxia or hypercapnia Qualified Code(s): J96.20 - Acute and chronic respiratory failure, unspecified whether with hypoxia or hypercapnia (3) Schizophrenia Qualifiers: Schizophrenia type: unspecified Qualified Code(s): F20.9 - Schizophrenia, unspecified
[2017-12-13] MEDS: Acetaminophen 325 MG TABLET PO PRN (22:25)
[2017-12-14] MEDS: *HR* Heparin 5,000 UNIT/ML VIAL SQ SCH ×2 (05:19→16:32)
[2017-12-14 05:27] LABS: Basophils % 0.3 %; Eosinophils % 0.6 %; Hematocrit 32.8 % (35.3-44.9); Immature Granulocytes % 0.7 % (0-4); Lymphocytes # 1.1 K/mcL (0.6-4.6); Lymphocytes % 14.9 %; Mean Corpuscular HGB Conc 33.5 g/dL (31.6-35.5); Mean Corpuscular Hemoglobin 28.6 pg (28.0-33.3); Mean Corpuscular Volume 85.4 fL (83.0-100.0); Mean Platelet Volume 9.8 fL (9.4-12.4); Monocytes # 0.6 K/mcL (0.0-1.3); Monocytes % 8.4 %; Neutrophils # 5.3 K/mcL (1.6-8.9); Platelet Count 146 K/mcL (140-400); Red Blood Count 3.84 M/mcL (3.82-4.97); Red Cell Distribution Width 13.8 % (11.5-14.5); Segmented Neutrophils % 75.1 %
[2017-12-14 05:48] LABS: BUN/Creatinine Ratio 32 (6-26); Blood Urea Nitrogen 17 mg/dL (8-23); Calcium 8.7 mg/dL (8.6-10.3); Carbon Dioxide 30 mEq/L (23-29); Chloride 100 mEq/L (98-107); Glucose 100 mg/dL (70-105); Osmolality,Calculated 284 (280-300); Potassium 3.7 mEq/L (3.5-5.1); Sodium 136 mEq/L (136-145); eGFR For Non-African Americans > 60 (> 60)
[2017-12-14] MEDS: Ipratropium/Albuterol Neb 3 ML IH SCH ×4 (07:43→19:42)
[2017-12-14] MEDS: Budesonide/Formoterol 160/4.5 1 PUFF INH IH SCH ×2 (07:44→19:42)
[2017-12-14] MEDS: Lisinopril 20 MG TABLET PO SCH (07:47)
[2017-12-14] MEDS: predniSONE 20 MG TABLET PO SCH (07:47)
[2017-12-14] MEDS: Folic Acid 1 MG TABLET PO SCH (07:47)
[2017-12-14] MEDS: Azithromycin 250 MG TABLET PO SCH (07:47)
[2017-12-14] MEDS: ALPRAZolam 0.5 MG TABLET PO PRN ×2 (07:47→21:08)
[2017-12-14] MEDS: hydrOXYzine pamoate 25 MG CAPSULE PO SCH ×2 (07:47→21:08)
--- NOTE | 2017-12-14 10:28 | Internal Med Progress Note ---
Hospitalist Progress Note - Encounter Date of Encounter: 12/14/17 Time of Encounter: 10:27 - Subjective Interval History: Patient had no acute events overnight. She states that she is doing "fine." She denies fever, chills, chest pain, SOB, nausea, vomiting, or abdominal pain. She has no complaints at this time. - Exam Vitals: Temp Pulse Resp BP Pulse Ox 98.7 F 78 16 104/62 96 12/14/17 07:14 12/14/17 07:14 12/14/17 07:43 12/14/17 07:43 12/14/17 07:51 Exam: Gen - Awake, alert, no acute distress HEENT - NCAT, PERRLA, EOMI, hearing grossly intact, oropharynx benign CV - RRR, normal S1 and S2, no M/R/G, no BLE edema Resp - Normal WOB, coarse breath sounds bilaterally, no W/R/R GI - Soft, NT/ND, no masses, normal bowel sounds, no HSP Skin - Warm, dry, no rashes/lesions/ulcers Psych - Normal mood and affect, no depression or anxiety - Assessment and Plan (1) Acute and chronic respiratory failure Current Visit: Yes Status: Resolved Assessment and Plan: Acute and chronic respiratory failure; patient reports that she wears 2 L nasal cannula as needed at home. Has not been hypoxic throughout the stay and is currently on room air History of COPD, presents with acute exacerbation of COPD, etiology unclear; chest x-ray without acute pulmonary process, does not appear to have infectious process Continue treating with DuoNeb's, IV steroids and azithromycin SPO2 monitoring and oxygen supplementation as needed 12/12 - Acute respiratory failure resolved. Now on room air with no respiratory distress. Was likely secondary to COPD exacerbation. Continue supplemental O2 PRN. Taper steroids down to prednisone 40 mg PO BIDWM. Continue nebulizer treatments scheduled and PRN. Continue azithromycin. She has already been discharged, and remains stable today for discharge home pending clearance of social situation. She may not be safe at home and may require ECF placement is what I am told today. Will continue to check in with social work. 12/13 - Remains on room air with PRN 2L NC, which is her baseline. Continue supplemental O2 PRN. Taper steroids down to prednisone 40 mg PO QDWM. Continue nebulizer treatments scheduled and PRN. Continue azithromycin. She has already been discharged, and remains stable today for discharge. [facility] working on ECF placement. 12/14 - Acute failure resolved. Now stable on room air for last 48 hours. Continue supplemental O2 PRN. Continue prednisone 40 mg PO QDWM. Continue nebulizer treatments scheduled and PRN. Continue azithromycin. She has already been discharged, and remains stable today for discharge. [facility] working on ECF placement. (2) COPD with exacerbation Current Visit: Yes Status: Acute Assessment and Plan: Presents with dyspnea, cough productive of clear sputum 1 day History of COPD, chest x-ray negative for acute pulmonary process; hyperinflation secondary to COPD The patient is not hypoxic, afebrile, no leukocytosis Per auscultation patient has been expiratory wheezes throughout Currently resting comfortably without respiratory distress on room air Plan DuoNeb's, IV steroids and azithromycin SPO2 monitoring and oxygen supplementation as needed The patient's respiratory status remained stable overnight consider discharge in the morning, may benefit from azithromycin and oral steroid taper for 4 days at discharge 12/12 - Management as per above. 12/13 - Management as per above. Tapering steroids. 12/14 - Management as per above. Continue steroid taper. (3) Schizophrenia Current Visit: Yes Status: Chronic Assessment and Plan: History of schizophrenia, continue antipsychotics Patient having active visual hallucinations Consult to psychiatry for further recommendations and evaluations--defer to psychiatry for medication dose adjustment Denies any suicidal/homicidal ideation 12/12 - Continue home medications. Psychiatry was consulted and agree with current home regimen. They have signed off. 12/13 - Continue home medications. 12/14 - Continue home medications. 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 12/13 - Continue nutritional supplementation with meals. 12/14 - Continue nutritional supplementation with meals. (5) Tobacco abuse disorder Current Visit: Yes Status: Chronic Assessment and Plan: Tobacco abuse--reporting a daily pack per day smoker--does not wish to quit at this time, offered nicotine patch, patient declined 12/12 - Counselled again on smoking cessation. 12/13 - Counselled on smoking cessation. 12/14 - Counselled on smoking cessation. (6) Anxiety Current Visit: Yes Status: Chronic Assessment and Plan: Per history, resume anxiolytics 12/12 - Continue home medications. 12/13 - Continue home medications. 12/14 - Continue home medications. (7) DVT prophylaxis Current Visit: Yes Status: Acute Assessment and Plan: Continue SQ heparin. - Time Spent with Patient Total time spent is greater than 50% in coordination of care (as documented) at patient's floor/unit and/or counseling patient: less than 15 minutes Plan of Care Discussed with: patient (Nurse) Internal Medicine: Result - Labs CBC & Chem 7: 12/14/17 04:49 12/14/17 04:49 Labs: Short CBC 12/14/17 Range/Units 04:49 WBC 7.1 (4.3-11.1) K/mcL Hgb 11.0 L (11.5-15.4) g/dL Hct 32.8 L (35.3-44.9) % Plt Count 146 (140-400) K/mcL Neutrophils # 5.3 (1.6-8.9) K/mcL BMP 12/14/17 04:49 Sodium 136 Potassium 3.7 Chloride 100 Carbon Dioxide 30 H BUN 17 Creatinine 0.53 L Glucose 100 Calcium 8.7 - ABG Interpretation ABG results: PT/INR, D-dimer PT 11.8 Seconds (9.4-12.1) 12/10/17 09:35 - VTE Documentation of Mechanical Device: Intermittent pneumatic compression device Consult Discharge Plan - Plan Additional Instructions: Follow up with PCP in 2-3 days after discharge. Recheck BMP and CBC at that time. Keep follow up with psychiatry as scheduled. Referrals: NONE,PCP [Primary Care Provider] - Prescriptions: Albuterol Sulfate [Proair Hfa] 1 puff IH Q4HR PRN #1 inh PRN Reason: wheezing, shortness of breath Azithromycin [Zithromax] 500 mg PO DAILY 5 Days #10 tablet Ipratropium/Albuterol Neb [Duoneb] 3 ml IH Q6H PRN #30 vial PRN Reason: Shortness Of Breath predniSONE [PredniSONE] See Taper PO DAILY 16 Days #40 tablet (1) Acute and chronic respiratory failure Qualifiers: Respiratory failure complication: unspecified whether with hypoxia or hypercapnia Qualified Code(s): J96.20 - Acute and chronic respiratory failure, unspecified whether with hypoxia or hypercapnia (3) Schizophrenia Qualifiers: Schizophrenia type: unspecified Qualified Code(s): F20.9 - Schizophrenia, unspecified
[2017-12-14] MEDS ORDERED: Famotidine 20 MG TABLET PO STA (13:18)
[2017-12-14] MEDS ORDERED: Ondansetron 4 MG/2 ML VIAL IVP PRN (13:18)
[2017-12-14] MEDS ORDERED: GI Cocktail 40 ML EACH PO STA (13:18)
[2017-12-14] MEDS ORDERED: Ondansetron 4 MG/2 ML VIAL IVP STA (13:18)
[2017-12-15 03:55] LABS: Basophils % 0.3 %; Eosinophils # 0.1 K/mcL (0.0-0.6); Hematocrit 36.2 % (35.3-44.9); Hemoglobin 12.1 g/dL (11.5-15.4); Lymphocytes # 1.3 K/mcL (0.6-4.6); Lymphocytes % 21.8 %; Mean Corpuscular HGB Conc 33.4 g/dL (31.6-35.5); Mean Corpuscular Hemoglobin 29.2 pg (28.0-33.3); Mean Corpuscular Volume 87.4 fL (83.0-100.0); Mean Platelet Volume 9.2 fL (9.4-12.4); Monocytes # 0.6 K/mcL (0.0-1.3); Monocytes % 9.7 %; Neutrophils # 3.9 K/mcL (1.6-8.9); Platelet Count 134 K/mcL (140-400); Red Blood Count 4.14 M/mcL (3.82-4.97); Red Cell Distribution Width 13.9 % (11.5-14.5); Segmented Neutrophils % 66.2 %
[2017-12-15 04:14] LABS: BUN/Creatinine Ratio 25 (6-26); Blood Urea Nitrogen 19 mg/dL (8-23); Calcium 9.1 mg/dL (8.6-10.3); Carbon Dioxide 33 mEq/L (23-29); Chloride 99 mEq/L (98-107); Glucose 98 mg/dL (70-105); Osmolality,Calculated 286 (280-300); Potassium 4.2 mEq/L (3.5-5.1); Sodium 137 mEq/L (136-145); eGFR For Non-African Americans > 60 (> 60)
[2017-12-15] MEDS: *HR* Heparin 5,000 UNIT/ML VIAL SQ SCH ×2 (06:03→16:58)
[2017-12-15] MEDS: Budesonide/Formoterol 160/4.5 1 PUFF INH IH SCH ×2 (07:43→19:53)
[2017-12-15] MEDS: Ipratropium/Albuterol Neb 3 ML IH SCH ×4 (07:43→19:53)
[2017-12-15] MEDS: Azithromycin 250 MG TABLET PO SCH (08:40)
[2017-12-15] MEDS: hydrOXYzine pamoate 25 MG CAPSULE PO SCH ×2 (08:41→20:08)
[2017-12-15] MEDS: Lisinopril 20 MG TABLET PO SCH (08:41)
[2017-12-15] MEDS: Folic Acid 1 MG TABLET PO SCH (08:41)
[2017-12-15] MEDS: predniSONE 20 MG TABLET PO SCH (08:41)
[2017-12-15] MEDS: Acetaminophen 325 MG TABLET PO PRN (11:20)
[2017-12-15] MEDS ORDERED: GI Cocktail 40 ML EACH PO PRN (11:25)
[2017-12-15] MEDS: Mag Hydrox/Al Hydrox/Simeth 30 ML UDC PO PRN (11:27)
[2017-12-15] MEDS: ALPRAZolam 0.5 MG TABLET PO PRN ×2 (11:27→20:08)
--- NOTE | 2017-12-15 11:33 | Internal Med Progress Note ---
Hospitalist Progress Note - Encounter Date of Encounter: 12/15/17 Time of Encounter: 11:30 - Subjective Interval History: Patient had no acute events overnight. She states that she is doing "fine." She has a painful rash to right chest/back. She denies prior history of shingles. She still has some heartburn She denies fever, chills, chest pain, SOB, nausea, vomiting, or abdominal pain. She has no other complaints at this time. - Exam Vitals: Temp Pulse Resp BP Pulse Ox 98.1 F 94 18 143/75 95 12/15/17 08:30 12/15/17 08:30 12/15/17 08:30 12/15/17 08:30 12/15/17 08:30 Exam: Gen - Awake, alert, no acute distress HEENT - NCAT, PERRLA, EOMI, hearing grossly intact, oropharynx benign CV - RRR, normal S1 and S2, no M/R/G, no BLE edema Resp - Normal WOB, coarse breath sounds bilaterally, no W/R/R GI - Soft, NT/ND, no masses, normal bowel sounds, no HSP Skin - Warm, dry, erythematous/vesicular rash on right chest/back with exquisite TTP, no other lesions/ulcers Psych - Normal mood and affect, no depression or anxiety - Assessment and Plan (1) Acute and chronic respiratory failure Current Visit: Yes Status: Resolved Assessment and Plan: Acute and chronic respiratory failure; patient reports that she wears 2 L nasal cannula as needed at home. Has not been hypoxic throughout the stay and is currently on room air History of COPD, presents with acute exacerbation of COPD, etiology unclear; chest x-ray without acute pulmonary process, does not appear to have infectious process Continue treating with DuoNeb's, IV steroids and azithromycin SPO2 monitoring and oxygen supplementation as needed 12/12 - Acute respiratory failure resolved. Now on room air with no respiratory distress. Was likely secondary to COPD exacerbation. Continue supplemental O2 PRN. Taper steroids down to prednisone 40 mg PO BIDWM. Continue nebulizer treatments scheduled and PRN. Continue azithromycin. She has already been discharged, and remains stable today for discharge home pending clearance of social situation. She may not be safe at home and may require ECF placement is what I am told today. Will continue to check in with social work. 12/13 - Remains on room air with PRN 2L NC, which is her baseline. Continue supplemental O2 PRN. Taper steroids down to prednisone 40 mg PO QDWM. Continue nebulizer treatments scheduled and PRN. Continue azithromycin. She has already been discharged, and remains stable today for discharge. [facility] working on ECF placement. 12/14 - Acute failure resolved. Now stable on room air for last 48 hours. Continue supplemental O2 PRN. Continue prednisone 40 mg PO QDWM. Continue nebulizer treatments scheduled and PRN. Continue azithromycin. She has already been discharged, and remains stable today for discharge. [facility] working on ECF placement. 12/15 - Stable on room air. Continue supplemental O2 PRN. Continue prednisone 40 mg PO QDWM. Continue nebulizer treatments scheduled and PRN. Continue azithromycin (day 6 of 7). She has already been discharged, and remains stable today for discharge. [facility] working on ECF placement. (2) COPD with exacerbation Current Visit: Yes Status: Acute Assessment and Plan: Presents with dyspnea, cough productive of clear sputum 1 day History of COPD, chest x-ray negative for acute pulmonary process; hyperinflation secondary to COPD The patient is not hypoxic, afebrile, no leukocytosis Per auscultation patient has been expiratory wheezes throughout Currently resting comfortably without respiratory distress on room air Plan DuoNeb's, IV steroids and azithromycin SPO2 monitoring and oxygen supplementation as needed The patient's respiratory status remained stable overnight consider discharge in the morning, may benefit from azithromycin and oral steroid taper for 4 days at discharge 12/12 - Management as per above. 12/13 - Management as per above. Tapering steroids. 12/14 - Management as per above. Continue steroid taper. 12/15 - Management as per above. (3) Schizophrenia Current Visit: Yes Status: Chronic Assessment and Plan: History of schizophrenia, continue antipsychotics Patient having active visual hallucinations Consult to psychiatry for further recommendations and evaluations--defer to psychiatry for medication dose adjustment Denies any suicidal/homicidal ideation 12/12 - Continue home medications. Psychiatry was consulted and agree with current home regimen. They have signed off. 12/13 - Continue home medications. 12/14 - Continue home medications. 12/15 - Continue home medications. 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 12/13 - Continue nutritional supplementation with meals. 12/14 - Continue nutritional supplementation with meals. 12/15 - Continue nutritional supplementation with meals. (5) Tobacco abuse disorder Current Visit: Yes Status: Chronic Assessment and Plan: Tobacco abuse--reporting a daily pack per day smoker--does not wish to quit at this time, offered nicotine patch, patient declined 12/12 - Counselled again on smoking cessation. 12/13 - Counselled on smoking cessation. 12/14 - Counselled on smoking cessation. 12/15 - Counselled on smoking cessation. (6) Anxiety Current Visit: Yes Status: Chronic Assessment and Plan: Per history, resume anxiolytics 12/12 - Continue home medications. 12/13 - Continue home medications. 12/14 - Continue home medications. 12/15 - Continue home medications. (7) Shingles Current Visit: Yes Status: Acute Assessment and Plan: Start valacyclovir 1000 mg PO TID for 7 days. Added norco 5 mg Q6H PRN severe pain. (8) Heartburn Current Visit: Yes Status: Acute Assessment and Plan: Continue home omeprazole. Added GI cocktail and maalox PRN. (9) DVT prophylaxis Current Visit: Yes Status: Acute Assessment and Plan: Continue SQ heparin. - Time Spent with Patient Total time spent is greater than 50% in coordination of care (as documented) at patient's floor/unit and/or counseling patient: less than 15 minutes Plan of Care Discussed with: patient (Nurse, Pharmacist, Case Management) Internal Medicine: Result - Labs CBC & Chem 7: 12/15/17 03:43 12/15/17 03:43 Labs: Short CBC 12/15/17 Range/Units 03:43 WBC 6.0 (4.3-11.1) K/mcL Hgb 12.1 (11.5-15.4) g/dL Hct 36.2 (35.3-44.9) % Plt Count 134 L (140-400) K/mcL Neutrophils # 3.9 (1.6-8.9) K/mcL BMP 12/15/17 03:43 Sodium 137 Potassium 4.2 Chloride 99 Carbon Dioxide 33 H BUN 19 Creatinine 0.75 Glucose 98 Calcium 9.1 - ABG Interpretation ABG results: PT/INR, D-dimer PT 11.8 Seconds (9.4-12.1) 12/10/17 09:35 - VTE Documentation of Mechanical Device: Intermittent pneumatic compression device Consult Discharge Plan - Plan Additional Instructions: Follow up with PCP in 2-3 days after discharge. Recheck BMP and CBC at that time. Keep follow up with psychiatry as scheduled. Referrals: NONE,PCP [Primary Care Provider] - Prescriptions: Albuterol Sulfate [Proair Hfa] 1 puff IH Q4HR PRN #1 inh PRN Reason: wheezing, shortness of breath Azithromycin [Zithromax] 500 mg PO DAILY 5 Days #10 tablet Ipratropium/Albuterol Neb [Duoneb] 3 ml IH Q6H PRN #30 vial PRN Reason: Shortness Of Breath predniSONE [PredniSONE] See Taper PO DAILY 16 Days #40 tablet (1) Acute and chronic respiratory failure Qualifiers: Respiratory failure complication: unspecified whether with hypoxia or hypercapnia Qualified Code(s): J96.20 - Acute and chronic respiratory failure, unspecified whether with hypoxia or hypercapnia (3) Schizophrenia Qualifiers: Schizophrenia type: unspecified Qualified Code(s): F20.9 - Schizophrenia, unspecified (7) Shingles Qualifiers: Herpes zoster complications: without complications Qualified Code(s): B02.9 - Zoster without complications
[2017-12-15] MEDS: valACYclovir 500 MG TABLET PO SCH ×3 (11:39→20:07)
[2017-12-15] MEDS: *HR* HYDROcodone/Acet 5/325 mg TABLET PO PRN (16:14)
[2017-12-16] MEDS: *HR* Heparin 5,000 UNIT/ML VIAL SQ SCH (05:07)
[2017-12-16 06:44] LABS: Basophils % 0.1 %; Eosinophils # 0.1 K/mcL (0.0-0.6); Eosinophils % 0.9 %; Hematocrit 36.1 % (35.3-44.9); Hemoglobin 12.1 g/dL (11.5-15.4); Immature Granulocytes % 0.9 % (0-4); Lymphocytes # 1.7 K/mcL (0.6-4.6); Mean Corpuscular HGB Conc 33.5 g/dL (31.6-35.5); Mean Corpuscular Hemoglobin 29.1 pg (28.0-33.3); Mean Corpuscular Volume 86.8 fL (83.0-100.0); Mean Platelet Volume 9.5 fL (9.4-12.4); Monocytes # 0.9 K/mcL (0.0-1.3); Monocytes % 10.2 %; Neutrophils # 6.4 K/mcL (1.6-8.9); Platelet Count 154 K/mcL (140-400); Red Blood Count 4.16 M/mcL (3.82-4.97); Red Cell Distribution Width 14.2 % (11.5-14.5); Segmented Neutrophils % 69.9 %
[2017-12-16 07:03] LABS: BUN/Creatinine Ratio 47 (6-26); Blood Urea Nitrogen 24 mg/dL (8-23); Calcium 8.8 mg/dL (8.6-10.3); Carbon Dioxide 29 mEq/L (23-29); Chloride 98 mEq/L (98-107); Glucose 95 mg/dL (70-105); Osmolality,Calculated 280 (280-300); Potassium 4.4 mEq/L (3.5-5.1); Sodium 133 mEq/L (136-145); eGFR For Non-African Americans > 60 (> 60)
[2017-12-16] MEDS: Budesonide/Formoterol 160/4.5 1 PUFF INH IH SCH (07:38)
[2017-12-16] MEDS: Ipratropium/Albuterol Neb 3 ML IH SCH ×3 (07:38→15:47)
[2017-12-16] MEDS: Azithromycin 250 MG TABLET PO SCH (07:56)
[2017-12-16] MEDS: predniSONE 20 MG TABLET PO SCH (07:56)
[2017-12-16] MEDS: *HR* HYDROcodone/Acet 5/325 mg TABLET PO PRN (07:56)
[2017-12-16] MEDS: Lisinopril 20 MG TABLET PO SCH (07:56)
[2017-12-16] MEDS: Folic Acid 1 MG TABLET PO SCH (07:56)
[2017-12-16] MEDS: hydrOXYzine pamoate 25 MG CAPSULE PO SCH (07:56)
[2017-12-16] MEDS: valACYclovir 500 MG TABLET PO SCH ×2 (07:57→15:41)
[2017-12-16] MEDS: Mag Hydrox/Al Hydrox/Simeth 30 ML UDC PO PRN (07:59)
[2017-12-16] MEDS: ALPRAZolam 0.5 MG TABLET PO PRN (11:37)
[2017-12-16 15:32] VITALS: BP 112/71
--- NOTE | 2017-12-16 16:54 | Discharge Summary ---
Date of Encounter: 12/16/17 Time of Encounter: 16:49 - Discharge Diagnosis (1) COPD with exacerbation Priority: Primary Status: Acute (2) Pulmonary cachexia due to chronic obstructive pulmonary disease Priority: Secondary Status: Chronic (3) Schizophrenia Priority: Secondary Status: Chronic Qualifiers: Schizophrenia type: unspecified Qualified Code(s): F20.9 - Schizophrenia, unspecified (4) Anxiety Priority: Secondary Status: Chronic (5) Acute and chronic respiratory failure Priority: Secondary Status: Resolved Qualifiers: Respiratory failure complication: unspecified whether with hypoxia or hypercapnia Qualified Code(s): J96.20 - Acute and chronic respiratory failure , unspecified whether with hypoxia or hypercapnia (6) Shingles Priority: Secondary Status: Acute Qualifiers: Herpes zoster complications: without complications Qualified Code(s): B02.9 - Zoster without complications (7) Tobacco abuse disorder Priority: Secondary Status: Chronic (8) DVT prophylaxis Priority: Secondary Status: Acute Hospital course: This is the update to discharge summary prepared for Ms. Lopez (a 67 year old female) By Dr. Steel on 12/11/2017. The patient feels good. She is not voicing any particular problems. The pain related to her shingles is under control. Denies difficulty breathing. Denies chest pain. Denies abdominal pain, nausea and vomiting. She has normal urination. Respiratory: Normal breath sounds with no crackles and wheezes bilaterally. CV: Heart is regular with no gallop or murmur. Psychiatric: She follows my comments. She knows her first name, otherwise says she is disoriented. We discharge her to [facility] today. See discharge orders/medications. Discharge discussed with: patient, nurse, social work - Time Spent with Patient Total time spent providing and/or coordinating discharge services: Greater than 30 minutes (40 minutes) - Discharge Medications Prescriptions: Albuterol Sulfate [Proair Hfa] 1 puff IH Q4HR PRN #1 inh PRN Reason: wheezing, shortness of breath HYDROcodone/Acet 5/325 mg [[place] 5-325 mg] 1 tab PO Q6HR PRN 4 Days #12 tablet PRN Reason: Severe Pain Azithromycin [Zithromax] 500 mg PO DAILY 5 Days #10 tablet Ipratropium/Albuterol Neb [Duoneb] 3 ml IH Q6H PRN #30 vial PRN Reason: Shortness Of Breath predniSONE [PredniSONE] See Taper PO DAILY 16 Days #40 tablet Home Medications: Docusate Sodium [Move It Along] 100 mg PO BID 08/19/16 [History] Haloperidol Decanoate [Haldol Decanoate 100] 125 mg IM Q2W 08/19/16 [History] Folic Acid 1 mg PO DAILY 30 Days tablet 11/09/16 [Rx] hydrOXYzine pamoate [HydrOXYzine Pamoate] 25 mg PO BID 01/09/17 [History] Ferrous Sulfate 325 mg PO BID #60 tablet 01/10/17 [Rx] Lisinopril [Zestril] 20 mg PO DAILY #30 tab 01/10/17 [Rx] Pravastatin Sodium [Pravachol] 20 mg PO DAILY #30 01/10/17 [Rx] Fluticasone/Vilanterol [Breo Ellipta 100-25 Mcg INH] 1 puff IH DAILY 02/23/17 [ History] Pantoprazole Sodium [Protonix] 20 mg PO DAILY 02/23/17 [History] ALPRAZolam [Xanax 0.5 MG Tablet] 0.5 mg PO BID PRN 12/10/17 [History] Benztropine Mesylate 2 mg PO BID 12/10/17 [History] Albuterol Sulfate [Proair Hfa] 1 puff IH Q4HR PRN #1 inh 12/11/17 [Rx] Azithromycin [Zithromax] 500 mg PO DAILY 5 Days #10 tablet 12/11/17 [Rx] Ipratropium/Albuterol Neb [Duoneb] 3 ml IH Q6H PRN #30 vial 12/11/17 [Rx] predniSONE [PredniSONE] See Taper PO DAILY 16 Days #40 tablet 12/11/17 [Rx] HYDROcodone/Acet 5/325 mg [[place] 5-325 mg] 1 tab PO Q6HR PRN 4 Days #12 tablet 12/16/17 [Rx] valACYclovir [Valtrex] 1,000 mg PO BID 8 Days #16 tablet 12/16/17 [Rx] Allergies/Adverse Reactions: 3 Allergy/AdvReac Type Severity Reaction Status Date / Time No Known Allergies Allergy Verified 12/03/15 16:32 Date of admission: 12/10/17 11:58 Primary care physician: PCP NONE Consults: 12/10/17 14:11 Consult to Nutrition [CONS] Routine Comment: Consulting Provider: NUTRITION Reason for Dietary Consult: PO Supplementation 12/10/17 14:24 Consult to Psychiatry [CONS] Routine Consulting Provider: Psychiatry Tanya Reason consult: Other Psychosis Other reason and/or additional details: History of schizophrenia, currently experiencing visual hallucinations. Assist with adjusting medications Time Notified: 14:25 Call Completed: Yes 12/12/17 08:39 Consult to Case Management [CONS] Stat Comment: Contact with family for discharge home today. Consult to Docent Coordinator [CONS] Stat Reason for SW Consult: Get in contact with family for discharge home today. Thanks. 12/12/17 09:11 Consult to Physical Therapy [CONS] Routine Comment: Evaluate, develop and implement POC Reason for Consult: pt needs pre-cert for poss ecf Does patient have active BEDREST order?: No Is patient medically & hemodynamically stable?: Yes Discharging clinician: Arias Saenz Anticipated date of discharge: 12/16/17 - Constitutional Vitals: Temp Pulse Resp BP Pulse Ox 98.2 F 95 16 112/71 94 12/16/17 15:28 12/16/17 15:28 12/16/17 15:28 12/16/17 15:28 12/16/17 15:28 General appearance: Present: cooperative, A&O X 1, pleasant, no acute distress, underweight, answers questions appropriately - Patient Status Disposition: Transfer SNF Condition: Good Functional capacity at discharge: independent ambulation Overall status at discharge: patient is back to baseline - Discharge Instructions Follow Up With: NONE,PCP [Primary Care Provider] - Additional Instructions: Keep follow up with psychiatry as scheduled. - Diet and Activity Activity: resume usual activities as tolerated - VTE Documentation of Mechanical Device: Intermittent pneumatic compression device
--- NOTE | 2017-12-16 17:15 | Physician Discharge Referral ---
ExtendedCare Referral Info Transfer To: [facility] Provider in Charge: Severino Saenz Provider in Charge after Transfer: Other (An [facility] physician..) - Diagnosis (1) COPD with exacerbation Priority: Primary Status: Acute (2) Pulmonary cachexia due to chronic obstructive pulmonary disease Priority: Secondary Status: Chronic (3) Schizophrenia Priority: Secondary Status: Chronic (4) Anxiety Priority: Secondary Status: Chronic (5) Acute and chronic respiratory failure Priority: Secondary Status: Resolved (6) Shingles Priority: Secondary Status: Acute (7) Tobacco abuse disorder Priority: Secondary Status: Chronic (8) DVT prophylaxis Priority: Secondary Status: Acute - Transfer Medications Prescriptions: Albuterol Sulfate [Proair Hfa] 1 puff IH Q4HR PRN #1 inh PRN Reason: wheezing, shortness of breath HYDROcodone/Acet 5/325 mg [[place] 5-325 mg] 1 tab PO Q6HR PRN 4 Days #12 tablet PRN Reason: Severe Pain Azithromycin [Zithromax] 500 mg PO DAILY 5 Days #10 tablet Ipratropium/Albuterol Neb [Duoneb] 3 ml IH Q6H PRN #30 vial PRN Reason: Shortness Of Breath predniSONE [PredniSONE] See Taper PO DAILY 16 Days #40 tablet Home Medications: Docusate Sodium [Move It Along] 100 mg PO BID 08/19/16 [History] Haloperidol Decanoate [Haldol Decanoate 100] 125 mg IM Q2W 08/19/16 [History] Folic Acid 1 mg PO DAILY 30 Days tablet 11/09/16 [Rx] hydrOXYzine pamoate [HydrOXYzine Pamoate] 25 mg PO BID 01/09/17 [History] Ferrous Sulfate 325 mg PO BID #60 tablet 01/10/17 [Rx] Lisinopril [Zestril] 20 mg PO DAILY #30 tab 01/10/17 [Rx] Pravastatin Sodium [Pravachol] 20 mg PO DAILY #30 01/10/17 [Rx] Fluticasone/Vilanterol [Breo Ellipta 100-25 Mcg INH] 1 puff IH DAILY 02/23/17 [ History] Pantoprazole Sodium [Protonix] 20 mg PO DAILY 02/23/17 [History] ALPRAZolam [Xanax 0.5 MG Tablet] 0.5 mg PO BID PRN 12/10/17 [History] Benztropine Mesylate 2 mg PO BID 12/10/17 [History] Albuterol Sulfate [Proair Hfa] 1 puff IH Q4HR PRN #1 inh 12/11/17 [Rx] Azithromycin [Zithromax] 500 mg PO DAILY 5 Days #10 tablet 12/11/17 [Rx] Ipratropium/Albuterol Neb [Duoneb] 3 ml IH Q6H PRN #30 vial 12/11/17 [Rx] predniSONE [PredniSONE] See Taper PO DAILY 16 Days #40 tablet 12/11/17 [Rx] HYDROcodone/Acet 5/325 mg [[place] 5-325 mg] 1 tab PO Q6HR PRN 4 Days #12 tablet 12/16/17 [Rx] valACYclovir [Valtrex] 1,000 mg PO BID 8 Days #16 tablet 12/16/17 [Rx] Allergies/Adverse Reactions: 3 Allergy/AdvReac Type Severity Reaction Status Date / Time No Known Allergies Allergy Verified 12/03/15 16:32 - Respiratory Orders None Smoking Cessation: Smoking cessation has been advised. For more information, call the [place] Tobacco Quit Line at 1-399-JJDF-NOW. - Mobility Orders Ambulate - Rehabiliation Orders Rehab Potential: Fair CERTIFICATION: I certify that the transfer of the above named patient to an Extended Care Facility is necessary for the continuing treatment of the diagnosis listed. The above information is true and accurate reflection of patient's current condition. Confidential - Redisclosure prohibited without a patient's written consent.
== END 2017-12-16 17:54 ==
LOC: 2ANU 09:09 → EMEROO 09:09 → SUATTDRO 11:58 → 2ANU 12:42
PROVIDERS: ADMIT Internal Medicine; ATTEND Internal Medicine

== ENCOUNTER 2018-01-01 13:52 | Inpatient (IN) ==
[2018-01-01] MEDS ORDERED: 0.9 % Sodium Chloride 500 ML IVC ONE (14:15)
[2018-01-01] MEDS ORDERED: 0.9 % Sodium Chloride 1,000 ML IVC ONE (14:17)
[2018-01-01] MEDS ORDERED: Isovue-370 500 ML INFUS..BTL IV ONE (14:18)
--- NOTE | 2018-01-01 14:44 | Emergency Department Note ---
Disposition Clinical Impression: Acute and chronic respiratory failure with hypoxia, Elevated troponin, Hospital -acquired pneumonia Atrial fibrillation Qualifiers: Atrial fibrillation type: chronic Qualified Code(s): I48.2 - Chronic atrial fibrillation Disposition: Admitted As Inpatient Condition: Good Forms: ED Satisfaction Letter Time of Disposition: 16:43 General Adult HPI - General Chief complaint: ED Arrhythmia/Palpitations Stated complaint: low bp Time Seen by Provider: 01/01/18 14:03 Source: EMS Mode of arrival: EMS Limitations: no limitations Nursing Notes Reviewed: Yes Vital Signs Reviewed: Yes - History of Present Illness HPI Narrative: Edel Lopez is a 67-yo female patient with PMHx of HTN, HLD, COPD with 2L O2 nasal cannula PRN, chronic respiratory failure, afib, bronchitis, anemia, ovarian cancer, schizophrenia, anxiety, and polysubstance as well as tobacco abuse. She was brought into the ED via EMS from [facility] for hypotension and dyspnea with cough productive of sputum. Patient complains of weakness and cough but refuses to describe any further history, perseverating on her dislike of being sent to the ED and her desire to "go home," also saying that she is too weak to talk. Patient was admitted on 12/10/17 for dyspnea and cough, and treated for COPD exacerbation, recently finishing her course of antibiotics and steroid taper. I have re-performed and reviewed the history documented by the medical student, and I confirm its accuracy except as noted below Patient evaluated by me it is difficult to get a full history and physical from the patient as she is very difficult to understand which is normal for her. Patient says she was feeling palpitations. Patient says that she feels fine she does not feel any nausea or vomiting but has had a cough for the past few days. Patient has not had any sputum production. Patient does have history of an irregular heart rate atrial fibrillation. Onset (ago): hour(s) Pain Scale: 0 Consistency: intermittent Improves with: nothing Worsens with: nothing Associated symptoms: Reports: cough, shortness of breath, weakness - Related Data Home Medications Medication Instructions Recorded Confirmed Docusate Sodium [Move It Along] 100 mg PO BID 08/19/16 12/10/17 Haloperidol Decanoate [Haldol 125 mg IM Q2W 08/19/16 12/10/17 Decanoate 100] hydrOXYzine pamoate [HydrOXYzine 25 mg PO BID 01/09/17 12/10/17 Pamoate] Fluticasone/Vilanterol [Breo 1 puff IH DAILY 02/23/17 12/10/17 Ellipta 100-25 Mcg INH] Pantoprazole Sodium [Protonix] 20 mg PO DAILY 02/23/17 12/10/17 ALPRAZolam [Xanax 0.5 MG Tablet] 0.5 mg PO BID PRN 12/10/17 12/10/17 Benztropine Mesylate 2 mg PO BID 12/10/17 12/10/17 Previous Rx's Medication Instructions Recorded Folic Acid 1 mg PO DAILY 30 Days tablet 11/09/16 Ferrous Sulfate 325 mg PO BID #60 tablet 01/10/17 Lisinopril [Zestril] 20 mg PO DAILY #30 tab 01/10/17 Pravastatin Sodium [Pravachol] 20 mg PO DAILY #30 01/10/17 Albuterol Sulfate [Proair Hfa] 1 puff IH Q4HR PRN #1 inh 12/11/17 Ipratropium/Albuterol Neb [Duoneb] 3 ml IH Q6H PRN #30 vial 12/11/17 predniSONE [PredniSONE] See Taper PO DAILY 16 Days #40 12/11/17 tablet HYDROcodone/Acet 5/325 mg [[place] 1 tab PO Q6HR PRN 4 Days #12 tablet 12/16/17 5-325 mg] valACYclovir [Valtrex] 1,000 mg PO BID 8 Days #16 tablet 12/16/17 Allergies Allergy/AdvReac Type Severity Reaction Status Date / Time No Known Allergies Allergy Verified 12/03/15 16:32 All systems ED: reviewed and negative except as stated. Review of Systems: As Per HPI Limitations: ROS unobtainable due to patients medical condition (patient is short of breath and fatigued, limiting obtainable ROS) Constitutional: Reports: weakness Eyes: Denies: eye pain, eye discharge, vision change Cardiovascular: Reports: dyspnea on exertion Respiratory: Reports: cough, dyspnea, sputum production Gastrointestinal: Denies: abdominal pain, nausea, vomiting, diarrhea, constipation, hematemesis, melena, hematochezia Genitourinary: Denies: dysuria, frequency, hematuria, discharge Musculoskeletal: Denies: back pain, neck pain, arthralgia, myalgia Integumentary: Denies: rash, abrasion, lesions Neurological: Denies: headache, weakness, numbness, paresthesias, confusion, abnormal gait, vertigo Psychiatric: Denies: anxiety, depression, suicidal thoughts, homicidal thoughts , auditory hallucinations, visual hallucinations Endocrine: Denies: fatigue Hematological/Lymphatic: Denies: easy bleeding, easy bruising Allergic/Immunologic: Denies: facial swelling, urticaria Past Medical History - Past Medical History Attestation: Yes The following information was validated with the patient. Source: patient Medical history: Reports: atrial fibrillation, cancer, COPD, hyperlipidemia, hypertension Surgical history: Reports: cancer surgery Psychiatric history: Reports: schizophrenia, previous psychiatric hospitalization - Social History Smoking Status: Current every day smoker Smokeless Tobacco Status: No Alcohol use: Reports: none Drug use: Reports: none Physical Exam - General Limitations: no limitations General appearance: alert, in distress (tachypneic, increased respiratory effort ) - Head Head exam: normal inspection - Eye Eye exam: Present: normal appearance - ENT ENT exam: normal oropharynx - Neck Neck exam: Present: normal inspection, full ROM, trachea midline - Chest Chest inspection: Present: normal inspection, symmetric chest wall rise - Respiratory Respiratory exam: Present: respiratory distress, wheezes (inspiratory wheezes in upper lung ambrocio), accessory muscle use - Cardiovascular Cardiovascular exam: Present: tachycardia, irregular rhythm - Abdominal Exam Abdominal exam: Present: soft, Non-Tender - Neurological Exam Neurological exam: Present: alert, oriented X3 - Skin Skin exam: Present: warm, dry Course Course Narrative: 67-year-old female presented to the emergency department with tachycardia and hypotension. Patient does seem to be in atrial fibrillation when she came here and she is hypotensive we will give a fluid bolus and see if she responds. We will get basic labs including CBC, BMP, troponin, coags. We will get chest x- ray and CT angiogram of her chest. We will also give patient aspirin. - Reevaluation(s) Reevaluation #1: Chest x-ray did show some new findings or possible for pneumonia due to patient' s recent admission to the hospital we will start patient on hospital acquired pneumonia treatment including Levaquin, vancomycin, Zosyn. Time: 15:27 - Consultations Consultation #1: Spoke with the hospitalist Dr. Stafford who agreed to admit the patient to their service. Patient admitted in stable condition Time: 16:35 Vital Signs Temperature 98.2 F 01/01/18 13:55 Pulse Rate 92 01/01/18 13:55 Respiratory Rate 18 01/01/18 13:55 Blood Pressure 80/48 01/01/18 13:55 O2 Sat by Pulse Oximetry 93 01/01/18 13:55 Temperature 98.2 F 01/01/18 13:55 Pulse Rate 120 01/01/18 16:09 Respiratory Rate 20 01/01/18 16:09 Blood Pressure 110/67 01/01/18 16:09 O2 Sat by Pulse Oximetry 98 01/01/18 16:09 Oxygen Delivery Oxygen Delivery Room Air Medical Decision Making - MDM Narrative Medical decision making narrative: 67-year-old female presented to the emergency department with low blood pressure. Patient's original blood pressure was 70 systolic we did give her 1 L fluid bolus which did decrease it to 100/80 patient's tachycardia did get better as it was more in the 110s rather than 150. Patient was in atrial fibrillation and I continued chronically patient is in atrial fibrillation takes medications for it. She is anticoagulated. Patient had a chest x-ray they did show consolidation possible pneumonia so we did CT angiogram of the chest which also showed possible pneumonia but no pulmonary embolism. Due to this and patient's recent admission to the hospital partially 2 weeks ago we felt that possibly acquired pneumonia treatment is needed so patient was started on Zosyn, vancomycin, Levaquin. Patient tolerated this well. Patient did not have a leukocytosis. Patient's urine was still pending at this time. Patient also elevated troponin of 0.05 which is new for her. There are no acute EKG changes. We did give patient aspirin. Due to patient's tachycardia we did give one dose of 5 mg metoprolol IV to help with the heart rate it did mildly help. Patient's blood pressure stayed stable. Patient currently does not have any chest pain at this time. Spoke to the hospitalist who agreed to admit the patient to their service. Patient is admitted in stable condition. Chest X-Ray 01/01/18 14:15 IMPRESSION: Bibasilar opacities which may represent a combination pleural effusion and atelectasis/infiltrate. Mild pulmonary vascular congestion. Follow-up to resolution is recommended. D/ / Jennifer Quevedo MD / Jennifer Quevedo MD Interpreting Provider: Jennifer Quevedo MD Chest CTA 01/01/18 14:18 IMPRESSION: 1. Breathing motion artifact blurs detail. 2. No pulmonary embolism is evident. 3. Bibasilar consolidative changes left greater than right with areas of fibrosis and honeycomb lung formation. Chronic aspiration pneumonitis may have this appearance but this is nonspecific. 4. Mass versus consolidation or rounded atelectasis posterior basal segment right lower lobe. 5. Emphysema. 6. Calcific atherosclerosis aorta and coronary arteries. D/ / Nash Rosa / Nash Rosa Interpreting Provider: Nash Rosa - Medical Records Medical records reviewed: Yes I reviewed the patient's medical records. - Lab Data Lab results reviewed: Yes I reviewed the patient's lab results. Result diagrams: 01/01/18 14:06 01/01/18 14:06 Lab Results 01/01/18 01/01/18 01/01/18 Range/Units 14:06 14:06 14:06 WBC 10.2 (4.3-11.1) K/mcL RBC 4.47 (3.82-4.97) M/mcL Hgb 13.0 (11.5-15.4) g/dL Hct 38.0 (35.3-44.9) % MCV 85.0 (83.0-100.0) fL MCH 29.1 (28.0-33.3) pg MCHC 34.2 (31.6-35.5) g/dL RDW 15.3 H (11.5-14.5) % Plt Count 223 (140-400) K/mcL MPV 9.2 L (9.4-12.4) fL Immature Gran % 0.4 (0-4) % Seg Neutrophils % 86.9 % Lymphocytes % 8.4 % Monocytes % 4.1 % Eosinophils % 0.1 % Basophils % 0.1 % Neutrophils # 8.9 (1.6-8.9) K/mcL Lymphocytes # 0.9 (0.6-4.6) K/mcL Monocytes # 0.4 (0.0-1.3) K/mcL Eosinophils # 0.0 (0.0-0.6) K/mcL Basophils # 0.0 (0.0-0.2) K/mcL PT 10.8 (9.4-12.1) Seconds INR 1.0 APTT 25.0 L (26.0-36.0) Seconds Sodium (136-145) mEq/L Potassium (3.5-5.1) mEq/L Chloride (98-107) mEq/L Carbon Dioxide (23-29) mEq/L BUN (8-23) mg/dL Creatinine (0.60-1.20) mg/dL Est GFR ( Amer) (> 60) Est GFR (Non-Af Amer) (> 60) BUN/Creatinine Ratio (6-26) Glucose (70-105) mg/dL Calculated Osmolality (280-300) Lactic Acid (0.5-2.2) mmol/L Calcium (8.6-10.3) mg/dL Total Bilirubin (0.3-1.0) mg/dL Direct Bilirubin (0.0-0.2) mg/dL Indirect Bilirubin (0.0-1.2) mg/dL AST (13-39) Units/L ALT (7-52) Units/L Alkaline Phosphatase (34-104) Units/L Troponin I (< 0.04) ng/mL B-Natriuretic Peptide (Less than 100) pg/mL Serum Total Protein (6.4-8.9) g/dL Albumin (3.5-5.7) g/dL Globulin (2.4-3.5) g/dL Albumin/Globulin Ratio (1.1-2.2) Lipase (11-82) Units/L 01/01/18 01/01/18 Range/Units 14:06 14:40 WBC (4.3-11.1) K/mcL RBC (3.82-4.97) M/mcL Hgb (11.5-15.4) g/dL Hct (35.3-44.9) % MCV (83.0-100.0) fL MCH (28.0-33.3) pg MCHC (31.6-35.5) g/dL RDW (11.5-14.5) % Plt Count (140-400) K/mcL MPV (9.4-12.4) fL Immature Gran % (0-4) % Seg Neutrophils % % Lymphocytes % % Monocytes % % Eosinophils % % Basophils % % Neutrophils # (1.6-8.9) K/mcL Lymphocytes # (0.6-4.6) K/mcL Monocytes # (0.0-1.3) K/mcL Eosinophils # (0.0-0.6) K/mcL Basophils # (0.0-0.2) K/mcL PT (9.4-12.1) Seconds INR APTT (26.0-36.0) Seconds Sodium 126 L (136-145) mEq/L Potassium 4.3 (3.5-5.1) mEq/L Chloride 92 L (98-107) mEq/L Carbon Dioxide 25 (23-29) mEq/L BUN 21 (8-23) mg/dL Creatinine 0.63 (0.60-1.20) mg/dL Est GFR ( Amer) > 60 (> 60) Est GFR (Non-Af Amer) > 60 (> 60) BUN/Creatinine Ratio 33 H (6-26) Glucose 117 H (70-105) mg/dL Calculated Osmolality 266 L (280-300) Lactic Acid 1.9 (0.5-2.2) mmol/L Calcium 9.1 (8.6-10.3) mg/dL Total Bilirubin 0.6 (0.3-1.0) mg/dL Direct Bilirubin 0.2 (0.0-0.2) mg/dL Indirect Bilirubin 0.4 (0.0-1.2) mg/dL AST 33 (13-39) Units/L ALT 28 (7-52) Units/L Alkaline Phosphatase 48 (34-104) Units/L Troponin I 0.05 H* (< 0.04) ng/mL B-Natriuretic Peptide (Less than 100) pg/mL Serum Total Protein 6.4 (6.4-8.9) g/dL Albumin 3.4 L (3.5-5.7) g/dL Globulin 3.0 (2.4-3.5) g/dL Albumin/Globulin Ratio 1.1 (1.1-2.2) Lipase 10 L (11-82) Units/L - Radiology Data Radiology results reviewed: Yes I reviewed the patient's radiology results. - EKG Data EKG #1 EKG attestation: Yes I reviewed and interpreted this EKG. EKG results narrative: EKG done at 1409 review by myself and the attending shows atrial fibrillation with RVR at a rate of 157, QRS 76, QTC 450 with a normal axis. There is no acute ST changes no acute T-wave changes no other signs of ischemia. No heartstring, hypertrophy, heart strain. No WPW/Brugada/HOCM. This EKG is new for atrial fibrillation when compared with old one done 08/10/2007.
[2018-01-01 14:45] LABS: Basophils % 0.1 %; Eosinophils % 0.1 %; Immature Granulocytes % 0.4 % (0-4); Lymphocytes # 0.9 K/mcL (0.6-4.6); Lymphocytes % 8.4 %; Mean Corpuscular HGB Conc 34.2 g/dL (31.6-35.5); Mean Corpuscular Hemoglobin 29.1 pg (28.0-33.3); Mean Platelet Volume 9.2 fL (9.4-12.4); Monocytes # 0.4 K/mcL (0.0-1.3); Monocytes % 4.1 %; Neutrophils # 8.9 K/mcL (1.6-8.9); Platelet Count 223 K/mcL (140-400); Red Blood Count 4.47 M/mcL (3.82-4.97); Red Cell Distribution Width 15.3 % (11.5-14.5); Segmented Neutrophils % 86.9 %
[2018-01-01 14:48] LABS: Prothrombin Time 10.8 Seconds (9.4-12.1)
[2018-01-01 14:53] LABS: Alanine Aminotransferase 28 Units/L (7-52); Albumin 3.4 g/dL (3.5-5.7); Albumin/Globulin Ratio 1.1 (1.1-2.2); Alkaline Phosphatase 48 Units/L (34-104); Aspartate Amino Transferase 33 Units/L (13-39); BUN/Creatinine Ratio 33 (6-26); Bilirubin,Direct 0.2 mg/dL (0.0-0.2); Bilirubin,Indirect 0.4 mg/dL (0.0-1.2); Bilirubin,Total 0.6 mg/dL (0.3-1.0); Blood Urea Nitrogen 21 mg/dL (8-23); Calcium 9.1 mg/dL (8.6-10.3); Carbon Dioxide 25 mEq/L (23-29); Chloride 92 mEq/L (98-107); Glucose 117 mg/dL (70-105); Lipase 10 Units/L (11-82); Osmolality,Calculated 266 (280-300); Potassium 4.3 mEq/L (3.5-5.1); Sodium 126 mEq/L (136-145); Total Protein 6.4 g/dL (6.4-8.9); eGFR For Non-African Americans > 60 (> 60)
[2018-01-01] MEDS ORDERED: Levofloxacin 750 MG/150 ML 750 MG/150 ML BAG IVPB ONE (14:53)
[2018-01-01] MEDS ORDERED: Piperacillin/Tazobactam 3.375 GM in 0.9 % Sodium Chloride Mini Bag 100 ML IVPB ONE (14:53)
[2018-01-01 14:56] LABS: Troponin I 0.05 ng/mL (< 0.04)
[2018-01-01] MEDS ORDERED: Aspirin 325 MG TABLET PO ONE (15:03)
[2018-01-01] MEDS ORDERED: *HR* Metoprolol 5 MG/5 ML VIAL IVP ONE (16:07)
[2018-01-01 16:30] LABS: Bilirubin,Urine Negative (Negative); Blood,Urine Negative (Negative); Clarity,Urine Clear (Clear); Color,Urine Yellow (Yellow); Glucose,Urine (UA) Normal (Normal); Ketones,Urine Negative (Negative); Leukocyte Esterase,Urine Trace (Negative); Nitrite,Urine Negative (Negative); PH,Urine 6.5 pH Units (5.0-8.0); Protein,Urine Negative (Neg-Trace); Specific Gravity,Urine 1.019 (1.010-1.025); Urobilinogen,Urine Normal (Normal)
[2018-01-01 16:31] LABS: Bacteria,Urine None Seen per hpf (None-Few); Hyaline Casts,Urine None Seen per lpf (None-Few); RBC,Urine 0-3 per hpf (0-3); Squamous Epithelial Cell,Urine Moderate per lpf (None-Few); WBC,Urine 0-3 per hpf (0-3)
--- NOTE | 2018-01-01 16:51 | Emergency Department Note ---
Disposition Clinical Impression: Acute and chronic respiratory failure with hypoxia, Elevated troponin, Hospital -acquired pneumonia Atrial fibrillation Qualifiers: Atrial fibrillation type: unspecified Qualified Code(s): I48.91 - Unspecified atrial fibrillation Disposition: Admitted As Inpatient Referrals: NONE,PCP [Primary Care Provider] - General Adult HPI - General Chief complaint: ED Arrhythmia/Palpitations Stated complaint: low bp Time Seen by Provider: 01/01/18 14:03 Source: EMS Mode of arrival: EMS Limitations: no limitations - History of Present Illness Pain Scale: 0 Improves with: nothing Worsens with: nothing Associated symptoms: Reports: cough, shortness of breath, weakness - Related Data Home Medications Medication Instructions Recorded Confirmed Docusate Sodium [Move It Along] 100 mg PO BID 08/19/16 01/01/18 Haloperidol Decanoate [Haldol 125 mg IM Q2W 08/19/16 01/01/18 Decanoate 100] hydrOXYzine pamoate [HydrOXYzine 25 mg PO BID 01/09/17 01/01/18 Pamoate] Fluticasone/Vilanterol [Breo 1 puff IH DAILY 02/23/17 01/01/18 Ellipta 100-25 Mcg INH] Pantoprazole Sodium [Protonix] 20 mg PO DAILY 02/23/17 01/01/18 ALPRAZolam [Xanax 0.5 MG Tablet] 0.5 mg PO BID PRN 12/10/17 01/01/18 Benztropine Mesylate 2 mg PO BID 12/10/17 01/01/18 Previous Rx's Medication Instructions Recorded Folic Acid 1 mg PO DAILY 30 Days tablet 11/09/16 Ferrous Sulfate 325 mg PO BID #60 tablet 01/10/17 Lisinopril [Zestril] 20 mg PO DAILY #30 tab 01/10/17 Pravastatin Sodium [Pravachol] 20 mg PO DAILY #30 01/10/17 Albuterol Sulfate [Proair Hfa] 1 puff IH Q4HR PRN #1 inh 12/11/17 Ipratropium/Albuterol Neb [Duoneb] 3 ml IH Q6H PRN #30 vial 12/11/17 predniSONE [PredniSONE] See Taper PO DAILY 16 Days #40 12/11/17 tablet HYDROcodone/Acet 5/325 mg [[place] 1 tab PO Q6HR PRN 4 Days #12 tablet 12/16/17 5-325 mg] valACYclovir [Valtrex] 1,000 mg PO BID 8 Days #16 tablet 12/16/17 Allergies Allergy/AdvReac Type Severity Reaction Status Date / Time No Known Allergies Allergy Verified 12/03/15 16:32 Constitutional: Reports: weakness Eyes: Denies: eye pain, eye discharge, vision change Cardiovascular: Reports: dyspnea on exertion Respiratory: Reports: cough, dyspnea, sputum production Gastrointestinal: Denies: abdominal pain, nausea, vomiting, diarrhea, constipation, hematemesis, melena, hematochezia Genitourinary: Denies: dysuria, frequency, hematuria, discharge Musculoskeletal: Denies: back pain, neck pain, arthralgia, myalgia Integumentary: Denies: rash, abrasion, lesions Neurological: Denies: headache, weakness, numbness, paresthesias, confusion, abnormal gait, vertigo Psychiatric: Denies: anxiety, depression, suicidal thoughts, homicidal thoughts , auditory hallucinations, visual hallucinations Endocrine: Denies: fatigue Hematological/Lymphatic: Denies: easy bleeding, easy bruising Allergic/Immunologic: Denies: facial swelling, urticaria Past Medical History - Past Medical History Medical history: Reports: atrial fibrillation, cancer, COPD, hyperlipidemia, hypertension Surgical history: Reports: cancer surgery Psychiatric history: Reports: schizophrenia, previous psychiatric hospitalization - Social History Smoking Status: Current every day smoker Smokeless Tobacco Status: No Alcohol use: Reports: none Drug use: Reports: none Physical Exam - General Limitations: no limitations General appearance: alert, in distress (tachypneic, increased respiratory effort ) Course Vital Signs Temperature 98.2 F 01/01/18 13:55 Pulse Rate 92 01/01/18 13:55 Respiratory Rate 18 01/01/18 13:55 Blood Pressure 80/48 01/01/18 13:55 O2 Sat by Pulse Oximetry 93 01/01/18 13:55 Temperature 98.2 F 01/01/18 13:55 Pulse Rate 120 01/01/18 16:09 Respiratory Rate 20 01/01/18 16:09 Blood Pressure 110/67 01/01/18 16:09 O2 Sat by Pulse Oximetry 98 01/01/18 16:09 Oxygen Delivery Oxygen Delivery Room Air Medical Decision Making - Lab Data Result diagrams: 01/01/18 14:06 01/01/18 14:06 Lab Results 01/01/18 01/01/18 01/01/18 Range/Units 14:06 14:06 14:06 WBC 10.2 (4.3-11.1) K/mcL RBC 4.47 (3.82-4.97) M/mcL Hgb 13.0 (11.5-15.4) g/dL Hct 38.0 (35.3-44.9) % MCV 85.0 (83.0-100.0) fL MCH 29.1 (28.0-33.3) pg MCHC 34.2 (31.6-35.5) g/dL RDW 15.3 H (11.5-14.5) % Plt Count 223 (140-400) K/mcL MPV 9.2 L (9.4-12.4) fL Immature Gran % 0.4 (0-4) % Seg Neutrophils % 86.9 % Lymphocytes % 8.4 % Monocytes % 4.1 % Eosinophils % 0.1 % Basophils % 0.1 % Neutrophils # 8.9 (1.6-8.9) K/mcL Lymphocytes # 0.9 (0.6-4.6) K/mcL Monocytes # 0.4 (0.0-1.3) K/mcL Eosinophils # 0.0 (0.0-0.6) K/mcL Basophils # 0.0 (0.0-0.2) K/mcL PT 10.8 (9.4-12.1) Seconds INR 1.0 APTT 25.0 L (26.0-36.0) Seconds Sodium (136-145) mEq/L Potassium (3.5-5.1) mEq/L Chloride (98-107) mEq/L Carbon Dioxide (23-29) mEq/L BUN (8-23) mg/dL Creatinine (0.60-1.20) mg/dL Est GFR ( Amer) (> 60) Est GFR (Non-Af Amer) (> 60) BUN/Creatinine Ratio (6-26) Glucose (70-105) mg/dL Calculated Osmolality (280-300) Lactic Acid (0.5-2.2) mmol/L Calcium (8.6-10.3) mg/dL Total Bilirubin (0.3-1.0) mg/dL Direct Bilirubin (0.0-0.2) mg/dL Indirect Bilirubin (0.0-1.2) mg/dL AST (13-39) Units/L ALT (7-52) Units/L Alkaline Phosphatase (34-104) Units/L Troponin I (< 0.04) ng/mL B-Natriuretic Peptide (Less than 100) pg/mL Serum Total Protein (6.4-8.9) g/dL Albumin (3.5-5.7) g/dL Globulin (2.4-3.5) g/dL Albumin/Globulin Ratio (1.1-2.2) Lipase (11-82) Units/L 01/01/18 01/01/18 Range/Units 14:06 14:40 WBC (4.3-11.1) K/mcL RBC (3.82-4.97) M/mcL Hgb (11.5-15.4) g/dL Hct (35.3-44.9) % MCV (83.0-100.0) fL MCH (28.0-33.3) pg MCHC (31.6-35.5) g/dL RDW (11.5-14.5) % Plt Count (140-400) K/mcL MPV (9.4-12.4) fL Immature Gran % (0-4) % Seg Neutrophils % % Lymphocytes % % Monocytes % % Eosinophils % % Basophils % % Neutrophils # (1.6-8.9) K/mcL Lymphocytes # (0.6-4.6) K/mcL Monocytes # (0.0-1.3) K/mcL Eosinophils # (0.0-0.6) K/mcL Basophils # (0.0-0.2) K/mcL PT (9.4-12.1) Seconds INR APTT (26.0-36.0) Seconds Sodium 126 L (136-145) mEq/L Potassium 4.3 (3.5-5.1) mEq/L Chloride 92 L (98-107) mEq/L Carbon Dioxide 25 (23-29) mEq/L BUN 21 (8-23) mg/dL Creatinine 0.63 (0.60-1.20) mg/dL Est GFR ( Amer) > 60 (> 60) Est GFR (Non-Af Amer) > 60 (> 60) BUN/Creatinine Ratio 33 H (6-26) Glucose 117 H (70-105) mg/dL Calculated Osmolality 266 L (280-300) Lactic Acid 1.9 (0.5-2.2) mmol/L Calcium 9.1 (8.6-10.3) mg/dL Total Bilirubin 0.6 (0.3-1.0) mg/dL Direct Bilirubin 0.2 (0.0-0.2) mg/dL Indirect Bilirubin 0.4 (0.0-1.2) mg/dL AST 33 (13-39) Units/L ALT 28 (7-52) Units/L Alkaline Phosphatase 48 (34-104) Units/L Troponin I 0.05 H* (< 0.04) ng/mL B-Natriuretic Peptide (Less than 100) pg/mL Serum Total Protein 6.4 (6.4-8.9) g/dL Albumin 3.4 L (3.5-5.7) g/dL Globulin 3.0 (2.4-3.5) g/dL Albumin/Globulin Ratio 1.1 (1.1-2.2) Lipase 10 L (11-82) Units/L Attestation Statement - Attestation Attestation: I examined this patient and my medical decision-making was reviewed with the Resident Physician. I agree with the documented findings, disposition and treatment plan as described except to the extent set forth below. 67 year old female presents to the ED with complaitns of low bp and tachycardia and [facility] at a [facility] and has had multiple hospital admission for various HCAP occurance and has a cough at bedside. She is currenlty 157 atrail fibrillation and I believe that she will likely be fluid responsive to this inthe past, especially since she is hypotenstive. Russel cali has HCAP on CTA of the chest wihtout PE and we have started HCAP therapy and her heart rate has improved from 150s to 120s and she has an elevated troponin which is likley ischemic demand. She will be admitted to medicine
--- NOTE | 2018-01-01 17:51 | Internal Med History&Physical ---
Date of Encounter: 01/01/18 Time of Encounter: 16:00 Internal Medicine - H&P: HPI Chief complaint: Shortness of breath Plans for Post Hospital Care: Transfer Residential Facility History of present illness: Patient is a 66-year-old female with past medical history significant for COPD, chronic hypoxic respiratory failure on home oxygen, hypertension, hyperlipidemia and schizophrenia who presented to the hospital for evaluation of shortness of breath. Patient with a history of schizophrenia therefore very poor historian. In the ER patient found to be tachycardic and hypotensive and was given 1 L bolus. Patient also found to be hyponatremic with a sodium of 126. In addition CT PA of the chest showed bibasilar consolidative changes left greater than right with areas of fibrosis and honeycombing formation to my: Concern for mass versus consolidation and posterior basal segment of right lower lobe. Patient admitted to the medical surgical floor for sepsis secondary healthcare acquired pneumonia. 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, tumor in chest, left ovary removed, right arm fracture repair - Social History Smoking Status: Current every day smoker Smokeless Tobacco Status: No Alcohol use: none Drug use: none - Family History Maternal Grandmother Hx Family Cardiac Disorders: Yes (CAD) Mother Adopted: No Family Member Ethnicity: Non- Living Status: Hx Family Cardiac Disorders: No Hx Family Respiratory Disorders: No Hx Family Cancer: Yes (throat cancer) Hx Family GI Disorders: No Hx Family Endocrine Disorder: Yes (KIDNEY DIS) Hx Family Neuromuscular Disorders: No Hx Family Neurologic Disorders: No Hx Family HEENT Disorders: No Hx Family Autoimmune Disorders: No Internal Medicine - H&P: Meds Docusate Sodium [Move It Along] 100 mg PO BID 08/19/16 [History] Haloperidol Decanoate [Haldol Decanoate 100] 125 mg IM Q2W 08/19/16 [History] Folic Acid 1 mg PO DAILY 30 Days tablet 11/09/16 [Rx] hydrOXYzine pamoate [HydrOXYzine Pamoate] 25 mg PO BID 01/09/17 [History] Ferrous Sulfate 325 mg PO BID #60 tablet 01/10/17 [Rx] Lisinopril [Zestril] 20 mg PO DAILY #30 tab 01/10/17 [Rx] Pravastatin Sodium [Pravachol] 20 mg PO DAILY #30 01/10/17 [Rx] Fluticasone/Vilanterol [Breo Ellipta 100-25 Mcg INH] 1 puff IH DAILY 02/23/17 [ History] Pantoprazole Sodium [Protonix] 20 mg PO DAILY 02/23/17 [History] ALPRAZolam [Xanax 0.5 MG Tablet] 0.5 mg PO BID PRN 12/10/17 [History] Benztropine Mesylate 2 mg PO BID 12/10/17 [History] Albuterol Sulfate [Proair Hfa] 1 puff IH Q4HR PRN #1 inh 12/11/17 [Rx] Ipratropium/Albuterol Neb [Duoneb] 3 ml IH Q6H PRN #30 vial 12/11/17 [Rx] predniSONE [PredniSONE] See Taper PO DAILY 16 Days #40 tablet 12/11/17 [Rx] HYDROcodone/Acet 5/325 mg [[place] 5-325 mg] 1 tab PO Q6HR PRN 4 Days #12 tablet 12/16/17 [Rx] valACYclovir [Valtrex] 1,000 mg PO BID 8 Days #16 tablet 12/16/17 [Rx] 3 Allergy/AdvReac Type Severity Reaction Status Date / Time No Known Allergies Allergy Verified 12/03/15 16:32 ROS unobtainable: other (Schizophrenia) All Systems PM: A 10-system review of systems was performed and is negative for pertinent findings except as documented above in the HPI. - Constitutional Vitals: Temp Pulse Resp BP Pulse Ox 97.9 F 96 18 96/69 95 01/01/18 17:18 01/01/18 17:18 01/01/18 17:18 01/01/18 17:18 01/01/18 17:18 General appearance: Present: no acute distress Exam: See below - Cardiovascular Cardiovascular exam: Present: RRR, +S1, +S2. Absent: diastolic murmur, gallop, rubs, systolic murmur - GI/Abdominal GI/Abdominal exam: Present: normal bowel sounds, soft, no peritoneal signs. Absent: distended, tenderness - Extremities Exam Extremities exam: Absent: pedal edema - Skin Skin exam: Present: normal color Internal Med - H&P Results - Labs CBC & Chem 7: 01/01/18 14:06 01/01/18 14:06 - Assessment and plan (1) Sepsis Current Visit: Yes Status: Acute Assessment and plan: Patient remains hypotensive after 1 L bolus in the ER in addition to tachycardia with infiltrates detected on imaging. Will treat for healthcare acquired pneumonia as below and continue fluid resuscitation Qualifiers: Sepsis type: sepsis due to unspecified organism Qualified Code(s): A41.9 - Sepsis, unspecified organism (2) Hospital-acquired pneumonia Current Visit: Yes Status: Acute Assessment and plan: CT PA of the chest showed bibasilar consolidative changes left greater than right with areas of fibrosis and honeycombing formation with concern for mass versus consolidation and posterior basal segment of right lower lobe. Will initiate coverage for healthcare acquired pneumonia with IV vancomycin, IV Levaquin and IV Zosyn. Will also consult pulmonology due to concerning findings for possible mass versus infiltrate (3) Acute exacerbation of chronic obstructive airways disease Current Visit: No Status: Acute Assessment and plan: Will treat patient was scheduled DuoNeb's and IV Solu-Medrol (4) Elevated troponin Current Visit: Yes Status: Acute Assessment and plan: Patient with elevated troponins at 0.05 but suspect secondary to demand ischemia Will trend serial troponins and monitor on telemetry (5) Hyponatremia Current Visit: Yes Status: Acute Assessment and plan: Patient with serum sodium of 126 Will continue normal saline above for fluid resuscitation and monitor (6) Atrial fibrillation Current Visit: Yes Status: Acute Assessment and plan: Patient with history of A. fib documented in EMR Continue to monitor Qualifiers: Atrial fibrillation type: unspecified Qualified Code(s): I48.91 - Unspecified atrial fibrillation (7) Iron deficiency anemia Current Visit: No Status: Acute Assessment and plan: Continue iron supplementation Qualifiers: Iron deficiency anemia type: other iron deficiency Qualified Code(s): D50.8 - Other iron deficiency anemias (8) Schizophrenia Current Visit: No Status: Chronic Assessment and plan: Continue home medications Qualifiers: Schizophrenia type: undifferentiated schizophrenia Qualified Code(s): F20.3 - Undifferentiated schizophrenia (9) DVT prophylaxis Current Visit: No Status: Acute Assessment and plan: Subcutaneous heparin - Time Spent With Patient Total time spent is greater than 50% in coordination of care (as documented) at patient's floor/unit and/or counseling patient:
[2018-01-01] MEDS ORDERED: Naloxone 0.4 MG/ML INJ IVP PRN (18:03)
[2018-01-01] MEDS ORDERED: *HR* HYDROcodone/Acet 5/325 mg TABLET PO PRN (18:05)
[2018-01-01] MEDS ORDERED: Ipratropium/Albuterol Neb 3 ML IH PRN (18:05)
[2018-01-01] MEDS ORDERED: HALOPERIDOL DECANOATE IM SCH (18:15)
[2018-01-01 18:43] LABS: Hematocrit 33.5 % (35.3-44.9); Hemoglobin 11.5 g/dL (11.5-15.4); Immature Granulocytes % 0.6 % (0-4); Lymphocytes # 0.7 K/mcL (0.6-4.6); Mean Corpuscular HGB Conc 34.3 g/dL (31.6-35.5); Mean Corpuscular Hemoglobin 29.3 pg (28.0-33.3); Mean Corpuscular Volume 85.5 fL (83.0-100.0); Monocytes # 0.3 K/mcL (0.0-1.3); Monocytes % 3.9 %; Neutrophils # 5.7 K/mcL (1.6-8.9); Platelet Count 189 K/mcL (140-400); Red Blood Count 3.92 M/mcL (3.82-4.97); Red Cell Distribution Width 15.3 % (11.5-14.5); Segmented Neutrophils % 85.5 %
[2018-01-01] MEDS: Ipratropium/Albuterol Neb 3 ML IH SCH ×2 (20:01→23:26)
[2018-01-01] MEDS: hydrOXYzine pamoate 25 MG CAPSULE PO SCH (20:40)
[2018-01-01] MEDS: methylPREDNISolone 125 MG/2 ML VIAL IVP SCH (20:40)
[2018-01-01] MEDS: valACYclovir 500 MG TABLET PO SCH (20:40)
[2018-01-01] MEDS: *HR* Heparin 5,000 UNIT/ML VIAL SQ SCH ×2 (20:41→20:55)
[2018-01-02] MEDS: 0.9 % Sodium Chloride 1,000 ML IVC SCH ×2 (00:46→14:18)
[2018-01-02] MEDS: Piperacillin/Tazobactam 3.375 GM in 0.9 % Sodium Chloride Mini Bag 100 ML IVPB SCH ×3 (00:48→11:19)
[2018-01-02] MEDS: methylPREDNISolone 125 MG/2 ML VIAL IVP SCH ×2 (00:49→11:03)
[2018-01-02] MEDS: Ipratropium/Albuterol Neb 3 ML IH SCH ×5 (03:38→20:16)
[2018-01-02] MEDS: *HR* Heparin 5,000 UNIT/ML VIAL SQ SCH ×3 (05:19→22:49)
[2018-01-02 06:36] LABS: BUN/Creatinine Ratio 31 (6-26); Blood Urea Nitrogen 16 mg/dL (8-23); Calcium 8.5 mg/dL (8.6-10.3); Carbon Dioxide 24 mEq/L (23-29); Chloride 100 mEq/L (98-107); Glucose 136 mg/dL (70-105); Osmolality,Calculated 273 (280-300); Sodium 130 mEq/L (136-145); eGFR For Non-African Americans > 60 (> 60)
[2018-01-02] MEDS: Budesonide/Formoterol 160/4.5 1 PUFF INH IH SCH ×2 (07:54→20:16)
--- NOTE | 2018-01-02 10:36 | Pulmonology Consult Note ---
<TiannaManuel M - Last Filed: 01/02/18 10:39> Date of Encounter: 01/02/18 Medications and Allergies Docusate Sodium [Move It Along] 100 mg PO BID 08/19/16 [History] Haloperidol Decanoate [Haldol Decanoate 100] 125 mg IM Q2W 08/19/16 [History] Folic Acid 1 mg PO DAILY 30 Days tablet 11/09/16 [Rx] hydrOXYzine pamoate [HydrOXYzine Pamoate] 25 mg PO BID 01/09/17 [History] Ferrous Sulfate 325 mg PO BID #60 tablet 01/10/17 [Rx] Lisinopril [Zestril] 20 mg PO DAILY #30 tab 01/10/17 [Rx] Pravastatin Sodium [Pravachol] 20 mg PO DAILY #30 01/10/17 [Rx] Fluticasone/Vilanterol [Breo Ellipta 100-25 Mcg INH] 1 puff IH DAILY 02/23/17 [ History] Pantoprazole Sodium [Protonix] 20 mg PO DAILY 02/23/17 [History] ALPRAZolam [Xanax 0.5 MG Tablet] 0.5 mg PO BID PRN 12/10/17 [History] Benztropine Mesylate 2 mg PO BID 12/10/17 [History] Albuterol Sulfate [Proair Hfa] 1 puff IH Q4HR PRN #1 inh 12/11/17 [Rx] Ipratropium/Albuterol Neb [Duoneb] 3 ml IH Q6H PRN #30 vial 12/11/17 [Rx] predniSONE [PredniSONE] See Taper PO DAILY 16 Days #40 tablet 12/11/17 [Rx] HYDROcodone/Acet 5/325 mg [[place] 5-325 mg] 1 tab PO Q6HR PRN 4 Days #12 tablet 12/16/17 [Rx] valACYclovir [Valtrex] 1,000 mg PO BID 8 Days #16 tablet 12/16/17 [Rx] 3 Allergy/AdvReac Type Severity Reaction Status Date / Time No Known Allergies Allergy Verified 12/03/15 16:32 All Systems: The remainder of the systems were reviewed and are negative Physical Examination Vital Signs: Vital Signs, Last 4 Hours Temp Pulse Resp BP Pulse Ox 01/02/18 07:55 16 97 01/02/18 07:46 16 96 01/02/18 07:09 97.3 F L 91 18 137/92 97 Results - Laboratory Findings CBC and BMP: 01/01/18 18:27 01/02/18 06:04 PT/INR, D-dimer PT 10.8 Seconds (9.4-12.1) 01/01/18 14:06 Abnormal lab findings: Abnormal lab results Hct 33.5 % (35.3-44.9) L 01/01/18 18:27 RDW 15.3 % (11.5-14.5) H 01/01/18 18:27 MPV 9.0 fL (9.4-12.4) L 01/01/18 18: APTT 25.0 Seconds (26.0-36.0) L 01/01/18 14:06 Sodium 130 mEq/L (136-145) L 01/02/18 06:04 Creatinine 0.52 mg/dL (0.60-1.20) L 01/02/18 06:04 BUN/Creatinine Ratio 31 (6-26) H 01/02/18 06:04 Glucose 136 mg/dL (70-105) H 01/02/18 06:04 Calculated Osmolality 273 (280-300) L 01/02/18 06:04 Calcium 8.5 mg/dL (8.6-10.3) L 01/02/18 06:04 Albumin 3.4 g/dL (3.5-5.7) L 01/01/18 14:06 Lipase 10 Units/L (11-82) L 01/01/18 14:06 Ur Leukocyte Esterase Trace (Negative) H 01/01/18 16:04 Ur Squamous Epith Cells Moderate per lpf (None-Few) H 01/01/18 16:04 Ur Culture Indicated? YES (NO) A 01/01/18 16:04 - Clinical Findings Intake & Output: Intake & Output 01/01/18 01/02/18 01/02/18 23:59 07:59 15:59 Output Total 0 / 0 Balance 0 / 1000 Weight 52.6 kg Consult Discharge Plan - Plan Referrals: NONE,PCP [Primary Care Provider] - - Attending Attestation I examined this patient and my medical decision-making was reviewed with the Resident Physician. I agree with the documented findings, disposition and treatment plan as described except to the extent set forth below. Patient seen and examined. Labs, radiology, chart personally reviewed. 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 Patient is on broad-spectrum antibiotics and follow- up culture and tailor antibiotics based on the result of the culture. Speech pathology evaluation would be helpful. Continue bronchodilators.. If patient did not have pulmonary function test as outpatient recently, would recommend that. Patient may benefit from bronchoscopy if no improvement. Interim is improving with IV fluid which suggesting hypovolemic hyponatremia. Patient would do best index around 17 and need to reduce systemic steroid dose. <Roger Aguilar - Last Filed: 01/02/18 14:41> Date of Encounter: 01/02/18 Time of Encounter: 09:35 Assessment and Plan (1) Pneumonia Current Visit: Yes Status: Acute CT chest suggestive of bilateral lower lobe infiltrates Pt lives in SNF May have some component of aspiration pneumonia, recommend speech therapy eval pt normothermic at this time No tachypnea No tachycardia at this time WBC 6.6 on admission yesterday Continue empiric abx for HCAP with Levaquin, Zosyn, and Vanc Await culture results and can tailor abx further Qualifiers: Pneumonia type: aspiration pneumonia Aspiration pneumonia type: unspecified Laterality: bilateral Lung location: lower lobe of lung Qualified Code(s): J69.0 - Pneumonitis due to inhalation of food and vomit (2) COPD with exacerbation Current Visit: No Status: Acute no tachypnea O2 sat 97% on 2lpm via NC Continue Duonebs and Symbicort. Discontinued albuterol nebs since already covered with duonebs. Decreased Solumedrol to 40mg BID since pt has small body habitus and BMI 17.6 History of Present Illness Consult date: 01/02/18 Reason for consult: abnormal CXR/CT Chief complaint: shortness of breath History of present illness: Ms. Lopez is a 67F with PMH of COPD, HTN, HLD, and schizophrenia who presented to the ED from her SNF with shortness of breath. Pt normally on 2lpm home O2. CXR revealed bibasilar opacities. CT chest revealed extensive emphysematous changes, and left greater than right honeycombing suggesting fibrosis. There was a focal area in the right lower lobe noted concerning for possible mass or consolidation. During the encounter with this provider, the pt was very reluctant to answer questions. She states she just wants to go home and smoke. Admits to 53 year smoking hx with no thoughts or desire to quit. Admits to chills and some shortness of breath. Denies fever, chest pain, cough, abdominal pain, nausea, or vomiting. 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, tumor in chest, left ovary removed, right arm fracture repair - Social History Smoking Status: Current every day smoker Packs per day: 1 Smokeless Tobacco Status: No Alcohol use: none Drug use: none - Family History Maternal Grandmother Hx Family Cardiac Disorders: Yes (CAD) Mother Adopted: No Family Member Ethnicity: Non- Living Status: Hx Family Cardiac Disorders: No Hx Family Respiratory Disorders: No Hx Family Cancer: Yes (throat cancer) Hx Family GI Disorders: No Hx Family Endocrine Disorder: Yes (KIDNEY DIS) Hx Family Neuromuscular Disorders: No Hx Family Neurologic Disorders: No Hx Family HEENT Disorders: No Hx Family Autoimmune Disorders: No ROS unobtainable: due to mental status All Systems: The remainder of the systems were reviewed and are negative Physical Examination Vital Signs: Vital Signs, Last 4 Hours Temp Pulse Resp BP Pulse Ox 01/02/18 07:55 16 97 01/02/18 07:46 16 96 01/02/18 07:09 97.3 F L 91 18 137/92 97 General appearance: no acute distress, other (uncooperative ) Eyes: nonicteric ENT: oropharynx moist Neck: supple Effort: normal Inspection: normal Auscultation: bilateral: diminished breath sounds Percussion: bilateral: not dull Tactile fremitus: bilateral: normal Cardiovascular: other (tachycardic, irregularly irregular rhythm ) Gastrointestinal: soft, non-tender, non-distended Integumentary: normal Extremities: no cyanosis, no edema, no clubbing, pink and warm Musculoskeletal: no deformities non-focal exam, pupils equal and round depressed Results - Laboratory Findings CBC and BMP: 01/01/18 18:27 01/02/18 06:04 PT/INR, D-dimer PT 10.8 Seconds (9.4-12.1) 01/01/18 14:06 Abnormal lab findings: Abnormal lab results Hct 33.5 % (35.3-44.9) L 01/01/18 18:27 RDW 15.3 % (11.5-14.5) H 01/01/18 18:27 MPV 9.0 fL (9.4-12.4) L 01/01/18 18:27 APTT 25.0 Seconds (26.0-36.0) L 01/01/18 14:06 Sodium 130 mEq/L (136-145) L 01/02/18 06:04 Creatinine 0.52 mg/dL (0.60-1.20) L 01/02/18 06:04 BUN/Creatinine Ratio 31 (6-26) H 01/02/18 06:04 Glucose 136 mg/dL (70-105) H 01/02/18 06:04 Calculated Osmolality 273 (280-300) L 01/02/18 06:04 Calcium 8.5 mg/dL (8.6-10.3) L 01/02/18 06:04 Albumin 3.4 g/dL (3.5-5.7) L 01/01/18 14:06 Lipase 10 Units/L (11-82) L 01/01/18 14:06 Ur Leukocyte Esterase Trace (Negative) H 01/01/18 16:04 Ur Squamous Epith Cells Moderate per lpf (None-Few) H 01/01/18 16:04 Ur Culture Indicated? YES (NO) A 01/01/18 16:04 - Diagnostic Findings Chest x-ray: report reviewed, image reviewed CT scan - chest: report reviewed, image reviewed - Clinical Findings Intake & Output: Intake & Output 01/01/18 01/02/18 01/02/18 23:59 07:59 15:59 Output Total 0 / 0 Balance 0 / 1000 Weight 52.6 kg
[2018-01-02] MEDS: hydrOXYzine pamoate 25 MG CAPSULE PO SCH ×2 (11:00→22:50)
[2018-01-02] MEDS: Lisinopril 20 MG TABLET PO SCH (11:00)
[2018-01-02] MEDS: valACYclovir 500 MG TABLET PO SCH ×2 (11:01→22:49)
[2018-01-02] MEDS: Folic Acid 1 MG TABLET PO SCH (11:02)
[2018-01-02] MEDS ORDERED: Aminoglycoside Consult 1 EACH MC ONE (15:09)
[2018-01-02] MEDS: MethylPREDNISolone 40 MG/ML VIAL IVP SCH (18:30)
[2018-01-02] MEDS: Levofloxacin 750 MG/150 ML 750 MG/150 ML BAG IVPB SCH (18:30)
--- NOTE | 2018-01-02 19:56 | Internal Med Progress Note ---
Hospitalist Progress Note - Encounter Date of Encounter: 01/02/18 Time of Encounter: 11:00 - Subjective Interval History: Patient presented the retirement with shortness of breath and hypotension found to be septic secondary to healthcare acquired pneumonia with COPD exacerbation in addition to hyponatremia. Patient with schizophrenia so not able to give much history about improvement of symptoms. Patient has been afebrile leukocytosis quadrant 2 L of nasal cannula for supplemental oxygenation - Exam Vitals: Temp Pulse Resp BP Pulse Ox 97.6 F 98 16 122/76 98 01/02/18 16:24 01/02/18 16:24 01/02/18 18:30 01/02/18 16:24 01/02/18 18:30 Exam: Gen.: Nonacute distress, alert and oriented 3 ENT: Mucosal membranes moist Respiratory: Lungs are clear to auscultation bilaterally without any wheezing rhonchi or rales Cardiovascular: Normal S1 and S2 regular rate rhythm no murmurs rubs or gallops Abdomen: Soft, nontender and nondistended with positive bowel sounds Extremities: No lower extremity edema Skin: Normal color - Assessment and Plan (1) Hospital-acquired pneumonia Current Visit: Yes Status: Acute Assessment and Plan: CT PA of the chest showed bibasilar consolidative changes left greater than right with areas of fibrosis and honeycombing formation with concern for mass versus consolidation and posterior basal segment of right lower lobe. Will continue coverage for healthcare acquired pneumonia with day 2 of IV vancomycin, IV Levaquin and IV Zosyn. Pulmonology following and appreciate recommendations (2) Acute exacerbation of chronic obstructive airways disease Current Visit: No Status: Acute Assessment and Plan: Will continue scheduled DuoNeb's and IV Solu-Medrol (3) Hyponatremia Current Visit: Yes Status: Acute Assessment and Plan: Serum sodium slowly improving from 126 on admission to 130 this morning Continue current management with normal saline IV fluids for slow correction (4) Sepsis Current Visit: Yes Status: Acute Assessment and Plan: Resolved; continue management as above (5) Elevated troponin Current Visit: Yes Status: Acute Assessment and Plan: Resolved; suspect secondary to demand ischemia due to sepsis is now resolved as above (6) Atrial fibrillation Current Visit: Yes Status: Acute Assessment and Plan: Patient with history of A. fib documented in EMR Continue to monitor (7) Iron deficiency anemia Current Visit: No Status: Acute Assessment and Plan: Continue iron supplementation (8) Schizophrenia Current Visit: No Status: Chronic Assessment and Plan: Continue home medications (9) DVT prophylaxis Current Visit: No Status: Acute Assessment and Plan: Subcutaneous heparin - Time Spent with Patient Total time spent is greater than 50% in coordination of care (as documented) at patient's floor/unit and/or counseling patient: Internal Medicine: Result - Labs CBC & Chem 7: 01/01/18 18:27 01/02/18 06:04 Labs: BMP 01/02/18 06:04 Sodium 130 L Potassium 4.0 Chloride 100 Carbon Dioxide 24 BUN 16 Creatinine 0.52 L Glucose 136 H Calcium 8.5 L Cardiac Enzymes 01/02/18 01/02/18 Range/Units 00:18 06:04 Troponin I 0.04 H* < 0.03 (< 0.04) ng/mL - ABG Interpretation ABG results: PT/INR, D-dimer PT 10.8 Seconds (9.4-12.1) 01/01/18 14:06 Consult Discharge Plan - Plan Referrals: NONE,PCP [Primary Care Provider] - (4) Sepsis Qualifiers: Sepsis type: sepsis due to unspecified organism Qualified Code(s): A41.9 - Sepsis, unspecified organism (6) Atrial fibrillation Qualifiers: Atrial fibrillation type: unspecified Qualified Code(s): I48.91 - Unspecified atrial fibrillation (7) Iron deficiency anemia Qualifiers: Iron deficiency anemia type: other iron deficiency Qualified Code(s): D50.8 - Other iron deficiency anemias (8) Schizophrenia Qualifiers: Schizophrenia type: undifferentiated schizophrenia Qualified Code(s): F20.3 - Undifferentiated schizophrenia
[2018-01-02 20:34] LABS: Hematocrit 29.2 % (35.3-44.9); Immature Granulocytes % 0.4 % (0-4); Lymphocytes # 0.5 K/mcL (0.6-4.6); Lymphocytes % 8.8 %; Mean Corpuscular HGB Conc 33.9 g/dL (31.6-35.5); Mean Corpuscular Hemoglobin 28.7 pg (28.0-33.3); Mean Corpuscular Volume 84.6 fL (83.0-100.0); Monocytes # 0.2 K/mcL (0.0-1.3); Monocytes % 2.9 %; Neutrophils # 4.5 K/mcL (1.6-8.9); Platelet Count 188 K/mcL (140-400); Red Blood Count 3.45 M/mcL (3.82-4.97); Red Cell Distribution Width 15.5 % (11.5-14.5); Segmented Neutrophils % 87.9 %
[2018-01-02 20:35] LABS: Hemoglobin 9.9 g/dL (11.5-15.4)
[2018-01-02 20:53] LABS: BUN/Creatinine Ratio 29 (6-26); Blood Urea Nitrogen 16 mg/dL (8-23); Calcium 8.6 mg/dL (8.6-10.3); Carbon Dioxide 19 mEq/L (23-29); Chloride 102 mEq/L (98-107); Glucose 180 mg/dL (70-105); Osmolality,Calculated 276 (280-300); Potassium 3.9 mEq/L (3.5-5.1); Sodium 130 mEq/L (136-145); eGFR For Non-African Americans > 60 (> 60)
[2018-01-03] MEDS: Ipratropium/Albuterol Neb 3 ML IH SCH ×7 (00:03→23:31)
[2018-01-03] MEDS: Piperacillin/Tazobactam 3.375 GM in 0.9 % Sodium Chloride Mini Bag 100 ML IVPB SCH ×4 (02:47→17:32)
[2018-01-03] MEDS: *HR* Heparin 5,000 UNIT/ML VIAL SQ SCH ×3 (06:38→20:57)
[2018-01-03] MEDS: MethylPREDNISolone 40 MG/ML VIAL IVP SCH ×2 (06:38→16:27)
[2018-01-03] MEDS: Budesonide/Formoterol 160/4.5 1 PUFF INH IH SCH ×2 (07:41→20:09)
[2018-01-03] MEDS: valACYclovir 500 MG TABLET PO SCH ×2 (09:08→20:57)
[2018-01-03] MEDS: hydrOXYzine pamoate 25 MG CAPSULE PO SCH ×2 (09:08→20:57)
[2018-01-03] MEDS: Folic Acid 1 MG TABLET PO SCH (09:10)
[2018-01-03] MEDS: Lisinopril 20 MG TABLET PO SCH (09:10)
--- NOTE | 2018-01-03 09:38 | Internal Med Progress Note ---
Hospitalist Progress Note - Encounter Date of Encounter: 01/03/18 Time of Encounter: 11:00 - Subjective Interval History: Patient presented the half-way with shortness of breath and hypotension found to be septic secondary to healthcare acquired pneumonia with COPD exacerbation in addition to hyponatremia. Patient with schizophrenia so not able to give much history about improvement of symptoms. Patient has been afebrile leukocytosis quadrant 2 L of nasal cannula for supplemental oxygenation Informed by nursing staff that patient requires insurance authorization to be sent back to [facility] and due to the holiday will not be initiated until 01/06/18 - Exam Vitals: Temp Pulse Resp BP Pulse Ox 98.3 F 103 18 135/93 97 01/03/18 04:00 01/03/18 04:00 01/03/18 07:41 01/03/18 04:00 01/03/18 07:41 Exam: Gen.: Nonacute distress, alert and oriented 3 ENT: Mucosal membranes moist Respiratory: Lungs are clear to auscultation bilaterally without any wheezing rhonchi or rales Cardiovascular: Normal S1 and S2 regular rate rhythm no murmurs rubs or gallops Abdomen: Soft, nontender and nondistended with positive bowel sounds Extremities: No lower extremity edema Skin: Normal color - Assessment and Plan (1) Hospital-acquired pneumonia Current Visit: Yes Status: Acute Assessment and Plan: CT PA of the chest showed bibasilar consolidative changes left greater than right with areas of fibrosis and honeycombing formation with concern for mass versus consolidation and posterior basal segment of right lower lobe. Will continue coverage for healthcare acquired pneumonia with day 3 of IV vancomycin, IV Levaquin and IV Zosyn. Pulmonology following and appreciate recommendations (2) Acute exacerbation of chronic obstructive airways disease Current Visit: No Status: Acute Assessment and Plan: Will continue scheduled DuoNeb's and IV Solu-Medrol (3) Hyponatremia Current Visit: Yes Status: Acute Assessment and Plan: Resolved; will discontinue IV fluids (4) Sepsis Current Visit: Yes Status: Acute Assessment and Plan: Resolved; continue management as above (5) Elevated troponin Current Visit: Yes Status: Acute Assessment and Plan: Resolved; suspect secondary to demand ischemia due to sepsis is now resolved as above (6) Atrial fibrillation Current Visit: Yes Status: Acute Assessment and Plan: Patient with history of A. fib documented in EMR Continue to monitor (7) Iron deficiency anemia Current Visit: No Status: Acute Assessment and Plan: Continue iron supplementation (8) Schizophrenia Current Visit: No Status: Chronic Assessment and Plan: Continue home medications (9) DVT prophylaxis Current Visit: No Status: Acute Assessment and Plan: Subcutaneous heparin - Time Spent with Patient Total time spent is greater than 50% in coordination of care (as documented) at patient's floor/unit and/or counseling patient: Internal Medicine: Result - Labs CBC & Chem 7: 01/03/18 10:12 01/03/18 10:13 Labs: Short CBC 01/02/18 Range/Units 20:08 WBC 5.1 (4.3-11.1) K/mcL Hgb 9.9 L D (11.5-15.4) g/dL Hct 29.2 L (35.3-44.9) % Plt Count 188 (140-400) K/mcL Neutrophils # 4.5 (1.6-8.9) K/mcL BMP 01/02/18 20:08 Sodium 130 L Potassium 3.9 Chloride 102 Carbon Dioxide 19 L BUN 16 Creatinine 0.56 L Glucose 180 H Calcium 8.6 - ABG Interpretation ABG results: PT/INR, D-dimer PT 10.8 Seconds (9.4-12.1) 01/01/18 14:06 Consult Discharge Plan - Plan Referrals: NONE,PCP [Primary Care Provider] - (4) Sepsis Qualifiers: Sepsis type: sepsis due to unspecified organism Qualified Code(s): A41.9 - Sepsis, unspecified organism (6) Atrial fibrillation Qualifiers: Atrial fibrillation type: unspecified Qualified Code(s): I48.91 - Unspecified atrial fibrillation (7) Iron deficiency anemia Qualifiers: Iron deficiency anemia type: other iron deficiency Qualified Code(s): D50.8 - Other iron deficiency anemias (8) Schizophrenia Qualifiers: Schizophrenia type: undifferentiated schizophrenia Qualified Code(s): F20.3 - Undifferentiated schizophrenia
[2018-01-03 10:32] LABS: Basophils % 0.1 %; Hematocrit 31.4 % (35.3-44.9); Lymphocytes # 0.6 K/mcL (0.6-4.6); Lymphocytes % 7.4 %; Mean Corpuscular Hemoglobin 29.5 pg (28.0-33.3); Mean Corpuscular Volume 84.2 fL (83.0-100.0); Mean Platelet Volume 9.5 fL (9.4-12.4); Monocytes # 0.7 K/mcL (0.0-1.3); Monocytes % 7.9 %; Neutrophils # 6.9 K/mcL (1.6-8.9); Platelet Count 193 K/mcL (140-400); Red Blood Count 3.73 M/mcL (3.82-4.97); Red Cell Distribution Width 15.3 % (11.5-14.5); Segmented Neutrophils % 82.6 %
[2018-01-03 11:24] LABS: BUN/Creatinine Ratio 20 (6-26); Blood Urea Nitrogen 14 mg/dL (8-23); Calcium 9.2 mg/dL (8.6-10.3); Carbon Dioxide 20 mEq/L (23-29); Chloride 107 mEq/L (98-107); Glucose 113 mg/dL (70-105); Osmolality,Calculated 287 (280-300); Potassium 4.3 mEq/L (3.5-5.1); Sodium 138 mEq/L (136-145); eGFR For Non-African Americans > 60 (> 60)
[2018-01-03] MEDS: Levofloxacin 750 MG/150 ML 750 MG/150 ML BAG IVPB SCH (16:27)
[2018-01-03] MEDS: ALPRAZolam 0.5 MG TABLET PO PRN (20:59)
[2018-01-03] MEDS ORDERED: *HR* Metoprolol 5 MG/5 ML VIAL IVP ONE (21:52)
[2018-01-04] MEDS: Piperacillin/Tazobactam 3.375 GM in 0.9 % Sodium Chloride Mini Bag 100 ML IVPB SCH ×3 (01:32→18:25)
[2018-01-04] MEDS: Ipratropium/Albuterol Neb 3 ML IH SCH ×6 (03:54→23:45)
[2018-01-04] MEDS: *HR* Heparin 5,000 UNIT/ML VIAL SQ SCH ×3 (05:48→21:52)
[2018-01-04] MEDS: MethylPREDNISolone 40 MG/ML VIAL IVP SCH ×2 (05:48→18:25)
[2018-01-04] MEDS: Budesonide/Formoterol 160/4.5 1 PUFF INH IH SCH ×2 (07:34→20:12)
[2018-01-04] MEDS: valACYclovir 500 MG TABLET PO SCH ×2 (07:55→21:52)
[2018-01-04] MEDS: hydrOXYzine pamoate 25 MG CAPSULE PO SCH ×2 (07:55→21:52)
[2018-01-04] MEDS: Lisinopril 20 MG TABLET PO SCH (07:56)
[2018-01-04] MEDS: Folic Acid 1 MG TABLET PO SCH (07:56)
--- NOTE | 2018-01-04 08:50 | Internal Med Progress Note ---
Hospitalist Progress Note - Encounter Date of Encounter: 01/04/18 Time of Encounter: 11:00 - Subjective Interval History: Patient presented the alf with shortness of breath and hypotension found to be septic secondary to healthcare acquired pneumonia with COPD exacerbation in addition to hyponatremia. Informed by nursing staff that patient requires insurance authorization to be sent back to [facility] and due to the holiday will not be initiated until 01/06/18 Patient with schizophrenia so not able to give much history about improvement of symptoms. Patient has been afebrile leukocytosis quadrant 2 L of nasal cannula for supplemental oxygenation Informed by the nurse on the morning of 01/04/18 that patient has had elevated heart rates overnight and continues this morning Patient does have a history of A. fib so stat EKG was ordered which revealed atrial fibrillation with RVR - Exam Vitals: Temp Pulse Resp BP Pulse Ox 98.3 F 101 16 134/95 95 01/04/18 07:15 01/04/18 07:15 01/04/18 07:15 01/04/18 07:15 01/04/18 07:15 Exam: Gen.: Nonacute distress, alert and oriented 3 ENT: Mucosal membranes moist Respiratory: Lungs are clear to auscultation bilaterally without any wheezing rhonchi or rales Cardiovascular: Normal S1 and S2 regular rate rhythm no murmurs rubs or gallops Abdomen: Soft, nontender and nondistended with positive bowel sounds Extremities: No lower extremity edema Skin: Normal color - Assessment and Plan (1) Hospital-acquired pneumonia Current Visit: Yes Status: Acute Assessment and Plan: CT PA of the chest showed bibasilar consolidative changes left greater than right with areas of fibrosis and honeycombing formation with concern for mass versus consolidation and posterior basal segment of right lower lobe. Will continue coverage for healthcare acquired pneumonia with day 4 of IV vancomycin, IV Levaquin and IV Zosyn. Pulmonology following and appreciate recommendations (2) Acute exacerbation of chronic obstructive airways disease Current Visit: No Status: Acute Assessment and Plan: Will continue scheduled DuoNeb's but de-escalate IV Solu-Medrol to oral prednisone (3) Atrial fibrillation Current Visit: Yes Status: Acute Assessment and Plan: Called by the nurse this morning to inform that patient has had elevated heart rate overnight and persists was morning Stat EKG was ordered which revealed atrial fibrillation with RVR She will be given a Cardizem bolus and place in a Cardizem drip. Will continue to monitor. (4) Hyponatremia Current Visit: Yes Status: Acute Assessment and Plan: Resolved; will discontinue IV fluids (5) Sepsis Current Visit: Yes Status: Acute Assessment and Plan: Resolved; continue management as above (6) Elevated troponin Current Visit: Yes Status: Acute Assessment and Plan: Resolved; suspect secondary to demand ischemia due to sepsis is now resolved as above (7) Iron deficiency anemia Current Visit: No Status: Acute Assessment and Plan: Continue iron supplementation (8) Schizophrenia Current Visit: No Status: Chronic Assessment and Plan: Continue home medications (9) DVT prophylaxis Current Visit: No Status: Acute Assessment and Plan: Subcutaneous heparin - Time Spent with Patient Total time spent is greater than 50% in coordination of care (as documented) at patient's floor/unit and/or counseling patient: Internal Medicine: Result - Labs CBC & Chem 7: 01/04/18 09:14 01/04/18 09:14 Labs: Short CBC 01/03/18 Range/Units 10:12 WBC 8.4 D (4.3-11.1) K/mcL Hgb 11.0 L (11.5-15.4) g/dL Hct 31.4 L (35.3-44.9) % Plt Count 193 (140-400) K/mcL Neutrophils # 6.9 (1.6-8.9) K/mcL BMP 01/03/18 10:13 Sodium 138 Potassium 4.3 Chloride 107 Carbon Dioxide 20 L BUN 14 Creatinine 0.70 Glucose 113 H Calcium 9.2 - ABG Interpretation ABG results: PT/INR, D-dimer PT 10.8 Seconds (9.4-12.1) 01/01/18 14:06 Consult Discharge Plan - Plan Referrals: NONE,PCP [Primary Care Provider] - (3) Atrial fibrillation Qualifiers: Atrial fibrillation type: unspecified Qualified Code(s): I48.91 - Unspecified atrial fibrillation (5) Sepsis Qualifiers: Sepsis type: sepsis due to unspecified organism Qualified Code(s): A41.9 - Sepsis, unspecified organism (7) Iron deficiency anemia Qualifiers: Iron deficiency anemia type: other iron deficiency Qualified Code(s): D50.8 - Other iron deficiency anemias (8) Schizophrenia Qualifiers: Schizophrenia type: undifferentiated schizophrenia Qualified Code(s): F20.3 - Undifferentiated schizophrenia
[2018-01-04 09:34] LABS: Eosinophils % 0.1 %; Hematocrit 32.7 % (35.3-44.9); Hemoglobin 11.3 g/dL (11.5-15.4); Immature Granulocytes % 1.3 % (0-4); Lymphocytes # 0.8 K/mcL (0.6-4.6); Lymphocytes % 10.1 %; Mean Corpuscular HGB Conc 34.6 g/dL (31.6-35.5); Mean Corpuscular Hemoglobin 29.5 pg (28.0-33.3); Mean Corpuscular Volume 85.4 fL (83.0-100.0); Mean Platelet Volume 8.5 fL (9.4-12.4); Monocytes # 0.4 K/mcL (0.0-1.3); Monocytes % 5.8 %; Neutrophils # 6.3 K/mcL (1.6-8.9); Platelet Count 229 K/mcL (140-400); Red Blood Count 3.83 M/mcL (3.82-4.97); Red Cell Distribution Width 15.5 % (11.5-14.5); Segmented Neutrophils % 82.7 %
[2018-01-04 09:48] LABS: BUN/Creatinine Ratio 21 (6-26); Blood Urea Nitrogen 13 mg/dL (8-23); Calcium 8.9 mg/dL (8.6-10.3); Carbon Dioxide 22 mEq/L (23-29); Chloride 99 mEq/L (98-107); Glucose 148 mg/dL (70-105); Osmolality,Calculated 279 (280-300); Potassium 3.7 mEq/L (3.5-5.1); Sodium 133 mEq/L (136-145); eGFR For Non-African Americans > 60 (> 60)
[2018-01-04] MEDS: ALPRAZolam 0.5 MG TABLET PO PRN ×2 (10:32→23:33)
[2018-01-04] MEDS: Levofloxacin 750 MG/150 ML 750 MG/150 ML BAG IVPB SCH (16:50)
[2018-01-05] MEDS: Piperacillin/Tazobactam 3.375 GM in 0.9 % Sodium Chloride Mini Bag 100 ML IVPB SCH ×3 (01:28→17:26)
[2018-01-05] MEDS: Ipratropium/Albuterol Neb 3 ML IH SCH ×5 (04:14→20:23)
[2018-01-05] MEDS: *HR* Heparin 5,000 UNIT/ML VIAL SQ SCH ×3 (06:06→21:38)
[2018-01-05] MEDS: Budesonide/Formoterol 160/4.5 1 PUFF INH IH SCH ×2 (07:39→20:23)
[2018-01-05] MEDS: Folic Acid 1 MG TABLET PO SCH (09:09)
[2018-01-05] MEDS: hydrOXYzine pamoate 25 MG CAPSULE PO SCH ×2 (09:10→21:39)
[2018-01-05] MEDS: valACYclovir 500 MG TABLET PO SCH ×2 (09:10→21:38)
[2018-01-05] MEDS: Lisinopril 20 MG TABLET PO SCH (09:10)
[2018-01-05] MEDS: predniSONE 20 MG TABLET PO SCH (09:10)
--- NOTE | 2018-01-05 09:37 | Internal Med Progress Note ---
Hospitalist Progress Note - Encounter Date of Encounter: 01/05/18 Time of Encounter: 11:00 - Subjective Interval History: Patient presented the group home with shortness of breath and hypotension found to be septic secondary to healthcare acquired pneumonia with COPD exacerbation in addition to hyponatremia. Informed by nursing staff that patient requires insurance authorization to be sent back to [facility] and due to the holiday will not be initiated until 01/06/18 Patient with schizophrenia so not able to give much history about improvement of symptoms. Patient has been afebrile leukocytosis quadrant 2 L of nasal cannula for supplemental oxygenation Patient developed atrial fibrillation with RVR on 01/04/18 and was started on Cardizem drip. This morning on 01/05/18, patient has converted to normal sinus rhythm and Cardizem drip discontinued; echocardiogram pending - Exam Vitals: Temp Pulse Resp BP Pulse Ox 97.9 F 97 17 121/85 93 01/05/18 07:32 01/05/18 07:32 01/05/18 07:32 01/05/18 07:32 01/05/18 07:32 Exam: Gen.: Nonacute distress, alert and oriented 3 ENT: Mucosal membranes moist Respiratory: Lungs are clear to auscultation bilaterally without any wheezing rhonchi or rales Cardiovascular: Normal S1 and S2 regular rate rhythm no murmurs rubs or gallops Abdomen: Soft, nontender and nondistended with positive bowel sounds Extremities: No lower extremity edema Skin: Normal color - Assessment and Plan (1) Hospital-acquired pneumonia Current Visit: Yes Status: Acute Assessment and Plan: CT PA of the chest showed bibasilar consolidative changes left greater than right with areas of fibrosis and honeycombing formation with concern for mass versus consolidation and posterior basal segment of right lower lobe. Will continue coverage for healthcare acquired pneumonia with day 6 of 7 with IV vancomycin, IV Levaquin and IV Zosyn. (2) Acute exacerbation of chronic obstructive airways disease Current Visit: No Status: Acute Assessment and Plan: Will continue scheduled DuoNeb's and oral prednisone (3) Atrial fibrillation with RVR Current Visit: Yes Status: Acute Assessment and Plan: Patient developed new onset of atrial fibrillation with RVR on 01/04/18 and was started on Cardizem drip This morning on 01/05/18 patient converted to normal sinus rhythm therefore Cardizem drip was discontinued Echocardiogram pending (4) Hyponatremia Current Visit: Yes Status: Acute Assessment and Plan: Resolved; will discontinue IV fluids (5) Sepsis Current Visit: Yes Status: Acute Assessment and Plan: Resolved; continue management as above (6) Elevated troponin Current Visit: Yes Status: Acute Assessment and Plan: Resolved; suspect secondary to demand ischemia due to sepsis is now resolved as above (7) Iron deficiency anemia Current Visit: No Status: Acute Assessment and Plan: Continue iron supplementation (8) Schizophrenia Current Visit: No Status: Chronic Assessment and Plan: Continue home medications (9) DVT prophylaxis Current Visit: No Status: Acute Assessment and Plan: Subcutaneous heparin - Time Spent with Patient Total time spent is greater than 50% in coordination of care (as documented) at patient's floor/unit and/or counseling patient: Internal Medicine: Result - Labs CBC & Chem 7: 01/05/18 09:49 01/05/18 09:49 Labs: Short CBC 01/04/18 Range/Units 09:14 WBC 7.6 (4.3-11.1) K/mcL Hgb 11.3 L (11.5-15.4) g/dL Hct 32.7 L (35.3-44.9) % Plt Count 229 (140-400) K/mcL Neutrophils # 6.3 (1.6-8.9) K/mcL BMP 01/04/18 09:14 Sodium 133 L Potassium 3.7 Chloride 99 Carbon Dioxide 22 L BUN 13 Creatinine 0.61 Glucose 148 H Calcium 8.9 - ABG Interpretation ABG results: PT/INR, D-dimer PT 10.8 Seconds (9.4-12.1) 01/01/18 14:06 Consult Discharge Plan - Plan Referrals: NONE,PCP [Primary Care Provider] - (5) Sepsis Qualifiers: Sepsis type: sepsis due to unspecified organism Qualified Code(s): A41.9 - Sepsis, unspecified organism (7) Iron deficiency anemia Qualifiers: Iron deficiency anemia type: other iron deficiency Qualified Code(s): D50.8 - Other iron deficiency anemias (8) Schizophrenia Qualifiers: Schizophrenia type: undifferentiated schizophrenia Qualified Code(s): F20.3 - Undifferentiated schizophrenia
[2018-01-05 10:08] LABS: Basophils % 0.1 %; Hematocrit 33.6 % (35.3-44.9); Hemoglobin 11.3 g/dL (11.5-15.4); Immature Granulocytes % 2.6 % (0-4); Lymphocytes # 0.8 K/mcL (0.6-4.6); Lymphocytes % 9.5 %; Mean Corpuscular HGB Conc 33.6 g/dL (31.6-35.5); Mean Corpuscular Hemoglobin 28.8 pg (28.0-33.3); Mean Corpuscular Volume 85.7 fL (83.0-100.0); Mean Platelet Volume 8.4 fL (9.4-12.4); Monocytes # 0.5 K/mcL (0.0-1.3); Monocytes % 6.3 %; Neutrophils # 6.8 K/mcL (1.6-8.9); Platelet Count 286 K/mcL (140-400); Red Blood Count 3.92 M/mcL (3.82-4.97); Segmented Neutrophils % 81.5 %
[2018-01-05 10:33] LABS: BUN/Creatinine Ratio 33 (6-26); Blood Urea Nitrogen 18 mg/dL (8-23); Calcium 9.2 mg/dL (8.6-10.3); Carbon Dioxide 23 mEq/L (23-29); Chloride 98 mEq/L (98-107); Glucose 168 mg/dL (70-105); Osmolality,Calculated 284 (280-300); Potassium 3.7 mEq/L (3.5-5.1); Sodium 134 mEq/L (136-145); eGFR For Non-African Americans > 60 (> 60)
--- NOTE | 2018-01-05 12:12 | Electrocardiograph Report ---
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
[2018-01-05] MEDS: Levofloxacin 750 MG/150 ML 750 MG/150 ML BAG IVPB SCH (17:21)
[2018-01-06] MEDS: Ipratropium/Albuterol Neb 3 ML IH SCH ×6 (00:04→19:44)
[2018-01-06] MEDS: Piperacillin/Tazobactam 3.375 GM in 0.9 % Sodium Chloride Mini Bag 100 ML IVPB SCH ×2 (01:22→10:30)
--- NOTE | 2018-01-06 02:29 | Event Note ---
Date of Encounter: 01/06/18 Time of Encounter: 02:28 I received page from RN that patient admitted for A fib with RVR was tachycardia but other chacon asymptomatic. Patient denies chest pain or shortness of breath. Cardiac : Tachycardic Lungs: CTAB Extremities; no pedal edema, pulses intact EKG showed A fib with RVR. Restarted cardizem drip with 20mg bolus
[2018-01-06] MEDS: *HR* Heparin 5,000 UNIT/ML VIAL SQ SCH ×3 (06:36→21:41)
[2018-01-06] MEDS: Budesonide/Formoterol 160/4.5 1 PUFF INH IH SCH ×2 (07:41→19:45)
[2018-01-06] MEDS: Folic Acid 1 MG TABLET PO SCH (10:29)
[2018-01-06] MEDS: Lisinopril 20 MG TABLET PO SCH (10:29)
[2018-01-06] MEDS: predniSONE 20 MG TABLET PO SCH (10:29)
[2018-01-06] MEDS: hydrOXYzine pamoate 25 MG CAPSULE PO SCH ×2 (10:29→21:41)
[2018-01-06] MEDS: valACYclovir 500 MG TABLET PO SCH (10:29)
--- NOTE | 2018-01-06 11:46 | Cardiology Consult Note ---
<Sondra Kurtz - Last Filed: 01/06/18 13:39> Date of Encounter: 01/06/18 Time of Encounter: 11:30 Assessment and Plan (1) Atrial fibrillation Status: Acute Atrial fibrillation in the setting of sepsis, HCAP. Unclear chronicity. Patient reports hx of "irregular heart rhythm," however noted to be poor historian. Currently rate controlled on IV cardizem gtt at 7.5 mg/hr; will transition to PO. Ideally avoid BB d/t severe COPD. Recommend rate control strategy with goal HR less than 100. Presented with acute hyponatremia, now improved. Check TSH. TTE shows preserved LVEF. CHA2Ds Vasc= 3 (female, HTN, age). Given mental status, schizophrenia, ? compliance, patient does not appear to be a good candidate for AC. Discussion with Dr. Astorga, will start asa and plavix for CVA prevention. Qualifiers: Atrial fibrillation type: unspecified Qualified Code(s): I48.91 - Unspecified atrial fibrillation Discussion w patient/family: The assessment and plan as outlined above was discussed with the patient and/or family members who expressed understanding and agreement. All questions were answered. Thank you for involving us in the care of your patient. Please call with any questions. The patient will be discussed and reviewed with Dr. Astorga; changes to be made accordingly. History of Present Illness Consult date: 01/06/18 Requesting physician: Dewayne Johnson Consult reason: Afib with RVR Chief complaint: Shortness of breath History of present illness: Ms. Lopez is a 67 year old female with PMHx significant for COPD, tobacco dependency, prior GI bleed, and schizophrenia who presented to the ED with complaints of shortness of breath; please note history/HPI difficult to obtain d /t mental status (hx of schizophrenia). Upon arrival to ED, she was felt to have sepsis secondary to HCAP. Also with COPD exacerbation and hyponatremia. She has been hospitalized for several days, reportedly awaiting SNF placement. Cardiology consulted overnight for atrial fibrillation with RVR. Appears to have developed afib yesterday, then converted to NSR. Patient has no new complaints today upon exam. Of note, patient does report history of "irregular heart rhythm." Past Med Surg Social Fam HX - Past Medical History Attestation: Yes The following information was validated with the patient. Source: patient Medical history: atrial fibrillation, cancer, COPD, hyperlipidemia, hypertension Additional medical history: bed bug infestation at home Psychiatric history: schizophrenia, previous psychiatric hospitalization - Past Surgical History Surgical History: cancer surgery Additional surgical history: tumor removed from left ovary, tumor in chest, left ovary removed, right arm fracture repair - Social History Smoking Status: Current every day smoker Packs per day: 1 Smokeless Tobacco Status: No Alcohol use: none Drug use: none - Family History Maternal Grandmother Hx Family Cardiac Disorders: Yes (CAD) Mother Adopted: No Family Member Ethnicity: Non- Living Status: Hx Family Cardiac Disorders: No Hx Family Respiratory Disorders: No Hx Family Cancer: Yes (throat cancer) Hx Family GI Disorders: No Hx Family Endocrine Disorder: Yes (KIDNEY DIS) Hx Family Neuromuscular Disorders: No Hx Family Neurologic Disorders: No Hx Family HEENT Disorders: No Hx Family Autoimmune Disorders: No Medications and Allergies Docusate Sodium [Move It Along] 100 mg PO BID 08/19/16 [History] Haloperidol Decanoate [Haldol Decanoate 100] 125 mg IM Q2W 08/19/16 [History] Folic Acid 1 mg PO DAILY 30 Days tablet 11/09/16 [Rx] hydrOXYzine pamoate [HydrOXYzine Pamoate] 25 mg PO BID 01/09/17 [History] Ferrous Sulfate 325 mg PO BID #60 tablet 01/10/17 [Rx] Pravastatin Sodium [Pravachol] 20 mg PO DAILY #30 01/10/17 [Rx] Fluticasone/Vilanterol [Breo Ellipta 100-25 Mcg INH] 1 puff IH DAILY 02/23/17 [ History] Pantoprazole Sodium [Protonix] 20 mg PO DAILY 02/23/17 [History] Benztropine Mesylate 2 mg PO BID 12/10/17 [History] Albuterol Sulfate [Proair Hfa] 1 puff IH Q4HR PRN #1 inh 12/11/17 [Rx] Ipratropium/Albuterol Neb [Duoneb] 3 ml IH Q6H PRN #30 vial 12/11/17 [Rx] ALPRAZolam [Xanax 0.5 MG Tablet] 0.5 mg PO BID PRN 5 Days #10 tablet 01/07/18 [ Rx] Aspirin Enteric Coated [Aspirin EC] 81 mg PO DAILY tablet. 01/07/18 [Rx] Clopidogrel [Plavix] 75 mg PO DAILY tablet 01/07/18 [Rx] Diltiazem CD (24hr) [Cardizem CD] 180 mg PO DAILY cap.er.24h 01/07/18 [Rx] Lisinopril [Zestril] 10 mg PO DAILY tablet 01/07/18 [Rx] predniSONE [PredniSONE] See Taper PO DAILY 16 Days #40 tablet 01/07/18 [Rx] 3 Allergy/AdvReac Type Severity Reaction Status Date / Time No Known Allergies Allergy Verified 12/03/15 16:32 ROS unobtainable: due to mental status All Systems Review: The remainder of the systems were reviewed and are negative - Cardiovascular Cardiovascular: as per HPI Physical Examination Vital Signs, Last 4 Hours Temp Pulse Resp BP Pulse Ox 01/06/18 11:30 16 93 01/06/18 10:44 97.7 F 101 16 131/97 97 General: Conversant HEENT: Atraumatic, Normocephaly Cardiac: Other (irregularly irregular) Lungs: Other (decreased) Neuro: Alert and responsive Abdomen: Soft Skin: No rashes noted on visualized skin Musculoskeletal: No Chest Wall Tenderness Extremities: No Edema, Normal Pulses Results 01/05/18 09:49 01/05/18 09:49 Active Medications Hydrocodone Bitart/Acetaminophen ([place] 5-325 Mg) 1 tab PO Q6HR PRN PRN Reason: Severe Pain Stop: 07/03/18 18:06 Albuterol/Ipratropium (Duoneb) 3 ml IH Q6H PRN PRN Reason: Shortness Of Breath Stop: 07/03/18 18:06 Albuterol/Ipratropium (Duoneb) 3 ml IH [id number] [facility] Stop: 07/03/18 20:01 Last Admin: 01/06/18 11:30 Dose: 3 ml Alprazolam (Xanax) 0.5 mg PO BID PRN; Protocol PRN Reason: Anxiety Stop: 07/03/18 18:06 Last Admin: 01/04/18 23:33 Dose: 0.5 mg Benztropine Mesylate (Cogentin) 2 mg PO BID [facility] Stop: 07/03/18 21:01 Last Admin: 01/06/18 10:28 Dose: 2 mg Budesonide/Formoterol Fumarate (Symbicort) 2 puff IH BIDR [facility] Stop: 07/04/18 10:01 Last Admin: 01/06/18 07:41 Dose: 2 puff Calcium Carbonate (Tums) 1,000 mg PO Q4HR PRN; Protocol PRN Reason: Heartburn Stop: 07/04/18 00:58 Last Admin: 01/02/18 05:19 Dose: 1,000 mg Docusate Sodium (Colace) 100 mg PO BID [facility] Stop: 07/03/18 21:01 Last Admin: 01/06/18 10:29 Dose: 100 mg Ferrous Sulfate (Ferrous Sulfate) 325 mg PO BIDWM [facility] Stop: 07/03/18 18:31 Last Admin: 01/06/18 10:28 Dose: 325 mg Folic Acid (Folic Acid) 1 mg PO DAILY [facility] Stop: 07/04/18 09:01 Last Admin: 01/06/18 10:29 Dose: 1 mg Heparin Sodium (Porcine) (Heparin) 5,000 unit SQ Q8HCO [facility] Stop: 07/03/18 22:01 Last Admin: 01/06/18 06:36 Dose: 5,000 unit Hydroxyzine Pamoate (Hydroxyzine Pamoate) 25 mg PO BID [facility] Stop: 07/03/18 21:01 Last Admin: 01/06/18 10:29 Dose: 25 mg Levofloxacin/Dextrose (Levaquin Premix 750mg/150 Ml) 750 mg in 150 mls @ 100 mls/hr IVPB Q24H [facility] PRN Reason: Protocol Stop: 07/04/18 17:01 Last Infusion: 01/05/18 18:51 Dose: Infused Diltiazem HCl 50 mg/ Sodium (Chloride) 50 mls @ 5 mls/hr IVC .Q10H [facility]; 5 MG/HR PRN Reason: Protocol Stop: 07/06/18 09:01 Last Admin: 01/06/18 11:28 Dose: 7.5 mg/hr, 7.5 mls/hr Lisinopril (Zestril) 20 mg PO DAILY [facility] PRN Reason: Protocol Stop: 07/04/18 09:01 Last Admin: 01/06/18 10:29 Dose: 20 mg Naloxone HCl (Narcan) 0.4 mg IVP Q2MIN PRN PRN Reason: SEE COMMENTS Stop: 07/03/18 18:04 Omeprazole (Prilosec) 20 mg PO DAILY [facility] Stop: 07/04/18 09:01 Last Admin: 01/06/18 10:29 Dose: 20 mg Pharmacy Profile Note (Patient Taking Own Medication) 125 each IM Q2W [facility] Stop: 07/03/18 18:16 Last Admin: 01/01/18 20:41 Dose: Not Given Prednisone (Prednisone) 40 mg PO DAILY [facility] Stop: 07/07/18 09:01 Last Admin: 01/06/18 10:29 Dose: 40 mg Simvastatin (Zocor) 10 mg PO HS [facility] Stop: 07/04/18 21:01 Last Admin: 01/05/18 21:39 Dose: 10 mg - Imaging and Cardiology Echo: report reviewed Other Results: 12 hour tele: avg [id number] afib. - EKG Interpretation EKG results cardiology: personally reviewed Consult Discharge Plan - Plan Instructions: Atrial Fibrillation (DC), Chronic Obstructive Pulmonary Disease ( DC) Additional Instructions: F/up with PCP in 1-2 weeks Referrals: NONE,PCP [Primary Care Provider] - Prescriptions: ALPRAZolam [Xanax 0.5 MG Tablet] 0.5 mg PO BID PRN 5 Days #10 tablet PRN Reason: Anxiety <Hernando Astorga Jason - Last Filed: 01/07/18 20:57> Date of Encounter: 01/06/18 Time of Encounter: 12:00 - Attending Attestation I have personally performed a face to face evaluation on this patient. I have reviewed and agree with the care plan. History and Exam by me shows: CC: Palpations HPI: Pt presented to ER with complaints of shortness of breath, productive cough. She is not a reliable historian due to schizpphrenia, fatique, is unable to answer questions concerning past medical history. She admits to her heart racing, denies chest pain or pressure. She notes shortness of breath has improved since hospitalization. ROS: unable to obtain from pt, old records reviewed. PMH: unable to obtain from pt, old records reviewed. PE; pt seen and examined, agree with findings as documented. IMP/Plan: 1. A fib, tranisent, developed last PM, ventricular response rate controlled on IV diltiazem, will change to PO, Pt is not a good candidate for systemic anticoagulation due to non-compliance, difficulty with comprehension, continue on ASA and Plavix only. 2. Pneumonia: responding to IV tx, shortness of breath has improved. 3. Hypertension: adequate controlled on current meds 4. Tobacco abuse: continues to smoke daily, recommend smoking cessation. Assessment and Plan Discussion w patient/family: The assessment and plan as outlined above was discussed with the patient and/or family members who expressed understanding and agreement. All questions were answered. Thank you for involving us in the care of your patient. Please call with any questions. History of Present Illness History of present illness: Ms. Lopez is a 67 year old female All Systems Review: The remainder of the systems were reviewed and are negative Results 01/05/18 09:49 01/05/18 09:49 Lab Results 01/07/18 04:04 TSH 3.350
[2018-01-06] MEDS ORDERED: Haloperidol Decanoate 50 MG/ML VIAL IM ONE (15:42)
[2018-01-06] MEDS: Diltiazem CD (24hr) 180 MG CAPSULE PO SCH (16:05)
[2018-01-06] MEDS: Aspirin Enteric Coated 81 MG Tablet PO SCH (16:06)
[2018-01-06] MEDS: Levofloxacin 750 MG/150 ML 750 MG/150 ML BAG IVPB SCH (16:06)
--- NOTE | 2018-01-06 17:25 | Internal Med Progress Note ---
Hospitalist Progress Note - Encounter Date of Encounter: 01/06/18 Time of Encounter: 11:30 - Subjective Interval History: Patient is unable to provide history due to underlying psychiatric conditions. Able to tell me her name and that she is at [facility]. Denies chest pain, cough, shortness of breath, fever/chills. Keeps repeating that she needs to go to the bank, needs to leave today and help a child. - Exam Vitals: Temp Pulse Resp BP Pulse Ox 98.5 F 98 16 114/78 96 01/06/18 15:32 01/06/18 15:32 01/06/18 15:47 01/06/18 15:32 01/06/18 15:47 Exam: General: cachectic elderly female lying comfortably in bed in no acute distress Skin: Warm and supple Chest: Normal thoracic expansion. Coarse breath sounds. Clear to auscultation. Heart: Normal S1 & S2; irregular rate and rhythm; Abdomen: Non-distended, soft and nontender Extremities: No clubbing, cyanosis or edema. No calf tenderness. Normal distal pulses. Neurological: Awake, alert and oriented to person, place; no focal deficits; has hallucinations and delusions; - Assessment and Plan (1) Atrial fibrillation with RVR Current Visit: Yes Status: Acute Assessment and Plan: Unclear chronicity. Was noted to be in atrial fibrillation with RVR in the setting of sepsis/pneumonia. Has been started on IV Cardizem drip. Cardiology consult appreciated, plan to transition to oral Cardizem. Echocardiogram shows preserved EF, moderate LV dilation, mild TR. Not a good candidate for anticoagulation due to underlying schizophrenia, fall risk, questionable compliance. Started on aspirin and Plavix at this time. Continue telemetry monitoring. (2) DVT prophylaxis Current Visit: Yes Status: Acute (3) Acute exacerbation of chronic obstructive airways disease Current Visit: Yes Status: Acute Assessment and Plan: Improving. Continue enteral steroids, bronchodilators, supplemental oxygen as needed. (4) Schizophrenia Current Visit: Yes Status: Chronic Assessment and Plan: Continue home medications. (5) Iron deficiency anemia Current Visit: Yes Status: Chronic (6) Sepsis Current Visit: Yes Status: Resolved (7) Hyponatremia Current Visit: Yes Status: Resolved (8) Essential hypertension Current Visit: Yes Status: Chronic (9) Pneumonia Current Visit: Yes Status: Acute Assessment and Plan: CT angiogram of chest shows no pulmonary embolism, shows bibasal consolidative changes, chronic aspiration pneumonia? Pulmonology was consulted, currently signed off. Agree with IV antibiotics, bronchodilators, recommended bronchoscopy if no improvement. Blood cultures remained negative. Patient initially received IV Levaquin and Zosyn, will Deescalated to IV Levaquin. Continue supportive care and supplemental oxygen. Bedside swallow evaluation was completed by [employer]IE[employer] MARKETING OFFICER, recommend advanced soft diet. - Time Spent with Patient Total time spent is greater than 50% in coordination of care (as documented) at patient's floor/unit and/or counseling patient: Internal Medicine: Result - Labs CBC & Chem 7: 01/05/18 09:49 01/05/18 09:49 - ABG Interpretation ABG results: PT/INR, D-dimer PT 10.8 Seconds (9.4-12.1) 01/01/18 14:06 - Impressions Impressions Echocardiogram 01/06/18 09:30 Impressions: In Afib with RVR. Normal LV size and function. LVEF= 65%. Normal RV size and function. Moderately dilated LA. Mild TR. CVP 5, RVSP 36, no pulmonary hypertension. Left Ventricular Wall Motion: Rest Echo Findings All wall segments showed normal motion. Findings: Study Quality * Technically adequate exam. ECG Findings * Atrial fibrillation. Left Ventricle * LVEF 65%. * Normal LV chamber size, wall thickness and function. Right Ventricle * Normal right ventricular structure and function. * TAPSE 19mm Left Atrium * Moderately dilated left atrium. Right Atrium * Normal right atrial size. Interatrial Septum * Interatrial septum not well evaluated. Aortic Valve * Trileaflet aortic valve. * Mildly thickened aortic valve leaflets. * No aortic stenosi Mitral Valve * Trace mitral regurgitation. * Normal mitral valve structure. Tricuspid Valve * Normal tricuspid valve structure. * Mild tricuspid regurgitation. * Estimated RVSP is 36 mmHg. * Estimated RA pressure is 5 mmHg. * No pulmonary hypertension. Pulmonic Valve * Normal pulmonic valve structure and function. Aorta * Normally sized aortic root. Pericardium * The pericardium appears normal. IVC * Normal IVC dimensions and inspiratory collapse. Consult Discharge Plan - Plan Referrals: NONE,PCP [Primary Care Provider] - (4) Schizophrenia Qualifiers: Schizophrenia type: undifferentiated schizophrenia Qualified Code(s): F20.3 - Undifferentiated schizophrenia (5) Iron deficiency anemia Qualifiers: Iron deficiency anemia type: other iron deficiency Qualified Code(s): D50.8 - Other iron deficiency anemias (6) Sepsis Qualifiers: Sepsis type: sepsis due to unspecified organism Qualified Code(s): A41.9 - Sepsis, unspecified organism (9) Pneumonia Qualifiers: Pneumonia type: due to unspecified organism Laterality: bilateral Lung location: lower lobe of lung Qualified Code(s): J18.1 - Lobar pneumonia, unspecified organism
[2018-01-06] MEDS: ALPRAZolam 0.5 MG TABLET PO PRN (21:42)
[2018-01-07] MEDS: Ipratropium/Albuterol Neb 3 ML IH SCH ×4 (00:12→11:15)
[2018-01-07] MEDS: *HR* Heparin 5,000 UNIT/ML VIAL SQ SCH ×2 (06:17→14:56)
[2018-01-07] MEDS: Budesonide/Formoterol 160/4.5 1 PUFF INH IH SCH (07:45)
[2018-01-07] MEDS: predniSONE 20 MG TABLET PO SCH (08:32)
[2018-01-07] MEDS: hydrOXYzine pamoate 25 MG CAPSULE PO SCH (08:33)
[2018-01-07] MEDS: Diltiazem CD (24hr) 180 MG CAPSULE PO SCH (08:33)
[2018-01-07] MEDS: Aspirin Enteric Coated 81 MG Tablet PO SCH (08:33)
[2018-01-07] MEDS: Folic Acid 1 MG TABLET PO SCH (08:33)
[2018-01-07] MEDS: Lisinopril 20 MG TABLET PO SCH (08:33)
--- NOTE | 2018-01-07 11:13 | Cardiology Progress Note ---
Date of Encounter: 01/07/18 Time of Encounter: 11:10 Assessment and Plan (1) Atrial fibrillation Current Visit: Yes Status: Acute PAF. A-Fib on admission in the setting of sepsis, HCAP. Unclear chronicity. Patient reports hx of "irregular heart rhythm," however noted to be poor historian. Transitioned to PO Cardizem CD 180mg daily as of yesterday. Ideally avoid BB d/ t severe COPD. Pt now converted back to sinus rhythm. Presented with acute hyponatremia, now improved. TSH WNL. TTE shows preserved LVEF. CHA2Ds Vasc= 3 (female, HTN, age). Given mental status, schizophrenia, ? compliance, patient does not appear to be a good candidate for AC. Discussion with Dr. Astorga, started asa and plavix for CVA prevention. Cardiology signing off. Reconsult PRN. Will coordinate outpt follow-up in 2-3 weeks. Qualifiers: Atrial fibrillation type: paroxysmal Qualified Code(s): I48.0 - Paroxysmal atrial fibrillation Discussion w patient/family: The assessment and plan as outlined above was discussed with the patient and/or family members who expressed understanding and agreement. All questions were answered. Thank you for involving us in the care of your patient. Please call with any questions. I will discuss all the above with Dr. Astorga and make changes as necessary. Subjective Principal diagnosis: PAF Interval history: No acute complaints this AM. Pt has converted to SR. TTE EF preserved. Objective Vital Signs, Last 4 Hours Temp Pulse Resp BP Pulse Ox 01/07/18 07:48 16 91 01/07/18 07:34 97.9 F 94 16 104/69 91 Vital Signs Temp Pulse Resp BP Pulse Ox 01/07/18 07:48 16 91 01/07/18 07:34 97.9 F 94 16 104/69 91 01/07/18 03:48 17 98 01/07/18 01:56 97.7 F 93 16 111/79 98 01/07/18 00:12 17 99 01/06/18 22:07 96 01/06/18 20:20 98.2 F 125 18 121/79 95 01/06/18 19:44 18 95 01/06/18 15:47 16 96 01/06/18 15:32 98.5 F 98 16 114/78 97 01/06/18 11:30 16 93 Intake and Output 01/06/18 01/07/18 01/07/18 23:59 07:59 15:59 Intake Total 530.5 / 530.5 0 / 0 120 / 120 Balance 530.5 / 530.5 0 / 0 120 / 120 Intake: IV Fluids 290.5 / 290.5 Cardizem 50 MG In 0.9 % Sodium 40.5 / 40.5 Chloride 40 ML @ 5 MG/HR 5 mls/ hr IVC .Q10H [facility] Rx#:[id number] Levaquin Premix 750mg/150 mL 150 / 150 750 mg In 150 ml @ 100 mls/hr IVPB Q24H [facility] Rx#:[id number] Zosyn 3.375 GM In 0.9 % Sodium 100 / 100 Chloride (Mini-Bag +) 100 ML @ 25 mls/hr IVPB Q8H [facility] Rx#: [id number] Oral 240 / 240 0 / 0 120 / 120 Other: Meal Dinner Breakfast Percent of Meal Consumed 50% 95% # Voids 0 0 Weight 52 kg 50 kg Patient Weight 01/07/18 23:59 Weight 50 kg General: Conversant, No Apparent Distress HEENT: Atraumatic, Normocephaly, Mucus Membranes Moist Neck: No JVD, Normal carotid pulses Cardiac: Reg Rate and Rhythm, Normal S1 and S2, No Murmur Lungs: Normal Breath Sounds, No Wheeze, Rales, Rhonchi Neuro: Alert and responsive, No focal deficits noted Abdomen: Soft, Non-Tender Skin: No rashes noted on visualized skin Musculoskeletal: No Chest Wall Tenderness Extremities: No Clubbing, No Cyanosis, No Edema, Normal Pulses Results 01/05/18 09:49 01/05/18 09:49 Lab Results 01/07/18 04:04 TSH 3.350 Impressions Echocardiogram 01/06/18 09:30 Impressions: In Afib with RVR. Normal LV size and function. LVEF= 65%. Normal RV size and function. Moderately dilated LA. Mild TR. CVP 5, RVSP 36, no pulmonary hypertension. Left Ventricular Wall Motion: Rest Echo Findings All wall segments showed normal motion. Findings: Study Quality * Technically adequate exam. ECG Findings * Atrial fibrillation. Left Ventricle * LVEF 65%. * Normal LV chamber size, wall thickness and function. Right Ventricle * Normal right ventricular structure and function. * TAPSE 19mm Left Atrium * Moderately dilated left atrium. Right Atrium * Normal right atrial size. Interatrial Septum * Interatrial septum not well evaluated. Aortic Valve * Trileaflet aortic valve. * Mildly thickened aortic valve leaflets. * No aortic stenosi Mitral Valve * Trace mitral regurgitation. * Normal mitral valve structure. Tricuspid Valve * Normal tricuspid valve structure. * Mild tricuspid regurgitation. * Estimated RVSP is 36 mmHg. * Estimated RA pressure is 5 mmHg. * No pulmonary hypertension. Pulmonic Valve * Normal pulmonic valve structure and function. Aorta * Normally sized aortic root. Pericardium * The pericardium appears normal. IVC * Normal IVC dimensions and inspiratory collapse. Active Medications Hydrocodone Bitart/Acetaminophen ([place] 5-325 Mg) 1 tab PO Q6HR PRN PRN Reason: Severe Pain Stop: 07/03/18 18:06 Albuterol/Ipratropium (Duoneb) 3 ml IH Q6H PRN PRN Reason: Shortness Of Breath Stop: 07/03/18 18:06 Albuterol/Ipratropium (Duoneb) 3 ml IH [id number] [facility] Stop: 07/03/18 20:01 Last Admin: 01/07/18 07:45 Dose: 3 ml Alprazolam (Xanax) 0.5 mg PO BID PRN; Protocol PRN Reason: Anxiety Stop: 07/03/18 18:06 Last Admin: 01/06/18 21:42 Dose: 0.5 mg Aspirin (Aspirin Ec) 81 mg PO DAILY [facility] Stop: 07/08/18 13:46 Last Admin: 01/07/18 08:33 Dose: 81 mg Benztropine Mesylate (Cogentin) 2 mg PO BID [facility] Stop: 07/03/18 21:01 Last Admin: 01/07/18 08:33 Dose: 2 mg Budesonide/Formoterol Fumarate (Symbicort) 2 puff IH BIDR [facility] Stop: 07/04/18 10:01 Last Admin: 01/07/18 07:45 Dose: 2 puff Calcium Carbonate (Tums) 1,000 mg PO Q4HR PRN; Protocol PRN Reason: Heartburn Stop: 07/04/18 00:58 Last Admin: 01/02/18 05:19 Dose: 1,000 mg Clopidogrel Bisulfate (Plavix) 75 mg PO DAILY [facility] Stop: 07/08/18 13:46 Last Admin: 01/07/18 08:33 Dose: 75 mg Diltiazem HCl (Cardizem Cd) 180 mg PO DAILY [facility] Stop: 07/08/18 13:46 Last Admin: 01/07/18 08:33 Dose: 180 mg Docusate Sodium (Colace) 100 mg PO BID [facility] Stop: 07/03/18 21:01 Last Admin: 01/07/18 08:33 Dose: 100 mg Ferrous Sulfate (Ferrous Sulfate) 325 mg PO BIDWM [facility] Stop: 07/03/18 18:31 Last Admin: 01/07/18 08:33 Dose: 325 mg Folic Acid (Folic Acid) 1 mg PO DAILY [facility] Stop: 07/04/18 09:01 Last Admin: 01/07/18 08:33 Dose: 1 mg Heparin Sodium (Porcine) (Heparin) 5,000 unit SQ Q8HCO [facility] Stop: 07/03/18 22:01 Last Admin: 01/07/18 06:17 Dose: 5,000 unit Hydroxyzine Pamoate (Hydroxyzine Pamoate) 25 mg PO BID [facility] Stop: 07/03/18 21:01 Last Admin: 01/07/18 08:33 Dose: 25 mg Levofloxacin/Dextrose (Levaquin Premix 750mg/150 Ml) 750 mg in 150 mls @ 100 mls/hr IVPB Q24H [facility] PRN Reason: Protocol Stop: 01/07/18 23:59 Last Infusion: 01/06/18 20:06 Dose: Infused Diltiazem HCl 50 mg/ Sodium (Chloride) 50 mls @ 5 mls/hr IVC .Q10H [facility]; 5 MG/HR PRN Reason: Protocol Stop: 07/06/18 09:01 Last Infusion: 01/06/18 20:06 Dose: Infused Lisinopril (Zestril) 20 mg PO DAILY [facility] PRN Reason: Protocol Stop: 07/04/18 09:01 Last Admin: 01/07/18 08:33 Dose: 20 mg Naloxone HCl (Narcan) 0.4 mg IVP Q2MIN PRN PRN Reason: SEE COMMENTS Stop: 07/03/18 18:04 Omeprazole (Prilosec) 20 mg PO DAILY [facility] Stop: 07/04/18 09:01 Last Admin: 01/07/18 08:33 Dose: 20 mg Prednisone (Prednisone) 40 mg PO DAILY [facility] Stop: 07/07/18 09:01 Last Admin: 01/07/18 08:32 Dose: 40 mg Simvastatin (Zocor) 10 mg PO HS [facility] Stop: 07/04/18 21:01 Last Admin: 01/06/18 21:42 Dose: 10 mg - Imaging and Cardiology Echo: report reviewed - EKG Interpretation EKG results cardiology: other (12 hr tele AVG HR 91, now SR.) Consult Discharge Plan - Plan Referrals: NONE,PCP [Primary Care Provider] -
[2018-01-07 12:05] VITALS: BP 95/61
--- NOTE | 2018-01-07 12:31 | Discharge Summary ---
- NOTES TO OUTPATIENT PROVIDER Notes to Outpatient Provider: Kayarianna with RVR, started on Cardizem, ASA and Plavix; Pneumonia, cultures negative, improving; Date of Encounter: 01/07/18 Time of Encounter: 12:29 - Discharge Diagnosis (1) Atrial fibrillation with RVR Priority: Primary Status: Acute (2) Acute exacerbation of chronic obstructive airways disease Priority: Primary Status: Acute (3) Schizophrenia Priority: Secondary Status: Chronic Qualifiers: Schizophrenia type: undifferentiated schizophrenia Qualified Code(s): F20.3 - Undifferentiated schizophrenia (4) Iron deficiency anemia Priority: Secondary Status: Chronic Qualifiers: Iron deficiency anemia type: other iron deficiency Qualified Code(s): D50.8 - Other iron deficiency anemias (5) Sepsis Priority: Primary Status: Resolved Qualifiers: Sepsis type: sepsis due to unspecified organism Qualified Code(s): A41.9 - Sepsis, unspecified organism (6) Hyponatremia Priority: Primary Status: Resolved (7) Essential hypertension Priority: Secondary Status: Chronic (8) Pneumonia Priority: Primary Status: Acute Qualifiers: Pneumonia type: due to unspecified organism Laterality: bilateral Lung location: lower lobe of lung Qualified Code(s): J18.1 - Lobar pneumonia, unspecified organism Hospital course: Ms. Lopez is a 67 year old female [facility] resident with the above medical problems, who was admitted with worsening shortness of breath. Patient is a poor historian due to underlying schizophrenia and hallucinations. CT angiogram of chest done in the emergency room showed no pulmonary embolism, bibasilar consolidative changes, could be chronic aspiration pneumonitis. Patient was started on broad-spectrum IV antibiotics, later De escalated to IV Levaquin. She was also treated for mild acute exacerbation of COPD with bronchodilators, supplemental oxygen, IV steroids, subsequently transitioned to enteral steroids. She was seen by pulmonology who agreed with this management. Swallow evaluation was completed by AIR POLLUTION ANALYST, patient was cleared for advanced soft diet. She also developed atrial fibrillation with rapid ventricular response, off unclear chronicity as her chart had a reported history of paroxysmal atrial fibrillation, which is likely exacerbated now due to infection and sepsis. She was started on IV Cardizem drip for rate control. Echocardiogram showed preserved ejection fraction. Cardiology was consulted, IV Cardizem was transitioned to oral Cardizem. Anticoagulation was deferred due to schizophrenia, fall risk. Aspirin and Plavix were initiated instead. Patient is currently medically stable for transfer back to [facility]. Discharge discussed with: patient, nurse - Time Spent with Patient Total time spent providing and/or coordinating discharge services: Greater than 30 minutes (45 min) - Discharge Medications Prescriptions: ALPRAZolam [Xanax 0.5 MG Tablet] 0.5 mg PO BID PRN 5 Days #10 tablet PRN Reason: Anxiety Home Medications: Docusate Sodium [Move It Along] 100 mg PO BID 08/19/16 [History] Haloperidol Decanoate [Haldol Decanoate 100] 125 mg IM Q2W 08/19/16 [History] Folic Acid 1 mg PO DAILY 30 Days tablet 11/09/16 [Rx] hydrOXYzine pamoate [HydrOXYzine Pamoate] 25 mg PO BID 01/09/17 [History] Ferrous Sulfate 325 mg PO BID #60 tablet 01/10/17 [Rx] Pravastatin Sodium [Pravachol] 20 mg PO DAILY #30 01/10/17 [Rx] Fluticasone/Vilanterol [Breo Ellipta 100-25 Mcg INH] 1 puff IH DAILY 02/23/17 [ History] Pantoprazole Sodium [Protonix] 20 mg PO DAILY 02/23/17 [History] Benztropine Mesylate 2 mg PO BID 12/10/17 [History] Albuterol Sulfate [Proair Hfa] 1 puff IH Q4HR PRN #1 inh 12/11/17 [Rx] Ipratropium/Albuterol Neb [Duoneb] 3 ml IH Q6H PRN #30 vial 12/11/17 [Rx] ALPRAZolam [Xanax 0.5 MG Tablet] 0.5 mg PO BID PRN 5 Days #10 tablet 01/07/18 [ Rx] Aspirin Enteric Coated [Aspirin EC] 81 mg PO DAILY tablet. 01/07/18 [Rx] Clopidogrel [Plavix] 75 mg PO DAILY tablet 01/07/18 [Rx] Diltiazem CD (24hr) [Cardizem CD] 180 mg PO DAILY cap.er.24h 01/07/18 [Rx] Lisinopril [Zestril] 10 mg PO DAILY tablet 01/07/18 [Rx] predniSONE [PredniSONE] See Taper PO DAILY 16 Days #40 tablet 01/07/18 [Rx] Allergies/Adverse Reactions: 3 Allergy/AdvReac Type Severity Reaction Status Date / Time No Known Allergies Allergy Verified 12/03/15 16:32 Date of admission: 01/01/18 16:46 Primary care physician: PCP NONE Consults: 01/01/18 18:12 Consult to Pulmonology [CONS] Routine Consulting Provider: [facility] [place] Reason for Consult: Concern for mass versus infiltrate Call Completed: No 01/03/18 06:56 Consult to Soda Maker [CONS] Routine Reason for SW Consult: Will need requalified for [facility] 01/05/18 11:09 Consult to Cardiology [CONS] Routine Comment: Consulting Provider: Cardiology [place] Reason for Consult: NEW AFIB, HOSPITALIST TO CALL FOR CONSULT Call Completed: No Discharging clinician: Chloe Chen Anticipated date of discharge: 01/07/18 - Constitutional Vitals: Temp Pulse Resp BP Pulse Ox 97.9 F 93 18 95/61 93 01/07/18 12:02 01/07/18 12:02 01/07/18 12:02 01/07/18 12:02 01/07/18 12:02 General appearance: Present: A&O X 2, answers questions appropriately Exam: . - Cardiovascular Cardiovascular exam: Present: RRR, +S1, +S2. Absent: diastolic murmur, gallop, rubs, systolic murmur - Patient Status Disposition: Transfer SNF Condition: Good Functional capacity at discharge: uses cane/walker Overall status at discharge: patient is progressing back to baseline - Discharge Instructions Instructions: Atrial Fibrillation (DC), Chronic Obstructive Pulmonary Disease ( DC) Follow Up With: NONE,PCP [Primary Care Provider] - Forms: ED Satisfaction Letter Additional Instructions: F/up with PCP in 1-2 weeks - Diet and Activity Activity: as per physical therapy, wear oxygen at all times (PRN to maintain O2 sat>90%) Diet: low fat, low cholesterol, low salt diet
--- NOTE | 2018-01-07 12:41 | Physician Discharge Referral ---
ExtendedCare Referral Info Transfer To: [facility] Provider in Charge: Chloe Chen Provider in Charge after Transfer: PCP Institutional Level of Care: Skilled - Diagnosis (1) Atrial fibrillation with RVR Priority: Primary Status: Acute (2) Acute exacerbation of chronic obstructive airways disease Priority: Primary Status: Acute (3) Schizophrenia Priority: Secondary Status: Chronic (4) Iron deficiency anemia Priority: Secondary Status: Chronic (5) Sepsis Priority: Primary Status: Resolved (6) Hyponatremia Priority: Primary Status: Resolved (7) Essential hypertension Priority: Secondary Status: Chronic (8) Pneumonia Priority: Primary Status: Acute Expected Duration of Placement: snf Prognosis: Fair - Transfer Medications Prescriptions: ALPRAZolam [Xanax 0.5 MG Tablet] 0.5 mg PO BID PRN 5 Days #10 tablet PRN Reason: Anxiety Home Medications: Docusate Sodium [Move It Along] 100 mg PO BID 08/19/16 [History] Haloperidol Decanoate [Haldol Decanoate 100] 125 mg IM Q2W 08/19/16 [History] Folic Acid 1 mg PO DAILY 30 Days tablet 11/09/16 [Rx] hydrOXYzine pamoate [HydrOXYzine Pamoate] 25 mg PO BID 01/09/17 [History] Ferrous Sulfate 325 mg PO BID #60 tablet 01/10/17 [Rx] Pravastatin Sodium [Pravachol] 20 mg PO DAILY #30 01/10/17 [Rx] Fluticasone/Vilanterol [Breo Ellipta 100-25 Mcg INH] 1 puff IH DAILY 02/23/17 [ History] Pantoprazole Sodium [Protonix] 20 mg PO DAILY 02/23/17 [History] Benztropine Mesylate 2 mg PO BID 12/10/17 [History] Albuterol Sulfate [Proair Hfa] 1 puff IH Q4HR PRN #1 inh 12/11/17 [Rx] Ipratropium/Albuterol Neb [Duoneb] 3 ml IH Q6H PRN #30 vial 12/11/17 [Rx] ALPRAZolam [Xanax 0.5 MG Tablet] 0.5 mg PO BID PRN 5 Days #10 tablet 01/07/18 [ Rx] Aspirin Enteric Coated [Aspirin EC] 81 mg PO DAILY tablet. 01/07/18 [Rx] Clopidogrel [Plavix] 75 mg PO DAILY tablet 01/07/18 [Rx] Diltiazem CD (24hr) [Cardizem CD] 180 mg PO DAILY cap.er.24h 01/07/18 [Rx] Lisinopril [Zestril] 10 mg PO DAILY tablet 01/07/18 [Rx] predniSONE [PredniSONE] See Taper PO DAILY 16 Days #40 tablet 01/07/18 [Rx] Allergies/Adverse Reactions: 3 Allergy/AdvReac Type Severity Reaction Status Date / Time No Known Allergies Allergy Verified 12/03/15 16:32 - Respiratory Orders Oxygen / L per min (2L/min via NC PRN to maintain O2 sat>90%) Smoking Cessation: Smoking cessation has been advised. For more information, call the [employer] Quit Line at 0-257-KMIP-NOW. - Advance Directives Power of Dough Molder: Yes Code Status: Full Code - Mobility Orders Ambulate - Rehabiliation Orders Rehab Potential: Fair Rehab Orders: Sternal Precautions, ROM Exercises, Evaluation for Physical Therapy, Evaluation for Occupational Therapy - Diet Orders Cardiac CERTIFICATION: I certify that the transfer of the above named patient to an Extended Care Facility is necessary for the continuing treatment of the diagnosis listed. The above information is true and accurate reflection of patient's current condition. Confidential - Redisclosure prohibited without a patient's written consent.
[2018-01-07] MEDS ORDERED: levoFLOXacin 750 MG TABLET PO ONE (13:21)
--- NOTE | 2018-01-07 21:58 | Electrocardiograph Report ---
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
[2018-01-08] MEDS ORDERED: Lisinopril 20 MG TABLET PO SCH (09:00)
--- NOTE | 2018-01-10 12:24 | Electrocardiograph Report ---
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
== END 2018-01-07 15:10 | DRG 720 ==
LOC: EMEROOARM 13:52 → 2NENU 16:46 → SUATTDRO 16:46 → 2NENU 16:52
PROVIDERS: ADMIT Student in an Organized Health Care Education/Training Program; ATTEND Internal Medicine

== ENCOUNTER 2018-06-07 15:34 | Inpatient (IN) ==
[2018-06-07] MEDS ORDERED: Ipratropium/Albuterol Neb 3 ML IH ONE (16:04)
[2018-06-07] MEDS ORDERED: methylPREDNISolone 125 MG/2 ML VIAL IVP ONE (16:04)
[2018-06-07] MEDS: 0.9 % Sodium Chloride 1,000 ML IVC ONE ×2 (16:23→19:13)
--- NOTE | 2018-06-07 16:26 | Emergency Department Note ---
Disposition Clinical Impression: HCAP (healthcare-associated pneumonia) Sepsis Qualifiers: Sepsis type: sepsis due to unspecified organism Qualified Code(s): A41.9 - Se psis, unspecified organism Disposition: Admitted As Inpatient Condition: Fair Time of Disposition: 17:33 General Adult HPI - General Chief complaint: ED Shortness of Breath/Dyspnea Stated complaint: general illness Time Seen by Provider: 06/07/18 15:50 Source: patient Mode of arrival: EMS Limitations: no limitations Nursing Notes Reviewed: Yes Vital Signs Reviewed: Yes - History of Present Illness HPI Narrative: 67 yo female with PMHx of COPD and afib presents to the ED via EMS from an ECF with the complaint of shortness of breath. She does not answer most questions. She was febrile and hypotensive via EMS with an elevated HR. Pain Scale: 0 - Related Data Home Medications Medication Instructions Recorded Confirmed RX: Docusate Sodium [Move It Along] 100 mg PO BID 08/19/16 01/01/18 RX: Haloperidol Decanoate [Haldol 125 mg IM Q2W 08/19/16 01/01/18 Decanoate 100] RX: hydrOXYzine pamoate 25 mg PO BID 01/09/17 01/01/18 [HydrOXYzine Pamoate] RX: Fluticasone/Vilanterol [Breo 1 puff IH DAILY 02/23/17 01/01/18 Ellipta 100-25 Mcg INH] RX: Pantoprazole Sodium [Protonix] 20 mg PO DAILY 02/23/17 01/01/18 RX: Benztropine Mesylate 2 mg PO BID 12/10/17 01/01/18 Previous Rx's Medication Instructions Recorded RX: Folic Acid 1 mg PO DAILY 30 Days tablet 11/09/16 RX: Ferrous Sulfate 325 mg PO BID #60 tablet 01/10/17 RX: Pravastatin Sodium [Pravachol] 20 mg PO DAILY #30 01/10/17 RX: Albuterol Sulfate [Proair Hfa] 1 puff IH Q4HR PRN #1 inh 12/11/17 RX: Ipratropium/Albuterol Neb 3 ml IH Q6H PRN #30 vial 12/11/17 [Duoneb] RX: ALPRAZolam [Xanax 0.5 MG 0.5 mg PO BID PRN 5 Days #10 tablet 01/07/18 Tablet] RX: Aspirin Enteric Coated 81 mg PO DAILY tablet. 01/07/18 [Aspirin EC] RX: Clopidogrel [Plavix] 75 mg PO DAILY tablet 01/07/18 RX: Diltiazem CD (24hr) [Cardizem 180 mg PO DAILY cap.er.24h 01/07/18 CD] RX: Lisinopril [Zestril] 10 mg PO DAILY tablet 01/07/18 RX: predniSONE [PredniSONE] See Taper PO DAILY 16 Days #40 01/07/18 tablet Allergies Allergy/AdvReac Type Severity Reaction Status Date / Time No Known Allergies Allergy Verified 12/03/15 16:32 Limitations: ROS unobtainable due to patients medical condition Past Medical History - Past Medical History Medical history: Reports: atrial fibrillation, cancer, COPD, hyperlipidemia, hypertension Surgical history: Reports: cancer surgery Psychiatric history: Reports: schizophrenia, previous psychiatric hospitalization - Social History Smoking Status: Current every day smoker Smokeless Tobacco Status: No Alcohol use: Reports: none Drug use: Reports: none Physical Exam - General Limitations: altered mental status General appearance: alert - Head Head exam: atraumatic, normocephalic - Eye Eye exam: Present: normal appearance, PERRL, EOMI - ENT ENT exam: normal exam, mucous membranes dry - Neck Neck exam: Present: normal inspection. Absent: tenderness, lymphadenopathy - Chest Chest inspection: Present: normal inspection, symmetric chest wall rise. Absent: tenderness, rash - Respiratory Respiratory exam: Present: other (diminished breath sounds bilaterally with rhonchi in anterior lung ambrocio and wheezing in LLQ) - Cardiovascular Cardiovascular exam: Present: tachycardia, irregular rhythm - Abdominal Exam Abdominal exam: Present: soft, Non-Tender. Absent: distention, guarding, rebound, rigidity - Extremities Exam Extremities exam: Present: pedal edema. Absent: tenderness, calf tenderness - Neurological Exam Neurological exam: Present: alert - Psychiatric Psychiatric exam: Present: flat affect - Skin Skin exam: Present: warm, dry, intact Course Vital Signs Temperature 98.8 F 06/07/18 15:46 Pulse Rate 149 06/07/18 15:46 Respiratory Rate 17 06/07/18 15:46 Blood Pressure 86/48 06/07/18 15:46 O2 Sat by Pulse Oximetry 95 06/07/18 15:46 Temperature 98.8 F 06/07/18 15:46 Pulse Rate 132 06/07/18 17:25 Respiratory Rate 18 06/07/18 17:25 Blood Pressure 88/57 06/07/18 17:25 O2 Sat by Pulse Oximetry 93 06/07/18 17:25 Oxygen Delivery Oxygen Delivery Nasal Cannula Medical Decision Making - MDM Narrative Medical decision making narrative: This patient meets criteria for sepsis, we will do a full septic workup as well as steroids, IVF bolus of 1.5L and 3 Duonebs. 1720 - CXR shows signs of pneumonia. Lab work has some electrolyte abnormalities. We will treat for HCAP with vanc, zosyn and azithromycin. Dr. Kumar has accepted the patient for admission. - Medical Records Medical records reviewed: Yes I reviewed the patient's medical records. - Lab Data Lab results reviewed: Yes I reviewed the patient's lab results. Result diagrams: 06/07/18 16:38 06/07/18 16:38 Lab Results 06/07/18 06/07/18 06/07/18 Range/Units 16:38 16:38 16:38 WBC 11.4 H (4.3-11.1) K/mcL RBC 4.08 (3.82-4.97) M/mcL Hgb 11.8 (11.5-15.4) g/dL Hct 34.5 L (35.3-44.9) % MCV 84.6 (83.0-100.0) fL MCH 28.9 (28.0-33.3) pg MCHC 34.2 (31.6-35.5) g/dL RDW 15.3 H (11.5-14.5) % Plt Count 167 (140-400) K/mcL MPV 8.3 L (9.4-12.4) fL Immature Gran % 0.9 (0-4) % Seg Neutrophils % 86.0 % Lymphocytes % 4.6 % Monocytes % 8.3 % Eosinophils % 0.0 % Basophils % 0.2 % Neutrophils # 9.8 H (1.6-8.9) K/mcL Lymphocytes # 0.5 L (0.6-4.6) K/mcL Monocytes # 1.0 (0.0-1.3) K/mcL Eosinophils # 0.0 (0.0-0.6) K/mcL Basophils # 0.0 (0.0-0.2) K/mcL PT 14.4 H (9.4-12.1) Seconds INR 1.3 APTT 29.2 (26.0-36.0) Seconds Sodium 127 L (136-145) mEq/L Potassium 4.0 (3.5-5.1) mEq/L Chloride 96 L (98-107) mEq/L Carbon Dioxide 20 L (23-29) mEq/L BUN 16 (8-23) mg/dL Creatinine 0.80 (0.60-1.20) mg/dL Est GFR ( Amer) > 60 (> 60) Est GFR (Non-Af Amer) > 60 (> 60) BUN/Creatinine Ratio 20 (6-26) Glucose 127 H (70-105) mg/dL Calculated Osmolality 267 L (280-300) Lactic Acid (0.5-2.2) mmol/L Calcium 9.2 (8.6-10.3) mg/dL Phosphorus 4.6 H (2.7-4.5) mg/dL Magnesium 1.5 L (1.6-2.6) mg/dL Total Bilirubin 0.5 (0.3-1.0) mg/dL Direct Bilirubin 0.2 (0.0-0.2) mg/dL Indirect Bilirubin 0.3 (0.0-1.2) mg/dL AST 20 (13-39) Units/L ALT 22 (7-52) Units/L Alkaline Phosphatase 24 L (34-104) Units/L Troponin I 0.10 H* (< 0.04) ng/mL Serum Total Protein 5.7 L (6.4-8.9) g/dL Albumin 3.4 L (3.5-5.7) g/dL Globulin 2.3 L (2.4-3.5) g/dL Albumin/Globulin Ratio 1.5 (1.1-2.2) 06/07/18 Range/Units 16:38 WBC (4.3-11.1) K/mcL RBC (3.82-4.97) M/mcL Hgb (11.5-15.4) g/dL Hct (35.3-44.9) % MCV (83.0-100.0) fL MCH (28.0-33.3) pg MCHC (31.6-35.5) g/dL RDW (11.5-14.5) % Plt Count (140-400) K/mcL MPV (9.4-12.4) fL Immature Gran % (0-4) % Seg Neutrophils % % Lymphocytes % % Monocytes % % Eosinophils % % Basophils % % Neutrophils # (1.6-8.9) K/mcL Lymphocytes # (0.6-4.6) K/mcL Monocytes # (0.0-1.3) K/mcL Eosinophils # (0.0-0.6) K/mcL Basophils # (0.0-0.2) K/mcL PT (9.4-12.1) Seconds INR APTT (26.0-36.0) Seconds Sodium (136-145) mEq/L Potassium (3.5-5.1) mEq/L Chloride (98-107) mEq/L Carbon Dioxide (23-29) mEq/L BUN (8-23) mg/dL Creatinine (0.60-1.20) mg/dL Est GFR ( Amer) (> 60) Est GFR (Non-Af Amer) (> 60) BUN/Creatinine Ratio (6-26) Glucose (70-105) mg/dL Calculated Osmolality (280-300) Lactic Acid 3.9 H (0.5-2.2) mmol/L Calcium (8.6-10.3) mg/dL Phosphorus (2.7-4.5) mg/dL Magnesium (1.6-2.6) mg/dL Total Bilirubin (0.3-1.0) mg/dL Direct Bilirubin (0.0-0.2) mg/dL Indirect Bilirubin (0.0-1.2) mg/dL AST (13-39) Units/L ALT (7-52) Units/L Alkaline Phosphatase (34-104) Units/L Troponin I (< 0.04) ng/mL Serum Total Protein (6.4-8.9) g/dL Albumin (3.5-5.7) g/dL Globulin (2.4-3.5) g/dL Albumin/Globulin Ratio (1.1-2.2) - Radiology Data Radiology results reviewed: Yes I reviewed the patient's radiology results. - EKG Data EKG #1 EKG attestation: Yes I reviewed and interpreted this EKG. EKG results narrative: EKG obtained at 1624 on 06/07/2018 HR 113 bpm, NC interval 115, QRS duration 73, QT 304, QTc [address] segment elevations or depressions. No signs of ischemia or arrhythmias. Old EKG obtained on 01/06/2018 shows signs of afib. Critical Care Time Critical Care Time: Yes Total Critical Care Time: 39 Attestation: Acute respiratory distress, multifocal atrial tachycardia. Hypertension. Acute dehydration requiring fluid resuscitation. Attestation Statement - Attestation Attestation: DR Martin note: Pt seen in conjunction w/ resident Dr Ludivina Phelan; Please see his charting for complete documentation; I spent face to face time w/ the pt and agree w/ the pt's treatment and disposition; patient from [facility] presents with reported fever, tachycardia, and respiratory distress. Intermittent multifocal atrial tachycardia with a heart rate at 150. After treatment in the ER patient is mostly sustaining a mild sinus tachycardia with a rate between 110 and 120. Blood pressure improved prior to admission. Fluids given antibiotics given. Pneumonia noted cultures taken. Patient does not sustain high hypoxia. She is much improved from respiratory standpoint after treatments and supplemental oxygenation. Hospitalist at bedside to discuss admission. Critical care time is noted. Patient admitted in stabilized and improved condition
[2018-06-07] MEDS ORDERED: Azithromycin 500 MG in D5% in Water 250 ML IVPB ONE (16:34)
[2018-06-07] MEDS ORDERED: Piperacillin/Tazobactam 3.375 GM in 0.9 % Sodium Chloride Mini Bag 100 ML IVPB ONE (16:34)
[2018-06-07 16:50] LABS: Basophils % 0.2 %; Hematocrit 34.5 % (35.3-44.9); Hemoglobin 11.8 g/dL (11.5-15.4); Immature Granulocytes % 0.9 % (0-4); Lymphocytes # 0.5 K/mcL (0.6-4.6); Lymphocytes % 4.6 %; Mean Corpuscular HGB Conc 34.2 g/dL (31.6-35.5); Mean Corpuscular Hemoglobin 28.9 pg (28.0-33.3); Mean Corpuscular Volume 84.6 fL (83.0-100.0); Mean Platelet Volume 8.3 fL (9.4-12.4); Monocytes % 8.3 %; Neutrophils # 9.8 K/mcL (1.6-8.9); Platelet Count 167 K/mcL (140-400); Red Blood Count 4.08 M/mcL (3.82-4.97); Red Cell Distribution Width 15.3 % (11.5-14.5)
[2018-06-07 16:59] LABS: INR 1.3; Prothrombin Time 14.4 Seconds (9.4-12.1)
[2018-06-07 17:01] LABS: Activated Partial Thrombo Time 29.2 Seconds (26.0-36.0)
[2018-06-07 17:11] LABS: Alanine Aminotransferase 22 Units/L (7-52); Albumin 3.4 g/dL (3.5-5.7); Albumin/Globulin Ratio 1.5 (1.1-2.2); Alkaline Phosphatase 24 Units/L (34-104); Aspartate Amino Transferase 20 Units/L (13-39); BUN/Creatinine Ratio 20 (6-26); Bilirubin,Direct 0.2 mg/dL (0.0-0.2); Bilirubin,Indirect 0.3 mg/dL (0.0-1.2); Bilirubin,Total 0.5 mg/dL (0.3-1.0); Blood Urea Nitrogen 16 mg/dL (8-23); Calcium 9.2 mg/dL (8.6-10.3); Carbon Dioxide 20 mEq/L (23-29); Chloride 96 mEq/L (98-107); Globulin 2.3 g/dL (2.4-3.5); Glucose 127 mg/dL (70-105); Magnesium 1.5 mg/dL (1.6-2.6); Osmolality,Calculated 267 (280-300); Phosphorous 4.6 mg/dL (2.7-4.5); Sodium 127 mEq/L (136-145); Total Protein 5.7 g/dL (6.4-8.9); eGFR For Non-African Americans > 60 (> 60)
[2018-06-07] MEDS ORDERED: Albuterol 2.5 MG/3 ML NEBULIZER IH SCH (17:30)
--- NOTE | 2018-06-07 18:14 | Internal Med History&Physical ---
Date of Encounter: 06/07/18 Time of Encounter: 18:02 Internal Medicine - H&P: HPI Chief complaint: SOB Admitted From: [facility]term [facility] Facility Plans for Post Hospital Care: Transfer [facility] History of present illness: Ms. Lopez is a 67 year old female atrial fibrillation, cancer, COPD, hyperlipidemia, hypertension presented from [facility] for shortness of breath for 1 week. Patient is alert oriented 3. she said that she has [facility], she smokes a pack a day, she started having dry cough a week ago, then developed SOB, and pro gressively gotten worse for dyspnea over a week, denies chest pain. She says she is unable to cough up any mucus denies fever or chills. She denies palpation diaphoresis. In the emergency room she was found heart rate 134, blood pressure 79/56. She deceived IV fluids bolus 30 mL per kilo 1. BP improved transiently, then dropped again, she has significant JVD in the bilateral lower extremity edema. She that she has bilateral rhonchi. X-ray showed bilateral pneumonia. patient is going to be admitted to ICU for sepsis and septic shock, will need pressor due to pneumonia and a COPD exacerbation. I discussed code status with the patient , she is full code 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, tumor in chest, left ovary removed, right arm fracture repair - Social History Smoking Status: Current every day smoker Smokeless Tobacco Status: No Alcohol use: none Drug use: none - Family History Maternal Grandmother Hx Family Cardiac Disorders: Yes (CAD) Mother Adopted: No Family Member Ethnicity: Non- Living Status: Hx Family Cardiac Disorders: No Hx Family Respiratory Disorders: No Hx Family Cancer: Yes (throat cancer) Hx Family GI Disorders: No Hx Family Endocrine Disorder: Yes (KIDNEY DIS) Hx Family Neuromuscular Disorders: No Hx Family Neurologic Disorders: No Hx Family HEENT Disorders: No Hx Family Autoimmune Disorders: No Internal Medicine - H&P: Meds Docusate Sodium [Move It Along] 100 mg PO BID 08/19/16 [History] Haloperidol Decanoate [Haldol Decanoate 100] 125 mg IM Q2W 08/19/16 [History] Folic Acid 1 mg PO DAILY 30 Days tablet 11/09/16 [Rx] hydrOXYzine pamoate [HydrOXYzine Pamoate] 25 mg PO BID 01/09/17 [History] Ferrous Sulfate 325 mg PO BID #60 tablet 01/10/17 [Rx] Pravastatin Sodium [Pravachol] 20 mg PO DAILY #30 01/10/17 [Rx] Fluticasone/Vilanterol [Breo Ellipta 100-25 Mcg INH] 1 puff IH DAILY 02/23/17 [History] Pantoprazole Sodium [Protonix] 20 mg PO DAILY 02/23/17 [History] Benztropine Mesylate 2 mg PO BID 12/10/17 [History] Albuterol Sulfate [Proair Hfa] 1 puff IH Q4HR PRN #1 inh 12/11/17 [Rx] Ipratropium/Albuterol Neb [Duoneb] 3 ml IH Q6H PRN #30 vial 12/11/17 [Rx] ALPRAZolam [Xanax 0.5 MG Tablet] 0.5 mg PO BID PRN 5 Days #10 tablet 01/07/18 [Rx] Aspirin Enteric Coated [Aspirin EC] 81 mg PO DAILY tablet. 01/07/18 [Rx] Clopidogrel [Plavix] 75 mg PO DAILY tablet 01/07/18 [Rx] Diltiazem CD (24hr) [Cardizem CD] 180 mg PO DAILY cap.er.24h 01/07/18 [Rx] Lisinopril [Zestril] 10 mg PO DAILY tablet 01/07/18 [Rx] predniSONE [PredniSONE] See Taper PO DAILY 16 Days #40 tablet 01/07/18 [Rx] Allergy/AdvReac Type Severity Reaction Status Date / Time No Known Allergies Allergy Verified 12/03/15 16:32 All Systems PM: A 10-system review of systems was performed and is negative for pertinent findings except as documented above in the HPI. - Constitutional Vitals: Temp Pulse Resp BP Pulse Ox 98.8 F 132 23 79/56 96 06/07/18 15:46 06/07/18 17:25 06/07/18 17:51 06/07/18 17:51 06/07/18 17:51 General appearance: Present: A&O X 3, severe distress Exam: CONSTITUTIONAL: Patient appears as an age appropriate female well developed, in no acute distress. EYES Clear sclerae, bilateral pupils are equal, reactive to light and accommodation. Extraocular movements are intact RESPIRATORY: accessory muscle use, bilateral rhonchi and scant wheezing to auscultation. CARDIOVASCULAR: Regular heart rate, normal S1 and S2, no murmurs GASTROINTESTINAL: bowel sounds present, soft, no tenderness. No hepatosplenomegaly. No bilateral CVA tenderness MUSCULOSKELETAL: Joints in normal range of motion, no clubbing, +++ edema, no cyanosis. Bilateral peripheral pulses 2+ LYMPHATIC no lymphadenopathy in neck, groin and axilla bilaterally, no thyromegaly. NEUROLOGIC: CN II to XII are grossly intact, no focal neurological deficit. Deep tendon reflexes 2+ bilaterally. Normal light touch sensation to upper and lower extremity PSYCHIATRIC: Oriented x3, with good insight, mood is euthymic. No hallucinations or delusions. SKIN: Skin warm and dry, no rashes, no open wound. Internal Med - H&P Results - Labs CBC & Chem 7: 06/07/18 16:38 06/07/18 16:38 Labs: Short CBC 06/07/18 Range/Units 16:38 WBC 11.4 H (4.3-11.1) K/mcL Hgb 11.8 (11.5-15.4) g/dL Hct 34.5 L (35.3-44.9) % Plt Count 167 (140-400) K/mcL Neutrophils # 9.8 H (1.6-8.9) K/mcL BMP 06/07/18 16:38 Sodium 127 L Potassium 4.0 Chloride 96 L Carbon Dioxide 20 L BUN 16 Creatinine 0.80 Glucose 127 H Calcium 9.2 Cardiac Enzymes 06/07/18 Range/Units 16:38 Troponin I 0.10 H* (< 0.04) ng/mL Liver Function 06/07/18 Range/Units 16:38 Total Bilirubin 0.5 (0.3-1.0) mg/dL Direct Bilirubin 0.2 (0.0-0.2) mg/dL AST 20 (13-39) Units/L ALT 22 (7-52) Units/L Alkaline Phosphatase 24 L (34-104) Units/L Albumin 3.4 L (3.5-5.7) g/dL - Impressions ITS Impressions Chest X-Ray 06/07/18 16:03 IMPRESSION: 1. Reticulonodular opacities in the mid to basilar left lung and less prominently the right lung base, suspicious for an infectious or inflammatory process such as bronchiolitis or pneumonia. 2. Diffuse interstitial prominence likely due to chronic interstitial change. D/ / Raad Severino MD / Raad Severino MD Interpreting Provider: Raad Severino MD - Assessment and plan (1) HCAP (healthcare-associated pneumonia) Current Visit: Yes Status: Acute Assessment and plan: patient lives at [facility] with severe sepsis, will give levaquin, zosyn and vancomycin (2) Sepsis Current Visit: Yes Status: Acute Assessment and plan: with HR >130, BP 76/57, lactate 3.9, blood culture done in ER, on UA was done, will konrad pinzon, order UA Qualifiers: Sepsis type: sepsis due to unspecified organism Qualified Code(s): A41.9 - Sepsis, unspecified organism (3) Acute and chronic respiratory failure with hypoxia Current Visit: Yes Status: Acute Assessment and plan: her RR 24, on 6 L Oxymask, she was on 2 L NC at home (4) COPD with exacerbation Current Visit: Yes Status: Resolved Assessment and plan: will add IV solumedral, xopenex Q4, contineu home regimen (5) Elevated troponin Current Visit: Yes Status: Acute Assessment and plan: deneis chest pain, likley demanding ischemia, will check TTE, follow up trop (6) Hyponatremia Current Visit: Yes Status: Resolved Assessment and plan: hypomagnesemia will replace by iV, follow up am lab (7) Atrial fibrillation with RVR Current Visit: Yes Status: Acute Assessment and plan: patiet has hx of atrail fib, RVR due to respiratory distress and sepsis continue home cardiazem will check TTE (8) Essential hypertension Current Visit: Yes Status: Chronic (9) Tobacco abuse disorder Current Visit: Yes Status: Chronic Assessment and plan: she smokes 1 pack daily, add nicotine patch (10) Schizophrenia Current Visit: Yes Status: Chronic Assessment and plan: continue home meds Qualifiers: Schizophrenia type: undifferentiated schizophrenia Qualified Code(s): F20.3 - Undifferentiated schizophrenia (11) Depression with anxiety Current Visit: Yes Status: Chronic (12) DVT prophylaxis Current Visit: Yes Status: Acute Assessment and plan: heparin SC (13) Leg swelling Current Visit: Yes Status: Acute Assessment and plan: will check duplex to lr/o DVT - Time Spent With Patient Total time spent is greater than 50% in coordination of care (as documented) at patient's floor/unit and/or counseling patient: Greater than 35 minutes
[2018-06-07] MEDS ORDERED: Naloxone 0.4 MG/ML INJ IVP PRN (18:29)
[2018-06-07 18:44] LABS: VBG HCO3 15 mEq/L (21-27); VBG PCO2 24 mmHg (41-51); VBG PH 7.41 pH Units (7.32-7.42); VBG PO2 130 mmHg (25-50)
[2018-06-07] MEDS ORDERED: 0.9 % Sodium Chloride 1,000 ML ONE (18:57)
[2018-06-07] MEDS ORDERED: Vancomycin (wt based) 1,000 MG VIAL IVPB SCH (19:00)
[2018-06-07] MEDS ORDERED: Levofloxacin 750 MG/150 ML 750 MG/150 ML BAG IVPB SCH (20:00)
[2018-06-07] MEDS ORDERED: Levalbuterol Neb 1.25 MG/3 ML IH SCH (21:00)
[2018-06-07 21:42] LABS: Bilirubin,Urine Negative (Negative); Blood,Urine Negative (Negative); Clarity,Urine Clear (Clear); Color,Urine Yellow (Yellow); Glucose,Urine (UA) Normal (Normal); Ketones,Urine Negative (Negative); Leukocyte Esterase,Urine Negative (Negative); Nitrite,Urine Negative (Negative); Protein,Urine 30 mg/dL (Neg-Trace); Specific Gravity,Urine 1.008 (1.010-1.025); Urobilinogen,Urine Normal (Normal)
[2018-06-07 21:44] LABS: Bacteria,Urine None Seen per hpf (None-Few); Hyaline Casts,Urine None Seen per lpf (None-Few); RBC,Urine 0-3 per hpf (0-3); Squamous Epithelial Cell,Urine Many per lpf (None-Few); WBC,Urine 0-3 per hpf (0-3)
[2018-06-07 22:03] LABS: BUN/Creatinine Ratio 21 (6-26); Blood Urea Nitrogen 18 mg/dL (8-23); Calcium 8.4 mg/dL (8.6-10.3); Carbon Dioxide 16 mEq/L (23-29); Chloride 99 mEq/L (98-107); Glucose 221 mg/dL (70-105); Osmolality,Calculated 273 (280-300); Potassium 3.9 mEq/L (3.5-5.1); Sodium 127 mEq/L (136-145); eGFR For Non-African Americans > 60 (> 60)
[2018-06-07] MEDS: Pantoprazole 40 MG VIAL IVP SCH (22:29)
[2018-06-07] MEDS: Aspirin Enteric Coated 81 MG Tablet PO SCH (22:29)
[2018-06-07] MEDS: 0.9 % Sodium Chloride 1,000 ML IVC SCH (22:29)
[2018-06-07] MEDS: Nicotine 21 MG PATCH.TD24 TD SCH (22:29)
[2018-06-07] MEDS: hydrOXYzine pamoate 25 MG CAPSULE PO SCH (22:30)
[2018-06-07] MEDS: Levalbuterol Neb 1.25 MG/3 ML IH SCH (23:27)
--- NOTE | 2018-06-07 23:54 | Event Note ---
Date of Encounter: 06/08/18 Time of Encounter: 23:33 I was told by the nurse that patient's mean arterial pressure has been declining. Patient's MAP had dropped from a 62 to 58. She is currently in the ICU because of acute hypoxic respiratory failure secondary to sepsis and healthcare associated pneumonia. She had received 2 L bolus in the ED along with vancomycin, Zosyn and azithromycin and was admitted to the ICU for further management. She was also found to be hyponatremic with sodium of 127. Chest x- ray was concerning for mid to basilar lung left lung and prominent to the right lung base with concerns for bronchiolitis or pneumonia. On physical exam patient had JVD, bilateral pitting edema, bilateral wheezing, with a lactate of 5.6, and BNP of 554. Owing to her clinical picture, we decide not to bolus her out of fear of throwing her into flash pulmonary edema. Instead she was put on maintenance fluid of 100/h which would help with her hyponatremia. With her declining MAP, she was given 2 units of albumin which increased her MAP to 63. When i reassessed the patient, patient was using her accessory muscle for respiration, but was still on 2L oxymask. My concern was that patient will need pressor support very soon and I tried to discuss the idea of putting a central venous catheter with the patient. Patient was A& O 3, was very reluctant to the idea of getting a central line and she told me that she has seen people get in the past and she does not want it to be that way. I tried to explain to the patient the pros and cons of getting a CVC, however patient continued to deny. [facility] and we learnt that patient has POA paperwork on file. We learn that patient has an appointed guardian (Ben Boone) listed has her POA, and we did not have his phone number. Nurse at the facility also said the patient was a full code at the facility. Owing to patient being A&O 3 , we decided to respect her wishes and not intervene with a CVC. Instead, we decided to try less invasive techniques like giving midodrine for BP support. In the light of her overall clinical condition, patient continues to be at moderate to high risk for declining hemodynamically.
[2018-06-08] MEDS: methylPREDNISolone 125 MG/2 ML VIAL IVP SCH ×4 (00:15→20:30)
[2018-06-08] MEDS: Piperacillin/Tazobactam 3.375 GM in 0.9 % Sodium Chloride Mini Bag 100 ML IVPB SCH ×3 (00:16→15:51)
[2018-06-08] MEDS: Phenylephrine 10 MG in D5% in Water 250 ML IVC SCH ×2 (00:16→20:30)
[2018-06-08] MEDS: *HR* Heparin 5,000 UNIT/ML VIAL SQ SCH ×3 (00:16→15:52)
[2018-06-08 03:13] LABS: Hemoglobin 10.4 g/dL (11.5-15.4); Mean Corpuscular HGB Conc 33.5 g/dL (31.6-35.5); Mean Corpuscular Hemoglobin 28.6 pg (28.0-33.3); Mean Corpuscular Volume 85.2 fL (83.0-100.0); Mean Platelet Volume 8.4 fL (9.4-12.4); Platelet Count 128 K/mcL (140-400); Red Blood Count 3.64 M/mcL (3.82-4.97); Red Cell Distribution Width 15.8 % (11.5-14.5)
[2018-06-08] MEDS: Levalbuterol Neb 1.25 MG/3 ML IH SCH ×5 (03:14→20:11)
[2018-06-08 03:37] LABS: Monocytes # 0.2 K/mcL (0.0-1.3); Neutrophils # 7.5 K/mcL (1.6-8.9)
[2018-06-08 03:38] LABS: Magnesium 1.7 mg/dL (1.6-2.6); Platelet Estimate Decreased (Normal)
[2018-06-08 03:43] LABS: Troponin I 0.04 ng/mL (< 0.04)
[2018-06-08] MEDS: 0.9 % Sodium Chloride 1,000 ML IVC SCH (05:02)
[2018-06-08] MEDS ORDERED: Perflutren Lipid Microsphere 1.3 ML in 0.9 % Sodium Chloride 8.7 ML IVP ONE (07:41)
[2018-06-08] MEDS: Pantoprazole 40 MG VIAL IVP SCH (08:32)
[2018-06-08] MEDS: Nicotine 21 MG PATCH.TD24 TD SCH (08:39)
[2018-06-08 08:50] LABS: BUN/Creatinine Ratio 33 (6-26); Blood Urea Nitrogen 18 mg/dL (8-23); Carbon Dioxide 20 mEq/L (23-29); Chloride 101 mEq/L (98-107); Glucose 141 mg/dL (70-105); Osmolality,Calculated 274 (280-300); Potassium 4.3 mEq/L (3.5-5.1); Sodium 130 mEq/L (136-145); eGFR For Non-African Americans > 60 (> 60)
[2018-06-08] MEDS: Diltiazem CD (24hr) 180 MG CAPSULE PO SCH ×2 (09:24→11:34)
[2018-06-08] MEDS: Aspirin Enteric Coated 81 MG Tablet PO SCH (09:24)
[2018-06-08] MEDS: hydrOXYzine pamoate 25 MG CAPSULE PO SCH ×2 (09:24→20:26)
[2018-06-08] MEDS: ALPRAZolam 0.5 MG TABLET PO PRN ×2 (09:28→22:22)
[2018-06-08] MEDS: (Breo Ellipta 100-25 Mcg Inh) IH SCH (09:55)
[2018-06-08] MEDS ORDERED: Levofloxacin 750 MG/150 ML 750 MG/150 ML BAG IVPB SCH (20:00)
--- NOTE | 2018-06-08 22:21 | Internal Med Progress Note ---
Hospitalist Progress Note - Encounter Date of Encounter: 06/08/18 Time of Encounter: 22:21 - Subjective Interval History: Pt drowsy ad non-verbal. Nurse noted she was hypotensive after getting 2 L of fluid. She was given albumin by churner. She has been afebrile. - Exam Vitals: Temp Pulse Resp BP Pulse Ox 97.6 F 103 22 120/66 92 06/08/18 20:21 06/08/18 21:00 06/08/18 21:00 06/08/18 21:00 06/08/18 21:00 Exam: CONSTITUTIONAL: Patient appears as an age appropriate female well developed, in no acute distress but drowsy. EYES Clear sclerae, bilateral pupils are equal, reactive to light and accommodation. Extraocular movements are intact RESPIRATORY: accessory muscle use, bilateral rhonchi and scant wheezing to auscultation. CARDIOVASCULAR: Regular heart rate, normal S1 and S2, no murmurs GASTROINTESTINAL: bowel sounds present, soft, no tenderness. No hepatosplenomegaly. No bilateral CVA tenderness MUSCULOSKELETAL: Joints in normal range of motion, no clubbing, +++ edema, no cyanosis. Bilateral peripheral pulses 2+ LYMPHATIC no lymphadenopathy in neck, groin and axilla bilaterally, no thyromegaly. NEUROLOGIC: CN II to XII are grossly intact, no focal neurological deficit. Deep tendon reflexes 2+ bilaterally. Normal light touch sensation to upper and lower extremity PSYCHIATRIC: Oriented x3, with good insight, mood is euthymic. No hallucinations or delusions. SKIN: Skin warm and dry, no rashes, no open wound. - Assessment and Plan (1) Sepsis Current Visit: No Status: Resolved Assessment and Plan: with HR >130, BP 76/57, lactate 3.9 Blood culture incubating. Urine analysis negative for infection. Will start on levophed due to hypotension. Will consult pulmonology to see in ICU (2) HCAP (healthcare-associated pneumonia) Current Visit: Yes Status: Acute Assessment and Plan: On Vancomycin, Zosyn, and Levaquin. Blood culture incubating. Sputum culture ordered. Will check respiratory panel Chest x ray XR/XR chest 1V portable IMPRESSION: 1. Reticulonodular opacities in the mid to basilar left lung and less prominently the right lung base, suspicious for an infectious or inflammatory process such as bronchiolitis or pneumonia. 2. Diffuse interstitial prominence likely due to chronic interstitial change. (3) Atrial fibrillation with RVR Current Visit: Yes Status: Acute Assessment and Plan: Patiet has hx of atrail fib, RVR due to respiratory distress and sepsis continue home cardizem Echo EV/EV echocardiogram Impressions: LVEF 65%. Normal LV chamber size, wall thickness and function. Mildly dilated right ventricle with normal systolic funciton. Mildly dilated right atrium. Mild tricuspid regurgitation. No pulmonary hypertension. (4) COPD with exacerbation Current Visit: No Status: Acute Assessment and Plan: IV solumedral, xopenex Q4, contineu home regimen (5) Depression with anxiety Current Visit: Yes Status: Chronic (6) Elevated troponin Current Visit: Yes Status: Acute Assessment and Plan: Likely due to ishcemic demand from sepsis (7) Essential hypertension Current Visit: Yes Status: Chronic Assessment and Plan: On Cardizem (8) Hyponatremia Current Visit: Yes Status: Resolved Assessment and Plan: Slowly improving Na up from 127 to 130. (9) Leg swelling Current Visit: Yes Status: Acute Assessment and Plan: Will check duplex to r/o DVT (10) Schizophrenia Current Visit: No Status: Chronic Assessment and Plan: continue home meds DVT Prophylaxis: Heparin - Summary of Assessment and Plan Summary of Assessment and Plan: History of present illness: Dr. Law Ms. Lopez is a 67 year old female atrial fibrillation, cancer, COPD, hyperlipidemia, hypertension presented from [facility] for shortness of breath for 1 week. Patient is alert oriented 3. she said that she has COPD [facility], she smokes a pack a day, she started having dry cough a week ago, then developed SOB, and progressively gotten worse for dyspnea over a week, denies chest pain. She says she is unable to cough up any mucus denies fever or chills. She denies palpation diaphoresis. In the emergency room she was found heart rate 134, blood pressure 79/56. She deceived IV fluids bolus 30 mL per kilo 1. BP improved transiently, then dropped again, she has significant JVD in the bilateral lower extremity edema. She that she has bilateral rhonchi. X-ray showed bilateral pneumonia. patient is going to be admitted to ICU for sepsis and septic shock, will need pressor due to pneumonia and a COPD exacerbation. I discussed code status with the patient , she is full code - Time Spent with Patient Total time spent is greater than 50% in coordination of care (as documented) at patient's floor/unit and/or counseling patient: less than 15 minutes Plan of Care Discussed with: patient Internal Medicine: Result - Labs CBC & Chem 7: 06/08/18 03:04 06/08/18 08:16 Labs: Short CBC 06/08/18 Range/Units 03:04 WBC 7.6 (4.3-11.1) K/mcL Hgb 10.4 L (11.5-15.4) g/dL Hct 31.0 L (35.3-44.9) % Plt Count 128 L (140-400) K/mcL Neutrophils # 7.5 (1.6-8.9) K/mcL BMP 06/08/18 08:16 Sodium 130 L Potassium 4.3 Chloride 101 Carbon Dioxide 20 L BUN 18 Creatinine 0.55 L Glucose 141 H Calcium 9.0 Cardiac Enzymes 06/08/18 Range/Units 03:04 Troponin I 0.04 H* (< 0.04) ng/mL - ABG Interpretation ABG results: PT/INR, D-dimer PT 14.4 Seconds (9.4-12.1) H 06/07/18 16:38 - Impressions Impressions Echocardiogram 06/07/18 18:48 Impressions: LVEF 65%. Normal LV chamber size, wall thickness and function. Mildly dilated right ventricle with normal systolic funciton. Mildly dilated right atrium. Mild tricuspid regurgitation. No pulmonary hypertension. Left Ventricular Wall Motion: Rest Echo Findings All wall segments showed normal motion. Findings: Study Quality * Technically sub-optimal due to clinical status. ECG Findings * Sinus rhythm. Left Ventricle * LVEF 65%. * Normal LV chamber size, wall thickness and function. * Normal left ventricular diastolic function. Right Ventricle * Mildly dilated right ventricle with normal systolic funciton. Left Atrium * Normal left atrial size. Right Atrium * Mildly dilated right atrium. Interatrial Septum * Interatrial septum not well evaluated. * No evidence of PFO by color Doppler. Aortic Valve * Aortic valve not well visualized. Cusp number unclear. * No aortic stenosis. * No aortic regurgitation. Mitral Valve * Normal mitral valve structure. * No mitral stenosis. * Trace mitral regurgitation. Tricuspid Valve * Normal tricuspid valve structure. * No tricuspid stenosis. * Mild tricuspid regurgitation. * Estimated RVSP is 26 mmHg. * Estimated RA pressure is 3 mmHg. * No pulmonary hypertension. Pulmonic Valve * Pulmonic valve is not well visualized. * No pulmonic stenosis. * No pulmonic regurgitation. Aorta * Normally sized aortic root. Pericardium * There is no pericardial effusion present. IVC * Normal IVC dimensions and inspiratory collapse. Consult Discharge Plan - Plan Referrals: NONE,PCP [Primary Care Provider] - (1) Sepsis Qualifiers: Sepsis type: sepsis due to unspecified organism Qualified Code(s): A41.9 - Sepsis, unspecified organism (10) Schizophrenia Qualifiers: Schizophrenia type: unspecified Qualified Code(s): F20.9 - Schizophrenia, unspecified
[2018-06-09] MEDS: *HR* Heparin 5,000 UNIT/ML VIAL SQ SCH ×4 (00:05→23:20)
[2018-06-09] MEDS: methylPREDNISolone 125 MG/2 ML VIAL IVP SCH ×5 (00:05→23:20)
[2018-06-09] MEDS: Piperacillin/Tazobactam 3.375 GM in 0.9 % Sodium Chloride Mini Bag 100 ML IVPB SCH ×4 (00:05→23:20)
[2018-06-09] MEDS: Levalbuterol Neb 1.25 MG/3 ML IH SCH ×7 (00:19→23:06)
[2018-06-09 02:08] LABS: Adenovirus Not Detected (Not Detect); Bordetella Pertussis Not Detected (Not Detect); Chlamydophila pneumoniae Not Detected (Not Detect); Coronavirus 229E Not Detected (Not Detect); Coronavirus HKU1 Not Detected (Not Detect); Coronavirus NL63 Not Detected (Not Detect); Coronavirus OC43 Not Detected (Not Detect); Human Metapneumovirus Not Detected (Not Detect); Human Rhinovirus/Enterovirus Not Detected (Not Detect); Influenza A Subtype 2009 H1 Not Detected (Not Detect); Influenza A Untypeable Not Detected (Not Detect); Influenza B Not Detected (Not Detect); Mycoplasma pneumoniae Not Detected (Not Detect); Parainfluenza Virus 1 Not Detected (Not Detect); Parainfluenza Virus 2 Not Detected (Not Detect); Parainfluenza Virus 3 Not Detected (Not Detect); Parainfluenza Virus 4 Not Detected (Not Detect); Respiratory Syncytial Virus Not Detected (Not Detect)
[2018-06-09 04:31] LABS: ABG Base Excess -1 mEq/L (-2 to 3); ABG HCO3 22 mEq/L (21-27); ABG Oxygen Saturation 91 % (95-98); ABG PCO2 29 mmHg (35-45); ABG PH 7.48 pH Units (7.32-7.45); ABG PO2 56 mmHg (85-104); ABG TCO2 23 mEq/L (20-26)
[2018-06-09] MEDS ORDERED: *HR* LORazepam 2 MG/ML VIAL IVP ONE (04:47)
[2018-06-09] MEDS ORDERED: *HR* LORazepam 2 MG/ML VIAL ONE (04:58)
[2018-06-09] MEDS ORDERED: Vancomycin 500 MG in 0.9 % Sodium Chloride Mini Bag 100 ML IVPB ONE (06:00)
[2018-06-09] MEDS: Aspirin Enteric Coated 81 MG Tablet PO SCH (08:22)
[2018-06-09] MEDS: hydrOXYzine pamoate 25 MG CAPSULE PO SCH ×2 (08:22→20:52)
[2018-06-09] MEDS: Nicotine 21 MG PATCH.TD24 TD SCH (08:23)
[2018-06-09] MEDS: Pantoprazole 40 MG VIAL IVP SCH (08:23)
[2018-06-09] MEDS: Diltiazem CD (24hr) 180 MG CAPSULE PO SCH (08:33)
[2018-06-09] MEDS ORDERED: OLANZapine 10 MG TAB.RAPDIS PO SCH (09:00)
[2018-06-09] MEDS: (Breo Ellipta 100-25 Mcg Inh) IH SCH (10:08)
[2018-06-09 10:21] LABS: Basophils % 0.2 %; Hematocrit 30.5 % (35.3-44.9); Hemoglobin 10.5 g/dL (11.5-15.4); Immature Granulocytes % 1.7 % (0-4); Lymphocytes # 0.3 K/mcL (0.6-4.6); Lymphocytes % 5.1 %; Mean Corpuscular HGB Conc 34.4 g/dL (31.6-35.5); Mean Corpuscular Hemoglobin 29.2 pg (28.0-33.3); Mean Corpuscular Volume 84.7 fL (83.0-100.0); Mean Platelet Volume 9.1 fL (9.4-12.4); Monocytes # 0.2 K/mcL (0.0-1.3); Monocytes % 3.5 %; Neutrophils # 5.6 K/mcL (1.6-8.9); Platelet Count 125 K/mcL (140-400); Red Cell Distribution Width 16.5 % (11.5-14.5); Segmented Neutrophils % 89.5 %
--- NOTE | 2018-06-09 10:40 | Pulmonology Consult Note ---
Addendum entered and electronically signed by Catie Mckeon 06/13/18 15:27: Clinically unable to determine type of pneumonia. Original Note: <Manuel Wynn M - Last Filed: 06/09/18 17:08> Date of Encounter: 06/09/18 Medications and Allergies Docusate Sodium [Move It Along] 100 mg PO BID 08/19/16 [History] Haloperidol Decanoate [Haldol Decanoate 100] 125 mg IM Q2W 08/19/16 [History] Folic Acid 1 mg PO DAILY 30 Days tablet 11/09/16 [Rx] hydrOXYzine pamoate [HydrOXYzine Pamoate] 25 mg PO BID 01/09/17 [History] Ferrous Sulfate 325 mg PO BID #60 tablet 01/10/17 [Rx] Pravastatin Sodium [Pravachol] 20 mg PO DAILY #30 01/10/17 [Rx] Fluticasone/Vilanterol [Breo Ellipta 100-25 Mcg INH] 1 puff IH DAILY 02/23/17 [History] Benztropine Mesylate 2 mg PO BID 12/10/17 [History] Albuterol Sulfate [Proair Hfa] 1 puff IH Q4HR PRN #1 inh 12/11/17 [Rx] Ipratropium/Albuterol Neb [Duoneb] 3 ml IH Q6H PRN #30 vial 12/11/17 [Rx] Clopidogrel [Plavix] 75 mg PO DAILY tablet 01/07/18 [Rx] Diltiazem CD (24hr) [Cardizem CD] 180 mg PO DAILY cap.er.24h 01/07/18 [Rx] Lisinopril [Zestril] 10 mg PO DAILY tablet 01/07/18 [Rx] Aspirin 81 mg PO DAILY 06/08/18 [History] Dexamethasone [Decadron] 4 mg IM DAILY 06/08/18 [History] Divalproex Sodium [Depakote Sprinkle] 250 mg PO TID 06/08/18 [History] Escitalopram [Lexapro] 10 mg PO DAILY 06/08/18 [History] MOM Conc [Milk of Magnesia Conc] 30 ml PO DAILY PRN 06/08/18 [History] Megestrol Acetate [Megace] 400 mg PO DAILY 06/08/18 [History] OLANZapine [Zyprexa] 10 mg PO DAILY 06/08/18 [History] Omeprazole [PriLOSEC] 20 mg PO DAILY 06/08/18 [History] cefTRIAXone [Rocephin] 1,000 mg IM DAILY 06/08/18 [History] Allergy/AdvReac Type Severity Reaction Status Date / Time No Known Allergies Allergy Verified 12/03/15 16:32 All Systems: The remainder of the systems were reviewed and are negative Physical Examination Vital Signs: Vital Signs, Last 4 Hours Temp Pulse Resp BP Pulse Ox 06/09/18 16:23 82 13 138/87 95 06/09/18 16:14 97.1 F L 06/09/18 15:59 16 96 06/09/18 15:00 102 18 105/71 95 06/09/18 14:00 90 20 100/85 94 Results - Laboratory Findings CBC and BMP: 06/09/18 10:02 06/09/18 10:02 ABG ABG pH 7.48 pH Units (7.32-7.45) H 06/09/18 04:25 ABG pCO2 29 mmHg (35-45) L 06/09/18 04:25 ABG pO2 56 mmHg (85-104) L 06/09/18 04:25 ABG O2 Saturation 91 % (95-98) L 06/09/18 04:25 PT/INR, D-dimer PT 14.4 Seconds (9.4-12.1) H 06/07/18 16:38 Abnormal lab findings: Abnormal lab results RBC 3.60 M/mcL (3.82-4.97) L 06/09/18 10:02 Hgb 10.5 g/dL (11.5-15.4) L 06/09/18 10:02 Hct 30.5 % (35.3-44.9) L 06/09/18 10:02 RDW 16.5 % (11.5-14.5) H 06/09/18 10:02 Plt Count 125 K/mcL (140-400) L 06/09/18 10:02 MPV 9.1 fL (9.4-12.4) L 06/09/18 10:02 Band Neutrophils % 38.0 % (0-4) H 06/08/18 03:04 Lymphocytes # 0.3 K/mcL (0.6-4.6) L 06/09/18 10:02 Platelet Estimate Decreased (Normal) L 06/08/18 03:04 PT 14.4 Seconds (9.4-12.1) H 06/07/18 16:38 ABG pH 7.48 pH Units (7.32-7.45) H 06/09/18 04:25 ABG pCO2 29 mmHg (35-45) L 06/09/18 04:25 ABG pO2 56 mmHg (85-104) L 06/09/18 04:25 ABG O2 Saturation 91 % (95-98) L 06/09/18 04:25 VBG pCO2 24 mmHg (41-51) L 06/07/18 18:41 VBG pO2 130 mmHg (25-50) H 06/07/18 18:41 VBG HCO3 15 mEq/L (21-27) L 06/07/18 18:41 Sodium 132 mEq/L (136-145) L 06/09/18 10:02 Carbon Dioxide 22 mEq/L (23-29) L 06/09/18 10:02 Creatinine 0.42 mg/dL (0.60-1.20) L 06/09/18 10:02 BUN/Creatinine Ratio 36 (6-26) H 06/09/18 10:02 Glucose 161 mg/dL (70-105) H 06/09/18 10:02 POC Glucose 128 mg/dL (70-99) H 06/09/18 11:24 Calculated Osmolality 278 (280-300) L 06/09/18 10:02 Calcium 8.3 mg/dL (8.6-10.3) L 06/09/18 10:02 Phosphorus 4.6 mg/dL (2.7-4.5) H 06/07/18 16:38 Alkaline Phosphatase 24 Units/L (34-104) L 06/07/18 16:38 Troponin I 0.04 ng/mL (< 0.04) H* 06/08/18 03:04 B-Natriuretic Peptide 554 pg/mL (Less than 100) H 06/07/18 16:38 Serum Total Protein 5.7 g/dL (6.4-8.9) L 06/07/18 16:38 Albumin 3.4 g/dL (3.5-5.7) L 06/07/18 16:38 Globulin 2.3 g/dL (2.4-3.5) L 06/07/18 16:38 Ur Specific [place] 1.008 (1.010-1.025) L 06/07/18 21:00 Urine Protein 30 mg/dL (Neg-Trace) H 06/07/18 21:00 Ur Squamous Epith Cells Many per lpf (None-Few) H 06/07/18 21:00 - Microbiology Findings Microbiology Findings: Microbiology, Last 48 Hours 06/07/18 16:38 Blood Culture - Preliminary Peripheral Venipuncture Culture is incubating and being continuously monitored for growth. Final report to follow. 06/07/18 16:38 Blood Culture - Preliminary Peripheral Venipuncture Culture is incubating and being continuously monitored for growth. Final report to follow. - Clinical Findings Intake & Output: Intake & Output 06/09/18 06/09/18 06/09/18 07:59 15:59 23:59 Intake Total 100 / 100 100 / 100 Output Total 200 / 200 550 / 550 550 / 550 Balance -100 / -100 -450 / -450 -550 / -550 Weight 60.4 kg Consult Discharge Plan - Plan Referrals: NONE,PCP [Primary Care Provider] - - Attending Attestation I examined this patient and my medical decision-making was reviewed with the [place] Physician. I agree with the documented findings, disposition and treatment plan as described except to the extent set forth below. Patient seen and examined. Labs, radiology, chart personally reviewed. 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 Patient is tolerating noninvasive ventilation and we will transition her to nasal cannula as tolerated. Continue empiric antibiotics. Cardiovascular: stable . She does not need any vasopressor at this time. GI: Nutrition per dietary and GI prophylaxis per routine. Liquid diet in case her condition deteriorate and if she would need invasive mechanical to patient. Heme: DVT prophylaxis per routine ID: Continue antibiotics and plan to de-escalation Renal; urine out put and renal funtion reviewed Endorcine: blood glucose is monitored Lines: all lines checked and no evidence of infections Skin: skin care to prevent pressure ulcers per nursing routine care Patient stable enough to be transferred to [facility]. Thank you for consultation. <Catie Mckoen - Last Filed: 06/09/18 17:40> Date of Encounter: 06/09/18 Time of Encounter: 10:40 Assessment and Plan (1) Acute respiratory failure with hypoxia Current Visit: Yes Status: Acute Patient has a history of COPD and presented from [facility] with one week of increasing shortness of breath She is on home oxygen continuously at 2 L nasal cannula Suspect secondary to COPD exacerbation versus healthcare associated pneumonia versus bronchitis versus sepsis Chest x-ray 06/07/18: Reticulonodular opacities in the mid to basilar left lung and less prominently at the right lung base suspicious for pneumonia Chest x-ray 06/09/18: Bronchial wall thickening possibly secondary to smoking- related inflammation, acute bronchitis, or aspiration sequela, no consolidated pneumonia Echocardiogram: LVEF 65%, normal left ventricular size thickness and function, mildly dilated right ventricle with normal systolic function, mildly dilated right atrium, mild tricuspid regurgitation and no pulmonary hypertension. ABG-pH 7.48, PCO2 29, PO2 56, HCO3 22 Blood cultures, sputum culture pending. Respiratory infection panel negative. Has been weaned from CPAP to nasal cannula Currently saturating in the mid 90s on 4 L nasal cannula Continue Xopenex and Symbicort Continue Levaquin, Zosyn, [id number] as able Continue respiratory support as needed (2) Sepsis Current Visit: Yes Status: Acute Patient presented with increasing shortness of breath, on presentation heart rate 130, BP 76/57, lactate 3.9 which then peaked at 6.2 Currently heart rate 113, respiratory rate 18, BP 100/85, lactate 1.7, white blood cells 6.3 Suspect secondary to hospital-acquired pneumonia with COPD exacerbation Blood cultures and sputum cultures pending Continue empiric antibiotics with Levaquin, Zosyn, vancomycin Continue respiratory support as needed Qualifiers: Sepsis type: sepsis due to unspecified organism Qualified Code(s): A41.9 - Sepsis, unspecified organism (3) HCAP (healthcare-associated pneumonia) Current Visit: Yes Status: Acute Patient presented from [facility] with cough, and one week of worsening shortness of breath Chest x-ray 06/07/18: Reticulonodular opacities in the mid to basilar left lung and less prominently at the right lung base suspicious for pneumonia Chest x-ray 06/09/18: Bronchial wall thickening possibly secondary to smoking- related inflammation, acute bronchitis, or aspiration sequela, no consolidated pneumonia Continue empiric coverage with Levaquin, Zosyn, [id number] as able (4) COPD with exacerbation Current Visit: No Status: Acute History of COPD, current smoker. Presented with cough and increasing shortness of breath Continue Xopenex and Symbicort Currently IV Solu-Medrol 80 mg Plan on tapering steroid dose and beginning prednisone PO tomorrow. (5) Atrial fibrillation with RVR Current Visit: Yes Status: Acute History of atrial fibrillation Currently on home dose Cardizem CD 180 mg daily Anticoagulation with aspirin, plavix CHADS-vasc score 3 points, 3.2% stroke risk per year HAS-BLED score 3 points, 5.8% moderate risk for major bleeding Due to higher risk of bleeding, will continue patient on anticoagulation with plavix and aspirin at this time. (6) Elevated troponin Current Visit: Yes Status: Acute Troponins elevated at presentation 0.1, 0.07, 0.04 Suspect elevation secondary to demand ischemia and decreasing respiratory status (7) Hyponatremia Current Visit: Yes Status: Resolved Patient has a history of hyponatremia, review of chart shows previous visits with hyponatremia Upon presentation, sodium at 127 Has been resuscitated with normal saline, sodium currently 132 (8) Depression with anxiety Current Visit: Yes Status: Chronic History of depression and anxiety Home medications Lexapro for depression For anxiety currently on Xanax and hydroxyzine (9) Schizophrenia Current Visit: No Status: Chronic History of schizophrenia Restarted home medication olanzapine Qualifiers: Schizophrenia type: unspecified Qualified Code(s): F20.9 - Schizophrenia, unspecified (10) Leg swelling Current Visit: Yes Status: Acute No leg swelling seen today on exam Extremities bilaterally warm to touch, dorsal pedis pulses symmetrical and 2+, posterior tibial pulses symmetrical and 2+ Denies calf pain or tenderness Homans sign negative Previous notes state Doppler ultrasound asymmetrical extremity edema, however this appears to resolved. (11) DVT prophylaxis Current Visit: Yes Status: Acute Subcutaneous heparin History of Present Illness Consult date: 06/09/18 Reason for consult: hypoxemia Chief complaint: Acute on chronic respiratory failure History of present illness: Edel Lopez is a 67-year-old female who presented from [facility] with worsening shortness of breath over one week. She has a history of COPD and uses 2 L nasal cannula continuously at home and is a current smoker. Past m edical history of atrial fibrillation, cancer, COPD, hyperlipidemia, hypertension, bilateral mastectomy, left oophrectomy for ovarian tumor, schizophrenia. EKG revealed intermittent multifocal atrial tachycardia with heart rate 150 and BP 79/56. Lactate 3.9, 5.6. Hyponatremic with sodium 127. Chest x-ray revealed by lateral reticulonodular opacities suspicious for infectious or hematuria process like pneumonia. Patient was started on Levaquin, Zosyn, vancomycin empirically and fluid resuscitated. Blood cultures pending, sputum culture pending, respiratory panel was negative. Patient was admitted for sepsis and septic shock secondary to healthcare associated pneumonia and COPD exacerbation. Patient refused central venous catheter overnight when her mean arterial pressure declined to 58. Midodrine was given for blood pressure support instead. Today, patient has been saturating in the mid 90s on 4 L nasal cannula, she is intermittently tachycardic, respiratory rate within normal limits and blood pressures have been stable with mean arterial pressure between 80-90. Overnight, patient was having a difficult time sleeping and admits to increased tiredness today. She is currently resting comfortably and intermittently napping, she is oriented to person and place and responsive to questions and commands. Swallow evaluation performed, recommend increasing to mechanically altered diet tomorrow. Will transfer care to hospitalist group and transfer to . Discussed patient care, plan and transfer with hospitalist admitter. 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, tumor in chest, left ovary removed, right arm fracture repair - Social History Smoking Status: Current every day smoker Smokeless Tobacco Status: No Alcohol use: none Drug use: none - Family History Maternal Grandmother Hx Family Cardiac Disorders: Yes (CAD) Mother Adopted: No Family Member Ethnicity: Non- Living Status: Hx Family Cardiac Disorders: No Hx Family Respiratory Disorders: No Hx Family Cancer: Yes (throat cancer) Hx Family GI Disorders: No Hx Family Endocrine Disorder: Yes (KIDNEY DIS) Hx Family Neuromuscular Disorders: No Hx Family Neurologic Disorders: No Hx Family HEENT Disorders: No Hx Family Autoimmune Disorders: No All Systems: The remainder of the systems were reviewed and are negative Review of Systems: Patient denies fever, chills, nausea, vomiting, generalized fatigue, headache, vision or hearing changes, dysphagia, chest pain, pleuritic chest pain, palpitations, edema, abdominal pain, diarrhea, constipation, dysuria, frequency bruising, joint pain or rashes, ulcers, parathesias or focal deficits. She admits to shortness of breath and nonproductive cough. Physical Examination Vital Signs: Vital Signs, Last 4 Hours Temp Pulse Resp BP Pulse Ox 06/09/18 10:00 86 16 103/69 95 06/09/18 09:12 97.7 F 06/09/18 09:00 105 16 106/80 95 06/09/18 08:00 107 24 107/62 94 06/09/18 07:26 25 107/66 99 06/09/18 07:00 102 24 107/66 94 Gen.: Vitals noted. No acute distress. AAOx2, resting comfortably in bed. HEENT: PERRL/EOMI, oropharynx clear, Normocephalic, atraumatic, MMM, missing lower teeth noted. Neck: Supple. No adenopathy. Trachea is midline Cardiac: Tachycardic, irregular rate, no murmur, +S1/S2, No BLE edema. Radial and dorsal pedis pulses 2+ and symmetrical, capillary refill less than 2 seconds in all [place]. Pulmonary: CTA bilaterally, no wheezes, rales or rhonchi, equal chest expansion, unlabored breathing Abdomen: soft, nontender, BS noted, no guarding, no palpable HSM Back: Nontender throughout. Skin: warm and dry, no visible lesions. MSK: ROM intact, no joint swelling noted, gait no assessed while in bed. Non tender calf or clubbing Neuro: A&Ox2, moves all extremities, Speech is mumbled but understandable, sensation intact, CN 2-12 grossly intact. Psych: A&O 2, pleasant and responsive to questions and commands. Results - Laboratory Findings CBC and BMP: 06/09/18 10:02 06/09/18 10:02 ABG ABG pH 7.48 pH Units (7.32-7.45) H 06/09/18 04:25 ABG pCO2 29 mmHg (35-45) L 06/09/18 04:25 ABG pO2 56 mmHg (85-104) L 06/09/18 04:25 ABG O2 Saturation 91 % (95-98) L 06/09/18 04:25 PT/INR, D-dimer PT 14.4 Seconds (9.4-12.1) H 06/07/18 16:38 Abnormal lab findings: Abnormal lab results RBC 3.60 M/mcL (3.82-4.97) L 06/09/18 10:02 Hgb 10.5 g/dL (11.5-15.4) L 06/09/18 10:02 Hct 30.5 % (35.3-44.9) L 06/09/18 10:02 RDW 16.5 % (11.5-14.5) H 06/09/18 10:02 Plt Count 125 K/mcL (140-400) L 06/09/18 10:02 MPV 9.1 fL (9.4-12.4) L 06/09/18 10:02 Band Neutrophils % 38.0 % (0-4) H 06/08/18 03:04 Lymphocytes # 0.3 K/mcL (0.6-4.6) L 06/09/18 10:02 Platelet Estimate Decreased (Normal) L 06/08/18 03:04 PT 14.4 Seconds (9.4-12.1) H 06/07/18 16:38 ABG pH 7.48 pH Units (7.32-7.45) H 06/09/18 04:25 ABG pCO2 29 mmHg (35-45) L 06/09/18 04:25 ABG pO2 56 mmHg (85-104) L 06/09/18 04:25 ABG O2 Saturation 91 % (95-98) L 06/09/18 04:25 VBG pCO2 24 mmHg (41-51) L 06/07/18 18:41 VBG pO2 130 mmHg (25-50) H 06/07/18 18:41 VBG HCO3 15 mEq/L (21-27) L 06/07/18 18:41 Sodium 130 mEq/L (136-145) L 06/08/18 08:16 Carbon Dioxide 20 mEq/L (23-29) L 06/08/18 08:16 Creatinine 0.55 mg/dL (0.60-1.20) L 06/08/18 08:16 BUN/Creatinine Ratio 33 (6-26) H 06/08/18 08:16 Glucose 141 mg/dL (70-105) H 06/08/18 08:16 POC Glucose 155 mg/dL (70-99) H 06/08/18 11:15 Calculated Osmolality 274 (280-300) L 06/08/18 08:16 Phosphorus 4.6 mg/dL (2.7-4.5) H 06/07/18 16:38 Alkaline Phosphatase 24 Units/L (34-104) L 06/07/18 16:38 Troponin I 0.04 ng/mL (< 0.04) H* 06/08/18 03:04 B-Natriuretic Peptide 554 pg/mL (Less than 100) H 06/07/18 16:38 Serum Total Protein 5.7 g/dL (6.4-8.9) L 06/07/18 16:38 Albumin 3.4 g/dL (3.5-5.7) L 06/07/18 16:38 Globulin 2.3 g/dL (2.4-3.5) L 06/07/18 16:38 Ur Specific [place] 1.008 (1.010-1.025) L 06/07/18 21:00 Urine Protein 30 mg/dL (Neg-Trace) H 06/07/18 21:00 Ur Squamous Epith Cells Many per lpf (None-Few) H 06/07/18 21:00 - Microbiology Findings Microbiology Findings: Microbiology, Last 48 Hours 06/07/18 16:38 Blood Culture - Preliminary Peripheral Venipuncture Culture is incubating and being continuously monitored for growth. Final report to follow. 06/07/18 16:38 Blood Culture - Preliminary Peripheral Venipuncture Culture is incubating and being continuously monito red for growth. Final report to follow. - Clinical Findings Intake & Output: Intake & Output 06/08/18 06/09/18 06/09/18 23:59 07:59 15:59 Intake Total 500 / 500 100 / 100 Output Total 325 / 325 400 / 400 200 / 200 Balance 175 / 175 -300 / -300 -200 / -200 Weight 60.4 kg
[2018-06-09 10:43] LABS: BUN/Creatinine Ratio 36 (6-26); Blood Urea Nitrogen 15 mg/dL (8-23); Calcium 8.3 mg/dL (8.6-10.3); Carbon Dioxide 22 mEq/L (23-29); Chloride 103 mEq/L (98-107); Glucose 161 mg/dL (70-105); Osmolality,Calculated 278 (280-300); Potassium 3.7 mEq/L (3.5-5.1); Sodium 132 mEq/L (136-145); eGFR For Non-African Americans > 60 (> 60)
[2018-06-09] MEDS ORDERED: Budesonide/Formoterol 160/4.5 1 PUFF INH IH SCH (11:15)
[2018-06-09] MEDS ORDERED: Naloxone 0.4 MG/ML INJ IVP PRN (19:14)
[2018-06-09] MEDS ORDERED: ALPRAZolam 0.5 MG TABLET PO PRN (19:14)
[2018-06-09] MEDS: Budesonide/Formoterol 160/4.5 1 PUFF INH IH SCH (19:40)
[2018-06-09] MEDS: Levofloxacin 750 MG/150 ML 750 MG/150 ML BAG IVPB SCH (20:55)
[2018-06-10] MEDS: Levalbuterol Neb 1.25 MG/3 ML IH SCH ×6 (03:59→23:35)
[2018-06-10 04:10] LABS: Hematocrit 31.4 % (35.3-44.9); Hemoglobin 10.6 g/dL (11.5-15.4); Immature Granulocytes % 0.7 % (0-4); Lymphocytes # 0.4 K/mcL (0.6-4.6); Lymphocytes % 8.1 %; Mean Corpuscular HGB Conc 33.8 g/dL (31.6-35.5); Mean Corpuscular Hemoglobin 28.8 pg (28.0-33.3); Mean Corpuscular Volume 85.3 fL (83.0-100.0); Monocytes # 0.2 K/mcL (0.0-1.3); Monocytes % 4.6 %; Neutrophils # 3.9 K/mcL (1.6-8.9); Platelet Count 136 K/mcL (140-400); Red Blood Count 3.68 M/mcL (3.82-4.97); Red Cell Distribution Width 16.5 % (11.5-14.5); Segmented Neutrophils % 86.6 %
[2018-06-10 04:30] LABS: BUN/Creatinine Ratio 30 (6-26); Blood Urea Nitrogen 14 mg/dL (8-23); Calcium 8.2 mg/dL (8.6-10.3); Carbon Dioxide 25 mEq/L (23-29); Chloride 108 mEq/L (98-107); Glucose 136 mg/dL (70-105); Osmolality,Calculated 283 (280-300); Potassium 3.3 mEq/L (3.5-5.1); Sodium 135 mEq/L (136-145); eGFR For Non-African Americans > 60 (> 60)
[2018-06-10] MEDS: methylPREDNISolone 125 MG/2 ML VIAL IVP SCH ×3 (05:25→23:13)
[2018-06-10] MEDS: Budesonide/Formoterol 160/4.5 1 PUFF INH IH SCH ×2 (07:20→19:38)
[2018-06-10] MEDS ORDERED: Aminoglycoside Consult 1 EACH MC ONE (07:39)
[2018-06-10] MEDS: *HR* Heparin 5,000 UNIT/ML VIAL SQ SCH ×3 (08:15→23:13)
[2018-06-10] MEDS: Nicotine 21 MG PATCH.TD24 TD SCH (08:15)
[2018-06-10] MEDS: Piperacillin/Tazobactam 3.375 GM in 0.9 % Sodium Chloride Mini Bag 100 ML IVPB SCH ×3 (08:16→23:13)
[2018-06-10] MEDS ORDERED: Pantoprazole 40 MG VIAL IVP SCH (09:00)
[2018-06-10] MEDS: Diltiazem CD (24hr) 180 MG CAPSULE PO SCH (10:18)
[2018-06-10] MEDS: Aspirin Enteric Coated 81 MG Tablet PO SCH (10:18)
[2018-06-10] MEDS: hydrOXYzine pamoate 25 MG CAPSULE PO SCH ×2 (10:18→19:44)
[2018-06-10] MEDS: OLANZapine 10 MG TAB.RAPDIS PO SCH (10:19)
[2018-06-10] MEDS ORDERED: Potassium Chloride Elixir 20 MEQ/15 ML UDC PO ONE (11:41)
[2018-06-10] MEDS: Levofloxacin 750 MG/150 ML 750 MG/150 ML BAG IVPB SCH (19:44)
--- NOTE | 2018-06-10 20:25 | Internal Med Progress Note ---
Hospitalist Progress Note - Encounter Date of Encounter: 06/10/18 Time of Encounter: 20:24 - Subjective Interval History: Pt more alert. She is siting up in a chair. Breathing improved. She denies chest pain. She denies N/V, constipation or diarrhea. She has been afebrile. - Exam Vitals: Temp Pulse Resp BP Pulse Ox 97.4 F L 103 18 129/78 94 06/10/18 19:42 06/10/18 20:00 06/10/18 20:00 06/10/18 20:00 06/10/18 20:00 Exam: CONSTITUTIONAL: Patient appears as an age appropriate female well developed, in no acute distress but drowsy. EYES Clear sclerae, bilateral pupils are equal, reactive to light and accommodation. Extraocular movements are intact RESPIRATORY: accessory muscle use, bilateral rhonchi and scant wheezing to auscultation. CARDIOVASCULAR: Regular heart rate, normal S1 and S2, no murmurs GASTROINTESTINAL: bowel sounds present, soft, no tenderness. No hepatosplenomegaly. No bilateral CVA tenderness MUSCULOSKELETAL: Joints in normal range of motion, no clubbing, +++ edema, no cyanosis. Bilateral peripheral pulses 2+ LYMPHATIC no lymphadenopathy in neck, groin and axilla bilaterally, no thyromegaly. NEUROLOGIC: CN II to XII are grossly intact, no focal neurological deficit. Deep tendon reflexes 2+ bilaterally. Normal light touch sensation to upper and lower extremity PSYCHIATRIC: Oriented x3, with good insight, mood is euthymic. No hallucinations or delusions. SKIN: Skin warm and dry, no rashes, no open wound. - Assessment and Plan (1) Sepsis Current Visit: Yes Status: Acute Assessment and Plan: with HR >130, BP 76/57, lactate 3.9 Blood culture incubating. Urine analysis negative for infection. Ordered levophed due to hypotension but pt responded to fluids and did not require pressor support. Pulmonology also evaluated the patient (2) HCAP (healthcare-associated pneumonia) Current Visit: Yes Status: Acute Assessment and Plan: On Vancomycin, Zosyn, and Levaquin. Blood culture incubating. Sputum culture ordered. Respiratory panel negative Chest x ray XR/XR chest 1V portable IMPRESSION: 1. Reticulonodular opacities in the mid to basilar left lung and less prominently the right lung base, suspicious for an infectious or inflammatory process such as bronchiolitis or pneumonia. 2. Diffuse interstitial prominence likely due to chronic interstitial change. (3) Atrial fibrillation with RVR Current Visit: Yes Status: Acute Assessment and Plan: Patiet has hx of atrial fib but RVR possibly due to respiratory distress and sepsis continue home cardizem Echo EV/EV echocardiogram Impressions: LVEF 65%. Normal LV chamber size, wall thickness and function. Mildly dilated right ventricle with normal systolic funciton. Mildly dilated right atrium. Mild tricuspid regurgitation. No pulmonary hypertension. (4) COPD with exacerbation Current Visit: No Status: Acute Assessment and Plan: IV solumedral, xopenex Q4, contineu home regimen (5) Depression with anxiety Current Visit: Yes Status: Chronic Assessment and Plan: Resume home medication (6) Elevated troponin Current Visit: Yes Status: Acute Assessment and Plan: Likely due to ischemic demand from sepsis (7) Essential hypertension Current Visit: Yes Status: Chronic Assessment and Plan: On Cardizem (8) Hyponatremia Current Visit: Yes Status: Resolved Assessment and Plan: Slowly improving Na improved. (9) Leg swelling Current Visit: Yes Status: Acute Assessment and Plan: Will check duplex to r/o DVT (10) Schizophrenia Current Visit: No Status: Chronic Assessment and Plan: continue home meds DVT Prophylaxis: Heparin - Summary of Assessment and Plan Summary of Assessment and Plan: History of present illness: Dr. Law Ms. Lopez is a 67 year old female atrial fibrillation, cancer, COPD, hyperlipidemia, hypertension presented from [facility] for shortness of breath for 1 week. Patient is alert oriented 3. she said that she has COPD on 2 L nasal cannula continuously at the long term, she smokes a pack a day, she started having dry cough a week ago, then developed SOB, and progressively gotten worse for dyspnea over a week, denies chest pain. She says she is unable to cough up any mucus denies fever or chills. She denies palpation diaphoresis. In the emergency room she was found heart rate 134, blood pressure 79/56. She deceived IV fluids bolus 30 mL per kilo 1. BP improved transiently, then dropped again, she has significant JVD in the bilateral lower extremity edema. She that she has bilateral rhonchi. X-ray showed bilateral pneumonia. patient is going to be admitted to ICU for sepsis and septic shock, will need pressor due to pneumonia and a COPD exacerbation. I discussed code status with the patient , she is full code - Time Spent with Patient Total time spent is greater than 50% in coordination of care (as documented) at patient's floor/unit and/or counseling patient: less than 15 minutes Plan of Care Discussed with: patient Internal Medicine: Result - Labs CBC & Chem 7: 06/11/18 03:37 06/11/18 03:37 Labs: Short CBC 06/10/18 Range/Units 03:44 WBC 4.5 (4.3-11.1) K/mcL Hgb 10.6 L (11.5-15.4) g/dL Hct 31.4 L (35.3-44.9) % Plt Count 136 L (140-400) K/mcL Neutrophils # 3.9 (1.6-8.9) K/mcL BMP 06/10/18 03:44 Sodium 135 L Potassium 3.3 L Chloride 108 H Carbon Dioxide 25 BUN 14 Creatinine 0.46 L Glucose 136 H Calcium 8.2 L - ABG Interpretation ABG results: ABG ABG pH 7.48 pH Units (7.32-7.45) H 06/09/18 04:25 ABG pCO2 29 mmHg (35-45) L 06/09/18 04:25 ABG pO2 56 mmHg (85-104) L 06/09/18 04:25 ABG O2 Saturation 91 % (95-98) L 06/09/18 04:25 PT/INR, D-dimer PT 14.4 Seconds (9.4-12.1) H 06/07/18 16:38 Consult Discharge Plan - Plan Referrals: NONE,PCP [Primary Care Provider] - (1) Sepsis Qualifiers: Sepsis type: sepsis due to unspecified organism Qualified Code(s): A41.9 - Sepsis, unspecified organism (10) Schizophrenia Qualifiers: Schizophrenia type: unspecified Qualified Code(s): F20.9 - Schizophrenia, un specified
--- NOTE | 2018-06-10 20:37 | Electrocardiograph Report ---
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
[2018-06-11] MEDS: Levalbuterol Neb 1.25 MG/3 ML IH SCH ×6 (03:49→23:59)
[2018-06-11 03:54] LABS: Hematocrit 32.3 % (35.3-44.9); Hemoglobin 10.6 g/dL (11.5-15.4); Immature Granulocytes % 0.6 % (0-4); Lymphocytes # 0.4 K/mcL (0.6-4.6); Mean Corpuscular HGB Conc 32.8 g/dL (31.6-35.5); Mean Corpuscular Hemoglobin 28.6 pg (28.0-33.3); Mean Corpuscular Volume 87.1 fL (83.0-100.0); Mean Platelet Volume 9.1 fL (9.4-12.4); Monocytes # 0.2 K/mcL (0.0-1.3); Monocytes % 7.1 %; Neutrophils # 2.7 K/mcL (1.6-8.9); Platelet Count 131 K/mcL (140-400); Red Blood Count 3.71 M/mcL (3.82-4.97); Red Cell Distribution Width 16.7 % (11.5-14.5); Segmented Neutrophils % 81.3 %
[2018-06-11 04:13] LABS: BUN/Creatinine Ratio 28 (6-26); Blood Urea Nitrogen 21 mg/dL (8-23); Calcium 8.8 mg/dL (8.6-10.3); Carbon Dioxide 27 mEq/L (23-29); Chloride 106 mEq/L (98-107); Glucose 206 mg/dL (70-105); Osmolality,Calculated 301 (280-300); Potassium 3.6 mEq/L (3.5-5.1); Sodium 141 mEq/L (136-145); eGFR For Non-African Americans > 60 (> 60)
[2018-06-11] MEDS: Budesonide/Formoterol 160/4.5 1 PUFF INH IH SCH ×2 (07:20→20:21)
[2018-06-11] MEDS: Nicotine 21 MG PATCH.TD24 TD SCH (08:36)
[2018-06-11] MEDS: methylPREDNISolone 125 MG/2 ML VIAL IVP SCH ×2 (08:39→17:21)
[2018-06-11] MEDS: OLANZapine 10 MG TAB.RAPDIS PO SCH (08:39)
[2018-06-11] MEDS: hydrOXYzine pamoate 25 MG CAPSULE PO SCH ×2 (08:39→20:57)
[2018-06-11] MEDS: *HR* Heparin 5,000 UNIT/ML VIAL SQ SCH ×2 (08:39→17:20)
[2018-06-11] MEDS: Diltiazem CD (24hr) 180 MG CAPSULE PO SCH (08:40)
[2018-06-11] MEDS: Piperacillin/Tazobactam 3.375 GM in 0.9 % Sodium Chloride Mini Bag 100 ML IVPB SCH (08:40)
[2018-06-11] MEDS: Aspirin Enteric Coated 81 MG Tablet PO SCH (08:43)
[2018-06-11] MEDS ORDERED: Naloxone 0.4 MG/ML INJ IVP PRN (11:00)
[2018-06-11] MEDS ORDERED: Piperacillin/Tazobactam 3.375 GM in 0.9 % Sodium Chloride Mini Bag 100 ML IVPB SCH (16:00)
--- NOTE | 2018-06-11 18:24 | Internal Med Progress Note ---
Hospitalist Progress Note - Encounter Date of Encounter: 06/11/18 Time of Encounter: 18:21 - Subjective Interval History: Pt more alert. She is siting up in a chair. Breathing improved. She denies chest pain. She denies N/V, constipation or diarrhea. She has been afebrile. She has history of schizophrenia and has a legal guardian. - Exam Vitals: Temp Pulse Resp BP Pulse Ox 97.5 F L 101 22 116/80 96 06/11/18 15:50 06/11/18 16:00 06/11/18 16:00 06/11/18 16:00 06/11/18 16:00 Exam: CONSTITUTIONAL: Patient appears as an age appropriate female well developed, in no acute distress but drowsy. EYES Clear sclerae, bilateral pupils are equal, reactive to light and accommodation. Extraocular movements are intact RESPIRATORY: no accessory muscle use, bilateral rhonchi resolved, occasional wheezing to auscultation. CARDIOVASCULAR: Regular heart rate, normal S1 and S2, no murmurs GASTROINTESTINAL: bowel sounds present, soft, no tenderness. No hepatosplenomegaly. No bilateral CVA tenderness MUSCULOSKELETAL: Joints in normal range of motion, no clubbing, +++ edema, no cyanosis. Bilateral peripheral pulses 2+ LYMPHATIC no lymphadenopathy in neck, groin and axilla bilaterally, no thyromegaly. NEUROLOGIC: CN II to XII are grossly intact, no focal neurological deficit. Deep tendon reflexes 2+ bilaterally. Normal light touch sensation to upper and lower extremity PSYCHIATRIC: Oriented x3, with good insight, mood is euthymic. No hallucinations or delusions. SKIN: Skin warm and dry, no rashes, no open wound. - Assessment and Plan (1) Sepsis Current Visit: Yes Status: Acute Assessment and Plan: with HR >130, BP 76/57, lactate 3.9 Blood culture incubating. Urine analysis negative for infection. Ordered levophed due to hypotension but pt responded to fluids and did not require pressor support. Pulmonology also evaluated the patient. Improving. Discontinuing Vancomycin and Zosyn and continuing levaquin (2) HCAP (healthcare-associated pneumonia) Current Visit: Yes Status: Acute Assessment and Plan: On Vancomycin, Zosyn, and Levaquin. kept Vanc for few days due to + MRSA swab Continue on Levaquin. DC'ed Vanc and Zosyn. Blood culture incubating. Sputum culture ordered. Respiratory panel negative Chest x ray XR/XR chest 1V portable IMPRESSION: 1. Reticulonodular opacities in the mid to basilar left lung and less prominently the right lung base, suspicious for an infectious or inflammatory process such as bronchiolitis or pneumonia. 2. Diffuse interstitial prominence likely due to chronic interstitial change. (3) Atrial fibrillation with RVR Current Visit: Yes Status: Acute Assessment and Plan: Patiet has hx of atrial fib but RVR possibly due to respiratory distress and sepsis continue home cardizem Echo EV/EV echocardiogram Impressions: LVEF 65%. Normal LV chamber size, wall thickness and function. Mildly dilated right ventricle with normal systolic funciton. Mildly dilated right atrium. Mild tricuspid regurgitation. No pulmonary hypertension. (4) COPD with exacerbation Current Visit: No Status: Acute Assessment and Plan: IV solumedral, xopenex Q4, contineu home regimen (5) Depression with anxiety Current Visit: Yes Status: Chronic Assessment and Plan: Resume home medication (6) Elevated troponin Current Visit: Yes Status: Acute Assessment and Plan: Likely due to ischemic demand from sepsis (7) Essential hypertension Current Visit: Yes Status: Chronic Assessment and Plan: On Cardizem (8) Hyponatremia Current Visit: Yes Status: Resolved Assessment and Plan: Slowly improving Na improved. (9) Leg swelling Current Visit: Yes Status: Acute Assessment and Plan: Will check duplex to r/o DVT (10) Schizophrenia Current Visit: No Status: Chronic Assessment and Plan: continue home meds DVT Prophylaxis: Heparin - Summary of Assessment and Plan Summary of Assessment and Plan: History of present illness: Dr. Law Ms. Lopez is a 67 year old female atrial fibrillation, cancer, COPD, hyperlipidemia, hypertension presented from [facility] for shortness of breath for 1 week. Patient is alert oriented 3. she said that she has COPD [facility] 2 L [facility], she smokes a pack a day, she started having dry cough a week ago, then developed SOB, and progressively gotten worse for dyspnea over a week, denies chest pain. She says she is unable to cough up any mucus denies fever or chills. She denies palpation diaphoresis. In the emergency room she was found heart rate 134, blood pressure 79/56. She deceived IV fluids bolus 30 mL per kilo 1. BP improved transiently, then dropped again, she has significant JVD in the bilateral lower extremity edema. She that she has bilateral rhonchi. X-ray showed bilateral pneumonia. patient is going to be admitted to ICU for sepsis and septic shock, will need pressor due to pneumonia and a COPD exacerbation. I discussed code status with the patient , she is full code - Time Spent with Patient Total time spent is greater than 50% in coordination of care (as documented) at patient's floor/unit and/or counseling patient: less than 15 minutes Plan of Care Discussed with: patient Internal Medicine: Result - Labs CBC & Chem 7: 06/11/18 03:37 06/11/18 03:37 Labs: Short CBC 06/11/18 Range/Units 03:37 WBC 3.4 L (4.3-11.1) K/mcL Hgb 10.6 L (11.5-15.4) g/dL Hct 32.3 L (35.3-44.9) % Plt Count 131 L (140-400) K/mcL Neutrophils # 2.7 (1.6-8.9) K/mcL BMP 06/11/18 03:37 Sodium 141 Potassium 3.6 Chloride 106 Carbon Dioxide 27 BUN 21 Creatinine 0.74 Glucose 206 H Calcium 8.8 - ABG Interpretation ABG results: ABG ABG pH 7.48 pH Units (7.32-7.45) H 06/09/18 04:25 ABG pCO2 29 mmHg (35-45) L 06/09/18 04:25 ABG pO2 56 mmHg (85-104) L 06/09/18 04:25 ABG O2 Saturation 91 % (95-98) L 06/09/18 04:25 PT/INR, D-dimer PT 14.4 Seconds (9.4-12.1) H 06/07/18 16:38 Consult Discharge Plan - Plan Referrals: NONE,PCP [Primary Care Provider] - (1) Sepsis Qualifiers: Sepsis type: sepsis due to unspecified organism Qualified Code(s): A41.9 - Sepsis, unspecified organism (10) Schizophrenia Qualifiers: Schizophrenia type: unspecified Qualified Code(s): F20.9 - Schizophrenia, unspecified
[2018-06-11] MEDS ORDERED: Levofloxacin 750 MG/150 ML 750 MG/150 ML BAG IVPB SCH (20:00)
[2018-06-11] MEDS: Divalproex Sodium 125 MG CAPSULE PO SCH (20:47)
[2018-06-12] MEDS: *HR* Heparin 5,000 UNIT/ML VIAL SQ SCH ×3 (00:09→14:45)
[2018-06-12] MEDS: methylPREDNISolone 125 MG/2 ML VIAL IVP SCH ×2 (00:10→08:40)
[2018-06-12] MEDS: Levalbuterol Neb 1.25 MG/3 ML IH SCH ×6 (04:16→23:50)
[2018-06-12 04:36] LABS: Basophils % 0.4 %; Hematocrit 31.5 % (35.3-44.9); Hemoglobin 10.7 g/dL (11.5-15.4); Immature Granulocytes % 6.3 % (0-4); Lymphocytes # 0.4 K/mcL (0.6-4.6); Lymphocytes % 14.7 %; Mean Corpuscular Hemoglobin 28.8 pg (28.0-33.3); Mean Corpuscular Volume 84.7 fL (83.0-100.0); Mean Platelet Volume 8.5 fL (9.4-12.4); Monocytes # 0.3 K/mcL (0.0-1.3); Monocytes % 9.5 %; Platelet Count 134 K/mcL (140-400); Red Blood Count 3.72 M/mcL (3.82-4.97); Red Cell Distribution Width 16.6 % (11.5-14.5); Segmented Neutrophils % 69.1 %
[2018-06-12 04:53] LABS: BUN/Creatinine Ratio 29 (6-26); Blood Urea Nitrogen 20 mg/dL (8-23); Calcium 8.8 mg/dL (8.6-10.3); Carbon Dioxide 28 mEq/L (23-29); Chloride 105 mEq/L (98-107); Glucose 131 mg/dL (70-105); Osmolality,Calculated 296 (280-300); Potassium 3.6 mEq/L (3.5-5.1); Sodium 141 mEq/L (136-145); eGFR For Non-African Americans > 60 (> 60)
[2018-06-12 06:28] LABS: Platelet Estimate Slight Decrease (Normal)
[2018-06-12] MEDS: Budesonide/Formoterol 160/4.5 1 PUFF INH IH SCH ×2 (07:26→20:06)
[2018-06-12] MEDS: hydrOXYzine pamoate 25 MG CAPSULE PO SCH ×2 (08:36→21:25)
[2018-06-12] MEDS: Aspirin Enteric Coated 81 MG Tablet PO SCH (08:37)
[2018-06-12] MEDS: Divalproex Sodium 125 MG CAPSULE PO SCH ×4 (08:38→21:25)
[2018-06-12] MEDS ORDERED: *HR* Metoprolol 5 MG/5 ML VIAL IVP ONE ×2 (08:39)
[2018-06-12] MEDS: Nicotine 21 MG PATCH.TD24 TD SCH (08:40)
[2018-06-12] MEDS ORDERED: OLANZapine 10 MG TAB.RAPDIS PO SCH (09:00)
[2018-06-12] MEDS ORDERED: Diltiazem CD (24hr) 180 MG CAPSULE PO SCH (09:00)
[2018-06-12] MEDS ORDERED: Haloperidol Decanoate 50 MG/ML VIAL IM SCH (10:00)
[2018-06-12] MEDS: levoFLOXacin 750 MG TABLET PO SCH (11:39)
--- NOTE | 2018-06-12 16:58 | Internal Med Progress Note ---
Hospitalist Progress Note - Encounter Date of Encounter: 06/12/18 Time of Encounter: 08:30 - Subjective Interval History: Patient seen and examined at bedside. When I evaluated the patient she was holding her chest but did not appear to be any acute distress. She was alert and would look at me with verbal stimuli however she would not respond to verbal commands. Nursing states that this is her baseline. - Exam Vitals: Temp Pulse Resp BP Pulse Ox 98.0 F 93 18 133/66 94 06/12/18 15:30 06/12/18 15:30 06/12/18 15:30 06/12/18 15:30 06/12/18 15:30 Exam: Gen.: Would not respond to verbal commands but was alert and awake. Was holding her left chest. Heart: Irregularly irregular, tachycardic, no murmurs, rubs, gallops Lungs: Clear to auscultation bilaterally, no rales, rhonchi, wheezes Abdomen: Soft, nontender, nondistended. Normoactive bowel sounds. - Assessment and Plan (1) Atrial fibrillation with RVR Current Visit: Yes Status: Acute Assessment and Plan: Patient had an episode of atrial fibrillation with rapid ventricular response. She was given 5 mg of Lopressor IV and given her oral dose of Cardizem 180 mg. This has improved for heart rate into the 90s. She cannot verbalize any symptoms but she did appear to be clutching her chest at the time of her elevated heart rate so she may have been experiencing some chest discomfort with this. Will increase oral Cardizem to 240 mg for tomorrow. (2) Sepsis Current Visit: Yes Status: Resolved Assessment and Plan: Secondary to pneumonia. Resolved at this time. (3) HCAP (healthcare-associated pneumonia) Current Visit: Yes Status: Acute Assessment and Plan: Patient resides in a shelter. Patient currently on Levaquin monotherapy and continues to improve. Continue for a total 7-10 days. (4) COPD with exacerbation Current Visit: No Status: Acute Assessment and Plan: Overall appears to be improving. We will decrease IV steroids to 40 mg every 12 and transition to by mouth tomorrow. Continue Xopenex, Levaquin (5) Depression with anxiety Current Visit: Yes Status: Chronic Assessment and Plan: Stable. Continue medication. (6) Schizophrenia Current Visit: No Status: Chronic Assessment and Plan: Stable. Patient minimally verbal this morning however this appears to be her baseline per report. Continue home medications (7) Hyponatremia Current Visit: Yes Status: Resolved Assessment and Plan: Resolved (8) Essential hypertension Current Visit: Yes Status: Chronic Assessment and Plan: Blood pressure mildly elevated this morning but has normalized. Continue home medications. - Time Spent with Patient Total time spent is greater than 50% in coordination of care (as documented) at patient's floor/unit and/or counseling patient: Internal Medicine: Result - Labs CBC & Chem 7: 06/12/18 04:11 06/12/18 04:11 Labs: Short CBC 06/12/18 Range/Units 04:11 WBC 2.9 L (4.3-11.1) K/mcL Hgb 10.7 L (11.5-15.4) g/dL Hct 31.5 L (35.3-44.9) % Plt Count 134 L (140-400) K/mcL Neutrophils # 2.0 (1.6-8.9) K/mcL BMP 06/12/18 04:11 Sodium 141 Potassium 3.6 Chloride 105 Carbon Dioxide 28 BUN 20 Creatinine 0.68 Glucose 131 H Calcium 8.8 - ABG Interpretation ABG results: ABG ABG pH 7.48 pH Units (7.32-7.45) H 06/09/18 04:25 ABG pCO2 29 mmHg (35-45) L 06/09/18 04:25 ABG pO2 56 mmHg (85-104) L 06/09/18 04:25 ABG O2 Saturation 91 % (95-98) L 06/09/18 04:25 PT/INR, D-dimer PT 14.4 Seconds (9.4-12.1) H 06/07/18 16:38 Consult Discharge Plan - Plan Referrals: NONE,PCP [Primary Care Provider] - (2) Sepsis Qualifiers: Sepsis type: sepsis due to unspecified organism Qualified Code(s): A41.9 - Sepsis, unspecified organism (6) Schizophrenia Qualifiers: Schizophrenia type: unspecified Qualified Code(s): F20.9 - Schizophrenia, unspecified
[2018-06-12] MEDS: MethylPREDNISolone 40 MG/ML VIAL IVP SCH (17:27)
[2018-06-13] MEDS: *HR* Heparin 5,000 UNIT/ML VIAL SQ SCH ×4 (00:30→23:52)
[2018-06-13] MEDS: Levalbuterol Neb 1.25 MG/3 ML IH SCH ×5 (03:52→19:46)
[2018-06-13 04:17] LABS: Basophils % 0.3 %; Hematocrit 31.8 % (35.3-44.9); Hemoglobin 10.7 g/dL (11.5-15.4); Lymphocytes # 0.7 K/mcL (0.6-4.6); Lymphocytes % 20.4 %; Mean Corpuscular HGB Conc 33.6 g/dL (31.6-35.5); Mean Corpuscular Hemoglobin 28.7 pg (28.0-33.3); Mean Corpuscular Volume 85.3 fL (83.0-100.0); Mean Platelet Volume 8.1 fL (9.4-12.4); Monocytes # 0.3 K/mcL (0.0-1.3); Monocytes % 7.4 %; Neutrophils # 2.3 K/mcL (1.6-8.9); Platelet Count 144 K/mcL (140-400); Red Blood Count 3.73 M/mcL (3.82-4.97); Red Cell Distribution Width 16.4 % (11.5-14.5); Segmented Neutrophils % 66.9 %
[2018-06-13 04:36] LABS: Platelet Estimate Normal (Normal); Polychromasia 1+ (Not Present)
[2018-06-13 04:39] LABS: BUN/Creatinine Ratio 34 (6-26); Blood Urea Nitrogen 22 mg/dL (8-23); Calcium 8.5 mg/dL (8.6-10.3); Carbon Dioxide 30 mEq/L (23-29); Chloride 103 mEq/L (98-107); Glucose 136 mg/dL (70-105); Osmolality,Calculated 299 (280-300); Potassium 3.6 mEq/L (3.5-5.1); Sodium 142 mEq/L (136-145); eGFR For Non-African Americans > 60 (> 60)
[2018-06-13] MEDS: MethylPREDNISolone 40 MG/ML VIAL IVP SCH ×2 (05:17→19:33)
[2018-06-13] MEDS: Budesonide/Formoterol 160/4.5 1 PUFF INH IH SCH ×2 (07:32→19:46)
[2018-06-13] MEDS: Aspirin Enteric Coated 81 MG Tablet PO SCH (08:56)
[2018-06-13] MEDS: hydrOXYzine pamoate 25 MG CAPSULE PO SCH ×2 (08:56→21:47)
[2018-06-13] MEDS: Diltiazem CD (24hr) 240 MG CAPSULE PO SCH (08:56)
[2018-06-13] MEDS: ALPRAZolam 0.5 MG TABLET PO PRN ×2 (08:56→21:59)
[2018-06-13] MEDS: Divalproex Sodium 125 MG CAPSULE PO SCH ×3 (08:56→21:46)
[2018-06-13] MEDS: Nicotine 21 MG PATCH.TD24 TD SCH (08:57)
[2018-06-13 10:40] LABS: Bilirubin,Urine Negative (Negative); Blood,Urine Negative (Negative); Clarity,Urine Cloudy (Clear); Color,Urine Yellow (Yellow); Glucose,Urine (UA) Normal (Normal); Ketones,Urine Negative (Negative); Leukocyte Esterase,Urine Negative (Negative); Nitrite,Urine Negative (Negative); PH,Urine 6.5 pH Units (5.0-8.0); Protein,Urine Negative (Neg-Trace); Specific Gravity,Urine 1.012 (1.010-1.025); Urobilinogen,Urine Normal (Normal)
[2018-06-13 10:41] LABS: Bacteria,Urine None Seen per hpf (None-Few); Hyaline Casts,Urine None Seen per lpf (None-Few); Squamous Epithelial Cell,Urine Moderate per lpf (None-Few)
[2018-06-13 10:57] LABS: Mucus,Urine Few (Few); RBC,Urine 0-3 per hpf (0-3); Yeast,Urine Many per hpf (None Seen)
[2018-06-13] MEDS: levoFLOXacin 750 MG TABLET PO SCH (12:12)
--- NOTE | 2018-06-13 12:30 | Internal Med Progress Note ---
Hospitalist Progress Note - Encounter Date of Encounter: 06/13/18 Time of Encounter: 08:30 - Subjective Interval History: Patient seen and examined at bedside. Patient was much more alert and interacts morning. She did not seem interested in answer questions and requests that I reviewed with her. She did state that she did not have any breathing diff iculties. - Exam Vitals: Temp Pulse Resp BP Pulse Ox 98.9 F 109 20 154/83 95 06/13/18 12:25 06/13/18 12:25 06/13/18 12:25 06/13/18 12:25 06/13/18 12:25 Exam: Gen.: Awake and alert however was not interested in discussing anything with me. She was much more verbal than yesterday. Heart: Irregularly irregular, tachycardic, no murmurs, rubs, gallops Lungs: Clear to auscultation bilaterally, no rales, rhonchi, wheezes Abdomen: Soft, nontender, nondistended. Normoactive bowel sounds. - Assessment and Plan (1) Atrial fibrillation with RVR Current Visit: Yes Status: Acute Assessment and Plan: Heart rate remains elevated but improved. A feel like there is component of anxiety that is also driving her heart rate. Had increased her Cardizem yesterday and this seems to be working well. Continue Cardizem for now and continue to treat anxiety. (2) Sepsis Current Visit: Yes Status: Resolved Assessment and Plan: Secondary to pneumonia. Resolved at this time. (3) HCAP (healthcare-associated pneumonia) Current Visit: Yes Status: Acute Assessment and Plan: Patient resides in a shelter. Patient currently on Levaquin monotherapy. Day 7 of 7 today and discontinue Levaquin. (4) COPD with exacerbation Current Visit: No Status: Acute Assessment and Plan: Overall appears to be improving. Steroids decreased yesterday to centimeter 40 mg IV every 12, we will transition to by mouth prednisone tomorrow for 3 more days. Continue Xopenex, Levaquin (5) Depression with anxiety Current Visit: Yes Status: Chronic Assessment and Plan: Stable. Continue medication. (6) Schizophrenia Current Visit: No Status: Chronic Assessment and Plan: Stable. Patient much more verbal today but did not seem adjusted and discussing anything with me. Continue home medications (7) Hyponatremia Current Visit: Yes Status: Resolved (8) Essential hypertension Current Visit: Yes Status: Chronic DVT Prophylaxis: Heparin 500 units subcutaneous every 8 - Time Spent with Patient Total time spent is greater than 50% in coordination of care (as documented) at patient's floor/unit and/or counseling patient: Internal Medicine: Result - Labs CBC & Chem 7: 06/13/18 04:00 06/13/18 04:00 Labs: Short CBC 06/13/18 Range/Units 04:00 WBC 3.4 L (4.3-11.1) K/mcL Hgb 10.7 L (11.5-15.4) g/dL Hct 31.8 L (35.3-44.9) % Plt Count 144 (140-400) K/mcL Neutrophils # 2.3 (1.6-8.9) K/mcL BMP 06/13/18 04:00 Sodium 142 Potassium 3.6 Chloride 103 Carbon Dioxide 30 H BUN 22 Creatinine 0.64 Glucose 136 H Calcium 8.5 L Urine 06/13/18 Range/Units 10:20 Urine Color Yellow (Yellow) Urine Clarity Cloudy A (Clear) Urine pH 6.5 (5.0-8.0) pH Units Ur Specific [place] 1.012 (1.010-1.025) Urine Protein Negative (Neg-Trace) mg/dL Urine Glucose (UA) Normal (Normal) mg/dL - ABG Interpretation ABG results: ABG ABG pH 7.48 pH Units (7.32-7.45) H 06/09/18 04:25 ABG pCO2 29 mmHg (35-45) L 06/09/18 04:25 ABG pO2 56 mmHg (85-104) L 06/09/18 04:25 ABG O2 Saturation 91 % (95-98) L 06/09/18 04:25 PT/INR, D-dimer PT 14.4 Seconds (9.4-12.1) H 06/07/18 16:38 Consult Discharge Plan - Plan Referrals: NONE,PCP [Primary Care Provider] - (2) Sepsis Qualifiers: Sepsis type: sepsis due to unspecified organism Qualified Code(s): A41.9 - Sepsis, unspecified organism (6) Schizophrenia Qualifiers: Schizophrenia type: unspecified Qualified Code(s): F20.9 - Schizophrenia, unspecified
[2018-06-13] MEDS: OLANZapine 10 MG TAB.RAPDIS PO SCH (21:52)
[2018-06-14] MEDS: Levalbuterol Neb 1.25 MG/3 ML IH SCH ×7 (00:04→23:17)
[2018-06-14 04:59] LABS: Basophils % 0.2 %; Hematocrit 32.9 % (35.3-44.9); Immature Granulocytes % 4.7 % (0-4); Lymphocytes # 0.7 K/mcL (0.6-4.6); Lymphocytes % 14.2 %; Mean Corpuscular HGB Conc 33.4 g/dL (31.6-35.5); Mean Corpuscular Hemoglobin 28.2 pg (28.0-33.3); Mean Corpuscular Volume 84.4 fL (83.0-100.0); Mean Platelet Volume 8.1 fL (9.4-12.4); Monocytes # 0.2 K/mcL (0.0-1.3); Monocytes % 4.5 %; Neutrophils # 3.9 K/mcL (1.6-8.9); Platelet Count 155 K/mcL (140-400); Red Cell Distribution Width 16.3 % (11.5-14.5); Segmented Neutrophils % 76.4 %
[2018-06-14 05:15] LABS: Platelet Estimate Normal (Normal); Reactive Lymphocytes Present (Not Present)
[2018-06-14 05:22] LABS: BUN/Creatinine Ratio 32 (6-26); Blood Urea Nitrogen 22 mg/dL (8-23); Calcium 8.3 mg/dL (8.6-10.3); Carbon Dioxide 31 mEq/L (23-29); Chloride 98 mEq/L (98-107); Glucose 128 mg/dL (70-105); Magnesium 1.7 mg/dL (1.6-2.6); Osmolality,Calculated 289 (280-300); Potassium 3.2 mEq/L (3.5-5.1); Sodium 137 mEq/L (136-145); eGFR For Non-African Americans > 60 (> 60)
[2018-06-14] MEDS: Nicotine 21 MG PATCH.TD24 TD SCH (08:39)
[2018-06-14] MEDS: hydrOXYzine pamoate 25 MG CAPSULE PO SCH ×2 (08:40→20:16)
[2018-06-14] MEDS: Aspirin Enteric Coated 81 MG Tablet PO SCH (08:40)
[2018-06-14] MEDS: ALPRAZolam 0.5 MG TABLET PO PRN ×2 (08:40→20:27)
[2018-06-14] MEDS: Divalproex Sodium 125 MG CAPSULE PO SCH ×3 (08:40→20:16)
[2018-06-14] MEDS: Diltiazem CD (24hr) 240 MG CAPSULE PO SCH (08:40)
[2018-06-14] MEDS: predniSONE 20 MG TABLET PO SCH (08:40)
[2018-06-14] MEDS: *HR* Heparin 5,000 UNIT/ML VIAL SQ SCH ×2 (08:41→15:35)
[2018-06-14] MEDS: Budesonide/Formoterol 160/4.5 1 PUFF INH IH SCH ×2 (11:13→19:53)
--- NOTE | 2018-06-14 15:01 | Internal Med Progress Note ---
Hospitalist Progress Note - Encounter Date of Encounter: 06/14/18 Time of Encounter: 15:00 - Subjective Interval History: pt is havign issues with clear expression - Exam Vitals: Temp Pulse Resp BP Pulse Ox 97.4 F L 94 15 158/93 98 06/14/18 12:13 06/14/18 12:13 06/14/18 12:13 06/14/18 12:13 06/14/18 12:13 Exam: Gen.: Awake and alert however was not interested in discussing anything with me. She was much more verbal than yesterday. Heart: Irregularly irregular, tachycardic, no murmurs, rubs, gallops Lungs: Clear to auscultation bilaterally, no rales, rhonchi, wheezes Abdomen: Soft, nontender, nondistended. Normoactive bowel sounds. DVT Prophylaxis: Heparin 500 units subcutaneous every 8 - Summary of Assessment and Plan Summary of Assessment and Plan: (1) Atrial fibrillation with RVR Current Visit: Yes Status: Acute Assessment and Plan: Heart rate remains elevated but improved. A feel like there is component of anxiety that is also driving her heart rate. Had increased her Cardizem yesterday and this seems to be working well. Continue Cardizem for now and continue to treat anxiety. Pt will added with metoprolol BID as well (2) Sepsis Current Visit: Yes Status: Resolved Assessment and Plan: Secondary to pneumonia. Resolved at this time. (3) HCAP (healthcare-associated pneumonia) Current Visit: Yes Status: Acute Assessment and Plan: Patient resides in a half-way. Patient currently on Levaquin monotherapy. Day 7 of 7 today and discontinue Levaquin. (4) COPD with exacerbation Current Visit: No Status: Acute Assessment and Plan: Overall appears to be improving. Steroids decreased yesterday to centimeter 40 mg IV every 12, we will transition to by mouth prednisone tomorrow for 3 more days. Continue Xopenex, Levaquin (5) Depression with anxiety Current Visit: Yes Status: Chronic Assessment and Plan: Stable. Continue medication. (6) Schizophrenia Current Visit: No Status: Chronic Assessment and Plan: Stable. Patient much more verbal today but did not seem adjusted and discussing anything with me. Continue home medications (7) Hyponatremia Current Visit: Yes Status: Resolved (8) Dispo: Await palcment, will better rate control. Time: 3m5in - Time Spent with Patient Total time spent is greater than 50% in coordination of care (as documented) at patient's floor/unit and/or counseling patient: Internal Medicine: Result - Labs CBC & Chem 7: 06/14/18 04:45 06/14/18 04:45 Labs: Short CBC 06/14/18 Range/Units 04:45 WBC 5.1 (4.3-11.1) K/mcL Hgb 11.0 L (11.5-15.4) g/dL Hct 32.9 L (35.3-44.9) % Plt Count 155 (140-400) K/mcL Neutrophils # 3.9 (1.6-8.9) K/mcL BMP 06/14/18 04:45 Sodium 137 Potassium 3.2 L Chloride 98 Carbon Dioxide 31 H BUN 22 Creatinine 0.68 Glucose 128 H Calcium 8.3 L - ABG Interpretation ABG results: ABG ABG pH 7.48 pH Units (7.32-7.45) H 06/09/18 04:25 ABG pCO2 29 mmHg (35-45) L 06/09/18 04:25 ABG pO2 56 mmHg (85-104) L 06/09/18 04:25 ABG O2 Saturation 91 % (95-98) L 06/09/18 04:25 PT/INR, D-dimer PT 14.4 Seconds (9.4-12.1) H 06/07/18 16:38 Consult Discharge Plan - Plan Referrals: NONE,PCP [Primary Care Provider] -
[2018-06-14] MEDS ORDERED: Potassium Chloride Elixir 20 MEQ/15 ML UDC PO ONE (17:14)
[2018-06-14] MEDS: OLANZapine 10 MG TAB.RAPDIS PO SCH (20:16)
[2018-06-15] MEDS: Levalbuterol Neb 1.25 MG/3 ML IH SCH ×6 (03:33→23:57)
[2018-06-15] MEDS: Budesonide/Formoterol 160/4.5 1 PUFF INH IH SCH ×2 (07:30→19:33)
[2018-06-15] MEDS: ALPRAZolam 0.5 MG TABLET PO PRN ×2 (09:19→20:16)
[2018-06-15] MEDS: *HR* Heparin 5,000 UNIT/ML VIAL SQ SCH ×4 (09:19→23:19)
[2018-06-15] MEDS: Nicotine 21 MG PATCH.TD24 TD SCH (09:19)
[2018-06-15] MEDS: hydrOXYzine pamoate 25 MG CAPSULE PO SCH ×2 (09:19→20:17)
[2018-06-15] MEDS: Diltiazem CD (24hr) 240 MG CAPSULE PO SCH (09:19)
[2018-06-15] MEDS: Aspirin Enteric Coated 81 MG Tablet PO SCH (09:20)
[2018-06-15] MEDS: Divalproex Sodium 125 MG CAPSULE PO SCH ×3 (09:20→20:16)
[2018-06-15] MEDS: predniSONE 20 MG TABLET PO SCH (09:20)
--- NOTE | 2018-06-15 13:03 | Internal Med Progress Note ---
Hospitalist Progress Note - Encounter Date of Encounter: 06/15/18 Time of Encounter: 13:00 - Subjective Interval History: pt is still incoherent - Exam Vitals: Temp Pulse Resp BP Pulse Ox 98.6 F 82 18 133/84 97 06/15/18 10:47 06/15/18 10:47 06/15/18 10:47 06/15/18 10:47 06/15/18 10:47 Exam: Gen.: Awake and alert however was not interested in discussing anything with me. She was much more verbal than yesterday. Heart: Irregularly irregular, tachycardic, no murmurs, rubs, gallops Lungs: Clear to auscultation bilaterally, no rales, rhonchi, wheezes Abdomen: Soft, nontender, nondistended. Normoactive bowel sounds. DVT Prophylaxis: Heparin 500 units subcutaneous every 8 - Summary of Assessment and Plan Summary of Assessment and Plan: (1) Atrial fibrillation with RVR Current Visit: Yes Status: Acute Assessment and Plan: rate controlled now with 50 of metoprolol bid cont 50 now (2) Sepsis Current Visit: Yes Status: Resolved Assessment and Plan: Secondary to pneumonia. Resolved at this time. (3) HCAP (healthcare-associated pneumonia) Current Visit: Yes Status: Acute Assessment and Plan: Patient resides in a half-way. Patient currently on Levaquin monotherapy. Day 7 of 7 today and discontinue Levaquin. (4) COPD with exacerbation Current Visit: No Status: Acute Assessment and Plan: Overall appears to be improving. Steroids decreased yesterday to centimeter 40 mg IV every 12, we will transition to by mouth prednisone tomorrow for 3 more days. Continue Xopenex, Levaquin doing well not wheezing (5) Depression with anxiety Current Visit: Yes Status: Chronic Assessment and Plan: Stable. Continue medication. (6) Schizophrenia Current Visit: No Status: Chronic Assessment and Plan: Stable. Patient much more verbal today but did not seem adjusted and discussing anything with me. Continue home medications (7) Hyponatremia Current Visit: Yes Status: Resolved (8) Dispo: Await palcment, no other active issues Time: 3m5in - Time Spent with Patient Total time spent is greater than 50% in coordination of care (as documented) at patient's floor/unit and/or counseling patient: Internal Medicine: Result - Labs CBC & Chem 7: 06/14/18 04:45 06/14/18 04:45 - ABG Interpretation ABG results: ABG ABG pH 7.48 pH Units (7.32-7.45) H 06/09/18 04:25 ABG pCO2 29 mmHg (35-45) L 06/09/18 04:25 ABG pO2 56 mmHg (85-104) L 06/09/18 04:25 ABG O2 Saturation 91 % (95-98) L 06/09/18 04:25 PT/INR, D-dimer PT 14.4 Seconds (9.4-12.1) H 06/07/18 16:38 Consult Discharge Plan - Plan Referrals: NONE,PCP [Primary Care Provider] - (Patient is from [place])
[2018-06-15] MEDS ORDERED: Potassium Chloride Elixir 20 MEQ/15 ML UDC PO STA (13:17)
[2018-06-15] MEDS: OLANZapine 10 MG TAB.RAPDIS PO SCH (20:17)
[2018-06-16 03:25] LABS: BUN/Creatinine Ratio 39 (6-26); Blood Urea Nitrogen 23 mg/dL (8-23); Carbon Dioxide 33 mEq/L (23-29); Chloride 100 mEq/L (98-107); Glucose 100 mg/dL (70-105); Osmolality,Calculated 292 (280-300); Potassium 3.7 mEq/L (3.5-5.1); Sodium 139 mEq/L (136-145); eGFR For Non-African Americans > 60 (> 60)
[2018-06-16] MEDS: Levalbuterol Neb 1.25 MG/3 ML IH SCH ×6 (03:55→23:45)
[2018-06-16] MEDS: Budesonide/Formoterol 160/4.5 1 PUFF INH IH SCH ×2 (07:10→19:48)
[2018-06-16] MEDS: *HR* Heparin 5,000 UNIT/ML VIAL SQ SCH ×3 (07:56→18:04)
[2018-06-16] MEDS: Diltiazem CD (24hr) 240 MG CAPSULE PO SCH (07:56)
[2018-06-16] MEDS: predniSONE 20 MG TABLET PO SCH (07:56)
[2018-06-16] MEDS: hydrOXYzine pamoate 25 MG CAPSULE PO SCH ×2 (07:56→21:32)
[2018-06-16] MEDS: Aspirin Enteric Coated 81 MG Tablet PO SCH (07:56)
[2018-06-16] MEDS: Divalproex Sodium 125 MG CAPSULE PO SCH ×3 (07:56→21:32)
[2018-06-16] MEDS: Nicotine 21 MG PATCH.TD24 TD SCH (07:56)
--- NOTE | 2018-06-16 09:20 | Discharge Summary ---
- NOTES TO OUTPATIENT PROVIDER Notes to Outpatient Provider: follow up with Pulmonology within 1-2 weeks of hospital discharge. Orders not resulted at time of discharge: Pending orders 06/07/18 18:29 Culture,Sputum with Gram Stain [RM] Stat Date of Encounter: 06/16/18 Time of Encounter: 09:14 - Discharge Diagnosis (1) COPD with exacerbation Priority: Primary Status: Resolved (2) Depression with anxiety Priority: Secondary Status: Chronic (3) Schizophrenia Priority: Secondary Status: Chronic Qualifiers: Schizophrenia type: unspecified Qualified Code(s): F20.9 - Schizophrenia, unspecified (4) Sepsis Priority: Secondary Status: Resolved Qualifiers: Sepsis type: sepsis due to unspecified organism Qualified Code(s): A41.9 - Sepsis, unspecified organism (5) Hyponatremia Priority: Secondary Status: Resolved (6) Atrial fibrillation with RVR Priority: Secondary Status: Resolved (7) Essential hypertension Priority: Secondary Status: Chronic (8) HCAP (healthcare-associated pneumonia) Priority: Secondary Status: Resolved Hospital course: Ms. Lopez is a 67 year old female past medical history atrial fibrillation, cancer, COPD, hyperlipidemia, hypertension presented from [facility] for shortness of breath for 1 week. Patient was found to be hypotensive, tachycardia and have pneumonia, copd exacerbation. Patient was admitted to ICU due to septic shock, patient was resuscitated with IV fluids, and managed with broad spectrum IV antibiotics. Patient completed treatment with antibiotics for pneumonia. Patient acute symptoms resolved, and patient is hemodynamically stable to be transferred back to [facility]. She will be transferred back on a steroid taper. - Time Spent with Patient Total time spent providing and/or coordinating discharge services: Greater than 30 minutes (35) - Discharge Medications Prescriptions: Aspirin Enteric Coated [Aspirin EC] 81 mg PO DAILY 30 Days #30 tablet. Diltiazem CD (24hr) [Cardizem CD] 240 mg PO DAILY 30 Days #30 cap.er.24h Metoprolol [Lopressor] 50 mg PO BID 30 Days #60 tablet Home Medications: Docusate Sodium [Move It Along] 100 mg PO BID 08/19/16 [History] Haloperidol Decanoate [Haldol Decanoate 100] 125 mg IM Q2W 08/19/16 [History] Folic Acid 1 mg PO DAILY 30 Days tablet 11/09/16 [Rx] hydrOXYzine pamoate [HydrOXYzine Pamoate] 25 mg PO BID 01/09/17 [History] Ferrous Sulfate 325 mg PO BID #60 tablet 01/10/17 [Rx] Pravastatin Sodium [Pravachol] 20 mg PO DAILY #30 01/10/17 [Rx] Fluticasone/Vilanterol [Breo Ellipta 100-25 Mcg INH] 1 puff IH DAILY 02/23/17 [History] Benztropine Mesylate 2 mg PO BID 12/10/17 [History] Albuterol Sulfate [Proair Hfa] 1 puff IH Q4HR PRN #1 inh 12/11/17 [Rx] Ipratropium/Albuterol Neb [Duoneb] 3 ml IH Q6H PRN #30 vial 12/11/17 [Rx] Clopidogrel [Plavix] 75 mg PO DAILY tablet 01/07/18 [Rx] Lisinopril [Zestril] 10 mg PO DAILY tablet 01/07/18 [Rx] Aspirin 81 mg PO DAILY 06/08/18 [History] Dexamethasone [Decadron] 4 mg IM DAILY 06/08/18 [History] Divalproex Sodium [Depakote Sprinkle] 250 mg PO TID 06/08/18 [History] Escitalopram [Lexapro] 10 mg PO DAILY 06/08/18 [History] MOM Conc [MILK OF MAGNESIA conc] 30 ml PO DAILY PRN 06/08/18 [History] Megestrol Acetate [Megace] 400 mg PO DAILY 06/08/18 [History] OLANZapine [Zyprexa] 10 mg PO DAILY 06/08/18 [History] Omeprazole [PriLOSEC] 20 mg PO DAILY 06/08/18 [History] Aspirin Enteric Coated [Aspirin EC] 81 mg PO DAILY 30 Days #30 tablet. 06/16/18 [Rx] Diltiazem CD (24hr) [Cardizem CD] 240 mg PO DAILY 30 Days #30 cap.er.24h 06/16/18 [Rx] Metoprolol [Lopressor] 50 mg PO BID 30 Days #60 tablet 06/16/18 [Rx] Allergies/Adverse Reactions: Allergy/AdvReac Type Severity Reaction Status Date / Time No Known Allergies Allergy Verified 12/03/15 16:32 Date of admission: 06/07/18 18:34 Primary care physician: PCP NONE Consults: 06/07/18 18:39 Consult to Nurse Navigator [CONS] Routine Comment: pneumonia, COPD 06/12/18 08:40 Consult to Occupational Therapy [CONS] Routine Comment: Evaluate, develop and implement POC Reason for Consult: needs eval for pre cert to rtn to [facility] Does patient have active BEDREST order?: No Is patient medically & hemodynamically stable?: Yes Consult to Physical Therapy [CONS] Routine Comment: Evaluate, develop and implement POC Reason for Consult: needs eval for pre cert to rtn to [facility] Does patient have active BEDREST order?: No Is patient medically & hemodynamically stable?: Yes 06/12/18 08:41 Consult to Flat Polisher [CONS] Routine Reason for SW Consult: return to [facility] - Constitutional Vitals: Temp Pulse Resp BP Pulse Ox 98.6 F 76 16 126/73 89 06/16/18 07:32 06/16/18 07:32 06/16/18 07:32 06/16/18 07:32 06/16/18 07:32 General appearance: Present: A&O X 3, severe distress Exam: Vitals: Reviewed General: Alert and oriented x3. No distress Skin: Normal color, no rash, no lesions. HEENT: EOM, pupils equal, round and reactive. Cardiovascular: irregularly, irrregular, normal S1 & S2, no rubs, murmurs or gallops. No JVD. Pulse regular. Lungs: CTA b/l, no wheezes or crackles. Abdomen: Soft, non-tender, no rigidity. Extremities: No deformity, no edema or tenderness, no joint swelling or clubbing. Neurological: CN II-XII intact. Rest of the physical exam is non contributory - Patient Status Disposition: Transfer LTC Condition: Fair Functional capacity at discharge: uses cane/walker Overall status at discharge: patient is progressing back to baseline - Discharge Instructions Follow Up With: NONE,PCP [Primary Care Provider] - (Patient is from [place]) - Diet and Activity Activity: as per physical therapy Diet: low salt diet
[2018-06-16] MEDS: ALPRAZolam 0.5 MG TABLET PO PRN (17:59)
[2018-06-16] MEDS: OLANZapine 10 MG TAB.RAPDIS PO SCH (21:32)
[2018-06-17] MEDS: *HR* Heparin 5,000 UNIT/ML VIAL SQ SCH ×2 (00:39→10:24)
[2018-06-17] MEDS: Levalbuterol Neb 1.25 MG/3 ML IH SCH ×4 (03:37→15:18)
[2018-06-17] MEDS: Budesonide/Formoterol 160/4.5 1 PUFF INH IH SCH (07:22)
[2018-06-17] MEDS: Diltiazem CD (24hr) 240 MG CAPSULE PO SCH (10:24)
[2018-06-17] MEDS: Divalproex Sodium 125 MG CAPSULE PO SCH (10:24)
[2018-06-17] MEDS: Nicotine 21 MG PATCH.TD24 TD SCH (10:24)
[2018-06-17] MEDS: predniSONE 20 MG TABLET PO SCH (10:25)
[2018-06-17] MEDS: hydrOXYzine pamoate 25 MG CAPSULE PO SCH (10:25)
[2018-06-17] MEDS: Aspirin Enteric Coated 81 MG Tablet PO SCH (10:25)
[2018-06-17 11:26] VITALS: BP 112/67
--- NOTE | 2018-06-17 14:56 | Physician Discharge Referral ---
ExtendedCare Referral Info Institutional Level of Care: Skilled - Transfer Medications Prescriptions: Aspirin Enteric Coated [Aspirin EC] 81 mg PO DAILY 30 Days #30 tablet.dr Mónica PITTMAN (24hr) [Cardizem CD] 240 mg PO DAILY 30 Days #30 cap.er.24h Metoprolol [Lopressor] 50 mg PO BID 30 Days #60 tablet Home Medications: Docusate Sodium [Move It Along] 100 mg PO BID 08/19/16 [History] Haloperidol Decanoate [Haldol Decanoate 100] 125 mg IM Q2W 08/19/16 [History] Folic Acid 1 mg PO DAILY 30 Days tablet 11/09/16 [Rx] hydrOXYzine pamoate [HydrOXYzine Pamoate] 25 mg PO BID 01/09/17 [History] Ferrous Sulfate 325 mg PO BID #60 tablet 01/10/17 [Rx] Pravastatin Sodium [Pravachol] 20 mg PO DAILY #30 01/10/17 [Rx] Fluticasone/Vilanterol [Breo Ellipta 100-25 Mcg INH] 1 puff IH DAILY 02/23/17 [History] Benztropine Mesylate 2 mg PO BID 12/10/17 [History] Albuterol Sulfate [Proair Hfa] 1 puff IH Q4HR PRN #1 inh 12/11/17 [Rx] Ipratropium/Albuterol Neb [Duoneb] 3 ml IH Q6H PRN #30 vial 12/11/17 [Rx] Clopidogrel [Plavix] 75 mg PO DAILY tablet 01/07/18 [Rx] Lisinopril [Zestril] 10 mg PO DAILY tablet 01/07/18 [Rx] Aspirin 81 mg PO DAILY 06/08/18 [History] Dexamethasone [Decadron] 4 mg IM DAILY 06/08/18 [History] Divalproex Sodium [Depakote Sprinkle] 250 mg PO TID 06/08/18 [History] Escitalopram [Lexapro] 10 mg PO DAILY 06/08/18 [History] MOM Conc [MILK OF MAGNESIA conc] 30 ml PO DAILY PRN 06/08/18 [History] Megestrol Acetate [Megace] 400 mg PO DAILY 06/08/18 [History] OLANZapine [Zyprexa] 10 mg PO DAILY 06/08/18 [History] Omeprazole [PriLOSEC] 20 mg PO DAILY 06/08/18 [History] Aspirin Enteric Coated [Aspirin EC] 81 mg PO DAILY 30 Days #30 tablet.dr 06/16/18 [Rx] Diltiazem CD (24hr) [Cardizem CD] 240 mg PO DAILY 30 Days #30 cap.er.24h 06/16/18 [Rx] Metoprolol [Lopressor] 50 mg PO BID 30 Days #60 tablet 06/16/18 [Rx] Allergies/Adverse Reactions: Allergy/AdvReac Type Severity Reaction Status Date / Time No Known Allergies Allergy Verified 12/03/15 16:32 - Respiratory Orders Smoking Cessation: Smoking cessation has been advised. For more information, call the [place] Tobacco Quit Line at 9-397-AKMINOW. CERTIFICATION: I certify that the transfer of the above named patient to an Extended Care Facility is necessary for the continuing treatment of the diagnosis listed. The above information is true and accurate reflection of patient's current condition. Confidential - Redisclosure prohibited without a patient's written consent.
== END 2018-06-17 15:50 | DRG 720 ==
LOC: EMEROOARM 15:34 → SUATTDRO 18:34 → ICNU 18:34 → 2ANU 06-11 18:56
PROVIDERS: ADMIT Student in an Organized Health Care Education/Training Program; ATTEND Hospitalist